=== PATIENT | male | born 1965 | race Caucasian/White ===

== ENCOUNTER 2018-01-07 18:59 | Inpatient (IN) | payer SELFPAY ==
[2018-01-07] MEDS: MULTIVIT INFUSN,ADULT 4,VIT K 10 ML, THIAMINE 100 MG, FOLIC ACID 1 MG in IV DEXTROSE 5%... IV (19:35)
[2018-01-07 19:47] LABS: ADD MAN DIFF? YES; BASO % 0 % (0-3); EOS % 0 % (0-3); HEMATOCRIT 47.6 % (39.0-53.0); HEMOGLOBIN 16.5 g/dL (13.0-17.5); LYMPH # 0.6 x10^3/uL (1.0-4.8); LYMPH % 3 % (24-48); MEAN CORPUSCULAR HEMOGLOBIN 32 pg (25-35); MEAN CORPUSCULAR HGB CONC 35 g/dL (31-37); MEAN CORPUSCULAR VOLUME 93 fL (79-100); MONO # 1.2 x10^3/uL (0.0-1.1); MONO % 6 % (0-9); NEUT # 17.8 x10^3uL (1.8-7.7); NEUT % 91 % (31-73); PLATELET COUNT 152 x10^3/uL (140-400); RED BLOOD COUNT 5.11 x10^6/uL (4.30-5.70); RED CELL DISTRIBUTION WIDTH 13.5 % (11.5-14.5); WHITE BLOOD COUNT 19.7 x10^3/uL (4.0-11.0)
[2018-01-07 19:49] LABS: ANION GAP 17 (6-14); BLOOD UREA NITROGEN 14 mg/dL (8-26); BUN/CREATININE RATIO 12 (6-20); CARBON DIOXIDE 23 mmol/L (21-32); CHLORIDE 92 mmol/L (98-107); CREATININE 1.2 mg/dL (0.7-1.3); GFR 64.1; GLUCOSE 198 mg/dL (70-99); POTASSIUM 4.3 mmol/L (3.5-5.1); SODIUM 132 mmol/L (136-145)
[2018-01-07 19:57] LABS: ALBUMIN 4.3 g/dL (3.4-5.0); ALK PHOS 103 U/L (46-116); ALT (SGPT) 28 U/L (16-63); AST (SGOT) 31 U/L (15-37); TOTAL PROTEIN 8.7 g/dL (6.4-8.2)
[2018-01-07 20:00] LABS: TROPONINI 0.104 ng/mL (0.000-0.055)
[2018-01-07 20:04] LABS: CKMB MASS 3.8 ng/mL (0.0-3.6); CREATINE KINASE 126 U/L (39-308)
[2018-01-07] MEDS: hydrALAZINE 20 MG/ML VIAL. IVP (20:12)
[2018-01-07 20:21] LABS: % ATYL 5 % (0-0); % BANDS 5 % (0-9); % LYMPHS 3 % (24-48); % METAS 1 % (0-0); % MONOS 7 % (0-10); % SEGS 79 % (35-66)
[2018-01-07 20:22] LABS: PLT ESTIMATE ADEQUATE (ADEQUATE)
[2018-01-07 20:24] LABS: LIPASE 2549 U/L (73-393)
[2018-01-07] MEDS: IV NORMAL SALINE 1000ML BAG 1,000 ML IV (21:11)
[2018-01-07] MEDS ORDERED: ONDANSETRON PF 4 MG/2 ML VIAL. IV (21:15)
[2018-01-07] MEDS ORDERED: IV NORMAL SALINE 1000ML BAG 1,000 ML IV (22:00)
[2018-01-08] MEDS: IV NORMAL SALINE 1000ML BAG 1,000 ML IV ×3 (01:38→22:17)
[2018-01-08 09:40] LABS: ANION GAP 12 (6-14); BLOOD UREA NITROGEN 12 mg/dL (8-26); CALCIUM 8.9 mg/dL (8.5-10.1); CARBON DIOXIDE 23 mmol/L (21-32); CHLORIDE 98 mmol/L (98-107); CHOLESTEROL 168 mg/dL (0-200); CREATININE 0.8 mg/dL (0.7-1.3); GFR 102.3; GLUCOSE 149 mg/dL (70-99); HDLC 47 mg/dL (40-60); LDLC 91 mg/dL (0-100); MAGNESIUM 2.5 mg/dL (1.8-2.4); NON-HDL CHOLESTEROL 121 mg/dL (0-129); POTASSIUM 3.3 mmol/L (3.5-5.1); SODIUM 133 mmol/L (136-145); TRIGLYCERIDES 150 mg/dL (0-150); VLDLC 30 mg/dL (0-40)
[2018-01-08 09:46] LABS: CHOLESTEROL/HDL RATIO 3.6
[2018-01-08 09:47] LABS: NT-PRO BNP 4760 pg/mL (0-124)
[2018-01-08 10:19] LABS: LIPASE 1408 U/L (73-393)
[2018-01-08 10:19] LABS: AMYLASE 105 U/L (25-115)
[2018-01-08] MEDS ORDERED: ASPIRIN 300 MG SUPP.RECT PR (10:30)
[2018-01-08] MEDS ORDERED: POTASSIUM CHLORIDE 20MEQ 50 ML IV (11:30)
[2018-01-08] MEDS: POTASSIUM CHLORIDE 20 MEQ in IV DEXTROSE 5 %-0.2 % NACL 250 ML IV (12:02)
[2018-01-08 12:28] LABS: BILIRUBIN,URINE NEGATIVE (NEG); CLARITY,URINE CLEAR; COLOR,URINE AMBER; GLUCOSE,URINE 100 mg/dL (NEG); NITRITE,URINE NEGATIVE (NEG); PH,URINE 5.5; PROTEIN,URINE 100 mg/dL (NEG-TRACE); UROBILINOGEN,URINE 0.2 mg/dL (0.2 mg/dL)
[2018-01-08 12:35] LABS: BARBITURATES NEG (NEG); BENZODIAZEPINES NEG (NEG); CANNABINOIDS NEG (NEG); COCAINE NEG (NEG); METHADONE NEG (NEG); OPIATES NEG (NEG); PHENCYCLIDINE NEG (NEG)
[2018-01-08 12:36] LABS: AMPHETAMINE/METHAMPHETAMINE NEG (NEG); BACTERIA,URINE 0 /HPF (0-FEW); ETHANOL, URINE NEG (NEG); WBC,URINE OCC /HPF (0-4)
[2018-01-08] MEDS: LORazepam 1 MG TABLET PO ×4 (12:49→23:00)
[2018-01-08] MEDS: PANTOPRAZOLE IV PUSH 40 MG VIAL. IVP ×2 (12:52→17:30)
[2018-01-08] MEDS: cefTRIAXone IV Push 1 GM VIAL. IVP (12:52)
[2018-01-08] MEDS: NICOTINE 21MG PATCH. TD (12:52)
[2018-01-08] MEDS ORDERED: ASPIRIN 325 MG TABLET PO (13:00)
[2018-01-08] MEDS: amLODIPine BESYLATE 10 MG TABLET PO (13:01)
[2018-01-08] MEDS: HEPARIN 25,000UTS/500ML PREMIX 500 ML IV (13:10)
[2018-01-08] MEDS: ASPIRIN ENTERIC COATED 325 MG TABLET.DR. PO (13:30)
[2018-01-08] MEDS: ANTI-COAG MONITOR BY PHARMACY. MC (13:48)
[2018-01-08 14:21] LABS: MRSA BY PCR Negative (Negative)
[2018-01-08] MEDS: hydrALAZINE 20 MG/ML VIAL. IVP ×2 (15:05→20:20)
[2018-01-08] MEDS: CARVEDILOL 6.25 MG TABLET. PO (17:31)
[2018-01-08 19:41] LABS: UNFRACTIONATED HEPARIN TESTING < 0.10 IU/mL (0.30-0.70)
[2018-01-08] MEDS: HEPARIN for IV BOLUS 10,000 UNIT/10 ML VIAL. IV (19:54)
[2018-01-08] MEDS: LACTOBACILLUS RHAMNOSUS GG 1 CAPSULE. PO (21:00)
[2018-01-09 02:05] LABS: UNFRACTIONATED HEPARIN TESTING 0.19 IU/mL (0.30-0.70)
[2018-01-09] MEDS: HEPARIN for IV BOLUS 10,000 UNIT/10 ML VIAL. IV (02:17)
[2018-01-09] MEDS: LORazepam 1 MG TABLET PO ×4 (05:00→16:43)
[2018-01-09] MEDS: IV NORMAL SALINE 1000ML BAG 1,000 ML IV ×2 (06:08→17:00)
[2018-01-09] MEDS: ANTI-COAG MONITOR BY PHARMACY. MC (08:04)
[2018-01-09 09:03] LABS: UNFRACTIONATED HEPARIN TESTING 0.26 IU/mL (0.30-0.70)
[2018-01-09 09:41] LABS: ADD MAN DIFF? NO
[2018-01-09 09:51] LABS: BASO # 0.1 x10^3/uL (0.0-0.2); BASO % 0 % (0-3); EOS % 0 % (0-3); HEMATOCRIT 42.3 % (39.0-53.0); HEMOGLOBIN 14.3 g/dL (13.0-17.5); LYMPH # 1.1 x10^3/uL (1.0-4.8); LYMPH % 6 % (24-48); MEAN CORPUSCULAR HEMOGLOBIN 32 pg (25-35); MEAN CORPUSCULAR HGB CONC 34 g/dL (31-37); MEAN CORPUSCULAR VOLUME 95 fL (79-100); MONO # 1.4 x10^3/uL (0.0-1.1); MONO % 8 % (0-9); NEUT # 14.4 x10^3uL (1.8-7.7); NEUT % 85 % (31-73); PLATELET COUNT 112 x10^3/uL (140-400); RED BLOOD COUNT 4.45 x10^6/uL (4.30-5.70); RED CELL DISTRIBUTION WIDTH 14.3 % (11.5-14.5); WHITE BLOOD COUNT 16.9 x10^3/uL (4.0-11.0)
[2018-01-09] MEDS: LACTOBACILLUS RHAMNOSUS GG 1 CAPSULE. PO ×2 (09:56→22:16)
[2018-01-09] MEDS: CARVEDILOL 6.25 MG TABLET. PO (09:56)
[2018-01-09] MEDS: amLODIPine BESYLATE 10 MG TABLET PO (09:57)
[2018-01-09] MEDS: ASPIRIN ENTERIC COATED 81 MG TABLET.DR. PO (09:58)
[2018-01-09] MEDS: MULTIVIT INFUSN,ADULT 4,VIT K 10 ML, THIAMINE 100 MG, FOLIC ACID 1 MG in IV NORMAL SALI... IV (09:59)
[2018-01-09] MEDS: NICOTINE 21MG PATCH. TD (10:02)
[2018-01-09 10:04] LABS: ALBUMIN 3.2 g/dL (3.4-5.0); ALK PHOS 78 U/L (46-116); ALT (SGPT) 22 U/L (16-63); ANION GAP 14 (6-14); AST (SGOT) 41 U/L (15-37); BLOOD UREA NITROGEN 9 mg/dL (8-26); BUN/CREATININE RATIO 13 (6-20); CALCIUM 7.9 mg/dL (8.5-10.1); CARBON DIOXIDE 23 mmol/L (21-32); CHLORIDE 99 mmol/L (98-107); CREATININE 0.7 mg/dL (0.7-1.3); GFR 119.4; GLUCOSE 96 mg/dL (70-99); LIPASE 461 U/L (73-393); POTASSIUM 3.4 mmol/L (3.5-5.1); SODIUM 136 mmol/L (136-145); TOTAL BILIRUBIN 0.7 mg/dL (0.2-1.0); TOTAL PROTEIN 6.4 g/dL (6.4-8.2)
[2018-01-09] MEDS: PANTOPRAZOLE 40 MG TABLET.DR. PO (10:08)
[2018-01-09 12:21] LABS: TROPONINI 2.352 ng/mL (0.000-0.055)
[2018-01-09] MEDS: cefTRIAXone IV Push 1 GM VIAL. IVP (13:13)
[2018-01-09] MEDS: POTASSIUM CHLORIDE 20 MEQ TABLET.ER. PO (16:39)
[2018-01-09] MEDS: CARVEDILOL 12.5 MG TABLET. PO (16:39)
[2018-01-09] MEDS: ATORVASTATIN CALCIUM 10 MG TABLET. PO (22:16)
[2018-01-10] MEDS: IV NORMAL SALINE 1000ML BAG 1,000 ML IV ×3 (01:00→09:00)
[2018-01-10 04:07] LABS: ADD MAN DIFF? NO
[2018-01-10 04:12] LABS: BASO % 0 % (0-3); EOS % 0 % (0-3); HEMATOCRIT 37.9 % (39.0-53.0); HEMOGLOBIN 13.4 g/dL (13.0-17.5); LYMPH % 14 % (24-48); MEAN CORPUSCULAR HEMOGLOBIN 33 pg (25-35); MEAN CORPUSCULAR HGB CONC 35 g/dL (31-37); MEAN CORPUSCULAR VOLUME 93 fL (79-100); MONO # 1.5 x10^3/uL (0.0-1.1); MONO % 10 % (0-9); NEUT # 10.7 x10^3uL (1.8-7.7); NEUT % 75 % (31-73); PLATELET COUNT 111 x10^3/uL (140-400); RED BLOOD COUNT 4.09 x10^6/uL (4.30-5.70); RED CELL DISTRIBUTION WIDTH 13.9 % (11.5-14.5); WHITE BLOOD COUNT 14.2 x10^3/uL (4.0-11.0)
[2018-01-10 04:48] LABS: ALBUMIN 2.7 g/dL (3.4-5.0); ALBUMIN/GLOBULIN RATIO 0.7 (1.0-1.7); ALK PHOS 69 U/L (46-116); ALT (SGPT) 20 U/L (16-63); ANION GAP 11 (6-14); AST (SGOT) 57 U/L (15-37); BLOOD UREA NITROGEN 6 mg/dL (8-26); BUN/CREATININE RATIO 10 (6-20); CALCIUM 8.1 mg/dL (8.5-10.1); CARBON DIOXIDE 23 mmol/L (21-32); CHLORIDE 97 mmol/L (98-107); CREATININE 0.6 mg/dL (0.7-1.3); GFR 142.6; GLUCOSE 118 mg/dL (70-99); POTASSIUM 3.5 mmol/L (3.5-5.1); SODIUM 131 mmol/L (136-145); TOTAL BILIRUBIN 0.9 mg/dL (0.2-1.0); TOTAL PROTEIN 6.6 g/dL (6.4-8.2)
[2018-01-10] MEDS: REGADENOSON 0.4 MG/5 ML DISP.SYRIN. IV (09:20)
[2018-01-10] MEDS: LACTOBACILLUS RHAMNOSUS GG 1 CAPSULE. PO ×2 (11:08→21:48)
[2018-01-10] MEDS: PANTOPRAZOLE 40 MG TABLET.DR. PO (11:08)
[2018-01-10] MEDS: MULTIVIT INFUSN,ADULT 4,VIT K 10 ML, THIAMINE 100 MG, FOLIC ACID 1 MG in IV NORMAL SALI... IV (11:08)
[2018-01-10] MEDS: ASPIRIN ENTERIC COATED 81 MG TABLET.DR. PO (11:09)
[2018-01-10] MEDS: amLODIPine BESYLATE 10 MG TABLET PO (11:09)
[2018-01-10] MEDS: CARVEDILOL 12.5 MG TABLET. PO ×2 (11:10→17:55)
[2018-01-10] MEDS: NICOTINE 21MG PATCH. TD (12:03)
[2018-01-10] MEDS: cefTRIAXone IV Push 1 GM VIAL. IVP (13:18)
[2018-01-10] MEDS: ATORVASTATIN CALCIUM 10 MG TABLET. PO (21:48)
[2018-01-11] MEDS: IV NORMAL SALINE 1000ML BAG 1,000 ML IV ×2 (01:43→03:55)
[2018-01-11 03:25] LABS: ADD MAN DIFF? NO
[2018-01-11 03:28] LABS: BASO % 0 % (0-3); EOS # 0.1 x10^3/uL (0.0-0.7); EOS % 1 % (0-3); HEMATOCRIT 33.4 % (39.0-53.0); HEMOGLOBIN 11.8 g/dL (13.0-17.5); LYMPH # 1.9 x10^3/uL (1.0-4.8); LYMPH % 18 % (24-48); MEAN CORPUSCULAR HEMOGLOBIN 33 pg (25-35); MEAN CORPUSCULAR HGB CONC 36 g/dL (31-37); MEAN CORPUSCULAR VOLUME 93 fL (79-100); MONO # 1.6 x10^3/uL (0.0-1.1); MONO % 15 % (0-9); NEUT % 66 % (31-73); PLATELET COUNT 122 x10^3/uL (140-400); RED CELL DISTRIBUTION WIDTH 13.3 % (11.5-14.5); WHITE BLOOD COUNT 10.6 x10^3/uL (4.0-11.0)
[2018-01-11 04:17] LABS: ALBUMIN 2.4 g/dL (3.4-5.0); ALBUMIN/GLOBULIN RATIO 0.6 (1.0-1.7); ALK PHOS 64 U/L (46-116); ALT (SGPT) 29 U/L (16-63); ANION GAP 11 (6-14); AST (SGOT) 82 U/L (15-37); BLOOD UREA NITROGEN 10 mg/dL (8-26); BUN/CREATININE RATIO 14 (6-20); CALCIUM 7.9 mg/dL (8.5-10.1); CARBON DIOXIDE 24 mmol/L (21-32); CHLORIDE 100 mmol/L (98-107); CREATININE 0.7 mg/dL (0.7-1.3); GFR 119.4; GLUCOSE 131 mg/dL (70-99); POTASSIUM 3.3 mmol/L (3.5-5.1); SODIUM 135 mmol/L (136-145); TOTAL BILIRUBIN 0.8 mg/dL (0.2-1.0); TOTAL PROTEIN 6.3 g/dL (6.4-8.2)
[2018-01-11] MEDS: CARVEDILOL 12.5 MG TABLET. PO (08:00)
[2018-01-11] MEDS: FOLIC ACID 1 MG TABLET. PO (08:29)
[2018-01-11] MEDS: THIAMINE 100 MG TABLET. PO (08:29)
[2018-01-11] MEDS: LACTOBACILLUS RHAMNOSUS GG 1 CAPSULE. PO (08:29)
[2018-01-11] MEDS: MULTIVITAMIN with MINERAL TABLET. PO (08:30)
[2018-01-11] MEDS: PANTOPRAZOLE 40 MG TABLET.DR. PO (08:30)
[2018-01-11] MEDS: ASPIRIN ENTERIC COATED 81 MG TABLET.DR. PO (08:30)
[2018-01-11] MEDS: amLODIPine BESYLATE 10 MG TABLET PO (08:30)
[2018-01-11] MEDS: NICOTINE 21MG PATCH. TD (08:32)
[2018-01-11] MEDS ORDERED: cefTRIAXone IV Push 1 GM VIAL. IVP (13:00)
== END 2018-01-11 12:50 | disposition home or self-care (01) | DRG 280 ==
LOC: 6 SOUTH 01-11 01:14 → 2 SOUTH 01-09 18:07 → ER 18:59 → 1 WEST ICU 21:00
DX: I21.A1 Myocardial infarction type 2 (principal); K85.20 Alcohol induced acute pancreatitis without necrosis or infection; F10.239 Alcohol dependence with withdrawal, unspecified; W06.XXXA Fall from bed, initial encounter; F17.210 Nicotine dependence, cigarettes, uncomplicated; I10 Essential (primary) hypertension; R73.9 Hyperglycemia, unspecified; I16.0 Hypertensive urgency; Y90.9 Presence of alcohol in blood, level not specified; Z82.49 Family history of ischemic heart disease and other diseases of the circulatory system; Z71.41 Alcohol abuse counseling and surveillance of alcoholic; Z71.6 Tobacco abuse counseling; Y93.89 Activity, other specified; Y92.092 Bedroom in other non-institutional residence as the place of occurrence of the external cause; Y99.8 Other external cause status
CPT/HCPCS: 36415; 71045; 71250; 74150; 78452; 80048; 80053; 80061; 80307; 81001; 82150; 82553; 83690; 83735; 83880; 84484; 85007; 85025; 85520; 87641; 93005; 93017; 93306; 96365; 96374; 96375; 96376; 99285; 99285-25; 99406; A9500; C9113; J0360; J0696; J1644; J1956; J2785; J7030; J7050

== ENCOUNTER 2019-11-13 19:07 | Observation (INO) | payer SELFPAY ==
[~2019-11-13] VITALS: Ht 177.8 cm; Wt 60.1 kg
[~2019-11-13 19:07] MED LIST: AMLO10TA8 PO; ASPI-612 PO; ATOR10TA60 PO; CARV12.511 PO; HYDR-2761 PO; LEVO500T59 PO
--- NOTE | 2019-11-13 19:28 | PHYS DOC ---
Past Medical History Past Medical History: Pancreatitis Past Surgical History: No Surgical History Smoking Status: Current Every Day Smoker Alcohol Use: Heavy Drug Use: None Adult General Chief Complaint Chief Complaint: ALTERED MENTAL STATUS HPI HPI Patient is a 53 year old male with past medical history significant for alcohol abuse for multiple years. Patient presents secondary to concern for possible "stroke like symptoms" that started last night and this morning. Patient states that he has had increasing issues with coordination they got worse overnight but have been present for a couple of weeks now. The patient admits to drinking 3, 32 ounce beers nightly and sometimes more and he has been doing this for an extended period of time. He has history of alcoholic pancreatitis and hypertension but does not take blood pressure medication for this. He denies headache, chest pain, shortness of breath, weakness, slurred speech, blurry vision. Patient states that he is having increased altered with walking and with fine motor movements of the hands. Review of Systems Review of Systems All other ROS is negative unless otherwise stated in HPI Current Medications Current Medications Current Medications Medications (Trade) Dose Ordered Sig/Amara Start Time Stop Time Status Last Admin Dose Admin Acetaminophen (Tylenol) 650 mg PRN Q4HRS PRN 11/13/19 20:45 11/14/19 20:44 Hydralazine HCl (Apresoline Inj) 10 mg 1X ONCE 11/13/19 20:00 11/13/19 20:01 DC 11/13/19 20:04 10 MG Ondansetron HCl (Zofran) 4 mg PRN Q8HRS PRN 11/13/19 20:45 11/14/19 20:44 Sodium Chloride 1,000 ml @ 1,000 mls/hr 1X ONCE 11/13/19 19:30 11/13/19 20:29 DC 11/13/19 19:36 1,000 MLS/HR Thiamine HCl 100 mg/Dextrose 51 ml @ 102 mls/hr 1X ONCE 11/13/19 19:45 11/13/19 20:14 DC 11/13/19 19:37 102 MLS/HR Allergies Allergies Allergies Coded Allergies Type Severity Reaction Last Updated Verified No Known Allergies Allergy Unknown 04/25/15 No Physical Exam Physical Exam See above Constitutional: Well developed, well nourished, no acute distress, non-toxic appearance. [] HENT: Normocephalic, atraumatic, bilateral external ears normal, oropharynx moist, no oral exudates, nose normal. [] Eyes: PERRLA, EOMI, conjunctiva normal, no discharge. [] Neck: Normal range of motion, no tenderness, supple, no stridor. [] Cardiovascular:Heart rate regular rhythm, no murmur [] Lungs & Thorax: Bilateral breath sounds clear to auscultation [] Abdomen: Bowel sounds normal, soft, no tenderness, no masses, no pulsatile masses. [] Skin: Warm, dry, no erythema, no rash. [] Back: No tenderness, no CVA tenderness. [] Extremities: No tenderness, no cyanosis, no clubbing, ROM intact, no edema. [] Neurologic: Alert and oriented X 3, normal motor function, normal sensory function, patient does had some difficulty with finger to nose bilaterally Psychologic: Affect normal, judgement normal, mood normal. [] Current Patient Data Vital Signs Vital Signs Date Time Temp Pulse Resp B/P (MAP) Pulse Ox O2 Delivery O2 Flow Rate FiO2 11/13/19 20:04 84 208/95 11/13/19 19:14 98.0 12 99 Room Air 98.0 Lab Values Laboratory Tests Test 11/13/19 19:27 11/13/19 19:43 11/13/19 20:10 White Blood Count 10.4 x10^3/uL (4.0-11.0) Red Blood Count 4.88 x10^6/uL (4.30-5.70) Hemoglobin 16.1 g/dL (13.0-17.5) Hematocrit 45.5 % (39.0-53.0) Mean Corpuscular Volume 93 fL (79-100) Mean Corpuscular Hemoglobin 33 pg (25-35) Mean Corpuscular Hemoglobin Concent 35 g/dL (31-37) Red Cell Distribution Width 14.3 % (11.5-14.5) Platelet Count 191 x10^3/uL (140-400) Neutrophils (%) (Auto) 58 % (31-73) Lymphocytes (%) (Auto) 31 % (24-48) Monocytes (%) (Auto) 9 % (0-9) Eosinophils (%) (Auto) 2 % (0-3) Basophils (%) (Auto) 1 % (0-3) Neutrophils # (Auto) 6.0 x10^3/uL (1.8-7.7) Lymphocytes # (Auto) 3.2 x10^3/uL (1.0-4.8) Monocytes # (Auto) 0.9 x10^3/uL (0.0-1.1) Eosinophils # (Auto) 0.2 x10^3/uL (0.0-0.7) Basophils # (Auto) 0.1 x10^3/uL (0.0-0.2) Sodium Level 133 mmol/L (136-145) L Potassium Level 4.1 mmol/L (3.5-5.1) Chloride Level 95 mmol/L (98-107) L Carbon Dioxide Level 28 mmol/L (21-32) Anion Gap 10 (6-14) Blood Urea Nitrogen 15 mg/dL (8-26) Creatinine 1.1 mg/dL (0.7-1.3) Estimated GFR (Cockcroft-Gault) 70.6 BUN/Creatinine Ratio 14 (6-20) Glucose Level 126 mg/dL (70-99) H Calcium Level 8.9 mg/dL (8.5-10.1) Total Bilirubin 0.6 mg/dL (0.2-1.0) Aspartate Amino Transferase (AST) 25 U/L (15-37) Alanine Aminotransferase (ALT) 25 U/L (16-63) Alkaline Phosphatase 88 U/L (46-116) Ammonia < 10 mcmol/L (11-34) L Troponin I Quantitative < 0.017 ng/mL (0.000-0.055) Total Protein 7.5 g/dL (6.4-8.2) Albumin 4.1 g/dL (3.4-5.0) Albumin/Globulin Ratio 1.2 (1.0-1.7) Thyroid Stimulating Hormone (TSH) 2.454 uIU/mL (0.358-3.74) Free Thyroxine 1.06 ng/dL (0.76-1.46) Ethyl Alcohol Level < 10 mg/dL (0-10) Glucose (Fingerstick) 114 mg/dL (70-99) H Urine Collection Type Unknown Urine Color Yellow Urine Clarity Clear Urine pH 7.0 Urine Specific [place] <=1.005 Urine Protein Negative mg/dL (NEG-TRACE) Urine Glucose (UA) Negative mg/dL (NEG) Urine Ketones (Stick) Negative mg/dL (NEG) Urine Blood Negative (NEG) Urine Nitrite Negative (NEG) Urine Bilirubin Negative (NEG) Urine Urobilinogen Dipstick 0.2 mg/dL (0.2 mg/dL) Urine Leukocyte Esterase Negative (NEG) Urine RBC Occ /HPF (0-2) Urine WBC 0 /HPF (0-4) Urine Squamous Epithelial Cells Occ /LPF Urine Bacteria 0 /HPF (0-FEW) Urine Opiates Screen Neg (NEG) Urine Methadone Screen Neg (NEG) Urine Barbiturates Neg (NEG) Urine Phencyclidine Screen Neg (NEG) Urine Amphetamine/Methamphetamine Neg (NEG) Urine Benzodiazepines Screen Neg (NEG) Urine Cocaine Screen Neg (NEG) Urine Cannabinoids Screen Neg (NEG) Urine Ethyl Alcohol Neg (NEG) Laboratory Tests 11/13/19 19:27 Laboratory Tests 11/13/19 19:27 EKG EKG []EKG shows a normal sinus rhythm with no ST changes and a heart rate of 80. Radiology/Procedures Radiology/Procedures Exam: CT head INDICATION: Coordination issues TECHNIQUE: Sequential axial images through the head were obtained without the administration of IV contrast. Comparisons: None FINDINGS: No focal parenchymal lesion or hemorrhage is identified. There is no midline shift or sulcal effacement. Extensive confluent hypodensity are noted throughout the white matter. Bilateral lacunar infarcts at the basal ganglia. Chronic appearing infarct at the right cerebellum. No acute vascular territory infarction is identified. Hu-white distinction is preserved. The ventricular system is within normal limits without compression hydrocephalus. The basal cisterns are well maintained. The visualized portions of the paranasal sinuses and mastoid air cells are well-pneumatized. No acute fractures. IMPRESSION: Extensive small vessel ischemic change and areas of chronic infarcts. No acute abnormality is identified. If there are concerns for acute ischemia MRI would better evaluate.[] Course & Med Decision Making Course & Med Decision Making Pertinent Labs and Imaging studies reviewed. (See chart for details) 192: Patient is seen for "altered mental status" and also coordination issues. He has a history of alcohol abuse and admits to drinking up until last night. I suspect his symptoms are likely from chronic alcohol abuse but I will go ahead and get a CT scan of his head. We'll also give him 100 mg of IV thiamine and normal saline. We'll check labs. Physical exam is remarkable only for coordination of bilateral upper extremities. I was unable to visualize him wa lking but nursing staff did report the patient was unsteady on his feet. 2038: This patient's workup is complete at this time and is rather unremarkable. I went in and reevaluated him and had him walk and he is slightly unstable on his feet. His reiterates that the symptoms seemed to worsen last night and throughout the day today. Given the unknown etiology the patient's symptoms we will admit him for observation and consult neurology. Dragon Disclaimer Dragon Disclaimer This electronic medical record was generated, in whole or in part, using a voice recognition dictation system. Departure Departure Impression: Primary Impression: Unsteady gait Additional Impressions: Dysmetria Elevated blood pressure reading History of alcohol abuse Disposition: ADMITTED INPATIENT Admitting Physician: SARAH Condition: STABLE Referrals: NO PCP (PCP) NIHSS Stroke Scale NIH Stroke Scale: NIH Stroke Scale Response (Comments) Value Level of Consciousness: 0 Alert/Responsive 0 LOC Questions: 0 Answers both correctly 0 LOC Commands: 0 Performs both tasks 0 Visual: 0 No visual loss 0 Facial Palsy: 0 Normal, symmetrical 0 Motor - Left Arm 0 No drift 0 Motor - Right Arm 0 No drift 0 Motor - Left Leg 0 No drift 0 Motor: Right Leg 0 No drift 0 Limb Ataxia: 2 Two limbs 2 Sensory: 0 No loss 0 Best Language: 0 Normal 0 Dysathria: 0 Normal 0 Extinction and Inattention: 0 Normal 0 Total 2 Problem Qualifiers NURIA GATES DO Nov 13, 2019 19:28
[2019-11-13] MEDS ORDERED: IV NORMAL SALINE 1000ML BAG 1,000 ML IV ONE (19:30)
[2019-11-13 19:40] LABS: BASO # 0.1 x10^3/uL (0.0-0.2); BASO % 1 % (0-3); EOS # 0.2 x10^3/uL (0.0-0.7); EOS % 2 % (0-3); HEMATOCRIT 45.5 % (39.0-53.0); HEMOGLOBIN 16.1 g/dL (13.0-17.5); LYMPH # 3.2 x10^3/uL (1.0-4.8); LYMPH % 31 % (24-48); MEAN CORPUSCULAR HEMOGLOBIN 33 pg (25-35); MEAN CORPUSCULAR HGB CONC 35 g/dL (31-37); MEAN CORPUSCULAR VOLUME 93 fL (79-100); MONO # 0.9 x10^3/uL (0.0-1.1); MONO % 9 % (0-9); NEUT % 58 % (31-73); PLATELET COUNT 191 x10^3/uL (140-400); RED BLOOD COUNT 4.88 x10^6/uL (4.30-5.70); RED CELL DISTRIBUTION WIDTH 14.3 % (11.5-14.5); WHITE BLOOD COUNT 10.4 x10^3/uL (4.0-11.0)
[2019-11-13] MEDS ORDERED: THIAMINE INJ 100 MG in IV DEXTROSE 5% 50 ML IV ONE (19:45)
[2019-11-13 19:58] LABS: CALCIUM 8.9 mg/dL (8.5-10.1); CREATININE 1.1 mg/dL (0.7-1.3); GFR 70.6; POTASSIUM 4.1 mmol/L (3.5-5.1)
[2019-11-13] MEDS ORDERED: hydrALAZINE 20 MG/ML VIAL. IVP ONE ×2 (20:00→21:15)
[2019-11-13 20:05] LABS: ALBUMIN 4.1 g/dL (3.4-5.0); ALBUMIN/GLOBULIN RATIO 1.2 (1.0-1.7); TOTAL BILIRUBIN 0.6 mg/dL (0.2-1.0); TOTAL PROTEIN 7.5 g/dL (6.4-8.2)
[2019-11-13 20:12] LABS: FREE T4 1.06 ng/dL (0.76-1.46); THYROID STIM HORMONE (TSH) 2.454 uIU/mL (0.358-3.74)
--- NOTE | 2019-11-13 20:14 | RAD ---
Exam: CT head INDICATION: Coordination issues TECHNIQUE: Sequential axial images through the head were obtained without the administration of IV contrast. Comparisons: None FINDINGS: No focal parenchymal lesion or hemorrhage is identified. There is no midline shift or sulcal effacement. Extensive confluent hypodensity are noted throughout the white matter. Bilateral lacunar infarcts at the basal ganglia. Chronic appearing infarct at the right cerebellum. No acute vascular territory infarction is identified. Hu-white distinction is preserved. The ventricular system is within normal limits without compression hydrocephalus. The basal cisterns are well maintained. The visualized portions of the paranasal sinuses and mastoid air cells are well-pneumatized. No acute fractures. IMPRESSION: Extensive small vessel ischemic change and areas of chronic infarcts. No acute abnormality is identified. If there are concerns for acute ischemia MRI would better evaluate. Exposure: One or more of the following in the visualized dose reduction techniques were utilized for this examination: 1. Automated exposure control 2. Adjustment of the MA and/or KV according to patient size Use of iterative of reconstructive technique Electronically signed by: Adeola Rodriguez MD (11/13/2019 8:11 PM) [id number]
[2019-11-13 20:18] LABS: BILIRUBIN,URINE NEGATIVE (NEG); CLARITY,URINE CLEAR; COLOR,URINE YELLOW; NITRITE,URINE NEGATIVE (NEG); PROTEIN,URINE NEGATIVE (NEG-TRACE); UROBILINOGEN,URINE 0.2 mg/dL (0.2 mg/dL)
[2019-11-13 20:23] LABS: BACTERIA,URINE 0 /HPF (0-FEW); RBC,URINE OCC /HPF (0-2); SQUAMOUS EPITHELIAL CELL,UR OCC /LPF; WBC,URINE 0 /HPF (0-4)
[2019-11-13 20:25] LABS: AMPHETAMINE/METHAMPHETAMINE NEG (NEG); BARBITURATES NEG (NEG); BENZODIAZEPINES NEG (NEG); CANNABINOIDS NEG (NEG); COCAINE NEG (NEG); METHADONE NEG (NEG); OPIATES NEG (NEG); PHENCYCLIDINE NEG (NEG)
[2019-11-13] MEDS ORDERED: ACETAMINOPHEN 325 MG TABLET. PO PRN (20:45)
[2019-11-13] MEDS ORDERED: ONDANSETRON PF 4 MG/2 ML VIAL. IV PRN (20:45)
[2019-11-13] MEDS ORDERED: hydrALAZINE 20 MG/ML VIAL. IVP PRN (21:15)
[2019-11-13] MEDS ORDERED: cloNIDine HCL 0.1 MG TABLET PO ONE (21:15)
[2019-11-13] MEDS ORDERED: amLODIPine BESYLATE 5 MG TABLET PO ONE (21:15)
--- NOTE | 2019-11-13 21:53 | HP ---
ADMIT DATE: 11/13/2019 CHIEF COMPLAINT: Mental status change and ataxia and poor coordination. HISTORY OF PRESENT ILLNESS: The patient is a pleasant 53-year-old male who drinks too many beers. He states he drinks three 32-ounce beers each night and many times more than that. He has been doing that for many years. He states he has quit drinking a couple times, but he just simply suffers from chronic alcoholism. He also states he has not been working for the past couple of years so that has increased his alcohol consumption. Now, he has got neurologic symptoms. He has got some ataxia, some dysmetria, he has had some mental status changes. I discussed the case with ER physician. We are going to admit the patient and consult Neurology and do alcohol withdrawal protocol. PAST MEDICAL HISTORY: Pancreatitis, alcoholism, tobacco abuse. ALLERGIES: None. FAMILY HISTORY: Alcoholism. SOCIAL HISTORY: He drinks and smokes. No drugs. He is . States his does not drink. MEDICATIONS: Reviewed, please refer to the MRAD. REVIEW OF SYSTEMS: GENERAL: No history of weight change, weakness or fevers. SKIN: No bruising, hair changes or rashes. EYES: No blurred, double or loss of vision. NOSE AND THROAT: No history of nosebleeds, hoarseness or sore throat. HEART: No history of palpitations, chest pain or shortness of breath on exertion. LUNGS: Denies cough, hemoptysis, wheezing or shortness of breath. GASTROINTESTINAL: Denies changes in appetite, nausea, vomiting, diarrhea or constipation. GENITOURINARY: No history of frequency, urgency, hesitancy or nocturia. NEUROLOGIC: He complains of ataxia, poor coordination, and confusion. PSYCHIATRIC: No history of panic, anxiety or depression. ENDOCRINE: No history of heat or cold intolerance, polyuria or polydipsia. EXTREMITIES: Denies muscle weakness, joint pain, pain on walking or stiffness. PHYSICAL EXAMINATION: VITALS: Within normal limits and are stable. GENERAL: No apparent distress. Alert and oriented. HEENT: Normal cephalic atraumatic, external auditory canals are patent EYES: Extraocular muscles are intact, pupils are equally round and reactive to light and accommodation MUSCULOSKELETAL: Well developed, well nourished, good range of motion ENDOCRINE: No thyromegaly was palpated LYMPHATICS: No cervical chain or axillary nodes were noted HEMATOPOIETIC: No bruising NECK: Supple, no JVD, no thyromegaly was noted. LUNGS: Clear to auscultation in all lung [place] without rhonchi or wheezing. HEART: RRR, S1, S2 present. Peripheral pulses intact, no obvious murmurs were noted. ABDOMEN: Soft, nontender. Positive bowel sounds no organomegaly, normal bowel sounds. EXTREMITIES: Without any cyanosis, clubbing, or edema. Pedal pulses intact, Homans sign is negative. NEUROLOGIC: He has poor coordination with finger to nose touching. He could not stand on his heels or the balls of his feet for than a second or so without nearly falling. All of his neurologic symptoms are symmetrical. There are no asymmetrical stroke signs or any other issues other than some mild confusion. PSYCHIATRIC: Normal affect, normal mood. Stable. SKIN: No ulcerations or rashes, good skin turgor, no jaundice. VASCULAR: Good capillary refill, neurovascular bundle appears to be intact. LABORATORY DATA: White count is 10, hemoglobin 16, platelets are 191. Anion gap is 10. AST 25, ALT 25, alkaline phosphatase 88. Ammonia less than 10, albumin 4.1. Electrolytes: Sodium 132, potassium 4.1, chloride 95, bicarbonate 28, BUN 15, creatinine 1.1, glucose 126. CT of the head shows extensive small vessel disease and areas of chronic infarcts. ASSESSMENT AND PLAN: Dysmetria, mental status change, ataxia; suspect this is all alcohol related. The patient is being admitted. We will consult Neurology, alcohol withdrawal protocol, home meds, deep venous thrombosis prophylaxis and full code. CATHY GARCIA DO DR: DA/amanda JOB#: [id number] / [id number]
[2019-11-13 22:00] VITALS: BP 175/92
[2019-11-14] MEDS ORDERED: LORazepam 1 MG TABLET PO PRN ×2
[2019-11-14] MEDS ORDERED: MULTIVIT INFUSN,ADULT 4,VIT K 10 ML, THIAMINE INJ 100 MG, FOLIC ACID INJ 1 MG in IV NOR... IV SCH (00:15)
--- NOTE | 2019-11-14 03:00 | EKG ---
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
[2019-11-14 03:40] VITALS: BP 152/89
[2019-11-14 07:00] VITALS: BP 144/86
[2019-11-14] MEDS ORDERED: THIAMINE INJ 100 MG in IV DEXTROSE 5% 50 ML IV SCH (09:00)
[2019-11-14 11:00] VITALS: BP 167/85
--- NOTE | 2019-11-14 11:03 | PDOC ---
[facility] PROGRESS NOTE Chief Complaint Chief Complaint Altered Mental Status Ataxic gait Alcohol Use disorder History of Present Illness History of Present Illness 11/14/2019 Pt seen and examined. He is in a better condition today, is able to stand without support and has mobility. Seen with in the room, who notes that alcoholism has been a problem for a number of years. Pt was educated about the effects that alcohol can have on the body and was provided information to help quit, when ready. Pt was advised to lay off the drinking and start a multivita min. PT is stable and will be discharged today with a prescription for Norvasc secondary to blood pressure in the 140s/xs. Will also provide a referral to a pediatrist secondary to b/l corns on feet observed Vitals/I&O Vitals/I&O: Vital Signs Date Time Temp Pulse Resp B/P (MAP) Pulse Ox O2 Delivery O2 Flow Rate FiO2 11/14/19 07:00 98.1 66 18 144/86 (105) 98 Room Air 98.1 I & O 11/13/19 11/13/19 11/14/19 14:59 22:59 06:59 Intake Total 1051 ml 300 ml Balance 1051 ml 300 ml Physical Exam General: Alert, Oriented X3, Cooperative Heart: Regular rate Lungs: Clear Abdomen: Normal bowel sounds Extremities: No clubbing, No cyanosis, Other (b/l corns noted on lateral feet) Skin: No rashes Labs Labs: Laboratory Tests Test 11/13/19 19:27 11/13/19 19:43 11/13/19 20:10 11/14/19 08:40 White Blood Count 10.4 x10^3/uL (4.0-11.0) Red Blood Count 4.88 x10^6/uL (4.30-5.70) Hemoglobin 16.1 g/dL (13.0-17.5) Hematocrit 45.5 % (39.0-53.0) Mean Corpuscular Volume 93 fL (79-100) Mean Corpuscular Hemoglobin 33 pg (25-35) Mean Corpuscular Hemoglobin Concent 35 g/dL (31-37) Red Cell Distribution Width 14.3 % (11.5-14.5) Platelet Count 191 x10^3/uL (140-400) Neutrophils (%) (Auto) 58 % (31-73) Lymphocytes (%) (Auto) 31 % (24-48) Monocytes (%) (Auto) 9 % (0-9) Eosinophils (%) (Auto) 2 % (0-3) Basophils (%) (Auto) 1 % (0-3) Neutrophils # (Auto) 6.0 x10^3/uL (1.8-7.7) Lymphocytes # (Auto) 3.2 x10^3/uL (1.0-4.8) Monocytes # (Auto) 0.9 x10^3/uL (0.0-1.1) Eosinophils # (Auto) 0.2 x10^3/uL (0.0-0.7) Basophils # (Auto) 0.1 x10^3/uL (0.0-0.2) Sodium Level 133 mmol/L (136-145) Potassium Level 4.1 mmol/L (3.5-5.1) Chloride Level 95 mmol/L (98-107) Carbon Dioxide Level 28 mmol/L (21-32) Anion Gap 10 (6-14) Blood Urea Nitrogen 15 mg/dL (8-26) Creatinine 1.1 mg/dL (0.7-1.3) Estimated GFR (Cockcroft-Gault) 70.6 BUN/Creatinine Ratio 14 (6-20) Glucose Level 126 mg/dL (70-99) Calcium Level 8.9 mg/dL (8.5-10.1) Total Bilirubin 0.6 mg/dL (0.2-1.0) Aspartate Amino Transf (AST/SGOT) 25 U/L (15-37) Alanine Aminotransferase (ALT/SGPT) 25 U/L (16-63) Alkaline Phosphatase 88 U/L (46-116) Ammonia < 10 mcmol/L (11-34) Troponin I Quantitative < 0.017 ng/mL (0.000-0.055) Total Protein 7.5 g/dL (6.4-8.2) Albumin 4.1 g/dL (3.4-5.0) Albumin/Globulin Ratio 1.2 (1.0-1.7) Thyroid Stimulating Hormone (TSH) 2.454 uIU/mL (0.358-3.74) Free Thyroxine 1.06 ng/dL (0.76-1.46) Ethyl Alcohol Level < 10 mg/dL (0-10) Glucose (Fingerstick) 114 mg/dL (70-99) Urine Collection Type Unknown Urine Color Yellow Urine Clarity Clear Urine pH 7.0 Urine Specific [place] <=1.005 Urine Protein Negative mg/dL (NEG-TRACE) Urine Glucose (UA) Negative mg/dL (NEG) Urine Ketones (Stick) Negative mg/dL (NEG) Urine Blood Negative (NEG) Urine Nitrite Negative (NEG) Urine Bilirubin Negative (NEG) Urine Urobilinogen Dipstick 0.2 mg/dL (0.2 mg/dL) Urine Leukocyte Esterase Negative (NEG) Urine RBC Occ /HPF (0-2) Urine WBC 0 /HPF (0-4) Urine Squamous Epithelial Cells Occ /LPF Urine Bacteria 0 /HPF (0-FEW) Urine Opiates Screen Neg (NEG) Urine Methadone Screen Neg (NEG) Urine Barbiturates Neg (NEG) Urine Phencyclidine Screen Neg (NEG) Urine Amphetamine/Methamphetamine Neg (NEG) Urine Benzodiazepines Screen Neg (NEG) Urine Cocaine Screen Neg (NEG) Urine Cannabinoids Screen Neg (NEG) Urine Ethyl Alcohol Neg (NEG) Erythrocyte Sedimentation Rate 2 (0-15) Vitamin B12 Level 332 pg/mL (247-911) Assessment and Plan Assessmemt and Plan Problems Medical Problems: (1) Dysmetria Status: Acute (2) Elevated blood pressure reading Status: Acute (3) History of alcohol abuse Status: Acute (4) Unsteady gait Status: Acute Plan: 1. Provided counseling on alcohol cessation, will provide further information for out patient cessation programs 2. Provide referral to pediatrist re: b/l corns on lateral feet 3. Provided Rx for Norvasc secondary to high blood pressure noted 4. Discharge today. Comment Review of Relevant I have reviewed the following items ifrah (where applicable) has been applied. Medications: Current Medications Medications (Trade) Dose Ordered Sig/Amara Route PRN Reason Start Time Stop Time Status Last Admin Dose Admin Sodium Chloride 1,000 ml @ 1,000 mls/hr 1X ONCE IV 11/13/19 19:30 11/13/19 20:29 DC 11/13/19 19:36 Thiamine HCl 100 mg/Dextrose 51 ml @ 102 mls/hr 1X ONCE IV 11/13/19 19:45 11/13/19 20:14 DC 11/13/19 19:37 Hydralazine HCl (Apresoline Inj) 10 mg 1X ONCE IVP 11/13/19 20:00 11/13/19 20:01 DC 11/13/19 20:04 Hydralazine HCl (Apresoline Inj) 10 mg 1X ONCE IVP 11/13/19 21:15 11/13/19 21:16 DC 11/13/19 21:23 Amlodipine Besylate (Norvasc) 10 mg 1X ONCE PO 11/13/19 21:15 11/13/19 21:16 DC 11/13/19 21:22 Clonidine HCl (Catapres) 0.1 mg 1X ONCE PO 11/13/19 21:15 11/13/19 21:16 DC 11/13/19 21:22 Multivitamins 10 ml/Thiamine HCl 100 mg/Folic Acid 1 mg/Sodium Chloride 1,011.2 ml @ 100 mls/ hr DAILY IV 11/14/19 00:15 11/17/19 19:07 11/14/19 00:57 CATHY GARCIA III DO Nov 14, 2019 11:03
--- NOTE | 2019-11-14 11:44 | DS ---
DATE OF DISCHARGE: 11/14/2019 DATE OF DISCHARGE: 11/14/2019 ADMISSION DIAGNOSES: Unsteady gait, dysmetria, and alcoholism. DISCHARGE DIAGNOSIS: Resolving dysmetria. HOSPITAL COURSE: The patient is a pleasant 53-year-old male who drinks too much. He states he drinks three 32-ounce cans of beer nightly. His states he drinks a little more. Basically, he presented with dysmetria. He was unsteady with his gait. He had a poor [id number] touching. This morning, I saw him and examined him. He looks great. He is more stable and he wants to go home. We plan to discharge him to home to quit drinking. DISPOSITION: Home. ACTIVITY: As tolerated. DIET: Low sodium. MEDICATIONS: Please see MRAD. TOTAL TIME: 34 minutes. NIAL Alma Rosa GARCIA DO DR: DA/amanda JOB#: [id number] / [id number]
--- NOTE | 2019-11-14 12:36 | PDOC2 ---
NEUROLOGY CONSULT Date of Admission Date of Admission DATE: 11/14/19 TIME: 12:32 Reason for Consult Reason for Consult: neuro symptoms Referring Physician Referring Physician: Dr. Montano Source Source: Chart review, Patient History of Present Illness History of Present Illness The patient is a 53-year-old right-handed male who has 3 32-ounce beers nightly and came to the emergency department last night because his body has been doing strange things, he says. He has been off balance, he has had some jerking, tremors, and feels like his mental status has changed. He feels better this m orning. There is no history of stroke, seizure, head injury, or delirium tremens. Past Medical History Cardiovascular: HTN Pulmonary: Other (sleep apnea) GI: Constipation, Other (pancreatitis) Psych: Addictions Renal/: Other (urinary retention) Past Surgical History Past Surgical History: Other (metal brooke for right tibia fibula fractures) Family History Family History: Cancer Social History Social History Single, unemployed, alcohol as above, one pack of tobacco a day Current Medications Current Medications Current Medications Sodium Chloride 1,000 ml @ 1,000 mls/hr 1X ONCE IV Last administered on 11/13/19at 19:36; Start 11/13/19 at 19:30; Stop 11/13/19 at 20:29; Status DC Thiamine HCl 100 mg/Dextrose 51 ml @ 102 mls/hr DAILY IV ; Start 11/14/19 at 09:00; Stop 11/13/19 at 19:30; Status DC Thiamine HCl 100 mg/Dextrose 51 ml @ 102 mls/hr 1X ONCE IV Last administered on 11/13/19at 19:37; Start 11/13/19 at 19:45; Stop 11/13/19 at 20:14; Status DC Hydralazine HCl (Apresoline Inj) 10 mg 1X ONCE IVP Last administered on 11/13/19at 20:04; Start 11/13/19 at 20:00; Stop 11/13/19 at 20:01; Status DC Ondansetron HCl (Zofran) 4 mg PRN Q8HRS PRN IV NAUSEA/VOMITING; Start 11/13/19 at 20:45; Stop 11/14/19 at 20:44 Acetaminophen (Tylenol) 650 mg PRN Q4HRS PRN PO FEVER; Start 11/13/19 at 20:45; Stop 11/14/19 at 20:44 Hydralazine HCl (Apresoline Inj) 10 mg 1X ONCE IVP Last administered on 11/13/19at 21:23; Start 11/13/19 at 21:15; Stop 11/13/19 at 21:16; Status DC Amlodipine Besylate (Norvasc) 10 mg 1X ONCE PO Last administered on 11/13/19at 21:22; Start 11/13/19 at 21:15; Stop 11/13/19 at 21:16; Status DC Clonidine HCl (Catapres) 0.1 mg 1X ONCE PO Last administered on 11/13/19at 21:22; Start 11/13/19 at 21:15; Stop 11/13/19 at 21:16; Status DC Hydralazine HCl (Apresoline Inj) 10 mg PRN Q3HRS PRN IVP HYPERTENSION; Start 11/13/19 at 21:15 Multivitamins 10 ml/Thiamine HCl 100 mg/Folic Acid 1 mg/Sodium Chloride 1,011.2 ml @ 100 mls/ hr DAILY IV Last administered on 11/14/19at 00:57; Start 11/14/19 at 00:15; Stop 11/17/19 at 19:07 Lorazepam (Ativan) 4 mg PRN Q1HR PRN PO For CIWA 8-14; Start 11/14/19 at 00:00 Lorazepam (Ativan) 8 mg PRN Q1HR PRN PO For CIWA 15 or greater; Start 11/14/19 at 00:00 Lorazepam (Ativan Inj) 2 mg PRN Q1HR PRN IV For CIWA 8-14; Start 11/14/19 at 00:00 Lorazepam (Ativan Inj) 4 mg PRN Q1HR PRN IV For CIWA 15 or greater; Start 11/14/19 at 00:00 Active Scripts Active Levaquin (Levofloxacin) 500 Mg Tablet 1 Tab PO DAILY Aspirin Ec (Aspirin) 81 Mg Tablet. 81 Mg PO DAILYWBKFT 90 Days Amlodipine Besylate 10 Mg Tablet 10 Mg PO DAILY 90 Days Carvedilol (Carvedilol) 12.5 Mg Tablet 12.5 Mg PO BIDWMEALS 60 Days Atorvastatin Calcium 10 Mg Tablet 10 Mg PO QHS 90 Days Hydrocodone-Apap 5-325 (Hydrocodone Bit/Acetaminophen) 1 Each Tablet 1 Tab PO PRN Q6HRS PRN Allergies Allergies: Coded Allergies: No Known Allergies (Unverified Allergy, Unknown, 04/25/15) ROS Review of System Negative for fever, chills, weight loss, shortness of breath, chest pain, indigestion, hematochezia, melena, and dysuria. Full 14-point review of systems is negative. Physical Exam Physical Examination General: Well-developed, well-nourished white male in no acute distress HEENT: Normocephalic andatraumatic. Tympanic membranes clear.Temporal arteriespulsatile and nontender.Fundoscopic exam unremarkable Neck: Supple without bruit, no meningismus Musculoskeletal: Stability:see neurologic. Gait exam:see neurologic. Tone:see neurologic.Strength:see neurologic. Neurological: Mental Status:intact, orientation, memory, attention span/concentration, language, fund of knowledge normal. Cranial Nerves:Pupils equal and reactive to light, extraocular movements areintact, visual hardwick are full to confrontation. Facial sensation is normal. There is no facial asymmetry. Ve stibulo-ocular reflex is intact. Palate elevates and tongue protrudes in midline. All other cranial related problems are negative except as mentioned before.Reflexes:2+ and symmetric with flexor plantar responses. Motor:5/5 strength with normal tone and bulk. Coordination:Finger-nose finger and teqn-oz-bpul testing are normal. Rapid alternating movements and fine finger movements are intact. Gait: ataxic. Sensory:stocking loss Vitals VITALS Vital Signs Date Time Temp Pulse Resp B/P (MAP) Pulse Ox O2 Delivery O2 Flow Rate FiO2 11/14/19 11:00 98.3 58 18 167/85 (112) 98 Room Air 98.3 Labs Labs Laboratory Tests Test 11/13/19 19:27 11/13/19 19:43 11/13/19 20:10 11/14/19 08:40 White Blood Count 10.4 x10^3/uL (4.0-11.0) Red Blood Count 4.88 x10^6/uL (4.30-5.70) Hemoglobin 16.1 g/dL (13.0-17.5) Hematocrit 45.5 % (39.0-53.0) Mean Corpuscular Volume 93 fL (79-100) Mean Corpuscular Hemoglobin 33 pg (25-35) Mean Corpuscular Hemoglobin Concent 35 g/dL (31-37) Red Cell Distribution Width 14.3 % (11.5-14.5) Platelet Count 191 x10^3/uL (140-400) Neutrophils (%) (Auto) 58 % (31-73) Lymphocytes (%) (Auto) 31 % (24-48) Monocytes (%) (Auto) 9 % (0-9) Eosinophils (%) (Auto) 2 % (0-3) Basophils (%) (Auto) 1 % (0-3) Neutrophils # (Auto) 6.0 x10^3/uL (1.8-7.7) Lymphocytes # (Auto) 3.2 x10^3/uL (1.0-4.8) Monocytes # (Auto) 0.9 x10^3/uL (0.0-1.1) Eosinophils # (Auto) 0.2 x10^3/uL (0.0-0.7) Basophils # (Auto) 0.1 x10^3/uL (0.0-0.2) Sodium Level 133 mmol/L (136-145) Potassium Level 4.1 mmol/L (3.5-5.1) Chloride Level 95 mmol/L (98-107) Carbon Dioxide Level 28 mmol/L (21-32) Anion Gap 10 (6-14) Blood Urea Nitrogen 15 mg/dL (8-26) Creatinine 1.1 mg/dL (0.7-1.3) Estimated GFR (Cockcroft-Gault) 70.6 BUN/Creatinine Ratio 14 (6-20) Glucose Level 126 mg/dL (70-99) Calcium Level 8.9 mg/dL (8.5-10.1) Total Bilirubin 0.6 mg/dL (0.2-1.0) Aspartate Amino Transf (AST/SGOT) 25 U/L (15-37) Alanine Aminotransferase (ALT/SGPT) 25 U/L (16-63) Alkaline Phosphatase 88 U/L (46-116) Ammonia < 10 mcmol/L (11-34) Troponin I Quantitative < 0.017 ng/mL (0.000-0.055) Total Protein 7.5 g/dL (6.4-8.2) Albumin 4.1 g/dL (3.4-5.0) Albumin/Globulin Ratio 1.2 (1.0-1.7) Thyroid Stimulating Hormone (TSH) 2.454 uIU/mL (0.358-3.74) Free Thyroxine 1.06 ng/dL (0.76-1.46) Ethyl Alcohol Level < 10 mg/dL (0-10) Glucose (Fingerstick) 114 mg/dL (70-99) Urine Collection Type Unknown Urine Color Yellow Urine Clarity Clear Urine pH 7.0 Urine Specific Sontag <=1.005 Urine Protein Negative mg/dL (NEG-TRACE) Urine Glucose (UA) Negative mg/dL (NEG) Urine Ketones (Stick) Negative mg/dL (NEG) Urine Blood Negative (NEG) Urine Nitrite Negative (NEG) Urine Bilirubin Negative (NEG) Urine Urobilinogen Dipstick 0.2 mg/dL (0.2 mg/dL) Urine Leukocyte Esterase Negative (NEG) Urine RBC Occ /HPF (0-2) Urine WBC 0 /HPF (0-4) Urine Squamous Epithelial Cells Occ /LPF Urine Bacteria 0 /HPF (0-FEW) Urine Opiates Screen Neg (NEG) Urine Methadone Screen Neg (NEG) Urine Barbiturates Neg (NEG) Urine Phencyclidine Screen Neg (NEG) Urine Amphetamine/Methamphetamine Neg (NEG) Urine Benzodiazepines Screen Neg (NEG) Urine Cocaine Screen Neg (NEG) Urine Cannabinoids Screen Neg (NEG) Urine Ethyl Alcohol Neg (NEG) Erythrocyte Sedimentation Rate 2 (0-15) Vitamin B12 Level 332 pg/mL (247-911) Laboratory Tests Test 11/13/19 19:27 11/13/19 19:43 11/13/19 20:10 11/14/19 08:40 White Blood Count 10.4 x10^3/uL (4.0-11.0) Red Blood Count 4.88 x10^6/uL (4.30-5.70) Hemoglobin 16.1 g/dL (13.0-17.5) Hematocrit 45.5 % (39.0-53.0) Mean Corpuscular Volume 93 fL (79-100) Mean Corpuscular Hemoglobin 33 pg (25-35) Mean Corpuscular Hemoglobin Concent 35 g/dL (31-37) Red Cell Distribution Width 14.3 % (11.5-14.5) Platelet Count 191 x10^3/uL (140-400) Neutrophils (%) (Auto) 58 % (31-73) Lymphocytes (%) (Auto) 31 % (24-48) Monocytes (%) (Auto) 9 % (0-9) Eosinophils (%) (Auto) 2 % (0-3) Basophils (%) (Auto) 1 % (0-3) Neutrophils # (Auto) 6.0 x10^3/uL (1.8-7.7) Lymphocytes # (Auto) 3.2 x10^3/uL (1.0-4.8) Monocytes # (Auto) 0.9 x10^3/uL (0.0-1.1) Eosinophils # (Auto) 0.2 x10^3/uL (0.0-0.7) Basophils # (Auto) 0.1 x10^3/uL (0.0-0.2) Sodium Level 133 mmol/L (136-145) Potassium Level 4.1 mmol/L (3.5-5.1) Chloride Level 95 mmol/L (98-107) Carbon Dioxide Level 28 mmol/L (21-32) Anion Gap 10 (6-14) Blood Urea Nitrogen 15 mg/dL (8-26) Creatinine 1.1 mg/dL (0.7-1.3) Estimated GFR (Cockcroft-Gault) 70.6 BUN/Creatinine Ratio 14 (6-20) Glucose Level 126 mg/dL (70-99) Calcium Level 8.9 mg/dL (8.5-10.1) Total Bilirubin 0.6 mg/dL (0.2-1.0) Aspartate Amino Transf (AST/SGOT) 25 U/L (15-37) Alanine Aminotransferase (ALT/SGPT) 25 U/L (16-63) Alkaline Phosphatase 88 U/L (46-116) Ammonia < 10 mcmol/L (11-34) Troponin I Quantitative < 0.017 ng/mL (0.000-0.055) Total Protein 7.5 g/dL (6.4-8.2) Albumin 4.1 g/dL (3.4-5.0) Albumin/Globulin Ratio 1.2 (1.0-1.7) Thyroid Stimulating Hormone (TSH) 2.454 uIU/mL (0.358-3.74) Free Thyroxine 1.06 ng/dL (0.76-1.46) Ethyl Alcohol Level < 10 mg/dL (0-10) Glucose (Fingerstick) 114 mg/dL (70-99) Urine Collection Type Unknown Urine Color Yellow Urine Clarity Clear Urine pH 7.0 Urine Specific Sontag <=1.005 Urine Protein Negative mg/dL (NEG-TRACE) Urine Glucose (UA) Negative mg/dL (NEG) Urine Ketones (Stick) Negative mg/dL (NEG) Urine Blood Negative (NEG) Urine Nitrite Negative (NEG) Urine Bilirubin Negative (NEG) Urine Urobilinogen Dipstick 0.2 mg/dL (0.2 mg/dL) Urine Leukocyte Esterase Negative (NEG) Urine RBC Occ /HPF (0-2) Urine WBC 0 /HPF (0-4) Urine Squamous Epithelial Cells Occ /LPF Urine Bacteria 0 /HPF (0-FEW) Urine Opiates Screen Neg (NEG) Urine Methadone Screen Neg (NEG) Urine Barbiturates Neg (NEG) Urine Phencyclidine Screen Neg (NEG) Urine Amphetamine/Methamphetamine Neg (NEG) Urine Benzodiazepines Screen Neg (NEG) Urine Cocaine Screen Neg (NEG) Urine Cannabinoids Screen Neg (NEG) Urine Ethyl Alcohol Neg (NEG) Erythrocyte Sedimentation Rate 2 (0-15) Vitamin B12 Level 332 pg/mL (247-911) Images Images CT head INDICATION: Coordination issues TECHNIQUE: Sequential axial images through the head were obtained without the administration of IV contrast. Comparisons: None FINDINGS: No focal parenchymal lesion or hemorrhage is identified. There is no midline shift or sulcal effacement. Extensive confluent hypodensity are noted throughout the white matter. Bilateral lacunar infarcts at the basal ganglia. Chronic appearing infarct at the right cerebellum. No acute vascular territory infarction is identified. Hu-white distinction is preserved. The ventricular system is within normal limits without compression hydrocephalus. The basal cisterns are well maintained. The visualized portions of the paranasal sinuses and mastoid air cells are well-pneumatized. No acute fractures. IMPRESSION: Extensive small vessel ischemic change and areas of chronic infarcts. No acute abnormality is identified. If there are concerns for acute ischemia MRI would better evaluate. Assessment/Plan Assessment/Plan Impression: Alcoholic gait disorder, encephalopathy, neuropathy. Recommendations: Advised patient to stop using alcohol He was started on alcohol withdrawal protocol, now is being discharged Follow-up with neurology as needed. Thank for letting me help with the patient's care. BIRD SANCHEZ MD Nov 14, 2019 12:36
--- NOTE | 2019-11-14 13:50 | NUR ---
Discharge Note: [facility] Discharge instructions and discharge home medications reviewed with Patient and a copy given. All questions have been answered and understanding verbalized. The following instructions and handouts were given: Finding alcohol treatment Discontinued lines and drains: IV catheter removed intact. Tele monitor removed Patient discharged to Home with self care via wheelchair
[2019-11-18 15:13] LABS: ALBUM 3.6 g/dL (2.9-4.4); ALPHA 1 0.2 g/dL (0.0-0.4); ALPHA 2 0.8 g/dL (0.4-1.0); BETA 0.8 g/dL (0.7-1.3); GAMMA 0.8 g/dL (0.4-1.8); PROTEIN TOTAL 6.3 g/dL (6.0-8.5); SPEP AG RATIO 1.3 (0.7-1.7)
[2019-11-18 19:09] LABS: ANA INTERP Negative (.)
== END 2019-11-14 13:55 | disposition home or self-care (01) ==
LOC: ER 19:07 → 6 SOUTH 21:25
PROVIDERS: ADMIT Internal Medicine; ATTEND Internal Medicine
DX: R41.82 Altered mental status, unspecified (principal); R27.8 Other lack of coordination; R27.0 Ataxia, unspecified; F17.200 Nicotine dependence, unspecified, uncomplicated
CPT/HCPCS: 36415; 70450; 80053; 80307; 81001; 82140; 82607; 82962; 84165; 84439; 84443; 84484; 85025; 85651; 86038; 93005; 96365; 96366; 96367; 96375; 96376; 99285; G0378; G0480; J0360; J3411; J3490; J7030; J7060; G0379

== ENCOUNTER 2021-10-29 09:04 | Inpatient (IN) | payer OTHER ==
[~2021-10-29] VITALS: Ht 162.6 cm; Wt 61.2 kg
[2021-10-29] VITALS (16 sets, daily range): BP systolic 116–176; BP diastolic 69–93
[~2021-10-29 09:04] MED LIST changes: +AMLO-187 PO; -AMLO10TA8 PO; -ASPI-612 PO; +ASPI-886 PO; +IODIXANOL 320 200 ML in NS 200 ML IART ONE
[2021-10-29 09:44] LABS: HEMATOCRIT 34.3 % (39.0-53.0); HEMOGLOBIN 11.3 g/dL (13.0-17.5); RED BLOOD COUNT 3.69 x10^6/uL (4.30-5.70); RED CELL DISTRIBUTION WIDTH 13.7 % (11.5-14.5); WHITE BLOOD COUNT 15.2 x10^3/uL (4.0-11.0)
[2021-10-29 09:54] LABS: PROTHROMBIN TIME PATIENT 12.2 SEC (11.7-14.0)
[2021-10-29 10:01] LABS: CALCIUM 9.1 mg/dL (8.5-10.1); CREATININE 0.7 mg/dL (0.7-1.3); POTASSIUM 4.2 mmol/L (3.5-5.1)
[2021-10-29] MEDS ORDERED: PREG50CA91 PO (10:27)
[2021-10-29] MEDS ORDERED: HYDR-2145 PO (10:27)
[2021-10-29] MEDS ORDERED: TRAM50TA PO (10:27)
[2021-10-29] MEDS ORDERED: CLOP75TA PO (10:27)
[2021-10-29] MEDS ORDERED: METF10007 PO (10:27)
[2021-10-29] MEDS ORDERED: FERR-36 PO (10:27)
[2021-10-29] MEDS ORDERED: CYAN100016 SL (10:27)
[2021-10-29] MEDS ORDERED: DIPH25CA58 PO (10:27)
[2021-10-29] MEDS ORDERED: ASCO500C PO (10:27)
[2021-10-29] MEDS ORDERED: OMEP40CA7 PO (10:27)
[2021-10-29] MEDS ORDERED: LIDOCAINE 1% PF 2 ML VIAL. ONE (10:55)
[2021-10-29] MEDS ORDERED: NITROGLYCERIN 200 MCG/2 ML SYRINGE FOR CATH/VASC LAB. ONE (10:58)
[2021-10-29] MEDS ORDERED: VERAPAMIL 5 MG/2 ML VIAL. ONE (10:59)
[2021-10-29] MEDS ORDERED: HEPARIN for IV BOLUS 10,000 UNIT/10 ML VIAL. ONE (10:59)
[2021-10-29] MEDS ORDERED: MIDAZOLAM HCL/PF 5 MG/5 ML VIAL. ONE (10:59)
[2021-10-29] MEDS ORDERED: fentaNYL PF VIAL 100 MCG/2 ML VIAL ONE (10:59)
[2021-10-29] MEDS ORDERED: diphenhydrAMINE 50 MG/ML VIAL ONE (11:35)
[2021-10-29] MEDS ORDERED: VERAPAMIL 5 MG/2 ML VIAL. IART ONE (12:00)
[2021-10-29] MEDS ORDERED: MIDAZOLAM HCL/PF 5 MG/5 ML VIAL. IV ONE (12:00)
[2021-10-29] MEDS ORDERED: IODIXANOL 320 MG/ML 100 ML VIAL. IART ONE (12:00)
[2021-10-29] MEDS ORDERED: HEPARIN for IV BOLUS 10,000 UNIT/10 ML VIAL. IART ONE (12:00)
[2021-10-29] MEDS ORDERED: NITROGLYCERIN 200 MCG/2 ML SYRINGE FOR CATH/VASC LAB. IART ONE (12:00)
[2021-10-29] MEDS ORDERED: LIDOCAINE 1% PF 2 ML VIAL. INJ ONE (12:00)
[2021-10-29] MEDS ORDERED: diphenhydrAMINE 50 MG/ML VIAL IVP ONE (12:00)
[2021-10-29] MEDS ORDERED: fentaNYL PF VIAL 100 MCG/2 ML VIAL IV ONE (12:00)
--- NOTE | 2021-10-29 12:05 | PDOC ---
MODERATE SEDATION ASSESSMENT RISKS/ALTERNATIVES Risks/Alternatives Risks and alternatives of this type of sedation and procedure discussed with: RISK/ALTERNATIVES: Patient H & P ON CHART H & P H & P on chart and reviewed for co-morbid conditions and appropriate labs. H&P ON CHART: Yes STATUS PREG STATUS ASSESSED: N/A MEDS/ALLERGIES REVIEWED Meds/Allergies Reviewed Medications and Allergies including time and route of recently administered narcotics and sedatives. MEDS/ALLERGIES REVIEWED: Yes ASA RATING ASA RATING: III AIRWAY ASSESSMENT Airway Assessment Airway patency, oral function limitations, presence of caps, crowns, dentures, partials, and ability to extend neck assessed. AIRWAY ASSESSMENT: Yes MALLAMPATI SCORE MALLAMPATI SCORE: II PRE-SEDATION ASSESSMENT PRE-SEDATION ASSESSMENT: Yes MOLLY VARGAS MD Oct 29, 2021 12:05
[2021-10-29] MEDS: IV 1/2 NORMAL SALINE 1,000 ML IV SCH ×2 (12:15→22:15)
[2021-10-29] MEDS ORDERED: IOHEXOL 350 MG/ML 100 ML VIAL. IV ONE (13:30)
--- NOTE | 2021-10-29 13:47 | CARD ---
MR#: [id number] Date of Study: 10/29/2021 Ordering Physician: MOLLY BLAS, Referring Physician: MOLLY BLAS, Tech: Shona Keyla APPROVED REPORT Patient StatusOUT-PATIENT Acid Polymerization Operator: Shona Ramires Procedure(s) performed: Aortogram with bilateral lower extremity runoff fl time: 3.7 min dose: 20 gycm2 contrast: 78 ml moderate sedation: 38 MINS INDICATION FOR PROCEDURE The indication(s) include : Peripheral artery disease, critical limb ischemia. CASE TECHNIQUE After explaining the risks, benefits, and alternative options, informed consent was obtained from the patient. IV conscious sedation was used throughout procedure with appropriate monitoring and was per formed in the presence of a registered nurse who was an independent trained observer other than the dora carver performing the procedure. During this case, Fluoroscopy and low osmolar contrast were used f or imaging. Specimen(s) Removed: No Estimated Blood loss: 10 cc's. PROCEDURE NARRATIVE After explaining the risk, benefits and alternative options, informed consent was obtained from colten nt. Patient was brought to the cardiac Implementation Specialist and his right wrist was prepped and draped in the us ual fashion. Arterial access was obtained in the right radial artery and a 6 Cymraes sheath was inser kushal. 6 Cymraes R2P PV Multicurve was then advanced under fluoroscopy guidance and with the tip positi oned in the distal descending aorta, aortogram with bilateral lower extremity runoff was performed. Patient tolerated the procedure well. Hemostasis was achieved in TR band. There were no immediate c omplications. FINDINGS 1. No significant stenosis involving the distal descending aorta 2. The right common iliac artery showed 100% chronic total occlusion proximally. The rest of the ar teries in the right lower extremity were not visualized. This could be either due to chronic occlusi ons of all the major vessels versus collaterals arising higher up in the descending aorta and reconst ituting distally. Recommend CT angiogram for better visualization. 3. The left common iliac artery showed 80% stenosis. The left external iliac artery showed heavily calcified 80% stenosis. The left common femoral artery showed 95% heavily calcified stenosis. The l eft superficial femoral artery showed chronic total occlusion. The popliteal artery reconstitutes vi a collaterals. Below the knee vessels could not be visualized due to poor filling with contrast and also presence of metal brooke in the left tibia. Conclusion Severe bilateral lower extremity peripheral artery disease as described above. Recommendations CT angiogram for better visualization and consult vascular surgery for possible surgical revasculariz ation Signed by : Molly Blas, Electronically Approved : 10/29/2021 13:47:03
--- NOTE | 2021-10-29 14:08 | RAD ---
EXAM: CT angiography of the abdomen and pelvis and lower extremities with intravenous contrast. HISTORY: Peripheral vascular disease. Critical limb ischemia. TECHNIQUE: Computed tomographic images of the abdomen and pelvis and lower extremities were obtained following the administration of intravenous contrast according to angiography protocol. Multiplanar r eformatting was performed and three dimensional maximum intensity projection images were obtained. *One or more of the following individualized dose reduction techniques were utilized for this examina tion: 1. Automated exposure control. 2. Adjustment of the mA and/or kV according to patient size. 3. Use of iterative reconstruction technique. COMPARISON: Chest and abdomen CT 01/10/2018. FINDINGS: Evaluation of the lower thorax demonstrates bilateral posterior dependent atelectasis. Ther e is no infiltrate, pleural effusion or suspicious pulmonary nodule. The heart is normal in size. There are several small ill-defined enhancing lesions within the liver measuring up to 1.5 cm, the ap pearance of which favors changes due to shunt phenomenon. The gallbladder, pancreas, spleen, stomach, adrenal glands and kidneys are unremarkable. The presence of contrast limits evaluation for renal st ones. There is no evidence of bowel obstruction. There is no abnormal bowel wall thickening. The bladder is distended. The prostate is unremarkable. There are nonspecific retroperitoneal lymph nodes. These ar e likely physiologic or reactive. There is no acute or suspicious osseous finding. There is an enlarg ed left inguinal lymph node measuring 2.3 cm. There is internal fixation of a healed left tibial diap hyseal fracture. There is partially calcified atherosclerotic plaque throughout the visualized aorta and main aortic b ranch vessels. This results in less than 50 percent stenosis within the proximal celiac axis and orig in and proximal, mid and distal aspects of the superior mesenteric artery. There is greater than 70 p ercent stenosis involving the origins and proximal aspects of the renal arteries. The inferior mesent deondre artery is patent. There is asymmetric mural thrombus within the abdominal aorta. There is no ane urysm or dissection. There is severe partially calcified atherosclerotic plaque throughout the iliac bifurcation. This is associated with segmental occlusion of the right common, internal and external iliac arteries. There is slight reconstitution of flow within the right common femoral artery, with greater than 70 percent stenosis. There is severe atherosclerotic plaque throughout the right superficial femoral artery, re sulting in occlusion throughout the majority of its extent. There is reconstitution of flow within th e distal right superficial femoral artery and popliteal artery, with approximately 50 percent stenosi s. The right anterior tibial artery and dorsalis pedis arteries are patent. There is moderate atheros clerotic plaque involving the proximal posterior tibial and peroneal arteries with approximately 50-6 9 percent stenosis. The peroneal artery is seen to the level of the ankle and the dorsalis pedis niki ry is seen to the level of the forefoot. There is similar severe partially calcified atherosclerotic plaque involving the left common iliac an d internal and external iliac arteries, with associated low flow and segmental due to complete occlus ion. There is severe partially calcified atherosclerotic plaque involving the left common femoral art carlitos, with significant severe complete occlusion. The left superficial femoral artery is occluded. The re is reconstitution of flow within the left popliteal artery, with approximately 50 percent stenosis . There is calcified atherosclerotic plaque at the origin of the left posterior tibial and peroneal a rteries, resulting in approximately 50 percent stenosis. The left anterior tibial artery and dorsalis pedis arteries are patent. The left peroneal artery is seen to the level of the ankle in the left po sterior tibial artery is seen to the forefoot. There is an enlarged left inguinal lymph node measuring 2.3 cm. There is internal fixation of a heale d left tibial diaphyseal fracture. IMPRESSION: 1. Severe partially calcified atherosclerotic plaque and mural thrombus resulting in segmental and ne ar complete occlusion of the right common, internal and external iliac arteries and majority of the r ight superficial femoral artery. There is reconstitution of flow within the distal superficial femora l artery and popliteal artery, with approximately 50 percent stenosis. The right calf arteries remain patent to the ankle and foot, described above. 2. Severe partially calcified atherosclerotic plaque and mural thrombus resulting in low flow and francis r complete occlusion of the left common, internal and external iliac arteries and majority of the lef t superficial femoral artery. There is reconstitution of flow within the left popliteal artery, with approximately 50 percent stenosis. The left calf arteries remain patent ankle and foot, described abo ve. 3. Moderate atherosclerotic plaque involving the abdominal aorta and aortic branch vessels. This resu lts in greater than 70 percent stenosis involving the renal arteries and less than 50 percent stenosi s involving the celiac axis and superior mesenteric artery branches. 4. Multiple small enhancing lesions within the liver, the appearance of which favors changes due to s muhammad phenomenon. Liver MRI can be performed to confirm benignity if there is clinical concern. 5. Enlarged left middle lymph node. This is likely reactive. Sonographic follow-up can be performed t o confirm resolution if clinically indicated. Electronically signed by: Janice Madison MD (10/29/2021 2:06 PM) [id number]
--- NOTE | 2021-10-29 14:46 | NUR ---
CTA complete. Upon reviewing, order received from Dr. Blas to admit patient and consult vascular surgery. RN spoke with Dr. Barnes. Orders being placed. Spoke w/ -- notified of room number 668. Air removed from TR band, no bleeding at this time. Instructions provided on site care, risk of bleeding. Patient verbalized understanding.
--- NOTE | 2021-10-29 15:14 | NUR ---
Dressing applied to R wrist. TR band removed. No bleeding noted at this time. Armboard re-applied. Report given to Devi TAYLOR on 6S. RN stressed importance of not using wrist, risk of bleeding. Patient verbalized understanding. VS stable at this time. All belongings taken to 668 w/ patient.
--- NOTE | 2021-10-29 15:31 | PDOC1 ---
History and Physical Date of Service: DOS: DATE: 10/29/21 TIME: 15:23 Chief Complaint: Chief Complain: Severe peripheral vascular disease History of Present Illness: HPI: 55-year-old male with significant past medical history of for pancreatitis, hypertension, CABG, peripheral vascular disease with critical limb ischemia who underwent an angio of his lower extremities showing severe peripheral vascular disease and lower extremity wounds. Patient is admitted to the hospitalist service for further management and consult to the vascular surgery service. Past Medical/Surgical History: PMH/PSH: PMHx: CAD, PVD, pancreatitis, hypertension PSURGHx: CABG in 2020x4, right ORIF of the tib-fib due to fracture Allergies: Allergies: Coded Allergies: No Known Allergies (Unverified Allergy, Unknown, 04/25/15) Family History: Family History: Heart disease in the family Social History: Social History: Smoke: 1 pack per day ALCOHOL: heavy (6-8 beers daily) Drugs: None Current Medications: Current Medications Current Medications Iodixanol 200 ml/ Sodium Chloride 400 ml @ 400 mls/hr 1X ONCE IART Last administered on 10/29/21at 09:00; Start 10/29/21 at 09:00; Stop 10/29/21 at 09:59; Status DC Lidocaine HCl (Xylocaine-Mpf 1% 2ml Vial) 2 ml STK-MED ONCE .ROUTE ; Start 10/29/21 at 10:55; Stop 10/29/21 at 10:55; Status DC Heparin Sodium/ Sodium Chloride 1,000 ml @ As Directed STK-MED ONCE .ROUTE ; Start 10/29/21 at 10:56; Stop 10/29/21 at 10:56; Status DC Nitroglycerin (Nitroglycerin) 200 mcg STK-MED ONCE .ROUTE ; Start 10/29/21 at 10:58; Stop 10/29/21 at 10:58; Status DC Midazolam HCl (Versed) 5 mg STK-MED ONCE .ROUTE ; Start 10/29/21 at 10:59; Stop 10/29/21 at 10:59; Status DC Fentanyl Citrate (Fentanyl 2ml Vial) 100 mcg STK-MED ONCE .ROUTE ; Start 10/29/21 at 10:59; Stop 10/29/21 at 10:59; Status DC Verapamil HCl (Verapamil) 5 mg STK-MED ONCE .ROUTE ; Start 10/29/21 at 10:59; Stop 10/29/21 at 10:59; Status DC Heparin Sodium (Porcine) (Heparin Sodium) 10,000 unit STK-MED ONCE .ROUTE ; Start 10/29/21 at 10:59; Stop 10/29/21 at 11:00; Status DC Diphenhydramine HCl (Benadryl) 50 mg STK-MED ONCE .ROUTE ; Start 10/29/21 at 11:35; Stop 10/29/21 at 11:36; Status DC Nitroglycerin (Nitroglycerin) 200 mcg 1X ONCE IART Last administered on 10/29/21at 12:11; Start 10/29/21 at 12:00; Stop 10/29/21 at 12:05; Status DC Verapamil HCl (Verapamil) 2.5 mg 1X ONCE IART Last administered on 10/29/21at 12:11; Start 10/29/21 at 12:00; Stop 10/29/21 at 12:05; Status DC Heparin Sodium (Porcine) (Heparin Sodium) 2,500 unit 1X ONCE IART Last administered on 10/29/21at 12:13; Start 10/29/21 at 12:00; Stop 10/29/21 at 12:05; Status DC Heparin Sodium/ Sodium Chloride (HEPARIN for ARTERIAL LINE FLUSH) 1,000 unit 1X ONCE IART Last administered on 10/29/21at 12:10; Start 10/29/21 at 12:00; Stop 10/29/21 at 12:05; Status DC Heparin Sodium/ Sodium Chloride (HEPARIN for ARTERIAL LINE FLUSH) 1,000 unit 1X ONCE IART Last administered on 10/29/21at 12:10; Start 10/29/21 at 12:00; Stop 10/29/21 at 12:05; Status DC Midazolam HCl (Versed) 5 mg 1X ONCE IV Last administered on 10/29/21at 12:12; Start 10/29/21 at 12:00; Stop 10/29/21 at 12:05; Status DC Fentanyl Citrate (Fentanyl 2ml Vial) 100 mcg 1X ONCE IV Last administered on 10/29/21at 12:12; Start 10/29/21 at 12:00; Stop 10/29/21 at 12:05; Status DC Iodixanol (Visipaque 320) 100 ml 1X ONCE IART ; Start 10/29/21 at 12:00; Stop 10/29/21 at 12:05; Status DC Lidocaine HCl (Xylocaine-Mpf 1% 2ml Vial) 2 ml 1X ONCE INJ Last administered on 10/29/21at 12:11; Start 10/29/21 at 12:00; Stop 10/29/21 at 12:05; Status DC Diphenhydramine HCl (Benadryl) 50 mg 1X ONCE IVP Last administered on 10/29/21at 12:00; Start 10/29/21 at 12:00; Stop 10/29/21 at 12:05; Status DC Sodium Chloride 1,000 ml @ 100 mls/hr Q10H IV ; Start 10/29/21 at 12:15; Stop 10/30/21 at 12:14 Iohexol (Omnipaque 350 Mg/ml) 95 ml 1X ONCE IV Last administered on 10/29/21at 13:25; Start 10/29/21 at 13:30; Stop 10/29/21 at 13:34; Status DC Active Scripts Active Aspirin Ec (Aspirin) 81 Mg Tablet.dr 81 Mg PO DAILYWBKFT 90 Days Amlodipine Besylate 10 Mg Tablet 10 Mg PO DAILY 90 Days Atorvastatin Calcium 10 Mg Tablet 10 Mg PO QHS 90 Days Reported Hydrochlorothiazide Tablet (Hydrochlorothiazide) 25 Mg Tablet 25 Mg PO DAILY Metformin Hcl 1,000 Mg Tablet 1,000 Mg PO BIDWMEALS Clopidogrel (Clopidogrel Bisulfate) 75 Mg Tablet 1 Tab PO DAILY Vitamin B-12 (Cyanocobalamin (Vitamin B-12)) 1,000 Mcg Tab.subl 1 Tab SL DAILY 30 Days Vitamin C (Ascorbic Acid) 500 Mg Capsule.er 1 Cap PO DAILY 30 Days Omeprazole 40 Mg Capsule.dr 1 Cap PO DAILY Lyrica (Pregabalin) 50 Mg Capsule 50 Mg PO TID Benadryl (Diphenhydramine Hcl) 25 Mg Capsule 25 Mg PO DAILY Tramadol Hcl 50 Mg Tablet 50 Mg PO Q6HRS PRN Iron (Ferrous Sulfate) 325 Mg Tablet 325 Mg PO DAILY ROS: Review of Systems Review of System REVIEW OF SYSTEMS: GENERAL: Denies weakness SKIN: No bruising, hair changes or rashes. EYES: No blurred, double or loss of vision. NOSE AND THROAT: No history of nosebleeds, hoarseness or sore throat. HEART: No history of palpitations, chest pain or shortness of breath on exertion. LUNGS: Denies cough, hemoptysis, wheezing or shortness of breath. GASTROINTESTINAL: Denies changes in appetite, nausea, vomiting, diarrhea or constipation. GENITOURINARY: No history of frequency, urgency, hesitancy or nocturia. NEUROLOGIC: Denies history of numbness, tingling, or tremor. PSYCHIATRIC: No history of panic, anxiety or depression. ENDOCRINE: No history of heat or cold intolerance, polyuria or polydipsia. EXTREMITIES: Denies joint pain, pain on walking or stiffness. Physical Exam: Vital Signs: Vital Signs Date Time Temp Pulse Resp B/P (MAP) Pulse Ox O2 Delivery O2 Flow Rate FiO2 10/29/21 15:00 75 17 95 Room Air 10/29/21 12:12 2.0 10/29/21 12:11 171/74 10/29/21 09:55 98.7 98.7 Physcial Exam: General: Well developed, well nourished, no acute distress, well appearing HEENT: Pupils equally round and reactive to light, EOMI, no discharge, normal conjunctiva Neck: Supple, no nuchal rigidity, no JVD, trachea midline, no tenderness Cardiac: RRR, no murmurs, no gallops, no rubs Chest/Lungs: CTAB, no wheeze, no rhonchi, no crackles Abdomen: soft, non-distended, no guarding, no peritoneal signs, non-tender Back: No tenderness Extremities: Left dry gangrene of his first 3 digits and a franklin wound covered with dressings. Surrounding erythema no active purulent drainage or bleeding Neuro: Alert and oriented x 4, no focal deficits, normal speech Labs: Labs: Laboratory Tests Test 10/29/21 09:25 10/29/21 10:44 White Blood Count 15.2 x10^3/uL (4.0-11.0) Red Blood Count 3.69 x10^6/uL (4.30-5.70) Hemoglobin 11.3 g/dL (13.0-17.5) Hematocrit 34.3 % (39.0-53.0) Mean Corpuscular Volume 93 fL (79-100) Mean Corpuscular Hemoglobin 31 pg (25-35) Mean Corpuscular Hemoglobin Concent 33 g/dL (31-37) Red Cell Distribution Width 13.7 % (11.5-14.5) Platelet Count 419 x10^3/uL (140-400) Prothrombin Time 12.2 SEC (11.7-14.0) Prothromb Time International Ratio 0.9 (0.8-1.1) Sodium Level 140 mmol/L (136-145) Potassium Level 4.2 mmol/L (3.5-5.1) Chloride Level 99 mmol/L (98-107) Carbon Dioxide Level 29 mmol/L (21-32) Anion Gap 12 (6-14) Blood Urea Nitrogen 18 mg/dL (8-26) Creatinine 0.7 mg/dL (0.7-1.3) Estimated GFR (Cockcroft-Gault) 118.0 Glucose Level 137 mg/dL (70-99) Calcium Level 9.1 mg/dL (8.5-10.1) POC SARS CoV-2 Antigen Negative (NEGATIVE) Laboratory Tests Test 10/29/21 09:25 10/29/21 10:44 White Blood Count 15.2 x10^3/uL (4.0-11.0) Red Blood Count 3.69 x10^6/uL (4.30-5.70) Hemoglobin 11.3 g/dL (13.0-17.5) Hematocrit 34.3 % (39.0-53.0) Mean Corpuscular Volume 93 fL (79-100) Mean Corpuscular Hemoglobin 31 pg (25-35) Mean Corpuscular Hemoglobin Concent 33 g/dL (31-37) Red Cell Distribution Width 13.7 % (11.5-14.5) Platelet Count 419 x10^3/uL (140-400) Prothrombin Time 12.2 SEC (11.7-14.0) Prothromb Time International Ratio 0.9 (0.8-1.1) Sodium Level 140 mmol/L (136-145) Potassium Level 4.2 mmol/L (3.5-5.1) Chloride Level 99 mmol/L (98-107) Carbon Dioxide Level 29 mmol/L (21-32) Anion Gap 12 (6-14) Blood Urea Nitrogen 18 mg/dL (8-26) Creatinine 0.7 mg/dL (0.7-1.3) Estimated GFR (Cockcroft-Gault) 118.0 Glucose Level 137 mg/dL (70-99) Calcium Level 9.1 mg/dL (8.5-10.1) POC SARS CoV-2 Antigen Negative (NEGATIVE) Images: Images PROCEDURE: Abdominal Aortogram MR#: [id number] Date of Study: 10/29/2021 Ordering Physician: MOLLY VARGAS, Referring Physician: MOLLY VARGAS, Tech: Shona Ramires APPROVED REPORT Patient StatusOUT-PATIENT Ruby On Rails Developer: Shona Ramires Procedure(s) performed: Aortogram with bilateral lower extremity runoff fl time: 3.7 min dose: 20 gycm2 contrast: 78 ml moderate sedation: 38 MINS INDICATION FOR PROCEDURE The indication(s) include : Peripheral artery disease, critical limb ischemia. CASE TECHNIQUE After explaining the risks, benefits, and alternative options, informed consent was obtained from the patient. IV conscious sedation was used throughout procedure with appropriate monitoring and was performed in the presence of a registered nurse who was an independent trained observer other than the physician performing the procedure. During this case, Fluoroscopy and low osmolar contrast were used for imaging. Specimen(s) Removed: No Estimated Blood loss: 10 cc's. PROCEDURE NARRATIVE After explaining the risk, benefits and alternative options, informed consent was obtained from patient. Patient was brought to the cardiac Spinner Continuous and his right wrist was prepped and draped in the usual fashion. Arterial access was obtained in the right radial artery and a 6 Ugandan sheath was inserted. 6 [place] R2P PV Multicurve was then advanced under fluoroscopy guidance and with the tip positioned in the distal descending aorta, aortogram with bilateral lower extremity runoff was performed. Patient tolerated the procedure well. Hemostasis was achieved in TR band. There were no immediate complications. FINDINGS 1. No significant stenosis involving the distal descending aorta 2. The right common iliac artery showed 100% chronic total occlusion p roximally. The rest of the arteries in the right lower extremity were not visualized. This could be either due to chronic occlusions of all the major vessels versus collaterals arising higher up in the descending aorta and reconstituting distally. Recommend CT angiogram for better visualization. 3. The left common iliac artery showed 80% stenosis. The left external iliac artery showed heavily calcified 80% stenosis. The left common femoral artery showed 95% heavily calcified stenosis. The left superficial femoral artery showed chronic total occlusion. The popliteal artery reconstitutes via collaterals. Below the knee vessels could not be visualized due to poor filling with contrast and also presence of metal brooke in the left tibia. PROCEDURE: CT ANGIO ABD ILEO/FEMOR RUNOFF EXAM: CT angiography of the abdomen and pelvis and lower extremities with intrav enous contrast. HISTORY: Peripheral vascular disease. Critical limb ischemia. TECHNIQUE: Computed tomographic images of the abdomen and pelvis and lower extremities were obtained following the administration of intravenous contrast according to angiography protocol. Multiplanar reformatting was performed and three dimensional maximum intensity projection images were obtained. *One or more of the following individualized dose reduction techniques were utilized for this examination: 1. Automated exposure control. 2. Adjustment of the mA and/or kV according to patient size. 3. Use of iterative reconstruction technique. COMPARISON: Chest and abdomen CT 01/10/2018. FINDINGS: Evaluation of the lower thorax demonstrates bilateral posterior dependent atelectasis. There is no infiltrate, pleural effusion or suspicious pulmonary nodule. The heart is normal in size. There are several small ill-defined enhancing lesions within the liver measuring up to 1.5 cm, the appearance of which favors changes due to shunt phenomenon. The gallbladder, pancreas, spleen, stomach, adrenal glands and kidneys are unremarkable. The presence of contrast limits evaluation for renal stones. There is no evidence of bowel obstruction. There is no abnormal bowel wall thickening. The bladder is distended. The prostate is unremarkable. There are nonspecific retroperitoneal lymph nodes. These are likely physiologic or reactive. There is no acute or suspicious osseous finding. There is an enlarged left inguinal lymph node measuring 2.3 cm. There is internal fixation of a healed left tibial diaphyseal fracture. There is partially calcified atherosclerotic plaque throughout the visualized aorta and main aortic branch vessels. This results in less than 50 percent stenosis within the proximal celiac axis and origin and proximal, mid and distal aspects of the superior mesenteric artery. There is greater than 70 percent stenosis involving the origins and proximal aspects of the renal arteries. The inferior mesenteric artery is patent. There is asymmetric mural thrombus within the abdominal aorta. There is no aneurysm or dissection. There is severe partially calcified atherosclerotic plaque throughout the iliac bifurcation. This is associated with segmental occlusion of the right common, internal and external iliac arteries. There is slight reconstitution of flow within the right common femoral artery, with greater than 70 percent stenosis. There is severe atherosclerotic plaque throughout the right superficial femoral artery, resulting in occlusion throughout the majority of its extent. There is reconstitution of flow within the distal right superficial femoral artery and popliteal artery, with approximately 50 percent stenosis. The right anterior tibial artery and dorsalis pedis arteries are patent. There is moderate atherosclerotic plaque involving the proximal posterior tibial and peroneal arteries with approximately 50-69 percent stenosis. The peroneal artery is seen to the level of the ankle and the dorsalis pedis artery is seen to the level of the forefoot. There is similar severe partially calcified atherosclerotic plaque involving the left common iliac and internal and external iliac arteries, with associated low flow and segmental due to complete occlusion. There is severe partially calcifi ed atherosclerotic plaque involving the left common femoral artery, with significant severe complete occlusion. The left superficial femoral artery is occluded. There is reconstitution of flow within the left popliteal artery, with approximately 50 percent stenosis. There is calcified atherosclerotic plaque at the origin of the left posterior tibial and peroneal arteries, resulting in approximately 50 percent stenosis. The left anterior tibial artery and dorsalis pedis arteries are patent. The left peroneal artery is seen to the level of the ankle in the left posterior tibial artery is seen to the forefoot. There is an enlarged left inguinal lymph node measuring 2.3 cm. There is internal fixation of a healed left tibial diaphyseal fracture. IMPRESSION: 1. Severe partially calcified atherosclerotic plaque and mural thrombus resulting in segmental and near complete occlusion of the right common, internal and external iliac arteries and majority of the right superficial femoral artery. There is reconstitution of flow within the distal superficial femoral artery and popliteal artery, with approximately 50 percent stenosis. The right calf arteries remain patent to the ankle and foot, described above. 2. Severe partially calcified atherosclerotic plaque and mural thrombus resulting in low flow and near complete occlusion of the left common, internal and external iliac arteries and majority of the left superficial femoral artery. There is reconstitution of flow within the left popliteal artery, with approximately 50 percent stenosis. The left calf arteries remain patent ankle and foot, described above. 3. Moderate atherosclerotic plaque involving the abdominal aorta and aortic branch vessels. This results in greater than 70 percent stenosis involving the renal arteries and less than 50 percent stenosis involving the celiac axis and superior mesenteric artery branches. 4. Multiple small enhancing lesions within the liver, the appearance of which favors changes due to shunt phenomenon. Liver MRI can be performed to confirm benignity if there is clinical concern. 5. Enlarged left middle lymph node. This is likely reactive. Sonographic follow- up can be performed to confirm resolution if clinically indicated. 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
[2021-10-29] MEDS ORDERED: ACETAMINOPHEN 325 MG TABLET. PO PRN (15:45)
[2021-10-29] MEDS: IV NORMAL SALINE 1000ML BAG 1,000 ML IV SCH (15:45)
[2021-10-29] MEDS ORDERED: diphenhydrAMINE HCL 25 MG CAPSULE PO PRN ×2 (15:45)
[2021-10-29] MEDS ORDERED: DOCUSATE SODIUM 100 MG CAPSULE. PO PRN (15:45)
[2021-10-29] MEDS ORDERED: diphenhydrAMINE 50 MG/ML VIAL IVP PRN (15:45)
[2021-10-29] MEDS ORDERED: DEXTROSE 50% 25 GM / 50ML DISP.SYRIN. IV PRN (15:45)
[2021-10-29] MEDS ORDERED: SENNOSIDES 8.6 MG TABLET PO PRN (15:45)
[2021-10-29] MEDS ORDERED: PROCHLORPERAZINE 10 MG/2 ML VIAL. IV PRN (15:45)
[2021-10-29] MEDS ORDERED: MORPHINE SULFATE 2 MG/ML INJ. IVP PRN (15:45)
[2021-10-29] MEDS ORDERED: MORPHINE SULFATE 2 MG/ML INJ. IV PRN (15:45)
[2021-10-29] MEDS ORDERED: ZOLPIDEM 5 MG TABLET. PO PRN (15:45)
[2021-10-29] MEDS ORDERED: LORazepam 0.5 MG TABLET PO PRN (15:45)
[2021-10-29] MEDS ORDERED: ONDANSETRON PF 4 MG/2 ML VIAL. IVP PRN (15:45)
[2021-10-29] MEDS: INSULIN LISPRO 300 UNITS/3 ML VIAL. SQ SCH (16:48)
[2021-10-29] MEDS: HYDROcodone/APAP 5/325MG 1 TAB TABLET PO PRN (19:17)
[2021-10-29] MEDS: ENOXAPARIN 40 MG/0.4 ML SYRINGE. SQ SCH (19:18)
[2021-10-30] MEDS: HYDROcodone/APAP 5/325MG 1 TAB TABLET PO PRN ×3 (00:18→20:34)
[2021-10-30] MEDS: PREGABALIN 50 MG CAPSULE PO SCH ×4 (00:18→20:36)
[2021-10-30] MEDS: ATORVASTATIN CALCIUM 10 MG TABLET. PO SCH ×2 (00:19→20:33)
[2021-10-30 02:53] VITALS: BP 141/66
[2021-10-30 05:13] LABS: BASO # 0.1 x10^3/uL (0.0-0.2); BASO % 0 % (0-3); EOS # 0.4 x10^3/uL (0.0-0.7); EOS % 3 % (0-3); HEMATOCRIT 34.2 % (39.0-53.0); HEMOGLOBIN 11.1 g/dL (13.0-17.5); LYMPH # 2.9 x10^3/uL (1.0-4.8); LYMPH % 21 % (24-48); MEAN CORPUSCULAR HEMOGLOBIN 30 pg (25-35); MEAN CORPUSCULAR HGB CONC 33 g/dL (31-37); MEAN CORPUSCULAR VOLUME 94 fL (79-100); MONO % 8 % (0-9); NEUT # 9.4 x10^3/uL (1.8-7.7); NEUT % 68 % (31-73); PLATELET COUNT 427 x10^3/uL (140-400); RED BLOOD COUNT 3.65 x10^6/uL (4.30-5.70); RED CELL DISTRIBUTION WIDTH 13.9 % (11.5-14.5); WHITE BLOOD COUNT 13.7 x10^3/uL (4.0-11.0)
[2021-10-30 05:31] LABS: CALCIUM 8.8 mg/dL (8.5-10.1); CREATININE 0.7 mg/dL (0.7-1.3); PHOSPHORUS 3.1 mg/dL (2.6-4.7); POTASSIUM 4.2 mmol/L (3.5-5.1)
[2021-10-30] MEDS: IV NORMAL SALINE 1000ML BAG 1,000 ML IV SCH ×3 (06:00→20:33)
[2021-10-30 07:00] VITALS: BP 165/67
[2021-10-30] MEDS: INSULIN LISPRO 300 UNITS/3 ML VIAL. SQ SCH ×3 (08:00→16:40)
[2021-10-30] MEDS: IV 1/2 NORMAL SALINE 1,000 ML IV SCH (08:15)
[2021-10-30] MEDS: PANTOPRAZOLE 40 MG TABLET.DR. PO SCH (09:01)
[2021-10-30] MEDS: CLOPIDOGREL BISULFATE 75 MG TABLET PO SCH (09:01)
[2021-10-30] MEDS: ASPIRIN ENTERIC COATED 81 MG TABLET.DR. PO SCH (09:01)
[2021-10-30] MEDS: CYANOCOBALAMIN (VITAMIN B-12) 1,000 MCG TABLET. PO SCH (09:02)
[2021-10-30] MEDS: diphenhydrAMINE HCL 25 MG CAPSULE PO SCH (09:02)
[2021-10-30] MEDS: ASCORBIC ACID 500 MG TABLET PO SCH (09:05)
[2021-10-30 10:45] VITALS: BP 155/90
--- NOTE | 2021-10-30 13:38 | PDOC ---
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 80% occlusion of the left common iliac artery Renal artery stenosis atherosclerotic disease in the abdominal aorta, celiac axis and SMA History of diabetes mellitus type 2 History of hypertension History of CAD Admit to hospitalist service for further management Vascular surgery consult Wound care consult Continue IV fluids R-ISS and Accu-Cheks Lovenox for DVT prophylaxis ADA diet CODE STATUS full Discussed with RN and SW Disposition inpatient management as above DPOA: Valerie Sánchez History of Present Illness History of Present Illness 55-year-old male with significant past medical history of for pancreatitis, hypertension, CABG, peripheral vascular disease with critical limb ischemia who underwent an angio of his lower extremities showing severe peripheral vascular disease and lower extremity wounds. Patient is admitted to the hospitalist service for further management and consult to the vascular surgery service. 10/30/2021 No acute events overnight. Patient seen examined bedside. AF and VSS. No pain at this time. Pending vascular surgery evaluation. Pending wound care evaluation. Bedside wound care for right heel addressed. Patient's chart, labs, images were reviewed and discussed with RN Vitals/I&O Vitals/I&O: Vital Signs Date Time Temp Pulse Resp B/P (MAP) Pulse Ox O2 Delivery O2 Flow Rate FiO2 10/30/21 10:45 97.7 78 18 155/90 (111) 98 Room Air 97.7 10/29/21 19:17 2.0 I & O 10/29/21 10/29/21 10/30/21 15:00 23:00 07:00 Intake Total 250 ml 550 ml 50 ml Balance 250 ml 550 ml 50 ml Physical Exam General: Alert, Oriented X3, Cooperative Heart: Regular rate Lungs: Clear Abdomen: Normal bowel sounds Extremities: No clubbing, Other (Left 3 digit toe gangrene with surrounding erythema. Left franklin open wound. ) Skin: Other Labs Labs: Laboratory Tests Test 10/29/21 16:16 10/29/21 19:35 10/30/21 04:20 10/30/21 07:13 Glucose (Fingerstick) 157 mg/dL (70-99) 146 mg/dL (70-99) 109 mg/dL (70-99) White Blood Count 13.7 x10^3/uL (4.0-11.0) Red Blood Count 3.65 x10^6/uL (4.30-5.70) Hemoglobin 11.1 g/dL (13.0-17.5) Hematocrit 34.2 % (39.0-53.0) Mean Corpuscular Volume 94 fL (79-100) Mean Corpuscular Hemoglobin 30 pg (25-35) Mean Corpuscular Hemoglobin Concent 33 g/dL (31-37) Red Cell Distribution Width 13.9 % (11.5-14.5) Platelet Count 427 x10^3/uL (140-400) Neutrophils (%) (Auto) 68 % (31-73) Lymphocytes (%) (Auto) 21 % (24-48) Monocytes (%) (Auto) 8 % (0-9) Eosinophils (%) (Auto) 3 % (0-3) Basophils (%) (Auto) 0 % (0-3) Neutrophils # (Auto) 9.4 x10^3/uL (1.8-7.7) Lymphocytes # (Auto) 2.9 x10^3/uL (1.0-4.8) Monocytes # (Auto) 1.0 x10^3/uL (0.0-1.1) Eosinophils # (Auto) 0.4 x10^3/uL (0.0-0.7) Basophils # (Auto) 0.1 x10^3/uL (0.0-0.2) Sodium Level 142 mmol/L (136-145) Potassium Level 4.2 mmol/L (3.5-5.1) Chloride Level 101 mmol/L (98-107) Carbon Dioxide Level 29 mmol/L (21-32) Anion Gap 12 (6-14) Blood Urea Nitrogen 14 mg/dL (8-26) Creatinine 0.7 mg/dL (0.7-1.3) Estimated GFR (Cockcroft-Gault) 118.0 Glucose Level 107 mg/dL (70-99) Calcium Level 8.8 mg/dL (8.5-10.1) Phosphorus Level 3.1 mg/dL (2.6-4.7) Magnesium Level 2.0 mg/dL (1.8-2.4) Test 10/30/21 10:37 Glucose (Fingerstick) 140 mg/dL (70-99) Comment Review of Relevant I have reviewed the following items ifrah (where applicable) has been applied. Medications: Current Medications Medications (Trade) Dose Ordered Sig/Amara Route PRN Reason Start Time Stop Time Status Last Admin Dose Admin Sodium Chloride 1,000 ml @ 100 mls/hr Q10H IV 10/29/21 15:45 10/30/21 06:00 Enoxaparin Sodium (Lovenox 40mg Syringe) 40 mg Q24H SQ 10/29/21 16:00 10/29/21 19:18 Acetaminophen/ Hydrocodone Bitart (Lortab 5/325) 2 tab PRN Q4HRS PRN PO MODERATE PAIN, SEVERE PAIN 10/29/21 15:45 10/30/21 00:18 Diphenhydramine HCl (Benadryl) 25 mg PRN QHS PRN PO INSOMNIA, 1st CHOICE 10/29/21 15:45 10/30/21 00:19 Amlodipine Besylate (Norvasc) 10 mg DAILY PO 10/30/21 09:00 10/30/21 09:03 Aspirin (Ecotrin) 81 mg DAILYWBKFT PO 10/30/21 08:00 10/30/21 09:01 Atorvastatin Calcium (Lipitor) 10 mg QHS PO 10/29/21 21:00 10/30/21 00:19 Clopidogrel Bisulfate (Plavix) 75 mg DAILY PO 10/30/21 09:00 10/30/21 09:01 Diphenhydramine HCl (Benadryl) 25 mg DAILY PO 10/30/21 09:00 10/30/21 09:02 Pregabalin (Lyrica) 50 mg TID PO 10/29/21 21:00 10/30/21 09:04 Ascorbic Acid (Vitamin C) 500 mg DAILY PO 10/30/21 09:00 10/30/21 09:05 Cyanocobalamin (Vitamin B-12) 1,000 mcg DAILY PO 10/30/21 09:00 10/30/21 09:02 Pantoprazole Sodium (Protonix) 40 mg DAILYAC PO 10/30/21 07:30 10/30/21 09:01 Justifications for Admission Other Justification Severe peripheral vascular disease with gangrenous wounds in the lower extremities VINCENZO MADRIGAL MD Oct 30, 2021 13:38
[2021-10-30 14:17] VITALS: BP 131/79
--- NOTE | 2021-10-30 14:36 | PDOC ---
Provider Note Date of Service: DATE: 10/30/21 TIME: 14:34 Provider Note Vascular surgery consult dictated Impression: #1 severe multilevel arteriosclerotic occlusive disease with gangrene of the digits on the left foot. The CT angiogram reveals occlusion of the right common external and internal iliac arteries with severe disease on the left as well. He has distal disease as well. 2. Tobaccoism. 3. History of atherosclerotic heart disease, status post coronary bypass. 4. Possible stroke history Recommendation: #1 cardiology evaluation. 2. He requires aorto to bilateral profunda femoris artery bypass following cardiac clearance. He may need revascularization of the lower extremities as well for limb salvage particularly on the left. 3. Carotid arterial duplex scan. 4. Tobacco cessation Justifications for Admission Other Justification Severe peripheral vascular disease with gangrenous wounds in the lower extre BILL Varner II, MD Oct 30, 2021 14:36
--- NOTE | 2021-10-30 14:52 | PDOC ---
PROGRESS NOTES Date of Service: DATE: 10/30/21 TIME: 14:47 Subjective Subjective c/o resting pain bilateral lower extremities Objective Objective Vital Signs Date Time Temp Pulse Resp B/P (MAP) Pulse Ox O2 Delivery O2 Flow Rate FiO2 10/30/21 14:17 96.0 72 18 131/79 (96) 99 Room Air 96.0 10/29/21 19:17 2.0 Intake and Output 10/30/21 07:00 Intake Total 850 ml Balance 850 ml Intake Oral 850 ml # Voids 2 Physical Exam Abdomen: Normal bowel sounds Heart: Regular rate Extremities: No clubbing, Other (Left 3 digits toe gangrene with surrounding erythema. Left franklin open wound. ) General: Alert, Oriented X3, Cooperative Neck: Supple Neuro: Normal speech Skin: Other Assessment Assessment 1. Severe peripheral vascular disease, critical limb ischemia and left foot toes gangrene. Aortogram with runoff and CT angiogram showed severe bilateral lower extremity peripheral artery disease. Appreciate vascular surgery consultation. Plan for surgical revascularization 2. Coronary artery disease s/p coronary artery bypass surgery in February 2021, presently stable and chest pain-free. He is cleared for vascular surgery from cardiac standpoint. We will obtain records of recent 2D echo from [facility]. Continue current secondary prevention measures. 3. Carotid artery stenosis: Patient was apparently told that he had bilateral carotid artery stenosis and needed endarterectomy in the past, records of which are not available at this time. Agree with repeating carotid arterial duplex scan. 4. Hypertension: Controlled 5. Hyperlipidemia: Statin therapy 6. DM2: Treat per IM 7. Tobacco abuse: Advised on smoking cessation Comment Review of Relevant I have reviewed the following items ifrah (where applicable) has been applied. Labs Laboratory Tests Test 10/29/21 16:16 10/29/21 19:35 10/30/21 04:20 10/30/21 07:13 Glucose (Fingerstick) 157 mg/dL (70-99) 146 mg/dL (70-99) 109 mg/dL (70-99) White Blood Count 13.7 x10^3/uL (4.0-11.0) Red Blood Count 3.65 x10^6/uL (4.30-5.70) Hemoglobin 11.1 g/dL (13.0-17.5) Hematocrit 34.2 % (39.0-53.0) Mean Corpuscular Volume 94 fL (79-100) Mean Corpuscular Hemoglobin 30 pg (25-35) Mean Corpuscular Hemoglobin Concent 33 g/dL (31-37) Red Cell Distribution Width 13.9 % (11.5-14.5) Platelet Count 427 x10^3/uL (140-400) Neutrophils (%) (Auto) 68 % (31-73) Lymphocytes (%) (Auto) 21 % (24-48) Monocytes (%) (Auto) 8 % (0-9) Eosinophils (%) (Auto) 3 % (0-3) Basophils (%) (Auto) 0 % (0-3) Neutrophils # (Auto) 9.4 x10^3/uL (1.8-7.7) Lymphocytes # (Auto) 2.9 x10^3/uL (1.0-4.8) Monocytes # (Auto) 1.0 x10^3/uL (0.0-1.1) Eosinophils # (Auto) 0.4 x10^3/uL (0.0-0.7) Basophils # (Auto) 0.1 x10^3/uL (0.0-0.2) Sodium Level 142 mmol/L (136-145) Potassium Level 4.2 mmol/L (3.5-5.1) Chloride Level 101 mmol/L (98-107) Carbon Dioxide Level 29 mmol/L (21-32) Anion Gap 12 (6-14) Blood Urea Nitrogen 14 mg/dL (8-26) Creatinine 0.7 mg/dL (0.7-1.3) Estimated GFR (Cockcroft-Gault) 118.0 Glucose Level 107 mg/dL (70-99) Calcium Level 8.8 mg/dL (8.5-10.1) Phosphorus Level 3.1 mg/dL (2.6-4.7) Magnesium Level 2.0 mg/dL (1.8-2.4) Test 10/30/21 10:37 Glucose (Fingerstick) 140 mg/dL (70-99) Medications Current Medications Acetaminophen (Tylenol) 650 mg PRN Q4HRS PRN PO TEMP OVER 100.4F OR MILD PAIN; Start 10/29/21 at 15:45 Acetaminophen/ Hydrocodone Bitart (Lortab 5/325) 1 tab PRN Q4HRS PRN PO MILD PAIN 1-3; Start 10/29/21 at 15:45 Acetaminophen/ Hydrocodone Bitart (Lortab 5/325) 2 tab PRN Q4HRS PRN PO MODERATE PAIN, SEVERE PAIN Last administered on 10/30/21at 00:18; Start 10/29/21 at 15:45 Amlodipine Besylate (Norvasc) 10 mg DAILY PO Last administered on 10/30/21at 09:03; Start 10/30/21 at 09:00 Ascorbic Acid (Vitamin C) 500 mg DAILY PO Last administered on 10/30/21at 09:05; Start 10/30/21 at 09:00 Aspirin (Ecotrin) 81 mg DAILYWBKFT PO Last administered on 10/30/21at 09:01; Start 10/30/21 at 08:00 Atorvastatin Calcium (Lipitor) 10 mg QHS PO Last administered on 10/30/21at 00:19; Start 10/29/21 at 21:00 Clopidogrel Bisulfate (Plavix) 75 mg DAILY PO Last administered on 10/30/21at 09:01; Start 10/30/21 at 09:00 Cyanocobalamin (Vitamin B-12) 1,000 mcg DAILY PO Last administered on 10/30/21at 09:02; Start 10/30/21 at 09:00 Dextrose (Dextrose 50%-Water Syringe) 12.5 gm PRN Q15MIN PRN IV SEE COMMENTS; Start 10/29/21 at 15:45 Diphenhydramine HCl (Benadryl) 25 mg DAILY PO Last administered on 10/30/21at 09:02; Start 10/30/21 at 09:00 Diphenhydramine HCl (Benadryl) 25 mg PRN Q6HRS PRN IVP ITCHING; Start 10/29/21 at 15:45 Diphenhydramine HCl (Benadryl) 25 mg PRN Q6HRS PRN PO ITCHING; Start 10/29/21 at 15:45 Diphenhydramine HCl (Benadryl) 25 mg PRN QHS PRN PO INSOMNIA, 1st CHOICE Last administered on 10/30/21at 00:19; Start 10/29/21 at 15:45 Docusate Sodium (Colace) 100 mg PRN DAILY PRN PO HARD STOOLS; Start 10/29/21 at 15:45 Enoxaparin Sodium (Lovenox 40mg Syringe) 40 mg Q24H SQ Last administered on 10/29/21at 19:18; Start 10/29/21 at 16:00 Insulin Human Lispro (HumaLOG) 0-5 UNITS TIDWMEALS SQ ; Start 10/29/21 at 17:00 Lorazepam (Ativan Inj) 0.25 mg PRN Q4HRS PRN IV ANXIETY / AGITATION; Start 10/29/21 at 15:45 Lorazepam (Ativan) 0.5 mg PRN Q6HRS PRN PO ANXIETY / AGITATION; Start 10/29/21 at 15:45 Morphine Sulfate (Morphine Sulfate) 1 mg PRN Q1HR PRN IV PAIN-SEE COMMENTS; Start 10/29/21 at 15:45 Morphine Sulfate (Morphine Sulfate) 2 mg PRN Q2HR PRN IVP SEVERE PAIN 7-10; Start 10/29/21 at 15:45; Stop 10/30/21 at 15:44 Ondansetron HCl (Zofran) 4 mg PRN Q6HRS PRN IVP NAUSEA/VOMITING, 1st CHOICE; Start 10/29/21 at 15:45 Pantoprazole Sodium (Protonix) 40 mg DAILYAC PO Last administered on 10/30/21at 09:01; Start 10/30/21 at 07:30 Pregabalin (Lyrica) 50 mg TID PO Last administered on 10/30/21at 09:04; Start 10/29/21 at 21:00 Prochlorperazine Edisylate (Compazine) 10 mg PRN Q6HRS PRN IV NAUSEA/VOMITING, 2nd CHOICE; Start 10/29/21 at 15:45 Sennosides (Senna) 17.2 mg PRN BID PRN PO CONSTIPATION; Start 10/29/21 at 15:45 Sodium Chloride 1,000 ml @ 100 mls/hr Q10H IV Last administered on 10/30/21at 06:00; Start 10/29/21 at 15:45 Tramadol HCl (Ultram) 50 mg Q6HRS PRN PO PAIN; Start 10/29/21 at 17:00 Zolpidem Tartrate (Ambien) 2.5 mg PRN QHS PRN PO INSOMNIA, 2nd CHOICE; Start 10/29/21 at 15:45 Vitals/I & O Vital Sign - Last 24 Hours 10/29/21 10/29/21 10/29/21 10/29/21 15:00 15:30 16:26 19:00 Temp 98.1 97.9 98.1 97.9 Pulse 75 79 72 Resp 17 20 18 B/P (MAP) 138/69 (92) 159/74 (102) Pulse Ox 95 100 98 O2 Delivery Room Air Room Air Room Air Room Air 10/29/21 10/29/21 10/29/21 10/29/21 19:17 19:55 20:00 22:54 Temp 97.2 97.2 Pulse 71 Resp 20 18 B/P (MAP) 159/93 (115) Pulse Ox 100 99 98 O2 Delivery Room Air Room Air Room Air Room Air O2 Flow Rate 2.0 10/30/21 10/30/21 10/30/21 10/30/21 00:18 00:48 02:53 07:00 Temp 97.6 97.6 97.6 97.6 Pulse 80 76 Resp 20 18 18 18 B/P (MAP) 141/66 (91) 165/67 (99) Pulse Ox 98 99 99 100 O2 Delivery Room Air Room Air Room Air Room Air 10/30/21 10/30/21 10/30/21 10/30/21 08:20 09:03 10:45 14:17 Temp 97.7 96.0 97.7 96.0 Pulse 80 78 72 Resp 18 18 B/P (MAP) 165/67 155/90 (111) 131/79 (96) Pulse Ox 98 99 O2 Delivery Room Air Room Air Room Air Intake and Output 10/29/21 10/29/21 10/30/21 15:00 23:00 07:00 Intake Total 250 ml 550 ml 50 ml Balance 250 ml 550 ml 50 ml MOLLY VARGAS MD Oct 30, 2021 14:52
[2021-10-30] MEDS: ENOXAPARIN 40 MG/0.4 ML SYRINGE. SQ SCH (15:08)
[2021-10-30 19:11] VITALS: BP 148/69
--- NOTE | 2021-10-30 20:37 | CONS ---
DATE OF CONSULTATION: 10/30/2021 VASCULAR SURGERY CONSULTATION HISTORY OF PRESENT ILLNESS: This is a 55-year-old smoker who presents with a history of severe arterial insufficiency with gangrene of the left foot, digits. He has a history of coronary artery bypass, hypertension. His symptoms have been ongoing for the past couple of months. He is a long-term smoker and continues to smoke. He complains of rest pain in both feet, worse on the left than the right. It is severely disabled by his rest pain. PAST MEDICAL HISTORY: Significant for coronary artery disease, peripheral vascular disease, pancreatitis, and hypertension. PAST SURGICAL HISTORY: Includes coronary artery bypass in 2020 x 4, right open reduction internal fixation of a tib-fib fracture. ALLERGIES: No known allergies. FAMILY HISTORY: Significant for heart disease. SOCIAL HISTORY: Pack a day smoker for quite a long time. He drinks 6-8 beers daily. He does no illicit drugs. MEDICATIONS: Reviewed. REVIEW OF SYSTEMS: Twelve-point review of systems is negative other than what is mentioned in the history. He denies abdominal pain. He denies any recent history of stroke, amaurosis or TIA. PHYSICAL EXAMINATION: GENERAL: The patient is alert and awake, answers questions appropriately and is oriented. NECK: Supple, no jugular venous distention. CHEST: Without crackles or wheezes. ABDOMEN: No palpable mass. Absent femoral, popliteal and pedal pulses. There is dry gangrene of all of the digits on the left foot. Both feet are ruborous. NEUROLOGIC: Without deficits. DIAGNOSTIC DATA: CT angiogram was reviewed and this reveals multilevel arterial occlusive disease, not a candidate for peripheral intervention. Creatinine is 0.7, hemoglobin 11.3. ASSESSMENT AND PLAN: Severe arterial insufficiency of both lower extremities due to multilevel occlusive disease. He has severe aortoiliac occlusive disease, which will require an inflow procedure, the best would be aorto-bilateral deep femoral artery bypass. He will need cardiac clearance prior to proceeding with this. We will also obtain carotid duplex imaging as he has a high risk for significant carotid arterial occlusive disease. He may require lower extremity revascularization as well for limb salvage. All the above was discussed in detail with the patient. He understands and wishes to proceed. RCA/AVR DR: RCA/nts TID: [id number]
[2021-10-30 22:27] VITALS: BP 128/69
[2021-10-31 02:21] VITALS: BP 149/68
[2021-10-31] MEDS: HYDROcodone/APAP 5/325MG 1 TAB TABLET PO PRN ×4 (02:32→20:19)
[2021-10-31 03:09] LABS: HEMOGLOBIN A1C 6.3 % (4.8-5.6)
[2021-10-31 04:40] LABS: BASO % 0 % (0-3); EOS # 0.3 x10^3/uL (0.0-0.7); EOS % 2 % (0-3); HEMATOCRIT 32.2 % (39.0-53.0); HEMOGLOBIN 10.3 g/dL (13.0-17.5); LYMPH # 2.2 x10^3/uL (1.0-4.8); LYMPH % 17 % (24-48); MEAN CORPUSCULAR HEMOGLOBIN 30 pg (25-35); MEAN CORPUSCULAR HGB CONC 32 g/dL (31-37); MEAN CORPUSCULAR VOLUME 94 fL (79-100); MONO # 1.1 x10^3/uL (0.0-1.1); MONO % 8 % (0-9); NEUT # 9.8 x10^3/uL (1.8-7.7); NEUT % 73 % (31-73); PLATELET COUNT 369 x10^3/uL (140-400); RED BLOOD COUNT 3.43 x10^6/uL (4.30-5.70); WHITE BLOOD COUNT 13.4 x10^3/uL (4.0-11.0)
[2021-10-31 04:58] LABS: CALCIUM 8.6 mg/dL (8.5-10.1); CREATININE 0.6 mg/dL (0.7-1.3); GFR 140.9; POTASSIUM 3.6 mmol/L (3.5-5.1)
[2021-10-31] MEDS: PANTOPRAZOLE 40 MG TABLET.DR. PO SCH (05:46)
[2021-10-31] MEDS: IV NORMAL SALINE 1000ML BAG 1,000 ML IV SCH (06:45)
[2021-10-31 07:00] VITALS: BP 144/68
[2021-10-31] MEDS: INSULIN LISPRO 300 UNITS/3 ML VIAL. SQ SCH ×3 (07:45→16:59)
[2021-10-31] MEDS: ASPIRIN ENTERIC COATED 81 MG TABLET.DR. PO SCH (09:48)
[2021-10-31] MEDS: diphenhydrAMINE HCL 25 MG CAPSULE PO SCH (09:48)
[2021-10-31] MEDS: PREGABALIN 50 MG CAPSULE PO SCH ×3 (09:48→20:20)
[2021-10-31] MEDS: ASCORBIC ACID 500 MG TABLET PO SCH (09:48)
[2021-10-31] MEDS: CYANOCOBALAMIN (VITAMIN B-12) 1,000 MCG TABLET. PO SCH (09:49)
[2021-10-31] MEDS: CLOPIDOGREL BISULFATE 75 MG TABLET PO SCH (09:49)
[2021-10-31 10:50] VITALS: BP 152/76
--- NOTE | 2021-10-31 12:01 | RAD ---
EXAM: Carotid Doppler sonogram. HISTORY: Carotid stenosis. Atherosclerosis. TECHNIQUE: Hu scale and color Doppler sonographic evaluation of the neck with spectral waveform skinny lysis was performed and static images are submitted for review. FINDINGS: There is moderate calcified atherosclerotic plaque involving the common carotid arteries, c arotid bulbs and internal and external carotid arteries. The peak systolic velocity within the right common carotid artery is 99 cm/sec. The peak systolic ray ocity within the right internal carotid artery is 146 cm/sec and the end diastolic velocity within th e right internal carotid artery is 36 cm/sec. The right ICA/CCA ratio is 1.48. The peak systolic velocity within the left common carotid artery is 326 cm/sec. The peak systolic ray ocity within the left internal carotid artery is 103 cm/sec and the end diastolic velocity within the left internal carotid artery is 40 cm/sec. The left ICA/CCA ratio is 0.32. There is normal antegrade flow within both vertebral arteries. There are elevated peak systolic veloc ities within the left greater than right external carotid arteries, measuring 225 cm/s on the left an d 157 cm/s on the right. IMPRESSION: 1. Doppler findings consistent with 50-69 percent stenosis involving the right ICA and less than 50 p ercent stenosis involving the left ICA. 2. Doppler findings consistent with stenosis involving the left common carotid artery and left greate r than right external carotid arteries. 3. Moderate atherosclerotic plaque involving the carotid bifurcations. PQRS Compliance Statement - Stenosis calculations for CT, MR and conventional angiography are based u perez measurement of the distal ICA diameter in accordance with the NASCET methodology. Stenosis calcu lations for carotid ultrasound studies are derived from validated velocity criteria which are known t o correlate with the NASCET methodology. Electronically signed by: Janice Madison MD (10/31/2021 11:59 AM) [facility]
--- NOTE | 2021-10-31 12:54 | PDOC ---
PROGRESS NOTES Date of Service: DATE: 10/31/21 TIME: 12:53 Subjective Subjective c/o bilateral leg pain, denied any chest pain Objective Objective Vital Signs Date Time Temp Pulse Resp B/P (MAP) Pulse Ox O2 Delivery O2 Flow Rate FiO2 10/31/21 12:17 98 Room Air 10/31/21 11:47 2.0 10/31/21 10:50 98.6 69 20 152/76 (101) 98.6 Intake and Output 10/31/21 07:00 Intake Total 1370 ml Output Total 900 ml Balance 470 ml Intake Oral 1370 ml Output Urine Total 900 ml # Voids 1 # Bowel Movements 1 Physical Exam Abdomen: Normal bowel sounds Heart: Regular rate Extremities: No clubbing, Other (Left 3 digits toe gangrene with surrounding erythema. Left franklin open wound. ) General: Alert, Oriented X3, Cooperative Neck: Supple Neuro: Normal speech Skin: Other Assessment Assessment 1. Severe peripheral vascular disease, critical limb ischemia and left foot toes gangrene. Aortogram with runoff and CT angiogram showed severe bilateral lower extremity peripheral artery disease. Appreciate vascular surgery consultation. Plan for surgical revascularization 2. Coronary artery disease s/p coronary artery bypass surgery in February 2021, presently stable and chest pain-free. He is cleared for vascular surgery from cardiac standpoint. Check 2D echo to assess LV systolic function. Continue current secondary prevention measures. 3. Carotid artery stenosis: Patient was apparently told that he had bilateral carotid artery stenosis and needed endarterectomy in the past, records of which are not available at this time. Agree with repeating carotid arterial duplex scan. 4. Hypertension: Controlled 5. Hyperlipidemia: Statin therapy 6. DM2: Treat per IM 7. Tobacco abuse: Advised on smoking cessation Comment Review of Relevant I have reviewed the following items ifrah (where applicable) has been applied. Labs Laboratory Tests Test 10/30/21 16:33 10/30/21 20:49 10/31/21 04:00 10/31/21 08:43 Glucose (Fingerstick) 142 mg/dL (70-99) 114 mg/dL (70-99) 116 mg/dL (70-99) White Blood Count 13.4 x10^3/uL (4.0-11.0) Red Blood Count 3.43 x10^6/uL (4.30-5.70) Hemoglobin 10.3 g/dL (13.0-17.5) Hematocrit 32.2 % (39.0-53.0) Mean Corpuscular Volume 94 fL (79-100) Mean Corpuscular Hemoglobin 30 pg (25-35) Mean Corpuscular Hemoglobin Concent 32 g/dL (31-37) Red Cell Distribution Width 14.0 % (11.5-14.5) Platelet Count 369 x10^3/uL (140-400) Neutrophils (%) (Auto) 73 % (31-73) Lymphocytes (%) (Auto) 17 % (24-48) Monocytes (%) (Auto) 8 % (0-9) Eosinophils (%) (Auto) 2 % (0-3) Basophils (%) (Auto) 0 % (0-3) Neutrophils # (Auto) 9.8 x10^3/uL (1.8-7.7) Lymphocytes # (Auto) 2.2 x10^3/uL (1.0-4.8) Monocytes # (Auto) 1.1 x10^3/uL (0.0-1.1) Eosinophils # (Auto) 0.3 x10^3/uL (0.0-0.7) Basophils # (Auto) 0.0 x10^3/uL (0.0-0.2) Sodium Level 136 mmol/L (136-145) Potassium Level 3.6 mmol/L (3.5-5.1) Chloride Level 100 mmol/L (98-107) Carbon Dioxide Level 26 mmol/L (21-32) Anion Gap 10 (6-14) Blood Urea Nitrogen 10 mg/dL (8-26) Creatinine 0.6 mg/dL (0.7-1.3) Estimated GFR (Cockcroft-Gault) 140.9 Glucose Level 131 mg/dL (70-99) Calcium Level 8.6 mg/dL (8.5-10.1) Magnesium Level 2.0 mg/dL (1.8-2.4) Test 10/31/21 11:20 Glucose (Fingerstick) 89 mg/dL (70-99) Vitals/I & O Vital Sign - Last 24 Hours 10/30/21 10/30/21 10/30/21 10/30/21 14:17 15:02 15:32 19:11 Temp 96.0 97.0 96.0 97.0 Pulse 72 77 Resp 18 20 18 B/P (MAP) 131/79 (96) 148/69 (95) Pulse Ox 99 100 O2 Delivery Room Air Room Air Room Air Room Air 10/30/21 10/30/21 10/30/21 10/30/21 20:00 20:34 21:04 22:27 Temp 98.2 98.2 Pulse 74 Resp 20 20 18 B/P (MAP) 128/69 (88) Pulse Ox 96 O2 Delivery Room Air Room Air Room Air Room Air 10/31/21 10/31/21 10/31/21 10/31/21 02:21 02:32 03:02 07:00 Temp 98.0 97.9 98.0 97.9 Pulse 77 74 Resp 18 20 20 20 B/P (MAP) 149/68 (95) 144/68 (93) Pulse Ox 97 97 O2 Delivery Room Air Room Air Room Air Room Air 10/31/21 10/31/21 10/31/21 10/31/21 08:00 09:55 10:50 11:47 Temp 98.6 98.6 Pulse 74 69 Resp 20 B/P (MAP) 144/68 152/76 (101) Pulse Ox 98 98 O2 Delivery Room Air Room Air Room Air O2 Flow Rate 2.0 10/31/21 12:17 Pulse Ox 98 O2 Delivery Room Air Intake and Output 10/30/21 10/30/21 10/31/21 15:00 23:00 07:00 Intake Total 550 ml 820 ml 0 ml Output Total 450 ml 450 ml Balance 550 ml 370 ml -450 ml MOLLY VARGAS MD Oct 31, 2021 12:54
--- NOTE | 2021-10-31 12:54 | PDOC ---
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% occlusion of the left common iliac artery Renal artery stenosis atherosclerotic disease in the abdominal aorta, celiac axis and SMA History of diabetes mellitus type 2 History of hypertension History of CAD Admit to hospitalist service for further management Vascular surgery consult Wound care consult Continue IV fluids R-ISS and Accu-Cheks Lovenox for DVT prophylaxis ADA diet CODE STATUS full Discussed with RN and SW Disposition inpatient management as above DPOA: Valerie Sánchez History of Present Illness History of Present Illness 55-year-old male with significant past medical history of for pancreatitis, hypertension, CABG, peripheral vascular disease with critical limb ischemia who underwent an angio of his lower extremities showing severe peripheral vascular disease and lower extremity wounds. Patient is admitted to the hospitalist service for further management and consult to the vascular surgery service. 10/30/2021 No acute events overnight. Patient seen examined bedside. AF and VSS. No pain at this time. Pending vascular surgery evaluation. Pending wound care evaluation. Bedside wound care for right heel addressed. Patient's chart, labs, images were reviewed and discussed with RN 10/31/2021 No acute events overnight. Patient seen examined bedside. Patient worried about gangrene on his foot and infection. There is some erythema at the border of the dry gangrene. We will shoot an x-ray of the left foot to rule out osteomyelitis. Will obtain ESR. Pending prealbumin for possible aortofemoral bypass per vascular surgery. Ending duplex ultrasound. Pending records from [facility] for recent echo that was done. Patient's chart, labs, images were reviewed and discussed with RN Vitals/I&O Vitals/I&O: Vital Signs Date Time Temp Pulse Resp B/P (MAP) Pulse Ox O2 Delivery O2 Flow Rate FiO2 10/31/21 12:17 98 Room Air 10/31/21 11:47 2.0 10/31/21 10:50 98.6 69 20 152/76 (101) 98.6 I & O 10/30/21 10/30/21 10/31/21 15:00 23:00 07:00 Intake Total 550 ml 820 ml 0 ml Output Total 450 ml 450 ml Balance 550 ml 370 ml -450 ml Physical Exam General: Alert, Oriented X3, Cooperative Heart: Regular rate Lungs: Clear Abdomen: Normal bowel sounds Extremities: No clubbing, Other (Left 3 digits toe gangrene with surrounding erythema. Left franklin open wound. ) Skin: Other Labs Labs: Laboratory Tests Test 10/30/21 16:33 10/30/21 20:49 10/31/21 04:00 10/31/21 08:43 Glucose (Fingerstick) 142 mg/dL (70-99) 114 mg/dL (70-99) 116 mg/dL (70-99) White Blood Count 13.4 x10^3/uL (4.0-11.0) Red Blood Count 3.43 x10^6/uL (4.30-5.70) Hemoglobin 10.3 g/dL (13.0-17.5) Hematocrit 32.2 % (39.0-53.0) Mean Corpuscular Volume 94 fL (79-100) Mean Corpuscular Hemoglobin 30 pg (25-35) Mean Corpuscular Hemoglobin Concent 32 g/dL (31-37) Red Cell Distribution Width 14.0 % (11.5-14.5) Platelet Count 369 x10^3/uL (140-400) Neutrophils (%) (Auto) 73 % (31-73) Lymphocytes (%) (Auto) 17 % (24-48) Monocytes (%) (Auto) 8 % (0-9) Eosinophils (%) (Auto) 2 % (0-3) Basophils (%) (Auto) 0 % (0-3) Neutrophils # (Auto) 9.8 x10^3/uL (1.8-7.7) Lymphocytes # (Auto) 2.2 x10^3/uL (1.0-4.8) Monocytes # (Auto) 1.1 x10^3/uL (0.0-1.1) Eosinophils # (Auto) 0.3 x10^3/uL (0.0-0.7) Basophils # (Auto) 0.0 x10^3/uL (0.0-0.2) Sodium Level 136 mmol/L (136-145) Potassium Level 3.6 mmol/L (3.5-5.1) Chloride Level 100 mmol/L (98-107) Carbon Dioxide Level 26 mmol/L (21-32) Anion Gap 10 (6-14) Blood Urea Nitrogen 10 mg/dL (8-26) Creatinine 0.6 mg/dL (0.7-1.3) Estimated GFR (Cockcroft-Gault) 140.9 Glucose Level 131 mg/dL (70-99) Calcium Level 8.6 mg/dL (8.5-10.1) Magnesium Level 2.0 mg/dL (1.8-2.4) Test 10/31/21 11:20 Glucose (Fingerstick) 89 mg/dL (70-99) Comment Review of Relevant I have reviewed the following items ifrah (where applicable) has been applied. Justifications for Admission Other Justification Severe peripheral vascular disease with gangrenous wounds in the lower extremities VINCENZO MADRIGAL MD Oct 31, 2021 12:54
[2021-10-31] MEDS: ENOXAPARIN 40 MG/0.4 ML SYRINGE. SQ SCH (14:45)
[2021-10-31 15:00] VITALS: BP 125/69
[2021-10-31 18:49] VITALS: BP 127/63
[2021-10-31] MEDS: ATORVASTATIN CALCIUM 10 MG TABLET. PO SCH (20:20)
[2021-10-31 22:08] VITALS: BP 129/60
[2021-11-01 02:18] VITALS: BP 141/67
[2021-11-01 04:18] LABS: BASO % 0 % (0-3); EOS # 0.3 x10^3/uL (0.0-0.7); EOS % 3 % (0-3); HEMATOCRIT 31.7 % (39.0-53.0); HEMOGLOBIN 10.4 g/dL (13.0-17.5); LYMPH # 2.5 x10^3/uL (1.0-4.8); LYMPH % 22 % (24-48); MEAN CORPUSCULAR HEMOGLOBIN 30 pg (25-35); MEAN CORPUSCULAR HGB CONC 33 g/dL (31-37); MEAN CORPUSCULAR VOLUME 92 fL (79-100); MONO % 9 % (0-9); NEUT # 7.3 x10^3/uL (1.8-7.7); NEUT % 66 % (31-73); PLATELET COUNT 367 x10^3/uL (140-400); RED BLOOD COUNT 3.45 x10^6/uL (4.30-5.70); RED CELL DISTRIBUTION WIDTH 13.8 % (11.5-14.5); WHITE BLOOD COUNT 11.1 x10^3/uL (4.0-11.0)
[2021-11-01 04:34] LABS: ALBUMIN/GLOBULIN RATIO 0.7 (1.0-1.7); CALCIUM 8.7 mg/dL (8.5-10.1); CREATININE 0.6 mg/dL (0.7-1.3); GFR 140.9; MAGNESIUM 2.1 mg/dL (1.8-2.4); PHOSPHORUS 3.5 mg/dL (2.6-4.7); POTASSIUM 3.2 mmol/L (3.5-5.1); TOTAL BILIRUBIN 0.2 mg/dL (0.2-1.0); TOTAL PROTEIN 7.4 g/dL (6.4-8.2)
[2021-11-01] MEDS: PANTOPRAZOLE 40 MG TABLET.DR. PO SCH (06:07)
[2021-11-01] MEDS: HYDROcodone/APAP 5/325MG 1 TAB TABLET PO PRN ×3 (06:07→20:40)
[2021-11-01 07:00] VITALS: BP 155/77
[2021-11-01] MEDS: INSULIN LISPRO 300 UNITS/3 ML VIAL. SQ SCH ×3 (08:00→17:00)
[2021-11-01] MEDS: ASPIRIN ENTERIC COATED 81 MG TABLET.DR. PO SCH (08:50)
[2021-11-01] MEDS: ASCORBIC ACID 500 MG TABLET PO SCH (08:50)
[2021-11-01] MEDS: diphenhydrAMINE HCL 25 MG CAPSULE PO SCH (08:50)
[2021-11-01] MEDS: traMADol 50 MG TABLET PO PRN (08:50)
[2021-11-01] MEDS: CYANOCOBALAMIN (VITAMIN B-12) 1,000 MCG TABLET. PO SCH (08:51)
[2021-11-01] MEDS: PREGABALIN 50 MG CAPSULE PO SCH ×3 (08:51→20:39)
[2021-11-01] MEDS: CLOPIDOGREL BISULFATE 75 MG TABLET PO SCH (08:51)
[2021-11-01 10:48] VITALS: BP 119/67
--- NOTE | 2021-11-01 11:19 | PDOC ---
CHI GOODE JOINT MACHINE OPERATOR 11/01/21 1119: CARDIO Progress Notes Date and Time Date of Service 11/01/21 Time of Evaluation 1110 Subjective Subjective: No Chest Pain, No shortness of breath, No Palpitations Vitals Vitals Vital Signs Date Time Temp Pulse Resp B/P (MAP) Pulse Ox O2 Delivery O2 Flow Rate FiO2 11/01/21 10:48 98.3 61 16 119/67 (84) 98 Room Air 98.3 11/01/21 09:48 2.0 Weight Weight [ ] Input and Output Intake and Output Intake and Output 11/01/21 07:00 Intake Total 440 ml Output Total 1025 ml Balance -585 ml Intake Oral 440 ml Output Urine Total 1025 ml # Voids 2 Laboratory Labs Laboratory Tests Test 10/31/21 11:20 10/31/21 16:37 10/31/21 20:30 11/01/21 03:20 Glucose (Fingerstick) 89 mg/dL (70-99) 110 mg/dL (70-99) 95 mg/dL (70-99) White Blood Count 11.1 x10^3/uL (4.0-11.0) Red Blood Count 3.45 x10^6/uL (4.30-5.70) Hemoglobin 10.4 g/dL (13.0-17.5) Hematocrit 31.7 % (39.0-53.0) Mean Corpuscular Volume 92 fL (79-100) Mean Corpuscular Hemoglobin 30 pg (25-35) Mean Corpuscular Hemoglobin Concent 33 g/dL (31-37) Red Cell Distribution Width 13.8 % (11.5-14.5) Platelet Count 367 x10^3/uL (140-400) Neutrophils (%) (Auto) 66 % (31-73) Lymphocytes (%) (Auto) 22 % (24-48) Monocytes (%) (Auto) 9 % (0-9) Eosinophils (%) (Auto) 3 % (0-3) Basophils (%) (Auto) 0 % (0-3) Neutrophils # (Auto) 7.3 x10^3/uL (1.8-7.7) Lymphocytes # (Auto) 2.5 x10^3/uL (1.0-4.8) Monocytes # (Auto) 1.0 x10^3/uL (0.0-1.1) Eosinophils # (Auto) 0.3 x10^3/uL (0.0-0.7) Basophils # (Auto) 0.0 x10^3/uL (0.0-0.2) Erythrocyte Sedimentation Rate 100 (0-15) Sodium Level 136 mmol/L (136-145) Potassium Level 3.2 mmol/L (3.5-5.1) Chloride Level 98 mmol/L (98-107) Carbon Dioxide Level 27 mmol/L (21-32) Anion Gap 11 (6-14) Blood Urea Nitrogen 9 mg/dL (8-26) Creatinine 0.6 mg/dL (0.7-1.3) Estimated GFR (Cockcroft-Gault) 140.9 BUN/Creatinine Ratio 15 (6-20) Glucose Level 95 mg/dL (70-99) Calcium Level 8.7 mg/dL (8.5-10.1) Phosphorus Level 3.5 mg/dL (2.6-4.7) Magnesium Level 2.1 mg/dL (1.8-2.4) Total Bilirubin 0.2 mg/dL (0.2-1.0) Aspartate Amino Transf (AST/SGOT) 14 U/L (15-37) Alanine Aminotransferase (ALT/SGPT) 19 U/L (16-63) Alkaline Phosphatase 69 U/L (46-116) Total Protein 7.4 g/dL (6.4-8.2) Albumin 3.0 g/dL (3.4-5.0) Albumin/Globulin Ratio 0.7 (1.0-1.7) Prealbumin 14.9 mg/dL (16.0-42.0) Test 11/01/21 07:42 Glucose (Fingerstick) 121 mg/dL (70-99) Physical Exam HEENT: Neck Supple W Full Motion Chest: Symmetric LUNGS: Clear to Auscultation Heart: RRR Abdomen: Soft N/T Extremities: Other (left franklin wound, left 3 digits toe gangrene with surrounding erythema. ) Neurology: alert, follow commands Assessment Assessment 1. Severe peripheral vascular disease, critical limb ischemia and left foot toes gangrene. Aortogram with runoff and CT angiogram showed severe bilateral lower extremity peripheral artery disease. Appreciate vascular surgery consultation. Plan for surgical revascularization 2. Coronary artery disease s/p coronary artery bypass surgery in February 2021, presently stable and chest pain-free. He is cleared for vascular surgery from cardiac standpoint. Continue current secondary prevention measures. Echo pending 3. Bilateral carotid stenosis; Carotid US with moderate bilateral ICA disease and 4. Hypertension: Controlled 5. Hyperlipidemia: Statin therapy 6. DM2: Treat per IM 7. Tobacco abuse: Advised on smoking cessation 8. Hypokalemia; replaced Justicifation of Admission Dx: Justifications for Admission: Justification of Admission Dx: Yes Comments: severe PAD with limb ischemia MOLLY VARGAS MD 11/02/21 0645: CARDIO Progress Notes Assessment Assessment Patient seen and examined 11/01/2021. Agree with SURGICAL NURSE PRACTITIONER's assessment and plan. 2D echo showed LVEF 65% with diastolic dysfunction CAD status clinically stable Continue management of severe bilateral lower extremity PAD and carotid artery stenosis per vascular surgery team CHI GOODE APRN Nov 01, 2021 11:19 MOLLY VARGAS MD Nov 02, 2021 06:45
--- NOTE | 2021-11-01 13:37 | PDOC ---
Provider Note Date of Service: DATE: 11/01/21 TIME: 13:35 Provider Note Provider Note Cleared by cardiology for proceeding with aortobifemoral bypass. Discussed this with the patient and his family today. He will require bilateral femoral endarterectomy with this procedure. He would benefit greatly from an inflow procedure prior to any attempts at amputation or debridement of his left toes and left calf wound. He does have occlusion of his bilateral superficial femoral artery which may result in additional bypass down the line. All of this was discussed with the patient and his family today and they are agreeable with proceeding with surgery on . Recommend wound care consult in the interim to care for the left medial calf wound. Brooklyn Rodriguez DO Justicifation of Admission Dx: Justifications for Admission: Justification of Admission Dx: Yes (Ischemic rest pain and left forefoot gangr vinicius) BROOKLYN RODRIGUEZ DO Nov 01, 2021 13:37
--- NOTE | 2021-11-01 13:47 | NUR ---
SS following for discharge planning. SS reviewed pt chart and discussed with pt RN. Pt is from home and is currently on room air. COVID19 negative. Vascular and Cardiology following. Pt scheduled for surgery with vascular on , 11/04/2021. Wound care consulted. SS will continue to follow for discharge planning.
--- NOTE | 2021-11-01 13:50 | PDOC ---
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% occlusion of the left common iliac artery Renal artery stenosis atherosclerotic disease in the abdominal aorta, celiac axis and SMA Bilateral carotid stenosis approximately 50% History of diabetes mellitus type 2 History of hypertension History of CAD Admit to hospitalist service for further management Vascular surgery consult Wound care consult Continue IV fluids R-ISS and Accu-Cheks Lovenox for DVT prophylaxis ADA diet CODE STATUS full Discussed with RN and SW Disposition inpatient management as above DPOA: Valerie Sánchez History of Present Illness History of Present Illness 55-year-old male with significant past medical history of for pancreatitis, hypertension, CABG, peripheral vascular disease with critical limb ischemia who underwent an angio of his lower extremities showing severe peripheral vascular disease and lower extremity wounds. Patient is admitted to the hospitalist service for further management and consult to the vascular surgery service. 10/30/2021 No acute events overnight. Patient seen examined bedside. AF and VSS. No pain at this time. Pending vascular surgery evaluation. Pending wound care evaluation. Bedside wound care for right heel addressed. Patient's chart, labs, images were reviewed and discussed with RN 10/31/2021 No acute events overnight. Patient seen examined bedside. Patient worried about gangrene on his foot and infection. There is some erythema at the border of the dry gangrene. We will shoot an x-ray of the left foot to rule out osteomyelitis. Will obtain ESR. Pending prealbumin for possible aortofemoral bypass per vascular surgery. Ending duplex ultrasound. Pending records from [facility] for recent echo that was done. Patient's chart, labs, images were reviewed and discussed with RN 11/01/2021 No acute events overnight. Patient seen examined bedside. No complaints at this time. Plan for surgery this . Wound care to see today. Patient's chart, labs, images were reviewed and discussed with RN Vitals/I&O Vitals/I&O: Vital Signs Date Time Temp Pulse Resp B/P (MAP) Pulse Ox O2 Delivery O2 Flow Rate FiO2 11/01/21 10:48 98.3 61 16 119/67 (84) 98 Room Air 98.3 11/01/21 09:48 2.0 I & O 10/31/21 10/31/21 11/01/21 15:00 23:00 07:00 Intake Total 100 ml 100 ml 240 ml Output Total 700 ml 325 ml Balance -600 ml -225 ml 240 ml Physical Exam General: Alert, Oriented X3, Cooperative Heart: Regular rate Lungs: Clear Abdomen: Normal bowel sounds Extremities: No clubbing, Other (Left 3 digits toe gangrene with surrounding erythema. Left franklin open wound. ) Skin: Other Labs Labs: Laboratory Tests Test 10/31/21 16:37 10/31/21 20:30 11/01/21 03:20 11/01/21 07:42 Glucose (Fingerstick) 110 mg/dL (70-99) 95 mg/dL (70-99) 121 mg/dL (70-99) White Blood Count 11.1 x10^3/uL (4.0-11.0) Red Blood Count 3.45 x10^6/uL (4.30-5.70) Hemoglobin 10.4 g/dL (13.0-17.5) Hematocrit 31.7 % (39.0-53.0) Mean Corpuscular Volume 92 fL (79-100) Mean Corpuscular Hemoglobin 30 pg (25-35) Mean Corpuscular Hemoglobin Concent 33 g/dL (31-37) Red Cell Distribution Width 13.8 % (11.5-14.5) Platelet Count 367 x10^3/uL (140-400) Neutrophils (%) (Auto) 66 % (31-73) Lymphocytes (%) (Auto) 22 % (24-48) Monocytes (%) (Auto) 9 % (0-9) Eosinophils (%) (Auto) 3 % (0-3) Basophils (%) (Auto) 0 % (0-3) Neutrophils # (Auto) 7.3 x10^3/uL (1.8-7.7) Lymphocytes # (Auto) 2.5 x10^3/uL (1.0-4.8) Monocytes # (Auto) 1.0 x10^3/uL (0.0-1.1) Eosinophils # (Auto) 0.3 x10^3/uL (0.0-0.7) Basophils # (Auto) 0.0 x10^3/uL (0.0-0.2) Erythrocyte Sedimentation Rate 100 (0-15) Sodium Level 136 mmol/L (136-145) Potassium Level 3.2 mmol/L (3.5-5.1) Chloride Level 98 mmol/L (98-107) Carbon Dioxide Level 27 mmol/L (21-32) Anion Gap 11 (6-14) Blood Urea Nitrogen 9 mg/dL (8-26) Creatinine 0.6 mg/dL (0.7-1.3) Estimated GFR (Cockcroft-Gault) 140.9 BUN/Creatinine Ratio 15 (6-20) Glucose Level 95 mg/dL (70-99) Calcium Level 8.7 mg/dL (8.5-10.1) Phosphorus Level 3.5 mg/dL (2.6-4.7) Magnesium Level 2.1 mg/dL (1.8-2.4) Total Bilirubin 0.2 mg/dL (0.2-1.0) Aspartate Amino Transf (AST/SGOT) 14 U/L (15-37) Alanine Aminotransferase (ALT/SGPT) 19 U/L (16-63) Alkaline Phosphatase 69 U/L (46-116) Total Protein 7.4 g/dL (6.4-8.2) Albumin 3.0 g/dL (3.4-5.0) Albumin/Globulin Ratio 0.7 (1.0-1.7) Prealbumin 14.9 mg/dL (16.0-42.0) Test 11/01/21 11:35 Glucose (Fingerstick) 110 mg/dL (70-99) Comment Review of Relevant I have reviewed the following items ifrah (where applicable) has been applied. Justifications for Admission Other Justification Severe peripheral vascular disease with gangrenous wounds in the lower extremities VINCENZO MADRIGAL MD Nov 01, 2021 13:49
[2021-11-01] MEDS: POTASSIUM CHLORIDE 20 MEQ TABLET.ER. PO SCH ×2 (14:36→20:39)
[2021-11-01] MEDS: ENOXAPARIN 40 MG/0.4 ML SYRINGE. SQ SCH (14:37)
[2021-11-01 15:00] VITALS: BP 136/69
--- NOTE | 2021-11-01 18:21 | NUR ---
Wound Care Wound Type/Assessment: Pt is known to the wound clinic, having initiated treatment 10/25/21. At that time he had already scheduled an aortogram with cardiology for Monday of that week. Pt was admitted to hospital following the procedure with multi-level arterial occlusions of the lower extremities. Wound pictures present on admission, cleansed and measured. L dorsal toes, L lateral foot, and bilateral heels are eschar covered, dry and stable. L anterior lower leg is slough covered. Wound margins are pink. Pt's feet are bright red with purple mottling and cool to the touch. No palpable/dopplerable pedal pulses. Skin to plantar feet is dry, thickened and cracked. No other wounds noted on head to toe assessment Treatment Recommendations/Plan: L toes, lateral foot, bilat heels: Cleanse and dry. Toccopola eschar with betadine every shift. Pt may wear dry dressings (ABDs and kerlix) for extra padding to heels per his request L lower leg: Cleanse and pat dry. Apply medihoney gel, xeroform, ABD, and kerlix. Change every 2-3 days. Advised pt to limit walking as much as possible Vascular intervention anticipated for 11/04/21 Due to pt's vascular status, main goal of wound care is palliative/preventative to keep wounds from worsening or becoming infected. Education provided: Pt on video call during assessment. Education regarding upcoming procedure and expected outcomes; wound care expectations while waiting for revascularization; limiting walking as much as possible to avoid pressure to heels. Offloading surface/device: Pt is independent with mobility Recommended Referrals/Tests: Pending vascular intervention Discharge Recommendations for dressings: As above. Await further treatment orders from vascular
[2021-11-01 19:00] VITALS: BP 110/65
[2021-11-01] MEDS: ATORVASTATIN CALCIUM 10 MG TABLET. PO SCH (20:39)
[2021-11-01 23:00] VITALS: BP 134/67
[2021-11-02 03:00] VITALS: BP 151/74
[2021-11-02] MEDS: HYDROcodone/APAP 5/325MG 1 TAB TABLET PO PRN ×4 (04:51→21:00)
--- NOTE | 2021-11-02 06:45 | CARD ---
MR#: [id number] Date of Study: 11/01/2021 Ordering Physician: MOLLY VARGAS, Referring Physician: MOLLY VARGAS Tech: Lolly Acosta [facility] APPROVED REPORT EXAM: Two-dimensional and M-mode echocardiogram with Doppler and color Doppler. Other Information Quality : GoodHR: 75bpm Rhythm : NSR INDICATION Abnormal ECG 2D DIMENSIONS RVDd2.6 (2.9-3.5cm)Left Atrium(2D)4.2 (1.6-4.0cm) IVSd1.5 (0.7-1.1cm)Aortic Root(2D)3.5 (2.0-3.7cm) LVDd4.2 (3.9-5.9cm)LVOT Diameter2.3 (1.8-2.4cm) PWd1.4 (0.7-1.1cm)LVDs2.0 (2.5-4.0cm) FS (%) 53.0 %SV65.5 ml LVEF(%)84.3 (>50%) Aortic Valve AoV Peak Jared.160.6cm/sAoV VTI30.9cm AO Peak GR.10.3mmHgLVOT Peak Jared.169.2cm/s AO Mean GR.4mmHgAVA (VMAX)4.48cm2 Mitral Valve MV E Jngweovx80.3cm/sMV DECEL DEVS396lt MV A Hqlocgim38.7cm/sE/A Ratio0.8 Pulmonary Valve PV Peak Yiqnyfez638.8cm/s Tricuspid Valve TR P. Wcfvnhir544rl/sTR Peak Gr.32mmHg LEFT VENTRICLE The left ventricle is normal size. There is mild to moderate concentric left ventricular hypertrophy. The left ventricular systolic function is normal. Estimated ejection fraction 65%. There is normal L V segmental wall motion. Transmitral Doppler flow pattern is Grade I-abnormal relaxation pattern. RIGHT VENTRICLE The right ventricle is normal size. There is normal right ventricular wall thickness. Systolic functi on is mildly reduced. ATRIA The left atrium size is normal. The right atrium size is normal. The interatrial septum is intact wit h no evidence for an atrial septal defect or patent foramen ovale as noted on 2-D or Doppler imaging. AORTIC VALVE The aortic valve is normal in structure and function. Doppler and Color Flow revealed no significant aortic regurgitation. There is no significant aortic valvular stenosis. MITRAL VALVE The mitral valve is normal in structure and function. There is no evidence of mitral valve prolapse. There is no mitral valve stenosis. Doppler and Color-flow revealed trace mitral regurgitation. TRICUSPID VALVE The tricuspid valve is normal in structure and function. Doppler and Color Flow revealed trace tricus pid regurgitation. Estimated PAP 30 mmHg. There is no tricuspid valve stenosis. PULMONIC VALVE The pulmonary valve is normal in structure and function. Doppler and Color Flow revealed no pulmonic valvular regurgitation. GREAT VESSELS The aortic root is normal in size. The ascending aorta is normal in size. The IVC is normal in size a nd collapses >50% with inspiration. PERICARDIAL EFFUSION There is no evidence of significant pericardial effusion. Critical Notification Critical Value: No <Conclusion> The left ventricular systolic function is normal. Estimated ejection fraction 65%. There is normal LV segmental wall motion. Transmitral Doppler flow pattern is Grade I-abnormal relaxation pattern. Trace mitral regurgitation. Trace tricuspid regurgitation. Estimated PAP 30 mmHg. There is no evidence of significant pericardial effusion. Signed by : Molly Vargas, Electronically Approved : 11/02/2021 06:44:53
[2021-11-02 07:00] VITALS: BP 131/62
[2021-11-02] MEDS: INSULIN LISPRO 300 UNITS/3 ML VIAL. SQ SCH ×3 (08:00→16:35)
[2021-11-02] MEDS: ASPIRIN ENTERIC COATED 81 MG TABLET.DR. PO SCH (08:42)
[2021-11-02] MEDS: POTASSIUM CHLORIDE 20 MEQ TABLET.ER. PO SCH (08:43)
[2021-11-02] MEDS: PANTOPRAZOLE 40 MG TABLET.DR. PO SCH (08:44)
[2021-11-02] MEDS: diphenhydrAMINE HCL 25 MG CAPSULE PO SCH (08:44)
[2021-11-02] MEDS: CYANOCOBALAMIN (VITAMIN B-12) 1,000 MCG TABLET. PO SCH (08:44)
[2021-11-02] MEDS: ASCORBIC ACID 500 MG TABLET PO SCH (08:44)
[2021-11-02] MEDS: PREGABALIN 50 MG CAPSULE PO SCH ×3 (08:45→20:59)
[2021-11-02] MEDS: CLOPIDOGREL BISULFATE 75 MG TABLET PO SCH (08:45)
[2021-11-02 11:00] VITALS: BP 109/60
--- NOTE | 2021-11-02 12:23 | NUR ---
SS following up with discharge planning. SS reviewed pt chart and discussed with pt RN. Pt is currently on room air. COVID19 negative. Wound care, Cardiology, and Vascular following. Pt scheduled for surgery with Vascular on , 11/04/2021. Probable need for longterm unit when medically ready to participate with PT/OT. Not ready. SS will continue to follow for discharge planning.
--- NOTE | 2021-11-02 14:04 | PDOC ---
CHI GOODE RADIO ELECTRONICS TECHNICIAN 11/02/21 1404: CARDIO Progress Notes Date and Time Date of Service 11/02/21 Time of Evaluation 1030 Subjective Subjective: No Chest Pain, No shortness of breath, No Palpitations Vitals Vitals Vital Signs Date Time Temp Pulse Resp B/P (MAP) Pulse Ox O2 Delivery O2 Flow Rate FiO2 11/02/21 13:34 97 Room Air 2.0 11/02/21 11:00 98.2 66 18 109/60 (76) 98.2 Weight Weight [ ] Input and Output Intake and Output Intake and Output 11/02/21 07:00 Intake Total 1448 ml Output Total 600 ml Balance 848 ml Intake Oral 1448 ml Output Urine Total 600 ml # Voids 5 Laboratory Labs Laboratory Tests Test 11/01/21 16:38 11/01/21 20:30 11/02/21 07:39 11/02/21 11:53 Glucose (Fingerstick) 113 mg/dL (70-99) 141 mg/dL (70-99) 128 mg/dL (70-99) 104 mg/dL (70-99) Physical Exam HEENT: Neck Supple W Full Motion Chest: Symmetric LUNGS: Clear to Auscultation Heart: RRR Abdomen: Soft N/T Extremities: Other (left franklin wound, left 3 digits toe gangrene with surrounding erythema. ) Neurology: alert, oriented, follow commands, other (flat affect ) Assessment Assessment 1. Severe peripheral vascular disease, critical limb ischemia and left foot toes gangrene. Aortogram with runoff and CT angiogram showed severe bilateral lower extremity peripheral artery disease. Vascular surgery following, plans for surgical revascularization later this week. 2. Coronary artery disease s/p coronary artery bypass surgery in February 2021, presently stable and chest pain-free. Echo with preserved LV systolic function. Continue current secondary prevention measures 3. Bilateral carotid stenosis; Carotid US with moderate bilateral ICA disease 4. Hypertension: Controlled 5. Hyperlipidemia: Statin therapy 6. DM2: Treat per IM 7. Tobacco abuse: Advised on smoking cessation Justicifation of Admission Dx: Justifications for Admission: Justification of Admission Dx: Yes MOLLY VARGAS MD 11/02/21 1538: CARDIO Progress Notes Assessment Assessment Patient seen and examined. Agree with PAINT SUPERVISOR's assessment and plan. 2D echo showed LVEF 65% with diastolic dysfunction CAD status clinically stable Vascular surgery planning surgical revascularization for severe PAD with CLI later this week CHI GOODE APRN Nov 02, 2021 14:04 MOLLY VARGAS MD Nov 02, 2021 15:38
--- NOTE | 2021-11-02 14:34 | PDOC ---
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 of the left common iliac artery Renal artery stenosis atherosclerotic disease in the abdominal aorta, celiac axis and SMA Bilateral carotid stenosis approximately 50% History of diabetes mellitus type 2 History of hypertension History of CAD Admit to hospitalist service for further management Vascular surgery consult Wound care consult Continue IV fluids R-ISS and Accu-Cheks Lovenox for DVT prophylaxis ADA diet CODE STATUS full Discussed with RN and SW Disposition inpatient management as above DPOA: Valerie Sánchez History of Present Illness History of Present Illness 55-year-old male with significant past medical history of for pancreatitis, hypertension, CABG, peripheral vascular disease with critical limb ischemia who underwent an angio of his lower extremities showing severe peripheral vascular disease and lower extremity wounds. Patient is admitted to the hospitalist service for further management and consult to the vascular surgery service. 10/30/2021 No acute events overnight. Patient seen examined bedside. AF and VSS. No pain at this time. Pending vascular surgery evaluation. Pending wound care evaluation. Bedside wound care for right heel addressed. Patient's chart, labs, images were reviewed and discussed with RN 10/31/2021 No acute events overnight. Patient seen examined bedside. Patient worried about gangrene on his foot and infection. There is some erythema at the border of the dry gangrene. We will shoot an x-ray of the left foot to rule out osteomyelitis. Will obtain ESR. Pending prealbumin for possible aortofemoral bypass per vascular surgery. Ending duplex ultrasound. Pending records from [facility] for recent echo that was done. Patient's chart, labs, images were reviewed and discussed with RN 11/01/2021 No acute events overnight. Patient seen examined bedside. No complaints at this time. Plan for surgery this . Wound care to see today. Patient's chart, labs, images were reviewed and discussed with RN 11/02/2021 No acute Recs or night. Patient seen examined bedside. No complaints at this time. Smoking cessation: Total time spent was 12 minutes in face to face counseling. Patient has agreed to consider nicotine patches/gum or to start on Varnicline when discharged. Patient is cleared for his vascular surgery from cardiac standpoint. Vitals/I&O Vitals/I&O: Vital Signs Date Time Temp Pulse Resp B/P (MAP) Pulse Ox O2 Delivery O2 Flow Rate FiO2 11/02/21 13:34 97 Room Air 2.0 11/02/21 11:00 98.2 66 18 109/60 (76) 98.2 I & O 11/01/21 11/01/21 11/02/21 15:00 23:00 07:00 Intake Total 298 ml 550 ml 600 ml Output Total 600 ml Balance 298 ml 550 ml 0 ml Physical Exam General: Alert, Oriented X3, Cooperative Heart: Regular rate Lungs: Clear Abdomen: Normal bowel sounds Extremities: No clubbing, Other (Left 3 digits toe gangrene with surrounding erythema. Left franklin open wound. ) Skin: Other Labs Labs: Laboratory Tests Test 11/01/21 16:38 11/01/21 20:30 11/02/21 07:39 11/02/21 11:53 Glucose (Fingerstick) 113 mg/dL (70-99) 141 mg/dL (70-99) 128 mg/dL (70-99) 104 mg/dL (70-99) Comment Review of Relevant I have reviewed the following items ifrah (where applicable) has been applied. Justifications for Admission Other Justification Severe peripheral vascular disease with gangrenous wounds in the lower extremities VINCENZO MADRIGAL MD Nov 02, 2021 14:34
[2021-11-02 15:17] VITALS: BP 128/62
[2021-11-02] MEDS: ENOXAPARIN 40 MG/0.4 ML SYRINGE. SQ SCH (17:32)
[2021-11-02 19:09] VITALS: BP 134/61
--- NOTE | 2021-11-02 19:30 | NUR ---
Pt sitting in bed assessment completed vss poc explained pt c/o foot pain will medicate pt and continue to monitor pt.
[2021-11-02] MEDS: ATORVASTATIN CALCIUM 10 MG TABLET. PO SCH (21:00)
[2021-11-02 22:16] VITALS: BP 146/63
[2021-11-03] MEDS: traMADol 50 MG TABLET PO PRN ×2 (00:10→23:32)
[2021-11-03 03:04] VITALS: BP 140/66
[2021-11-03] MEDS: HYDROcodone/APAP 5/325MG 1 TAB TABLET PO PRN ×4 (03:13→20:50)
[2021-11-03] MEDS: PANTOPRAZOLE 40 MG TABLET.DR. PO SCH (05:46)
[2021-11-03 07:22] VITALS: BP 162/77
[2021-11-03] MEDS: INSULIN LISPRO 300 UNITS/3 ML VIAL. SQ SCH ×3 (08:00→17:00)
[2021-11-03] MEDS ORDERED: POLYETHYLENE GLYCOL 3350 17 GM PACKET. PO ONE (08:15)
[2021-11-03] MEDS: ASCORBIC ACID 500 MG TABLET PO SCH (09:05)
[2021-11-03] MEDS: ASPIRIN ENTERIC COATED 81 MG TABLET.DR. PO SCH (09:05)
[2021-11-03] MEDS: CYANOCOBALAMIN (VITAMIN B-12) 1,000 MCG TABLET. PO SCH (09:05)
[2021-11-03] MEDS: diphenhydrAMINE HCL 25 MG CAPSULE PO SCH (09:05)
[2021-11-03] MEDS: CLOPIDOGREL BISULFATE 75 MG TABLET PO SCH (09:05)
[2021-11-03] MEDS: PREGABALIN 50 MG CAPSULE PO SCH ×3 (09:05→20:50)
--- NOTE | 2021-11-03 09:40 | PDOC ---
PROGRESS NOTES Date of Service DATE: 11/03/21 TIME: 09:30 Subjective Subjective Patient resting in bed, complains of pain left foot. Objective Objective Vital Signs Date Time Temp Pulse Resp B/P (MAP) Pulse Ox O2 Delivery O2 Flow Rate FiO2 11/03/21 09:06 92 Room Air 2.0 11/03/21 09:05 79 162/77 11/03/21 07:22 97.9 18 97.9 Intake and Output 11/03/21 07:00 Intake Total 880 ml Output Total 600 ml Balance 280 ml Intake Oral 880 ml Output Urine Total 600 ml # Bowel Movements 4 Physical Exam Physical Exam Awake and alert HRR Non-labored respirations Abdomen soft NTND Bilateral feet ruborous, dry gangrene toes of left foot Plan Plan of Care 55 year old male with aortoiliac occlusive disease. Recommend Aorto bifemoral bypass with femoral endarterectomies. This is scheduled for tomorrow am. Discussed the plan procedure, risks and complications with the patient. The patient is agreeable to proceed. Carotid US reviewed, Doppler findings consistent with 50-69 percent stenosis involving the right ICA and less than 50 percent stenosis involving the left ICA, no plans for surgical intervention, repeat US in 6 months. Comment Review of Relevant I have reviewed the following items ifrah (where applicable) has been applied. Labs Laboratory Tests Test 11/01/21 11:35 11/01/21 16:38 11/01/21 20:30 11/02/21 07:39 Glucose (Fingerstick) 110 mg/dL (70-99) 113 mg/dL (70-99) 141 mg/dL (70-99) 128 mg/dL (70-99) Test 11/02/21 11:53 11/02/21 17:26 11/02/21 20:58 11/03/21 07:25 Glucose (Fingerstick) 104 mg/dL (70-99) 88 mg/dL (70-99) 147 mg/dL (70-99) 102 mg/dL (70-99) Laboratory Tests Test 11/02/21 11:53 11/02/21 17:26 11/02/21 20:58 11/03/21 07:25 Glucose (Fingerstick) 104 mg/dL (70-99) 88 mg/dL (70-99) 147 mg/dL (70-99) 102 mg/dL (70-99) Medications Current Medications Iodixanol 200 ml/ Sodium Chloride 400 ml @ 400 mls/hr 1X ONCE IART Last administered on 10/29/21at 09:00; Start 10/29/21 at 09:00; Stop 10/29/21 at 09:59; Status DC Lidocaine HCl (Xylocaine-Mpf 1% 2ml Vial) 2 ml STK-MED ONCE .ROUTE ; Start 10/29/21 at 10:55; Stop 10/29/21 at 10:55; Status DC Heparin Sodium/ Sodium Chloride 1,000 ml @ As Directed STK-MED ONCE .ROUTE ; Start 10/29/21 at 10:56; Stop 10/29/21 at 10:56; Status DC Nitroglycerin (Nitroglycerin) 200 mcg STK-MED ONCE .ROUTE ; Start 10/29/21 at 10:58; Stop 10/29/21 at 10:58; Status DC Midazolam HCl (Versed) 5 mg STK-MED ONCE .ROUTE ; Start 10/29/21 at 10:59; Stop 10/29/21 at 10:59; Status DC Fentanyl Citrate (Fentanyl 2ml Vial) 100 mcg STK-MED ONCE .ROUTE ; Start 10/29/21 at 10:59; Stop 10/29/21 at 10:59; Status DC Verapamil HCl (Verapamil) 5 mg STK-MED ONCE .ROUTE ; Start 10/29/21 at 10:59; Stop 10/29/21 at 10:59; Status DC Heparin Sodium (Porcine) (Heparin Sodium) 10,000 unit STK-MED ONCE .ROUTE ; Start 10/29/21 at 10:59; Stop 10/29/21 at 11:00; Status DC Diphenhydramine HCl (Benadryl) 50 mg STK-MED ONCE .ROUTE ; Start 10/29/21 at 11:35; Stop 10/29/21 at 11:36; Status DC Nitroglycerin (Nitroglycerin) 200 mcg 1X ONCE IART Last administered on 10/29/21at 12:11; Start 10/29/21 at 12:00; Stop 10/29/21 at 12:05; Status DC Verapamil HCl (Verapamil) 2.5 mg 1X ONCE IART Last administered on 10/29/21at 12:11; Start 10/29/21 at 12:00; Stop 10/29/21 at 12:05; Status DC Heparin Sodium (Porcine) (Heparin Sodium) 2,500 unit 1X ONCE IART Last administered on 10/29/21at 12:13; Start 10/29/21 at 12:00; Stop 10/29/21 at 12:05; Status DC Heparin Sodium/ Sodium Chloride (HEPARIN for ARTERIAL LINE FLUSH) 1,000 unit 1X ONCE IART Last administered on 10/29/21at 12:10; Start 10/29/21 at 12:00; Stop 10/29/21 at 12:05; Status DC Heparin Sodium/ Sodium Chloride (HEPARIN for ARTERIAL LINE FLUSH) 1,000 unit 1X ONCE IART Last administered on 10/29/21at 12:10; Start 10/29/21 at 12:00; Stop 10/29/21 at 12:05; Status DC Midazolam HCl (Versed) 5 mg 1X ONCE IV Last administered on 10/29/21at 12:12; Start 10/29/21 at 12:00; Stop 10/29/21 at 12:05; Status DC Fentanyl Citrate (Fentanyl 2ml Vial) 100 mcg 1X ONCE IV Last administered on 10/29/21at 12:12; Start 10/29/21 at 12:00; Stop 10/29/21 at 12:05; Status DC Iodixanol (Visipaque 320) 100 ml 1X ONCE IART ; Start 10/29/21 at 12:00; Stop 10/29/21 at 12:05; Status DC Lidocaine HCl (Xylocaine-Mpf 1% 2ml Vial) 2 ml 1X ONCE INJ Last administered on 10/29/21at 12:11; Start 10/29/21 at 12:00; Stop 10/29/21 at 12:05; Status DC Diphenhydramine HCl (Benadryl) 50 mg 1X ONCE IVP Last administered on 10/29/21at 12:00; Start 10/29/21 at 12:00; Stop 10/29/21 at 12:05; Status DC Sodium Chloride 1,000 ml @ 100 mls/hr Q10H IV ; Start 10/29/21 at 12:15; Stop 10/30/21 at 12:14; Status DC Iohexol (Omnipaque 350 Mg/ml) 95 ml 1X ONCE IV Last administered on 10/29/21at 13:25; Start 10/29/21 at 13:30; Stop 10/29/21 at 13:34; Status DC Sennosides (Senna) 17.2 mg PRN BID PRN PO CONSTIPATION; Start 10/29/21 at 15:45 Docusate Sodium (Colace) 100 mg PRN DAILY PRN PO HARD STOOLS; Start 10/29/21 at 15:45 Ondansetron HCl (Zofran) 4 mg PRN Q6HRS PRN IVP NAUSEA/VOMITING, 1st CHOICE; Start 10/29/21 at 15:45 Insulin Human Lispro (HumaLOG) 0-5 UNITS TIDWMEALS SQ ; Start 10/29/21 at 17:00 Dextrose (Dextrose 50%-Water Syringe) 12.5 gm PRN Q15MIN PRN IV SEE COMMENTS; Start 10/29/21 at 15:45 Sodium Chloride 1,000 ml @ 100 mls/hr Q10H IV Last administered on 10/31/21at 06:45; Start 10/29/21 at 15:45; Stop 10/31/21 at 13:06; Status DC Acetaminophen (Tylenol) 650 mg PRN Q4HRS PRN PO TEMP OVER 100.4F OR MILD PAIN; Start 10/29/21 at 15:45 Lorazepam (Ativan) 0.5 mg PRN Q6HRS PRN PO ANXIETY / AGITATION; Start 10/29/21 at 15:45 Lorazepam (Ativan Inj) 0.25 mg PRN Q4HRS PRN IV ANXIETY / AGITATION; Start 10/29/21 at 15:45 Enoxaparin Sodium (Lovenox 40mg Syringe) 40 mg Q24H SQ Last administered on 11/02/21at 17:32; Start 10/29/21 at 16:00; Stop 11/03/21 at 08:18; Status DC Acetaminophen/ Hydrocodone Bitart (Lortab 5/325) 1 tab PRN Q4HRS PRN PO SEVERE PAIN, 1ST CHOICE Last administered on 10/30/21at 20:34; Start 10/29/21 at 15:45 Acetaminophen/ Hydrocodone Bitart (Lortab 5/325) 2 tab PRN Q4HRS PRN PO SEVERE PAIN, 2ND CHOICE Last administered on 11/03/21at 09:06; Start 10/29/21 at 15:45 Morphine Sulfate (Morphine Sulfate) 1 mg PRN Q1HR PRN IV PAIN-SEE COMMENTS Last administered on 11/01/21at 08:52; Start 10/29/21 at 15:45 Morphine Sulfate (Morphine Sulfate) 2 mg PRN Q2HR PRN IVP SEVERE PAIN 7-10; Start 10/29/21 at 15:45; Stop 10/30/21 at 15:44; Status DC Prochlorperazine Edisylate (Compazine) 10 mg PRN Q6HRS PRN IV NAUSEA/VOMITING, 2nd CHOICE; Start 10/29/21 at 15:45 Diphenhydramine HCl (Benadryl) 25 mg PRN Q6HRS PRN IVP ITCHING; Start 10/29/21 at 15:45 Diphenhydramine HCl (Benadryl) 25 mg PRN Q6HRS PRN PO ITCHING; Start 10/29/21 at 15:45 Diphenhydramine HCl (Benadryl) 25 mg PRN QHS PRN PO INSOMNIA, 1st CHOICE Last administered on 10/30/21at 00:19; Start 10/29/21 at 15:45 Zolpidem Tartrate (Ambien) 2.5 mg PRN QHS PRN PO INSOMNIA, 2nd CHOICE; Start 10/29/21 at 15:45 Amlodipine Besylate (Norvasc) 10 mg DAILY PO Last administered on 11/03/21at 09:05; Start 10/30/21 at 09:00 Aspirin (Ecotrin) 81 mg DAILYWBKFT PO Last administered on 11/03/21at 09:05; Start 10/30/21 at 08:00 Atorvastatin Calcium (Lipitor) 10 mg QHS PO Last administered on 11/02/21at 21:00; Start 10/29/21 at 21:00 Clopidogrel Bisulfate (Plavix) 75 mg DAILY PO Last administered on 11/03/21at 09 :05; Start 10/30/21 at 09:00 Diphenhydramine HCl (Benadryl) 25 mg DAILY PO Last administered on 11/03/21at 09:05; Start 10/30/21 at 09:00 Pregabalin (Lyrica) 50 mg TID PO Last administered on 11/03/21at 09:05; Start 10/29/21 at 21:00 Tramadol HCl (Ultram) 50 mg Q6HRS PRN PO MODERATE PAIN Last administered on 11/03/21at 00:10; Start 10/29/21 at 17:00 Ascorbic Acid (Vitamin C) 500 mg DAILY PO Last administered on 11/03/21at 09:05; Start 10/30/21 at 09:00 Cyanocobalamin (Vitamin B-12) 1,000 mcg DAILY PO Last administered on 11/03/21at 09:05; Start 10/30/21 at 09:00 Pantoprazole Sodium (Protonix) 40 mg DAILYAC PO Last administered on 11/03/21at 05:46; Start 10/30/21 at 07:30 Potassium Chloride (Klor-Con) 40 meq BID PO Last administered on 11/02/21at 08:43; Start 11/01/21 at 14:00; Stop 11/02/21 at 13:59; Status DC Polyethylene Glycol (miraLAX PACKET) 17 gm 1X ONCE PO ; Start 11/03/21 at 08:15; Stop 11/03/21 at 08:16; Status DC Active Scripts Active Aspirin Ec (Aspirin) 81 Mg Tablet.dr 81 Mg PO DAILYWBKFT 90 Days Amlodipine Besylate 10 Mg Tablet 10 Mg PO DAILY 90 Days Atorvastatin Calcium 10 Mg Tablet 10 Mg PO QHS 90 Days Reported Hydrochlorothiazide Tablet (Hydrochlorothiazide) 25 Mg Tablet 25 Mg PO DAILY Metformin Hcl 1,000 Mg Tablet 1,000 Mg PO BIDWMEALS Clopidogrel (Clopidogrel Bisulfate) 75 Mg Tablet 1 Tab PO DAILY Vitamin B-12 (Cyanocobalamin (Vitamin B-12)) 1,000 Mcg Tab.subl 1 Tab SL DAILY 30 Days Vitamin C (Ascorbic Acid) 500 Mg Capsule.er 1 Cap PO DAILY 30 Days Omeprazole 40 Mg Capsule.dr 1 Cap PO DAILY Lyrica (Pregabalin) 50 Mg Capsule 50 Mg PO TID Benadryl (Diphenhydramine Hcl) 25 Mg Capsule 25 Mg PO DAILY Tramadol Hcl 50 Mg Tablet 50 Mg PO Q6HRS PRN Iron (Ferrous Sulfate) 325 Mg Tablet 325 Mg PO DAILY Vitals/I & O Vital Sign - Last 24 Hours 11/02/21 11/02/21 11/02/21 11/02/21 09:39 11:00 13:34 14:57 Temp 98.2 98.2 Pulse 66 Resp 18 B/P (MAP) 109/60 (76) Pulse Ox 97 97 97 97 O2 Delivery Room Air Room Air Room Air Room Air O2 Flow Rate 2.0 2.0 2.0 11/02/21 11/02/21 11/02/21 11/02/21 15:17 19:09 20:00 21:00 Temp 98.4 98.1 98.4 98.1 Pulse 67 69 Resp 18 16 18 B/P (MAP) 128/62 (84) 134/61 (85) Pulse Ox 99 99 99 O2 Delivery Room Air Room Air Room Air Room Air O2 Flow Rate 2.0 11/02/21 11/02/21 11/03/21 11/03/21 21:30 22:16 00:10 00:40 Temp 97.7 97.7 Pulse 72 Resp 18 16 16 18 B/P (MAP) 146/63 (90) Pulse Ox 99 99 96 96 O2 Delivery Room Air Room Air Room Air Room Air O2 Flow Rate 2.0 11/03/21 11/03/21 11/03/21 11/03/21 03:04 03:13 03:43 07:22 Temp 98.4 97.9 98.4 97.9 Pulse 63 79 Resp 18 18 16 18 B/P (MAP) 140/66 (90) 162/77 (105) Pulse Ox 92 92 92 O2 Delivery Room Air Room Air Room Air Room Air O2 Flow Rate 2.0 11/03/21 11/03/21 09:05 09:06 Pulse 79 B/P (MAP) 162/77 Pulse Ox 92 O2 Delivery Room Air O2 Flow Rate 2.0 Intake and Output 11/02/21 11/02/21 11/03/21 15:00 23:00 07:00 Intake Total 180 ml 400 ml 300 ml Output Total 600 ml Balance 180 ml 400 ml -300 ml Justifications for Admission Other Justification Severe peripheral vascular disease with gangrenous wounds in the lower extremities PAM KAHN APRN Nov 03, 2021 09:40
--- NOTE | 2021-11-03 10:43 | PDOC ---
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 11/03/21 1043: CARDIO Progress Notes Date and Time Date of Service 11/03/21 Time of Evaluation 1045 Subjective Subjective: No Chest Pain, No shortness of breath, No Palpitations, Other (c/o left foot pain) Vitals Vitals Vital Signs Date Time Temp Pulse Resp B/P (MAP) Pulse Ox O2 Delivery O2 Flow Rate FiO2 11/03/21 10:23 92 Room Air 2.0 11/03/21 09:05 79 162/77 11/03/21 07:22 97.9 18 97.9 Weight Weight [ ] Input and Output Intake and Output Intake and Output 11/03/21 07:00 Intake Total 880 ml Output Total 600 ml Balance 280 ml Intake Oral 880 ml Output Urine Total 600 ml # Bowel Movements 4 Laboratory Labs Laboratory Tests Test 11/02/21 11:53 11/02/21 17:26 11/02/21 20:58 11/03/21 07:25 Glucose (Fingerstick) 104 mg/dL (70-99) 88 mg/dL (70-99) 147 mg/dL (70-99) 102 mg/dL (70-99) Physical Exam HEENT: Neck Supple W Full Motion Chest: Symmetric LUNGS: Clear to Auscultation Heart: RRR Abdomen: Soft N/T Extremities: Other (left franklin wound, left 3 digits toe gangrene with surrounding erythema. ) Neurology: alert, oriented, follow commands, other (flat affect ) Assessment Assessment 1. Severe peripheral vascular disease, critical limb ischemia and left foot toes gangrene. Aortogram with runoff and CT angiogram showed severe bilateral lower extremity peripheral artery disease. Vascular surgery following, plans for surgical revascularization tomorrow 2. Coronary artery disease s/p coronary artery bypass surgery in February 2021, presently stable and chest pain-free. Echo with LVEF 65% with diastolic dysfunction. Continue current secondary prevention measures 3. Bilateral carotid stenosis; Carotid US with moderate bilateral ICA disease 4. Hypertension: Controlled 5. Hyperlipidemia: Statin therapy 6. DM2: Treat per IM 7. Tobacco abuse: Advised on smoking cessation Justicifation of Admission Dx: Justifications for Admission: Justification of Admission Dx: Yes MOLLY VARGAS MD 11/03/212128: CARDIO Progress Notes Assessment Assessment Patient seen and examined. Agree with FACILITIES PROJECT MANAGER's assessment and plan. 2D echo showed LVEF 65% with diastolic dysfunction CAD status clinically stable Vascular surgery planning surgical revascularization for severe PAD with CLI later this week CHI GOODE APRN Nov 03, 2021 10:43 MOLLY VARGAS MD Nov 03, 2021 21:29
[2021-11-03 10:48] VITALS: BP 135/62
--- NOTE | 2021-11-03 14:11 | NUR ---
SS following up with discharge planning. SS reviewed pt chart and discussed with pt RN. Pt is currently on room air. COVID19 negative. Wound care, Cardiology, and Vascular following. Pt scheduled for surgery with Vascular tomorrow, 11/04/2021. Probable need for senior living unit when medically ready to participate with PT/OT. Not ready. SS will continue to follow for discharge planning.
--- NOTE | 2021-11-03 14:44 | PDOC ---
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 80% occlusion of the left common iliac artery Renal artery stenosis atherosclerotic disease in the abdominal aorta, celiac axis and SMA Bilateral carotid stenosis approximately 50% History of diabetes mellitus type 2 History of hypertension History of CAD Admit to hospitalist service for further management Vascular surgery consult Wound care consult Continue IV fluids R-ISS and Accu-Cheks Lovenox for DVT prophylaxis ADA diet CODE STATUS full Discussed with RN and SW Disposition inpatient management as above DPOA: Valerie Sánchez History of Present Illness History of Present Illness 55-year-old male with significant past medical history of for pancreatitis, hypertension, CABG, peripheral vascular disease with critical limb ischemia who underwent an angio of his lower extremities showing severe peripheral vascular disease and lower extremity wounds. Patient is admitted to the hospitalist service for further management and consult to the vascular surgery service. 10/30/2021 No acute events overnight. Patient seen examined bedside. AF and VSS. No pain at this time. Pending vascular surgery evaluation. Pending wound care evaluation. Bedside wound care for right heel addressed. Patient's chart, labs, images were reviewed and discussed with RN 10/31/2021 No acute events overnight. Patient seen examined bedside. Patient worried about gangrene on his foot and infection. There is some erythema at the border of the dry gangrene. We will shoot an x-ray of the left foot to rule out osteomyelitis. Will obtain ESR. Pending prealbumin for possible aortofemoral bypass per vascular surgery. Ending duplex ultrasound. Pending records from [facility] for recent echo that was done. Patient's chart, labs, images were reviewed and discussed with RN 11/01/2021 No acute events overnight. Patient seen examined bedside. No complaints at this time. Plan for surgery this . Wound care to see today. Patient's chart, labs, images were reviewed and discussed with RN 11/02/2021 No acute Recs or night. Patient seen examined bedside. No complaints at this time. Smoking cessation: Total time spent was 12 minutes in face to face counseling. Patient has agreed to consider nicotine patches/gum or to start on Varnicline when discharged. Patient is cleared for his vascular surgery from cardiac standpoint. 11/03, vasc surg to do fempop bypass in AM, ischemic toes, may need ampuation, blood flow improvement should help that too Vitals/I&O Vitals/I&O: Vital Signs Date Time Temp Pulse Resp B/P (MAP) Pulse Ox O2 Delivery O2 Flow Rate FiO2 11/03/21 10:48 97.7 66 16 135/62 (86) 99 Room Air 97.7 11/03/21 10:23 2.0 I & O 11/02/21 11/02/21 11/03/21 15:00 23:00 07:00 Intake Total 180 ml 400 ml 300 ml Output Total 600 ml Balance 180 ml 400 ml -300 ml Physical Exam General: Alert, Oriented X3, Cooperative Heart: Regular rate Lungs: Clear Abdomen: Normal bowel sounds Extremities: No clubbing, Other (Left 3 digits toe gangrene with surrounding erythema. Left franklin open wound. ) Skin: Other Labs Labs: Laboratory Tests Test 11/02/21 17:26 11/02/21 20:58 11/03/21 07:25 11/03/21 11:52 Glucose (Fingerstick) 88 mg/dL (70-99) 147 mg/dL (70-99) 102 mg/dL (70-99) 108 mg/dL (70-99) Comment Review of Relevant I have reviewed the following items ifrah (where applicable) has been applied. Justifications for Admission Other Justification Severe peripheral vascular disease with gangrenous wounds in the lower extremities BRETT YAP MD Nov 03, 2021 14:44
[2021-11-03 15:00] VITALS: BP 135/60
[2021-11-03 19:00] VITALS: BP 132/64
[2021-11-03] MEDS: ATORVASTATIN CALCIUM 10 MG TABLET. PO SCH (20:50)
[2021-11-03 23:00] VITALS: BP 150/70
[2021-11-04] VITALS (9 sets, daily range): BP systolic 114–164; BP diastolic 44–92
[2021-11-04] MEDS: HYDROcodone/APAP 5/325MG 1 TAB TABLET PO PRN (02:25)
[2021-11-04] MEDS ORDERED: IV RINGERS,LACTATED 1000ML 1,000 ML IV SCH (06:00)
[2021-11-04] MEDS ORDERED: PROCHLORPERAZINE 10 MG/2 ML VIAL. IVP PRN (06:00)
[2021-11-04] MEDS ORDERED: HYDROmorphone 2 MG/ML INJ. IVP PRN (06:00)
[2021-11-04] MEDS ORDERED: fentaNYL PF VIAL 100 MCG/2 ML VIAL IVP PRN (06:00)
[2021-11-04] MEDS ORDERED: HEPARIN SODIUM 5,000 UNIT in IV NORMAL SALINE 500ML BAG 500 ML IRR ONE (06:00)
[2021-11-04 06:43] LABS: HEMATOCRIT 29.6 % (39.0-53.0); HEMOGLOBIN 9.8 g/dL (13.0-17.5); RED BLOOD COUNT 3.22 x10^6/uL (4.30-5.70); WHITE BLOOD COUNT 11.9 x10^3/uL (4.0-11.0)
[2021-11-04] MEDS ORDERED: PROPOFOL 10 MG/ML (20ML) VIAL. IV ONE (06:54)
[2021-11-04] MEDS ORDERED: LIDOCAINE 2% PF 5 ML VIAL. ONE (06:54)
[2021-11-04] MEDS ORDERED: ROCURONIUM 50 MG/5 ML VIAL. ONE ×2 (06:54→11:06)
[2021-11-04] MEDS ORDERED: MIDAZOLAM HCL/PF 2 MG/2 ML VIAL. ONE (06:54)
[2021-11-04] MEDS ORDERED: ONDANSETRON PF 4 MG/2 ML VIAL. ONE (06:54)
[2021-11-04] MEDS ORDERED: fentaNYL PF VIAL 100 MCG/2 ML VIAL ONE ×3 (06:54→13:33)
[2021-11-04] MEDS ORDERED: DEXAMETHASONE SOD PHOS 4 MG/ML VIAL ONE (06:54)
[2021-11-04] MEDS ORDERED: HEPARIN for IV BOLUS 10,000 UNIT/10 ML VIAL. ONE ×3 (07:03→11:06)
[2021-11-04] MEDS ORDERED: SURGICEL FIBRILLAR 1X2 EACH. ONE (07:03)
[2021-11-04] MEDS ORDERED: PHENYLEPHRINE 10 MG/ML VIAL. ONE (07:09)
[2021-11-04 07:12] LABS: CALCIUM 8.6 mg/dL (8.5-10.1); CREATININE 0.7 mg/dL (0.7-1.3); POTASSIUM 3.8 mmol/L (3.5-5.1)
[2021-11-04] MEDS: PANTOPRAZOLE 40 MG TABLET.DR. PO SCH (07:30)
[2021-11-04] MEDS: PREGABALIN 50 MG CAPSULE PO SCH ×3 (07:59→20:57)
[2021-11-04] MEDS: diphenhydrAMINE HCL 25 MG CAPSULE PO SCH (07:59)
[2021-11-04] MEDS: ASPIRIN ENTERIC COATED 81 MG TABLET.DR. PO SCH (07:59)
[2021-11-04] MEDS: INSULIN LISPRO 300 UNITS/3 ML VIAL. SQ SCH ×3 (07:59→16:49)
[2021-11-04] MEDS: CLOPIDOGREL BISULFATE 75 MG TABLET PO SCH (08:00)
[2021-11-04] MEDS: CYANOCOBALAMIN (VITAMIN B-12) 1,000 MCG TABLET. PO SCH (08:00)
[2021-11-04] MEDS: ASCORBIC ACID 500 MG TABLET PO SCH (08:00)
[2021-11-04] MEDS ORDERED: ALBUMIN HUMAN 5% 500 ML IV ONE (10:16)
[2021-11-04 10:40] LABS: ART BE ISTAT -2 mmol/L (0-3); ART GLUC ISTAT 178 mg/dL (70-99); ART HCO3 ISTAT 23 mmol/L (21-28); ART HCT ISTAT 23 % (37-52); ART HGB ISTAT 7.8 g/dL (14-18); ART ION CA ISTAT 1.16 mmol/L (1.13-1.32); ART K ISTAT 3.5 mmol/L (3.5-5.0); ART NA ISTAT 134 mmol/L (135-145); ART PCO2 ISTAT 38 mmHg (35-45); ART PH ISTAT 7.39 (7.35-7.45); ART PO2 ISTAT 242 mmHg (75-100); ART SAT O2 ISTAT 100 % (95-99); ART TCO2 ISTAT 24 mmol/L (21-32); CORRECTED PCO2 35 mmHg; CORRECTED PH 7.42; CORRECTED PO2 233 mmHg
[2021-11-04] MEDS ORDERED: VASOPRESSIN 20 UNIT/ML VIAL. ONE (10:42)
[2021-11-04] MEDS ORDERED: HYDROmorphone 2 MG/ML INJ. ONE (11:09)
[2021-11-04] MEDS ORDERED: SUGAMMADEX SODIUM 200 MG/2 ML VIAL. IVP ONE (11:15)
[2021-11-04] MEDS ORDERED: PROTAMINE 50 MG/5 ML VIAL. IV ONE (11:48)
--- NOTE | 2021-11-04 11:55 | PDOC ---
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 80% occlusion of the left common iliac artery Renal artery stenosis atherosclerotic disease in the abdominal aorta, celiac axis and SMA Bilateral carotid stenosis approximately 50% History of diabetes mellitus type 2 History of hypertension History of CAD Admit to hospitalist service for further management Vascular surgery consult Wound care consult Continue IV fluids R-ISS and Accu-Cheks Lovenox for DVT prophylaxis ADA diet CODE STATUS full Discussed with RN and SW Disposition inpatient management as above DPOA: Valerie Sánchez History of Present Illness History of Present Illness 11/04, Surgery today, fem pop 55-year-old male with significant past medical history of for pancreatitis, hypertension, CABG, peripheral vascular disease with critical limb ischemia who underwent an angio of his lower extremities showing severe peripheral vascular disease and lower extremity wounds. Patient is admitted to the hospitalist service for further management and consult to the vascular surgery service. 2 Vitals/I&O Vitals/I&O: Vital Signs Date Time Temp Pulse Resp B/P (MAP) Pulse Ox O2 Delivery O2 Flow Rate FiO2 11/04/21 07:04 99.1 68 15 157/84 99 Room Air 99.1 11/03/21 21:20 2.0 I & O 11/03/21 11/03/21 11/04/21 15:00 23:00 07:00 Intake Total 560 ml 430 ml Output Total 850 ml Balance 560 ml 430 ml -850 ml Physical Exam General: Alert, Oriented X3, Cooperative Heart: Regular rate Lungs: Clear Abdomen: Normal bowel sounds Extremities: No clubbing, Other (Left 3 digits toe gangrene with surrounding erythema. Left franklin open wound. ) Skin: Other Labs Labs: Laboratory Tests Test 11/03/21 17:09 11/03/21 20:25 11/04/21 05:15 11/04/21 06:52 Glucose (Fingerstick) 206 mg/dL (70-99) 128 mg/dL (70-99) 114 mg/dL (70-99) White Blood Count 11.9 x10^3/uL (4.0-11.0) Red Blood Count 3.22 x10^6/uL (4.30-5.70) Hemoglobin 9.8 g/dL (13.0-17.5) Hematocrit 29.6 % (39.0-53.0) Mean Corpuscular Volume 92 fL (79-100) Mean Corpuscular Hemoglobin 30 pg (25-35) Mean Corpuscular Hemoglobin Concent 33 g/dL (31-37) Red Cell Distribution Width 14.0 % (11.5-14.5) Platelet Count 340 x10^3/uL (140-400) Sodium Level 136 mmol/L (136-145) Potassium Level 3.8 mmol/L (3.5-5.1) Chloride Level 98 mmol/L (98-107) Carbon Dioxide Level 26 mmol/L (21-32) Anion Gap 12 (6-14) Blood Urea Nitrogen 11 mg/dL (8-26) Creatinine 0.7 mg/dL (0.7-1.3) Estimated GFR (Cockcroft-Gault) 118.0 Glucose Level 111 mg/dL (70-99) Calcium Level 8.6 mg/dL (8.5-10.1) Test 11/04/21 09:59 11/04/21 10:35 Activated Clotting Time 263 sec (92-181) Bedside Hemoglobin (Calculated) 7.8 g/dL (14-18) Bedside Hematocrit 23 % (37-52) Bedside Arterial pH 7.39 (7.35-7.45) Arterial Blood pH (Temp corrected) 7.42 Bedside Arterial pCO2 38 mmHg (35-45) Arterial Blood pCO2 (Temp correct) 35 mmHg Bedside Arterial pO2 242 mmHg (75-100) Arterial Blood pO2 (Temp corrected) 233 mmHg Bedside Arterial HCO3 23 mmol/L (21-28) Bedside Arterial Total CO2 24 mmol/L (21-32) Arterial Bld O2 Saturation (Measur) 100 % (95-99) Bedside Arterial Blood Base Excess -2 mmol/L (0-3) Bedside FiO2 50.0 Bedside Sodium 134 mmol/L (135-145) Bedside Potassium 3.5 mmol/L (3.5-5.0) Glucose Level 178 mg/dL (70-99) Bedside Ionized Calcium (Dianne) 1.16 mmol/L (1.13-1.32) Comment Review of Relevant I have reviewed the following items ifrah (where applicable) has been applied. Medications: Current Medications Medications (Trade) Dose Ordered Sig/Amara Route PRN Reason Start Time Stop Time Status Last Admin Dose Admin Cefazolin Sodium/ Dextrose 50 ml @ 100 mls/hr 1X PREOP PRN IV PRIOR TO PROCEDURE 11/04/21 08:00 11/04/21 18:00 11/04/21 08:06 Heparin Sodium (Porcine) 5000 unit/Sodium Chloride 505 ml @ 505 mls/hr 1X ONCE IRR 11/04/21 06:00 11/04/21 06:59 DC 11/04/21 09:05 Cefazolin Sodium 1 gm/Sodium Chloride 500 ml @ 500 mls/hr 1X ONCE IRR 11/04/21 06:00 11/04/21 06:59 DC 11/04/21 09:05 Ringer's Solution 1,000 ml @ 30 mls/hr Q24H IV 11/04/21 06:00 11/04/21 17:59 11/04/21 06:00 Cellulose (Surgicel Fibrillar 1x2) 1 each STK-MED ONCE .ROUTE 11/04/21 07:03 11/04/21 07:03 DC 11/04/21 09:05 Justifications for Admission Other Justification Severe peripheral vascular disease with gangrenous wounds in the lower extremities BRETT YAP MD Nov 04, 2021 11:55
[2021-11-04] MEDS ORDERED: GELATIN SPONGE SIZE 12-7MM SPONGE. ONE ×7 (12:08→12:17)
[2021-11-04] MEDS ORDERED: THROMBIN TOPICAL 20,000 UNIT SPRAY.SYRN KIT TP ONE (12:08)
[2021-11-04] MEDS ORDERED: SEVOFLURANE > 120 MINUTES. IH ONE (12:18)
--- NOTE | 2021-11-04 12:31 | NUR ---
SS following up with discharge planning. SS reviewed pt chart and discussed with pt RN. Pt is currently on room air. COVID19 negative. Wound care, Cardiology, and Vascular following. Blood received this morning. Surgery with Vascular today. Pt transferring to ICU. Probable need for intermediate unit when medically ready to participate with PT/OT. Not ready. SS will continue to follow for discharge planning.
[2021-11-04] MEDS ORDERED: 0.9 % SODIUM CHLORIDE 10 ML DISP.SYRIN. IV PRN (13:30)
[2021-11-04] MEDS ORDERED: NALOXONE 0.4 MG/ML VIAL. IV PRN ×2 (13:30)
[2021-11-04] MEDS ORDERED: LABETALOL 20 MG/4 ML DISP.SYRIN. IVP PRN (13:30)
[2021-11-04] MEDS ORDERED: ONDANSETRON PF 4 MG/2 ML VIAL. IVP PRN (13:30)
[2021-11-04] MEDS ORDERED: hydrALAZINE 20 MG/ML VIAL. IVP PRN (13:30)
[2021-11-04] MEDS ORDERED: PROCHLORPERAZINE 10 MG/2 ML VIAL. IV PRN (13:30)
[2021-11-04] MEDS: IV NORMAL SALINE 1000ML BAG 1,000 ML IV SCH ×3 (13:30→20:54)
[2021-11-04] MEDS: INSULIN LISPRO 100 UNIT/ML 3ML VIAL for OP,RR ONLY. SQ PRN ×2 (13:40→15:08)
[2021-11-04] MEDS: fentaNYL PF VIAL 100 MCG/2 ML VIAL IVP PRN ×2 (13:41→14:02)
--- NOTE | 2021-11-04 13:49 | PDOC4 ---
BRIEF OPERATIVE NOTE Date: Nov 04, 2021 Pre-Op Diagnosis Aorto-iliac occlusive disease with digit gangrene Post-Op Diagnosis same Procedure Performed Aorto bifemoral bypass with 16x8mm gortext graft placement, aortic and bilateral femoral endarterectomies Surgeon Dr. Can Dual Rate Dealer Pam Kahn NP Anesthesia Type: General Blood Loss 1145cc 700cc cell saver return Specimens Obtained discarded Findings severe aortic and iliac stenosis, femoral stenosis Complications none Operative Note see dictated op note for additional information PAM KAHN LAW WRITER Nov 04, 2021 13:49
[2021-11-04] MEDS ORDERED: PROCHLORPERAZINE 10 MG/2 ML VIAL. ONE (14:04)
[2021-11-04] MEDS ORDERED: hydrALAZINE 20 MG/ML VIAL. ONE (14:04)
[2021-11-04] MEDS ORDERED: MORPHINE SULFATE 2 MG/ML INJ. ONE (14:04)
[2021-11-04] MEDS: MORPHINE SULFATE 2 MG/ML INJ. IVP PRN ×2 (14:10→14:28)
[2021-11-04 14:45] LABS: BASO # 0.1 x10^3/uL (0.0-0.2); BASO % 1 % (0-3); EOS % 0 % (0-3); HEMATOCRIT 33.2 % (39.0-53.0); HEMOGLOBIN 10.8 g/dL (13.0-17.5); LYMPH # 1.5 x10^3/uL (1.0-4.8); LYMPH % 7 % (24-48); MEAN CORPUSCULAR HEMOGLOBIN 30 pg (25-35); MEAN CORPUSCULAR HGB CONC 33 g/dL (31-37); MEAN CORPUSCULAR VOLUME 93 fL (79-100); MONO # 0.9 x10^3/uL (0.0-1.1); MONO % 4 % (0-9); NEUT # 20.2 x10^3/uL (1.8-7.7); NEUT % 89 % (31-73); PLATELET COUNT 263 x10^3/uL (140-400); RED BLOOD COUNT 3.56 x10^6/uL (4.30-5.70); RED CELL DISTRIBUTION WIDTH 13.7 % (11.5-14.5); WHITE BLOOD COUNT 22.8 x10^3/uL (4.0-11.0)
[2021-11-04 14:58] LABS: CALCIUM 7.2 mg/dL (8.5-10.1); CREATININE 0.9 mg/dL (0.7-1.3); GFR 88.3; POTASSIUM 4.2 mmol/L (3.5-5.1)
--- NOTE | 2021-11-04 15:16 | OP ---
DATE OF SURGERY: 11/04/2021 PREOPERATIVE DIAGNOSES: 1. Limb-threatening ischemia of both lower extremities due to multilevel occlusive disease. 2. History of tobaccoism. 3. Severe iliac arterial occlusive disease. 4. History of atherosclerotic heart disease, status post coronary artery bypass. POSTOPERATIVE DIAGNOSES: 1. Limb limb-threatening ischemia of both lower extremities due to multilevel occlusive disease. 2. History of tobaccoism. 3. Severe iliac arterial occlusive disease. 4. History of atherosclerotic heart disease, status post coronary artery bypass. OPERATIONS PERFORMED: 1. Aortobilateral profunda femoris bypass with 16 x 8 bifurcated Hunt-Riley graft. 2. Extended right superficial femoral artery endarterectomy with patch angioplasty. SURGEON: Jose Luis Can MD WEB MASTER: Felecia Kerr NP. ANESTHESIA: General. INDICATIONS FOR SURGERY: This is a 55-year-old gentleman who has developed gangrene of the digits of both feet. He underwent a CT angiography, which revealed severe occlusive disease with occlusion of the iliac arteries bilaterally. The patient has occlusive disease at multiple levels including the superficial femoral artery. He is a long-term smoker and has a history of heart disease with coronary artery bypass approximately one year ago. He has been cleared from a cardiac standpoint for the aortofemoral bypass. The operation, risks and benefits were explained to the patient. He understood and wished to proceed. OPERATIVE FINDINGS: The patient has severe atherosclerotic plaquing of the aorta, but infrarenal clamping was able to be accomplished. There was no backbleeding from the inferior mesenteric artery, which was chronically occluded. The left common femoral artery was occluded. We were able to do endarterectomies of the 2 large profunda femoris branches with good backbleeding and therefore, the graft is sutured to the profunda femoris arteries on the left. On the right, the superficial femoral artery was patent at least for a distance. There were two smaller profunda femoris arteries, which were endarterectomized and flow restored into them as well. Following the procedure, the patient had excellent Doppler flow in all of those mentioned vessels. He also had good Doppler flow in both renal arteries. As mentioned infrarenal cross clamping was required. He will require staged revascularization of the lower extremities, starting with the left leg. We will undergo angiographic evaluation via an arm approach and then schedule his left bypass for limb salvage sometime early next week. DESCRIPTION OF PROCEDURE: The patient was placed in the supine position. Monitoring lines were placed by Anesthesia. General anesthetic was placed by anesthesia. A timeout was called and the correct patient, correct operation and correct operative sites were all verified. The patient received 2 grams of IV Ancef. The abdomen and both groins were prepped and draped in the usual manner and a simultaneous incisions were made by my nursing surgical services director, Felecia Kerr and myself in the groins. The common femoral, profunda and superficial femoral branches were all dissected and encircled with vessel loops. There were 2 profunda branches on both right and left. Following this, a blunt tract was made by digital manipulation along the anterior aspect of both common femoral and distal external iliac arteries inferior to the inguinal ligament. Moistened gauze were placed in both the groin incisions. A midline incision was then made and the abdominal cavity was entered. There were no gross pathologic findings. The aorta was exposed with retractors. The inferior mesenteric artery was exposed first and encircled with a vessel loop. The aorta just distal to this was exposed for crossclamping. This vessel was extremely hard due to calcification. Proximally, the dissection was carried out through to the level of the crossing left renal vein. Both renal arteries were identified. There was some eccentric plaque present at this level; however, it was felt to be clampable at this level. The patient received 7000 units of heparin, and after 3 minutes circulation, a clamp was placed on the infrarenal aorta. A second DeBakey clamp was placed distal to the takeoff of the inferior mesenteric artery. The aorta was then entered and with a curved Low scissors the extreme heavy calcification was divided. Endarterectomy was performed of the entire abdominal aorta. Lumbar back bleeders were oversewn with 2-0 silk suture ligatures. The proximal aorta was then endarterectomized up to the level of including DeBakey clamp. A 16 x 8 bifurcated graft was then sutured into the endarterectomized abdominal aorta using an HS-5 Prolene suture. After completing the anastomosis, there was some needle hole bleeding. Pressure was held at this level. The patient, of note, had been on Plavix due to his heart condition. The distal aorta was endarterectomized and oversewn as well. The inferior mesenteric artery was then assessed and was felt to be occluded on a chronic basis. Therefore, it was ligated just beyond the origin from the aorta. Both graft limbs were then placed in these respective tunnels behind both ureters to the respective groins. Starting with the left, the common femoral, superficial femoral, and profunda femoris branches were occluded. An arteriotomy was made longitudinally in the common femoral artery and endarterectomy was performed of the common femoral artery. Both profunda femoris arteries did not contain extensive plaque and therefore following endarterectomy of the common femoral artery there was excellent patency of these vessels. The left superficial femoral artery was noted to be chronically occluded. The graft was then sutured end-to-side using HS 7 Prolene suture. Prior to completing the anastomosis, the vessel was flushed appropriately by flushing the graft in an antegrade manner and then backbleeding the flow in the profunda branches. Anastomosis was then completed and flow was restored. Flow was checked with the continuous wave handheld Doppler and was brisk and nonobstructive in both branches. A similar procedure was carried out on the right; however, the right superficial femoral artery was patent proximally. Therefore, the toe of the anastomosis was placed onto the superficial femoral artery. This required further dissection of approximately 5 cm and a very long patch using the right limb of the graft. Prior to completing that anastomosis, again, the graft was flushed antegrade and then the superficial femoral artery was backbled as were the profunda femoris branches. Meticulous endarterectomy had been performed of the common femoral and profunda femoris branches and superficial femoral artery again approximately 5 cm distal to the origin. The patient was given 50 mg of protamine. All wounds were irrigated with antibiotic irrigation. The groins were closed in layers with 2-0 and 3-0 Vicryl, the skin with dana. The abdominal cavity required some hemostatic agents due to suture line bleeding from the patient being on Plavix. Hemostasis was, however, able to be obtained. The retroperitoneum was approximated over the aorta with 2-0 Vicryl. The NG tube was then checked for correct position and the fascia was then approximated with #1 PDS. Dana were applied. Prior to closing any of the wounds they were copiously irrigated with Ancef-containing irrigation. The patient tolerated the procedure well and was taken to the recovery room in satisfactory condition. Again, he will require staged revascularization of the lower extremities due to the presence of gangrene in the digits on both feet. ESTIMATED BLOOD LOSS: 1100 mL. Please refer to Anesthesia chart for fluids given including Cell Saver. DRAINS: None. SPECIMEN: Extensive aortic plaque. RCA/MEKHI DR: ADINA/amanda TID: [id number]
--- NOTE | 2021-11-04 15:44 | RAD ---
EXAM: XR CHEST 1V 11/04/2021 2:37 PM CLINICAL INDICATION: Post chest tube an NG tube, immediate postop from bypass. COMPARISON: Chest radiograph 11/05/2021 TECHNIQUE: AP upright view of the chest FINDINGS: A nasogastric tube terminates in the gastric fundus. There is a left-sided central venous c atheter with tip overlying the mid superior vena cava. There is no chest tube visualized. There are s urgical changes of median sternotomy. New midline upper abdominal skin gay. The heart is normal i n size. Lungs are well-expanded and clear. Pneumoperitoneum is noted under the diaphragm. There is an old right posterior rib fracture. IMPRESSION: 1. Nasogastric tube and left central venous catheter and appropriate positions. 2. New surgical changes of the upper abdomen with pneumoperitoneum, presumably postoperative. Results were discussed by Dr. Benedict with the nurses station at 3:40 PM on 11/05/2021. She confirmed that the patient does not have a chest tube. Electronically signed by: Lizbet Benedict MD (11/04/2021 3:42 PM) [id number]
--- NOTE | 2021-11-04 16:06 | PDOC ---
PULMONARY PROGRESS NOTES DATE: 11/04/21 TIME: 16:06 Vitals Vital Signs Date Time Temp Pulse Resp B/P (MAP) Pulse Ox O2 Delivery O2 Flow Rate FiO2 11/04/21 15:01 84 16 118/54 99 Room Air 11/04/21 14:46 97.1 97.1 11/04/21 14:31 8.0 Lungs: Clear Labs Laboratory Tests Test 11/02/21 17:26 11/02/21 20:58 11/03/21 07:25 11/03/21 11:52 Glucose (Fingerstick) 88 mg/dL (70-99) 147 mg/dL (70-99) 102 mg/dL (70-99) 108 mg/dL (70-99) Test 11/03/21 17:09 11/03/21 20:25 11/04/21 05:15 11/04/21 06:52 Glucose (Fingerstick) 206 mg/dL (70-99) 128 mg/dL (70-99) 114 mg/dL (70-99) White Blood Count 11.9 x10^3/uL (4.0-11.0) Red Blood Count 3.22 x10^6/uL (4.30-5.70) Hemoglobin 9.8 g/dL (13.0-17.5) Hematocrit 29.6 % (39.0-53.0) Mean Corpuscular Volume 92 fL (79-100) Mean Corpuscular Hemoglobin 30 pg (25-35) Mean Corpuscular Hemoglobin Concent 33 g/dL (31-37) Red Cell Distribution Width 14.0 % (11.5-14.5) Platelet Count 340 x10^3/uL (140-400) Sodium Level 136 mmol/L (136-145) Potassium Level 3.8 mmol/L (3.5-5.1) Chloride Level 98 mmol/L (98-107) Carbon Dioxide Level 26 mmol/L (21-32) Anion Gap 12 (6-14) Blood Urea Nitrogen 11 mg/dL (8-26) Creatinine 0.7 mg/dL (0.7-1.3) Estimated GFR (Cockcroft-Gault) 118.0 Glucose Level 111 mg/dL (70-99) Calcium Level 8.6 mg/dL (8.5-10.1) Test 11/04/21 09:59 11/04/21 10:35 11/04/21 11:00 11/04/21 13:28 Activated Clotting Time 263 sec (92-181) 182 sec (92-181) Bedside Hemoglobin (Calculated) 7.8 g/dL (14-18) Bedside Hematocrit 23 % (37-52) Bedside Arterial pH 7.39 (7.35-7.45) Arterial Blood pH (Temp corrected) 7.42 Bedside Arterial pCO2 38 mmHg (35-45) Arterial Blood pCO2 (Temp correct) 35 mmHg Bedside Arterial pO2 242 mmHg (75-100) Arterial Blood pO2 (Temp corrected) 233 mmHg Bedside Arterial HCO3 23 mmol/L (21-28) Bedside Arterial Total CO2 24 mmol/L (21-32) Arterial Bld O2 Saturation (Measur) 100 % (95-99) Bedside Arterial Blood Base Excess -2 mmol/L (0-3) Bedside FiO2 50.0 Bedside Sodium 134 mmol/L (135-145) Bedside Potassium 3.5 mmol/L (3.5-5.0) Glucose Level 178 mg/dL (70-99) Bedside Ionized Calcium (Dianne) 1.16 mmol/L (1.13-1.32) Glucose (Fingerstick) 244 mg/dL (70-99) Test 11/04/21 14:40 11/04/21 14:57 White Blood Count 22.8 x10^3/uL (4.0-11.0) Red Blood Count 3.56 x10^6/uL (4.30-5.70) Hemoglobin 10.8 g/dL (13.0-17.5) Hematocrit 33.2 % (39.0-53.0) Mean Corpuscular Volume 93 fL (79-100) Mean Corpuscular Hemoglobin 30 pg (25-35) Mean Corpuscular Hemoglobin Concent 33 g/dL (31-37) Red Cell Distribution Width 13.7 % (11.5-14.5) Platelet Count 263 x10^3/uL (140-400) Neutrophils (%) (Auto) 89 % (31-73) Lymphocytes (%) (Auto) 7 % (24-48) Monocytes (%) (Auto) 4 % (0-9) Eosinophils (%) (Auto) 0 % (0-3) Basophils (%) (Auto) 1 % (0-3) Neutrophils # (Auto) 20.2 x10^3/uL (1.8-7.7) Lymphocytes # (Auto) 1.5 x10^3/uL (1.0-4.8) Monocytes # (Auto) 0.9 x10^3/uL (0.0-1.1) Eosinophils # (Auto) 0.0 x10^3/uL (0.0-0.7) Basophils # (Auto) 0.1 x10^3/uL (0.0-0.2) Sodium Level 138 mmol/L (136-145) Potassium Level 4.2 mmol/L (3.5-5.1) Chloride Level 105 mmol/L (98-107) Carbon Dioxide Level 20 mmol/L (21-32) Anion Gap 13 (6-14) Blood Urea Nitrogen 14 mg/dL (8-26) Creatinine 0.9 mg/dL (0.7-1.3) Estimated GFR (Cockcroft-Gault) 88.3 Glucose Level 262 mg/dL (70-99) Calcium Level 7.2 mg/dL (8.5-10.1) Glucose (Fingerstick) 252 mg/dL (70-99) Laboratory Tests Test 11/03/21 17:09 11/03/21 20:25 11/04/21 05:15 11/04/21 06:52 Glucose (Fingerstick) 206 mg/dL (70-99) 128 mg/dL (70-99) 114 mg/dL (70-99) White Blood Count 11.9 x10^3/uL (4.0-11.0) Red Blood Count 3.22 x10^6/uL (4.30-5.70) Hemoglobin 9.8 g/dL (13.0-17.5) Hematocrit 29.6 % (39.0-53.0) Mean Corpuscular Volume 92 fL (79-100) Mean Corpuscular Hemoglobin 30 pg (25-35) Mean Corpuscular Hemoglobin Concent 33 g/dL (31-37) Red Cell Distribution Width 14.0 % (11.5-14.5) Platelet Count 340 x10^3/uL (140-400) Sodium Level 136 mmol/L (136-145) Potassium Level 3.8 mmol/L (3.5-5.1) Chloride Level 98 mmol/L (98-107) Carbon Dioxide Level 26 mmol/L (21-32) Anion Gap 12 (6-14) Blood Urea Nitrogen 11 mg/dL (8-26) Creatinine 0.7 mg/dL (0.7-1.3) Estimated GFR (Cockcroft-Gault) 118.0 Glucose Level 111 mg/dL (70-99) Calcium Level 8.6 mg/dL (8.5-10.1) Test 11/04/21 09:59 11/04/21 10:35 11/04/21 11:00 11/04/21 13:28 Activated Clotting Time 263 sec (92-181) 182 sec (92-181) Bedside Hemoglobin (Calculated) 7.8 g/dL (14-18) Bedside Hematocrit 23 % (37-52) Bedside Arterial pH 7.39 (7.35-7.45) Arterial Blood pH (Temp corrected) 7.42 Bedside Arterial pCO2 38 mmHg (35-45) Arterial Blood pCO2 (Temp correct) 35 mmHg Bedside Arterial pO2 242 mmHg (75-100) Arterial Blood pO2 (Temp corrected) 233 mmHg Bedside Arterial HCO3 23 mmol/L (21-28) Bedside Arterial Total CO2 24 mmol/L (21-32) Arterial Bld O2 Saturation (Measur) 100 % (95-99) Bedside Arterial Blood Base Excess -2 mmol/L (0-3) Bedside FiO2 50.0 Bedside Sodium 134 mmol/L (135-145) Bedside Potassium 3.5 mmol/L (3.5-5.0) Glucose Level 178 mg/dL (70-99) Bedside Ionized Calcium (Dianne) 1.16 mmol/L (1.13-1.32) Glucose (Fingerstick) 244 mg/dL (70-99) Test 11/04/21 14:40 11/04/21 14:57 White Blood Count 22.8 x10^3/uL (4.0-11.0) Red Blood Count 3.56 x10^6/uL (4.30-5.70) Hemoglobin 10.8 g/dL (13.0-17.5) Hematocrit 33.2 % (39.0-53.0) Mean Corpuscular Volume 93 fL (79-100) Mean Corpuscular Hemoglobin 30 pg (25-35) Mean Corpuscular Hemoglobin Concent 33 g/dL (31-37) Red Cell Distribution Width 13.7 % (11.5-14.5) Platelet Count 263 x10^3/uL (140-400) Neutrophils (%) (Auto) 89 % (31-73) Lymphocytes (%) (Auto) 7 % (24-48) Monocytes (%) (Auto) 4 % (0-9) Eosinophils (%) (Auto) 0 % (0-3) Basophils (%) (Auto) 1 % (0-3) Neutrophils # (Auto) 20.2 x10^3/uL (1.8-7.7) Lymphocytes # (Auto) 1.5 x10^3/uL (1.0-4.8) Monocytes # (Auto) 0.9 x10^3/uL (0.0-1.1) Eosinophils # (Auto) 0.0 x10^3/uL (0.0-0.7) Basophils # (Auto) 0.1 x10^3/uL (0.0-0.2) Sodium Level 138 mmol/L (136-145) Potassium Level 4.2 mmol/L (3.5-5.1) Chloride Level 105 mmol/L (98-107) Carbon Dioxide Level 20 mmol/L (21-32) Anion Gap 13 (6-14) Blood Urea Nitrogen 14 mg/dL (8-26) Creatinine 0.9 mg/dL (0.7-1.3) Estimated GFR (Cockcroft-Gault) 88.3 Glucose Level 262 mg/dL (70-99) Calcium Level 7.2 mg/dL (8.5-10.1) Glucose (Fingerstick) 252 mg/dL (70-99) Medications Active Scripts Medications Dose Route/Sig Max Daily Dose Days Date Category Hydrochlorothiazide Tablet (Hydrochlorothiazide) 25 Mg Tablet 25 Mg PO DAILY 10/29/21 Reported Metformin Hcl 1,000 Mg Tablet 1,000 Mg PO BIDWMEALS 10/29/21 Reported Clopidogrel (Clopidogrel Bisulfate) 75 Mg Tablet 1 Tab PO DAILY 10/29/21 Reported Vitamin B-12 (Cyanocobalamin (Vitamin B-12)) 1,000 Mcg Tab.subl 1 Tab SL DAILY 30 10/29/21 Reported Vitamin C (Ascorbic Acid) 500 Mg Capsule.er 1 Cap PO DAILY 30 10/29/21 Reported Omeprazole 40 Mg Capsule.dr 1 Cap PO DAILY 10/29/21 Reported Lyrica (Pregabalin) 50 Mg Capsule 50 Mg PO TID 10/29/21 Reported Benadryl (Diphenhydramine Hcl) 25 Mg Capsule 25 Mg PO DAILY 10/29/21 Reported Tramadol Hcl 50 Mg Tablet 50 Mg PO Q6HRS PRN 10/29/21 Reported Iron (Ferrous Sulfate) 325 Mg Tablet 325 Mg PO DAILY 10/29/21 Reported Aspirin Ec (Aspirin) 81 Mg Tablet.dr 81 Mg PO DAILYWBKFT 01/11/18 Rx Amlodipine Besylate 10 Mg Tablet 10 Mg PO DAILY 90 01/11/18 Rx Atorvastatin Calcium 10 Mg Tablet 10 Mg PO QHS 01/11/18 Rx Impression . Consult dictated Continue current's postop support STEVIE NIXON MD Nov 04, 2021 16:06
[2021-11-04 16:36] LABS: % BANDS 18 % (0-9); % LYMPHS 6 % (24-48); % MONOS 3 % (0-10); % SEGS 73 % (35-66); PLT ESTIMATE ADEQUATE (ADEQUATE)
[2021-11-04 16:39] LABS: BURR CELLS PRESENT
[2021-11-04] MEDS: traMADol 50 MG TABLET PO PRN (17:14)
[2021-11-04] MEDS: ceFAZolin SODIUM IV Push 1 GM VIAL. IVP SCH (20:00)
[2021-11-04] MEDS: ATORVASTATIN CALCIUM 10 MG TABLET. PO SCH (20:57)
[2021-11-04] MEDS ORDERED: FAMOTIDINE 20 MG/2 ML VIAL IVP SCH (21:00)
[2021-11-04] MEDS: MORPHINE SULFATE 2 MG/ML INJ. IV PRN (21:04)
--- NOTE | 2021-11-04 21:43 | CONS ---
DATE OF CONSULTATION: 11/04/2021 ATTENDING PHYSICIAN: Dr. Jayme Barnes. REASON FOR CONSULTATION: The patient is seen in pulmonary consultation at the request of Dr. Can for postop hypoxemia. HISTORY OF PRESENT ILLNESS: The patient is a 55-year-old with a significant history of peripheral arterial disease, coronary artery disease with previous coronary artery bypass grafting. He has had a previous right ORIF of the tib-fib due to fracture, hypertension and pancreatitis. The patient presented and underwent aorto-bilateral profunda femoris bypass, he also had extended right superficial femoral artery endarterectomy with patch angioplasty. He was hypoxic postop. I was asked to see him in consultation. The patient is seen in the recovery room at the time of my evaluation, had been taken off of oxygen, was on room air, saturations greater than 92%. His blood pressure is 173/62. He was sleepy, but arousable. Continued to smoke up until the day of admission. He does not utilize any metered-dose inhalers. No oxygen supplementation. He had a cough, mostly nonproductive. Denied any frequent acute exacerbations of COPD. PAST MEDICAL HISTORY: Remarkable as indicated above, previous coronary artery bypass grafting, coronary artery disease, peripheral vascular disease, pancreatitis, hypertension, COPD, unknown FEV1, tobacco dependent. ALLERGIES: No known drug allergies. FAMILY HISTORY: Noncontributory. SOCIAL HISTORY: He smokes 1 pack per day, drinks 6-8 beers per day. REVIEW OF SYSTEMS: As indicated above, otherwise other systems were reviewed and negative. CURRENT MEDICATIONS: List was reviewed. PHYSICAL EXAMINATION: VITAL SIGNS: Stable. O2 saturation initially on 8 liters down to room air, doing well with saturations above 92%. GENERAL: The patient is sleepy from recent surgery and anesthesia. HEENT: Eyes: The sclerae were nonicteric. NECK: Jugular venous distention was not elevated. No lymphadenopathy. CHEST: Full expansion. LUNGS: Scattered rhonchi. CARDIOVASCULAR: Regular rate and rhythm with S1, S2, no S3. ABDOMEN: Soft. EXTREMITIES: No clubbing, cyanosis or edema. Evidence of surgery. NEUROLOGIC: The patient was awake, alert, following commands. A detailed neuro exam was not performed. LABORATORY DATA: SARS-CoV-2 testing was negative. Electrolytes were noted. BUN and creatinine were normal. White count was elevated. Hemoglobin and hematocrit chronically low. Arterial blood gas reviewed. Chest x-ray revealed some abdominal pneumoperitoneum, no infiltrates. IMPRESSION: 1. Expected postoperative respiratory failure, multifactorial. 2. Chronic obstructive pulmonary disease, tobacco dependent. 3. Coronary artery disease, status post coronary artery bypass grafting. 4. Peripheral arterial disease, status post aorto-bilateral profunda femoris bypass and extensive right superficial femoral artery endarterectomy. 5. Echocardiogram revealing ejection fraction 65% with diastolic dysfunction. 6. Type 2 diabetes. PLAN: 1. Continue current support with oxygen supplementation to maintain sats above 92%. 2. Postoperative pain management. 3. Follow Cardiology input. 4. Anticoagulation. 5. DVT prophylaxis. I do appreciate the privilege in sharing the patient's care. QUINN DR: Ilia TID: [id number]
[2021-11-05] VITALS (24 sets, daily range): BP systolic 118–164; BP diastolic 62–104
[2021-11-05] MEDS: ceFAZolin SODIUM IV Push 1 GM VIAL. IVP SCH (02:26)
[2021-11-05] MEDS: IV NORMAL SALINE 1000ML BAG 1,000 ML IV SCH ×4 (02:27→22:42)
[2021-11-05] MEDS: MORPHINE SULFATE 2 MG/ML INJ. IV PRN ×4 (05:39→20:01)
[2021-11-05 06:12] LABS: BASO % 0 % (0-3); EOS % 0 % (0-3); HEMATOCRIT 28.7 % (39.0-53.0); HEMOGLOBIN 9.5 g/dL (13.0-17.5); LYMPH # 1.5 x10^3/uL (1.0-4.8); LYMPH % 9 % (24-48); MEAN CORPUSCULAR HEMOGLOBIN 30 pg (25-35); MEAN CORPUSCULAR HGB CONC 33 g/dL (31-37); MEAN CORPUSCULAR VOLUME 92 fL (79-100); MONO # 1.9 x10^3/uL (0.0-1.1); MONO % 11 % (0-9); NEUT # 13.7 x10^3/uL (1.8-7.7); NEUT % 80 % (31-73); PLATELET COUNT 249 x10^3/uL (140-400); RED BLOOD COUNT 3.14 x10^6/uL (4.30-5.70); RED CELL DISTRIBUTION WIDTH 14.2 % (11.5-14.5); WHITE BLOOD COUNT 17.1 x10^3/uL (4.0-11.0)
[2021-11-05 06:17] LABS: CALCIUM 7.5 mg/dL (8.5-10.1); CREATININE 0.8 mg/dL (0.7-1.3); GFR 101.1; MAGNESIUM 1.7 mg/dL (1.8-2.4); POTASSIUM 4.6 mmol/L (3.5-5.1)
[2021-11-05] MEDS: ASPIRIN ENTERIC COATED 81 MG TABLET.DR. PO SCH (08:00)
[2021-11-05] MEDS: INSULIN LISPRO 300 UNITS/3 ML VIAL. SQ SCH ×3 (08:00→17:00)
[2021-11-05] MEDS ORDERED: MAGNESIUM SULFATE 2GM 50 ML IV ONE (09:00)
[2021-11-05] MEDS: ELECTROLYTE (ICU) PROTOCOL. MC SCH (09:00)
--- NOTE | 2021-11-05 09:13 | PDOC ---
PULMONARY PROGRESS NOTES DATE: 11/05/21 TIME: 09:13 Subjective Patient not more short of air, smoked up until he was admitted No frequent acute exacerbation of COPD Cough mostly nonproductive Vitals Vital Signs Date Time Temp Pulse Resp B/P (MAP) Pulse Ox O2 Delivery O2 Flow Rate FiO2 11/05/21 07:00 87 18 132/83 (99) 98 Room Air 11/05/21 06:09 8.0 11/05/21 04:00 98.7 98.7 ROS: No Nausea, No Chest Pain, No Increase Cough Lungs: Crackles Cardiovascular: S1, S2 Abdomen: Soft Neuro Exam: Alert Extremities: Other (Evidence of previous surgery) Skin: Warm Labs Laboratory Tests Test 11/03/21 11:52 11/03/21 17:09 11/03/21 20:25 11/04/21 05:15 Glucose (Fingerstick) 108 mg/dL (70-99) 206 mg/dL (70-99) 128 mg/dL (70-99) White Blood Count 11.9 x10^3/uL (4.0-11.0) Red Blood Count 3.22 x10^6/uL (4.30-5.70) Hemoglobin 9.8 g/dL (13.0-17.5) Hematocrit 29.6 % (39.0-53.0) Mean Corpuscular Volume 92 fL (79-100) Mean Corpuscular Hemoglobin 30 pg (25-35) Mean Corpuscular Hemoglobin Concent 33 g/dL (31-37) Red Cell Distribution Width 14.0 % (11.5-14.5) Platelet Count 340 x10^3/uL (140-400) Sodium Level 136 mmol/L (136-145) Potassium Level 3.8 mmol/L (3.5-5.1) Chloride Level 98 mmol/L (98-107) Carbon Dioxide Level 26 mmol/L (21-32) Anion Gap 12 (6-14) Blood Urea Nitrogen 11 mg/dL (8-26) Creatinine 0.7 mg/dL (0.7-1.3) Estimated GFR (Cockcroft-Gault) 118.0 Glucose Level 111 mg/dL (70-99) Calcium Level 8.6 mg/dL (8.5-10.1) Test 11/04/21 06:52 11/04/21 09:59 2/24/22 10:35 11/04/21 11:00 Glucose (Fingerstick) 114 mg/dL (70-99) Activated Clotting Time 263 sec (92-181) 182 sec (92-181) Bedside Hemoglobin (Calculated) 7.8 g/dL (14-18) Bedside Hematocrit 23 % (37-52) Bedside Arterial pH 7.39 (7.35-7.45) Arterial Blood pH (Temp corrected) 7.42 Bedside Arterial pCO2 38 mmHg (35-45) Arterial Blood pCO2 (Temp correct) 35 mmHg Bedside Arterial pO2 242 mmHg (75-100) Arterial Blood pO2 (Temp corrected) 233 mmHg Bedside Arterial HCO3 23 mmol/L (21-28) Bedside Arterial Total CO2 24 mmol/L (21-32) Arterial Bld O2 Saturation (Measur) 100 % (95-99) Bedside Arterial Blood Base Excess -2 mmol/L (0-3) Bedside FiO2 50.0 Bedside Sodium 134 mmol/L (135-145) Bedside Potassium 3.5 mmol/L (3.5-5.0) Glucose Level 178 mg/dL (70-99) Bedside Ionized Calcium (Dianne) 1.16 mmol/L (1.13-1.32) Test 11/04/21 13:28 11/04/21 14:40 11/04/21 14:57 11/05/21 05:50 Glucose (Fingerstick) 244 mg/dL (70-99) 252 mg/dL (70-99) White Blood Count 22.8 x10^3/uL (4.0-11.0) 17.1 x10^3/uL (4.0-11.0) Red Blood Count 3.56 x10^6/uL (4.30-5.70) 3.14 x10^6/uL (4.30-5.70) Hemoglobin 10.8 g/dL (13.0-17.5) 9.5 g/dL (13.0-17.5) Hematocrit 33.2 % (39.0-53.0) 28.7 % (39.0-53.0) Mean Corpuscular Volume 93 fL (79-100) 92 fL (79-100) Mean Corpuscular Hemoglobin 30 pg (25-35) 30 pg (25-35) Mean Corpuscular Hemoglobin Concent 33 g/dL (31-37) 33 g/dL (31-37) Red Cell Distribution Width 13.7 % (11.5-14.5) 14.2 % (11.5-14.5) Platelet Count 263 x10^3/uL (140-400) 249 x10^3/uL (140-400) Neutrophils (%) (Auto) 89 % (31-73) 80 % (31-73) Lymphocytes (%) (Auto) 7 % (24-48) 9 % (24-48) Monocytes (%) (Auto) 4 % (0-9) 11 % (0-9) Eosinophils (%) (Auto) 0 % (0-3) 0 % (0-3) Basophils (%) (Auto) 1 % (0-3) 0 % (0-3) Neutrophils # (Auto) 20.2 x10^3/uL (1.8-7.7) 13.7 x10^3/uL (1.8-7.7) Lymphocytes # (Auto) 1.5 x10^3/uL (1.0-4.8) 1.5 x10^3/uL (1.0-4.8) Monocytes # (Auto) 0.9 x10^3/uL (0.0-1.1) 1.9 x10^3/uL (0.0-1.1) Eosinophils # (Auto) 0.0 x10^3/uL (0.0-0.7) 0.0 x10^3/uL (0.0-0.7) Basophils # (Auto) 0.1 x10^3/uL (0.0-0.2) 0.0 x10^3/uL (0.0-0.2) Segmented Neutrophils % 73 % (35-66) Band Neutrophils % 18 % (0-9) Lymphocytes % 6 % (24-48) Monocytes % 3 % (0-10) Platelet Estimate Adequate (ADEQUATE) [place] Cells Present Sodium Level 138 mmol/L (136-145) 139 mmol/L (136-145) Potassium Level 4.2 mmol/L (3.5-5.1) 4.6 mmol/L (3.5-5.1) Chloride Level 105 mmol/L (98-107) 105 mmol/L (98-107) Carbon Dioxide Level 20 mmol/L (21-32) 23 mmol/L (21-32) Anion Gap 13 (6-14) 11 (6-14) Blood Urea Nitrogen 14 mg/dL (8-26) 15 mg/dL (8-26) Creatinine 0.9 mg/dL (0.7-1.3) 0.8 mg/dL (0.7-1.3) Estimated GFR (Cockcroft-Gault) 88.3 101.1 Glucose Level 262 mg/dL (70-99) 154 mg/dL (70-99) Calcium Level 7.2 mg/dL (8.5-10.1) 7.5 mg/dL (8.5-10.1) Magnesium Level 1.7 mg/dL (1.8-2.4) Laboratory Tests Test 11/04/21 09:59 11/04/21 10:35 11/04/21 11:00 11/04/21 13:28 Activated Clotting Time 263 sec (92-181) 182 sec (92-181) Bedside Hemoglobin (Calculated) 7.8 g/dL (14-18) Bedside Hematocrit 23 % (37-52) Bedside Arterial pH 7.39 (7.35-7.45) Arterial Blood pH (Temp corrected) 7.42 Bedside Arterial pCO2 38 mmHg (35-45) Arterial Blood pCO2 (Temp correct) 35 mmHg Bedside Arterial pO2 242 mmHg (75-100) Arterial Blood pO2 (Temp corrected) 233 mmHg Bedside Arterial HCO3 23 mmol/L (21-28) Bedside Arterial Total CO2 24 mmol/L (21-32) Arterial Bld O2 Saturation (Measur) 100 % (95-99) Bedside Arterial Blood Base Excess -2 mmol/L (0-3) Bedside FiO2 50.0 Bedside Sodium 134 mmol/L (135-145) Bedside Potassium 3.5 mmol/L (3.5-5.0) Glucose Level 178 mg/dL (70-99) Bedside Ionized Calcium (Dianne) 1.16 mmol/L (1.13-1.32) Glucose (Fingerstick) 244 mg/dL (70-99) Test 11/04/21 14:40 11/04/21 14:57 11/05/21 05:50 White Blood Count 22.8 x10^3/uL (4.0-11.0) 17.1 x10^3/uL (4.0-11.0) Red Blood Count 3.56 x10^6/uL (4.30-5.70) 3.14 x10^6/uL (4.30-5.70) Hemoglobin 10.8 g/dL (13.0-17.5) 9.5 g/dL (13.0-17.5) Hematocrit 33.2 % (39.0-53.0) 28.7 % (39.0-53.0) Mean Corpuscular Volume 93 fL (79-100) 92 fL (79-100) Mean Corpuscular Hemoglobin 30 pg (25-35) 30 pg (25-35) Mean Corpuscular Hemoglobin Concent 33 g/dL (31-37) 33 g/dL (31-37) Red Cell Distribution Width 13.7 % (11.5-14.5) 14.2 % (11.5-14.5) Platelet Count 263 x10^3/uL (140-400) 249 x10^3/uL (140-400) Neutrophils (%) (Auto) 89 % (31-73) 80 % (31-73) Lymphocytes (%) (Auto) 7 % (24-48) 9 % (24-48) Monocytes (%) (Auto) 4 % (0-9) 11 % (0-9) Eosinophils (%) (Auto) 0 % (0-3) 0 % (0-3) Basophils (%) (Auto) 1 % (0-3) 0 % (0-3) Neutrophils # (Auto) 20.2 x10^3/uL (1.8-7.7) 13.7 x10^3/uL (1.8-7.7) Lymphocytes # (Auto) 1.5 x10^3/uL (1.0-4.8) 1.5 x10^3/uL (1.0-4.8) Monocytes # (Auto) 0.9 x10^3/uL (0.0-1.1) 1.9 x10^3/uL (0.0-1.1) Eosinophils # (Auto) 0.0 x10^3/uL (0.0-0.7) 0.0 x10^3/uL (0.0-0.7) Basophils # (Auto) 0.1 x10^3/uL (0.0-0.2) 0.0 x10^3/uL (0.0-0.2) Segmented Neutrophils % 73 % (35-66) Band Neutrophils % 18 % (0-9) Lymphocytes % 6 % (24-48) Monocytes % 3 % (0-10) Platelet Estimate Adequate (ADEQUATE) [place] Cells Present Sodium Level 138 mmol/L (136-145) 139 mmol/L (136-145) Potassium Level 4.2 mmol/L (3.5-5.1) 4.6 mmol/L (3.5-5.1) Chloride Level 105 mmol/L (98-107) 105 mmol/L (98-107) Carbon Dioxide Level 20 mmol/L (21-32) 23 mmol/L (21-32) Anion Gap 13 (6-14) 11 (6-14) Blood Urea Nitrogen 14 mg/dL (8-26) 15 mg/dL (8-26) Creatinine 0.9 mg/dL (0.7-1.3) 0.8 mg/dL (0.7-1.3) Estimated GFR (Cockcroft-Gault) 88.3 101.1 Glucose Level 262 mg/dL (70-99) 154 mg/dL (70-99) Calcium Level 7.2 mg/dL (8.5-10.1) 7.5 mg/dL (8.5-10.1) Glucose (Fingerstick) 252 mg/dL (70-99) Magnesium Level 1.7 mg/dL (1.8-2.4) Medications Active Scripts Medications Dose Route/Sig Max Daily Dose Days Date Category Hydrochlorothiazide Tablet (Hydrochlorothiazide) 25 Mg Tablet 25 Mg PO DAILY 10/29/21 Reported Metformin Hcl 1,000 Mg Tablet 1,000 Mg PO BIDWMEALS 10/29/21 Reported Clopidogrel (Clopidogrel Bisulfate) 75 Mg Tablet 1 Tab PO DAILY 10/29/21 Reported Vitamin B-12 (Cyanocobalamin (Vitamin B-12)) 1,000 Mcg Tab.subl 1 Tab SL DAILY 30 10/29/21 Reported Vitamin C (Ascorbic Acid) 500 Mg Capsule.er 1 Cap PO DAILY 30 10/29/21 Reported Omeprazole 40 Mg Capsule.dr 1 Cap PO DAILY 10/29/21 Reported Lyrica (Pregabalin) 50 Mg Capsule 50 Mg PO TID 10/29/21 Reported Benadryl (Diphenhydramine Hcl) 25 Mg Capsule 25 Mg PO DAILY 10/29/21 Reported Tramadol Hcl 50 Mg Tablet 50 Mg PO Q6HRS PRN 10/29/21 Reported Iron (Ferrous Sulfate) 325 Mg Tablet 325 Mg PO DAILY 10/29/21 Reported Aspirin Ec (Aspirin) 81 Mg Tablet.dr 81 Mg PO DAILYWBKFT 90 01/11/18 Rx Amlodipine Besylate 10 Mg Tablet 10 Mg PO DAILY 90 01/11/18 Rx Atorvastatin Calcium 10 Mg Tablet 10 Mg PO QHS 90 01/11/18 Rx Impression . IMPRESSION: 1. Expected postoperative respiratory failure, multifactorial. 2. Chronic obstructive pulmonary disease, tobacco dependent. 3. Coronary artery disease, status post coronary artery bypass grafting. 4. Peripheral arterial disease, status post aorto-bilateral profunda femoris bypass and extensive right superficial femoral artery endarterectomy. 5. Echocardiogram revealing ejection fraction 65% with diastolic dysfunction. 6. Type 2 diabetes. Plan . Updated 11/05 Continue oxygen for sats above 92% Postop pain management Aggressive pulmonary hygiene Anticoagulation per surgeon Nebulized treatments Incentive spirometry PLAN: 1. Continue current support with oxygen supplementation to maintain sats above 92%. 2. Postoperative pain management. 3. Follow Cardiology input. 4. Anticoagulation. 5. DVT prophylaxis. I do appreciate the privilege in sharing the patient's care. STEVIE NIXON MD Nov 05, 2021 09:13
[2021-11-05] MEDS ORDERED: ASPIRIN CHEWABLE 81 MG TABLET. PO ONE (09:30)
--- NOTE | 2021-11-05 10:10 | PDOC ---
[facility] PROGRESS NOTE Date of Service DOS: DATE: 11/05/21 TIME: 10:08 Chief Complaint Chief Complaint Postop day 1 OPERATIONS PERFORMED: 1. Aortobilateral profunda femoris bypass with 16 x 8 bifurcated [place] graft. 2. 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% occlusion of the left common iliac artery Renal artery stenosis atherosclerotic disease in the abdominal aorta, celiac axis and SMA Bilateral carotid stenosis approximately 50% History of diabetes mellitus type 2 History of hypertension History of CAD History of Present Illness History of Present Illness 11/05/2021 Patient seen and examined in the ICU He has an NG clamped He has [place] boots on both lower extremities Appears depressed He had lower extremity bypass yesterday Discussed with RN Chart reviewed 11/04, Surgery today, fem pop 55-year-old male with significant past medical history of for pancreatitis, hypertension, CABG, peripheral vascular disease with critical limb ischemia who underwent an angio of his lower extremities showing severe peripheral vascular disease and lower extremity wounds. Patient is admitted to the hospitalist service for further management and consult to the vascular surgery service. 2 Vitals/I&O Vitals/I&O: Vital Signs Date Time Temp Pulse Resp B/P (MAP) Pulse Ox O2 Delivery O2 Flow Rate FiO2 11/05/21 08:00 Room Air 11/05/21 08:00 98.5 68 17 138/96 (110) 97 98.5 11/05/21 06:09 8.0 I & O 11/04/21 11/04/21 11/05/21 15:00 23:00 07:00 Intake Total 4400 ml Output Total 1445 ml 235 ml 250 ml Balance 2955 ml -235 ml -250 ml Physical Exam General: Alert, Oriented X3, Cooperative Heart: Regular rate Lungs: Clear Abdomen: Normal bowel sounds Extremities: No clubbing, Other (Left 3 digits toe gangrene with surrounding erythema. Left [place] open wound. ) Skin: Other Labs Labs: Laboratory Tests Test 11/04/21 10:35 11/04/21 11:00 11/04/21 13:28 11/04/21 14:40 Bedside Hemoglobin (Calculated) 7.8 g/dL (14-18) Bedside Hematocrit 23 % (37-52) Bedside Arterial pH 7.39 (7.35-7.45) Arterial Blood pH (Temp corrected) 7.42 Bedside Arterial pCO2 38 mmHg (35-45) Arterial Blood pCO2 (Temp correct) 35 mmHg Bedside Arterial pO2 242 mmHg (75-100) Arterial Blood pO2 (Temp corrected) 233 mmHg Bedside Arterial HCO3 23 mmol/L (21-28) Bedside Arterial Total CO2 24 mmol/L (21-32) Arterial Bld O2 Saturation (Measur) 100 % (95-99) Bedside Arterial Blood Base Excess -2 mmol/L (0-3) Bedside FiO2 50.0 Bedside Sodium 134 mmol/L (135-145) Bedside Potassium 3.5 mmol/L (3.5-5.0) Glucose Level 178 mg/dL (70-99) 262 mg/dL (70-99) Bedside Ionized Calcium (Dianne) 1.16 mmol/L (1.13-1.32) Activated Clotting Time 182 sec (92-181) Glucose (Fingerstick) 244 mg/dL (70-99) White Blood Count 22.8 x10^3/uL (4.0-11.0) Red Blood Count 3.56 x10^6/uL (4.30-5.70) Hemoglobin 10.8 g/dL (13.0-17.5) Hematocrit 33.2 % (39.0-53.0) Mean Corpuscular Volume 93 fL (79-100) Mean Corpuscular Hemoglobin 30 pg (25-35) Mean Corpuscular Hemoglobin Concent 33 g/dL (31-37) Red Cell Distribution Width 13.7 % (11.5-14.5) Platelet Count 263 x10^3/uL (140-400) Neutrophils (%) (Auto) 89 % (31-73) Lymphocytes (%) (Auto) 7 % (24-48) Monocytes (%) (Auto) 4 % (0-9) Eosinophils (%) (Auto) 0 % (0-3) Basophils (%) (Auto) 1 % (0-3) Neutrophils # (Auto) 20.2 x10^3/uL (1.8-7.7) Lymphocytes # (Auto) 1.5 x10^3/uL (1.0-4.8) Monocytes # (Auto) 0.9 x10^3/uL (0.0-1.1) Eosinophils # (Auto) 0.0 x10^3/uL (0.0-0.7) Basophils # (Auto) 0.1 x10^3/uL (0.0-0.2) Segmented Neutrophils % 73 % (35-66) Band Neutrophils % 18 % (0-9) Lymphocytes % 6 % (24-48) Monocytes % 3 % (0-10) Platelet Estimate Adequate (ADEQUATE) [place] Cells Present Sodium Level 138 mmol/L (136-145) Potassium Level 4.2 mmol/L (3.5-5.1) Chloride Level 105 mmol/L (98-107) Carbon Dioxide Level 20 mmol/L (21-32) Anion Gap 13 (6-14) Blood Urea Nitrogen 14 mg/dL (8-26) Creatinine 0.9 mg/dL (0.7-1.3) Estimated GFR (Cockcroft-Gault) 88.3 Calcium Level 7.2 mg/dL (8.5-10.1) Test 11/04/21 14:57 11/05/21 05:50 Glucose (Fingerstick) 252 mg/dL (70-99) White Blood Count 17.1 x10^3/uL (4.0-11.0) Red Blood Count 3.14 x10^6/uL (4.30-5.70) Hemoglobin 9.5 g/dL (13.0-17.5) Hematocrit 28.7 % (39.0-53.0) Mean Corpuscular Volume 92 fL (79-100) Mean Corpuscular Hemoglobin 30 pg (25-35) Mean Corpuscular Hemoglobin Concent 33 g/dL (31-37) Red Cell Distribution Width 14.2 % (11.5-14.5) Platelet Count 249 x10^3/uL (140-400) Neutrophils (%) (Auto) 80 % (31-73) Lymphocytes (%) (Auto) 9 % (24-48) Monocytes (%) (Auto) 11 % (0-9) Eosinophils (%) (Auto) 0 % (0-3) Basophils (%) (Auto) 0 % (0-3) Neutrophils # (Auto) 13.7 x10^3/uL (1.8-7.7) Lymphocytes # (Auto) 1.5 x10^3/uL (1.0-4.8) Monocytes # (Auto) 1.9 x10^3/uL (0.0-1.1) Eosinophils # (Auto) 0.0 x10^3/uL (0.0-0.7) Basophils # (Auto) 0.0 x10^3/uL (0.0-0.2) Sodium Level 139 mmol/L (136-145) Potassium Level 4.6 mmol/L (3.5-5.1) Chloride Level 105 mmol/L (98-107) Carbon Dioxide Level 23 mmol/L (21-32) Anion Gap 11 (6-14) Blood Urea Nitrogen 15 mg/dL (8-26) Creatinine 0.8 mg/dL (0.7-1.3) Estimated GFR (Cockcroft-Gault) 101.1 Glucose Level 154 mg/dL (70-99) Calcium Level 7.5 mg/dL (8.5-10.1) Magnesium Level 1.7 mg/dL (1.8-2.4) Assessment and Plan Assessmemt and Plan Postop day 1 OPERATIONS PERFORMED: 1. Aortobilateral profunda femoris bypass with 16 x 8 bifurcated [place] graft. 2. 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 Medications: Current Medications Medications (Trade) Dose Ordered Sig/Amara Route PRN Reason Start Time Stop Time Status Last Admin Dose Admin Gelatin (Gelfoam Size 12-7mm) 1 each STK-MED ONCE .ROUTE 11/04/21 12:08 11/04/21 12:08 DC 11/04/21 09:05 Thrombin 20,000 unit STK-MED ONCE TP 11/04/21 12:08 11/04/21 12:08 DC 11/04/21 09:05 Gelatin (Gelf[place]am Size 12-7mm) 1 each STK-MED ONCE .ROUTE 11/04/21 12:16 11/04/21 12:17 DC 11/04/21 09:05 Gelatin (Gelf[place]am Size 12-7mm) 1 each STK-MED ONCE .ROUTE 11/04/21 12:17 11/04/21 12:17 DC 11/04/21 09:05 Gelatin (Gelf[place]am Size 12-7mm) 1 each STK-MED ONCE .ROUTE 11/04/21 12:17 11/04/21 12:17 DC 11/04/21 09:05 Insulin Human Lispro (HumaLOG VIAL for OP,RR ONLY) 0-10 units PRN Q1HR PRN SQ PER PROTOCOL 11/04/21 13:30 11/05/21 08:02 DC 11/04/21 15:08 Cefazolin Sodium (Ancef) 1 gm Q6H IVP 11/04/21 14:00 11/05/21 02:01 DC 11/05/21 02:26 Sodium Chloride 1,000 ml @ 150 mls/hr Q6H40M IV 11/04/21 13:30 11/05/21 02:27 Morphine Sulfate (Morphine Sulfate) 2 mg PRN Q1HR PRN IV PAIN 11/04/21 13:30 11/05/21 05:39 Hydralazine HCl (Apresoline Inj) 5 mg PRN Q4HRS PRN IVP ELEVATED BP, SEE COMMENTS 11/04/21 13:30 11/04/21 14:28 Labetalol HCl (Normodyne Iv Push) 10 mg PRN Q2HR PRN IVP HYPERTENSION (2ND CHOICE) 11/04/21 13:30 11/04/21 17:50 Justifications for Admission Other Justification Severe peripheral vascular disease with gangrenous wounds in the lower extremities CATHY GARCIA III DO Nov 05, 2021 10:10
[2021-11-05] MEDS: ASCORBIC ACID 500 MG TABLET PO SCH (10:16)
[2021-11-05] MEDS: PREGABALIN 50 MG CAPSULE PO SCH ×3 (10:17→21:00)
[2021-11-05] MEDS: CYANOCOBALAMIN (VITAMIN B-12) 1,000 MCG TABLET. PO SCH (10:22)
[2021-11-05] MEDS: diphenhydrAMINE HCL 25 MG CAPSULE PO SCH (10:22)
[2021-11-05] MEDS: PANTOPRAZOLE IV PUSH 40 MG VIAL. IVP SCH (10:23)
--- NOTE | 2021-11-05 12:05 | PDOC ---
PROGRESS NOTES Date of Service: DATE: 11/05/21 TIME: 12:05 Subjective Subjective c/o abdominal pain Objective Objective Vital Signs Date Time Temp Pulse Resp B/P (MAP) Pulse Ox O2 Delivery O2 Flow Rate FiO2 11/05/21 10:22 95 134/94 11/05/21 10:00 21 97 Room Air 11/05/21 08:00 98.5 98.5 11/05/21 06:09 8.0 Intake and Output 11/05/21 07:00 Intake Total 4400 ml Output Total 1930 ml Balance 2470 ml IV Total 4400 ml Output Urine Total 785 ml Estimated Blood Loss 1145 ml # Bowel Movements 1 Physical Exam Abdomen: Normal bowel sounds Heart: Regular rate Extremities: No clubbing General: Alert HEENT: Atraumatic Lungs: Clear to auscultation Neck: Supple Neuro: Normal speech Skin: Other Assessment Assessment 1. Severe peripheral vascular disease, critical limb ischemia and left foot toes gangrene. s/p aortobifemoral bypass surgery POD#1. Vascular surgery planning angiogram on Monday for further surgical planning. 2. Coronary artery disease s/p coronary artery bypass surgery in February 2021, presently stable and chest pain-free. Echo with LVEF 65% with diastolic dy sfunction. Continue current secondary prevention measures 3. Bilateral carotid stenosis; Carotid US with moderate bilateral ICA disease 4. Hypertension: Controlled 5. Hyperlipidemia: Statin therapy 6. DM2: Treat per IM 7. Tobacco abuse: Advised on smoking cessation Comment Review of Relevant I have reviewed the following items ifrah (where applicable) has been applied. Labs Laboratory Tests Test 11/04/21 13:28 11/04/21 14:40 11/04/21 14:57 11/05/21 05:50 Glucose (Fingerstick) 244 mg/dL (70-99) 252 mg/dL (70-99) White Blood Count 22.8 x10^3/uL (4.0-11.0) 17.1 x10^3/uL (4.0-11.0) Red Blood Count 3.56 x10^6/uL (4.30-5.70) 3.14 x10^6/uL (4.30-5.70) Hemoglobin 10.8 g/dL (13.0-17.5) 9.5 g/dL (13.0-17.5) Hematocrit 33.2 % (39.0-53.0) 28.7 % (39.0-53.0) Mean Corpuscular Volume 93 fL (79-100) 92 fL (79-100) Mean Corpuscular Hemoglobin 30 pg (25-35) 30 pg (25-35) Mean Corpuscular Hemoglobin Concent 33 g/dL (31-37) 33 g/dL (31-37) Red Cell Distribution Width 13.7 % (11.5-14.5) 14.2 % (11.5-14.5) Platelet Count 263 x10^3/uL (140-400) 249 x10^3/uL (140-400) Neutrophils (%) (Auto) 89 % (31-73) 80 % (31-73) Lymphocytes (%) (Auto) 7 % (24-48) 9 % (24-48) Monocytes (%) (Auto) 4 % (0-9) 11 % (0-9) Eosinophils (%) (Auto) 0 % (0-3) 0 % (0-3) Basophils (%) (Auto) 1 % (0-3) 0 % (0-3) Neutrophils # (Auto) 20.2 x10^3/uL (1.8-7.7) 13.7 x10^3/uL (1.8-7.7) Lymphocytes # (Auto) 1.5 x10^3/uL (1.0-4.8) 1.5 x10^3/uL (1.0-4.8) Monocytes # (Auto) 0.9 x10^3/uL (0.0-1.1) 1.9 x10^3/uL (0.0-1.1) Eosinophils # (Auto) 0.0 x10^3/uL (0.0-0.7) 0.0 x10^3/uL (0.0-0.7) Basophils # (Auto) 0.1 x10^3/uL (0.0-0.2) 0.0 x10^3/uL (0.0-0.2) Segmented Neutrophils % 73 % (35-66) Band Neutrophils % 18 % (0-9) Lymphocytes % 6 % (24-48) Monocytes % 3 % (0-10) Platelet Estimate Adequate (ADEQUATE) [place] Cells Present Sodium Level 138 mmol/L (136-145) 139 mmol/L (136-145) Potassium Level 4.2 mmol/L (3.5-5.1) 4.6 mmol/L (3.5-5.1) Chloride Level 105 mmol/L (98-107) 105 mmol/L (98-107) Carbon Dioxide Level 20 mmol/L (21-32) 23 mmol/L (21-32) Anion Gap 13 (6-14) 11 (6-14) Blood Urea Nitrogen 14 mg/dL (8-26) 15 mg/dL (8-26) Creatinine 0.9 mg/dL (0.7-1.3) 0.8 mg/dL (0.7-1.3) Estimated GFR (Cockcroft-Gault) 88.3 101.1 Glucose Level 262 mg/dL (70-99) 154 mg/dL (70-99) Calcium Level 7.2 mg/dL (8.5-10.1) 7.5 mg/dL (8.5-10.1) Magnesium Level 1.7 mg/dL (1.8-2.4) Test 11/05/21 10:07 Glucose (Fingerstick) 144 mg/dL (70-99) Medications Current Medications Aspirin (Aspirin Chewable) 81 mg 1X ONCE PO Last administered on 11/05/21at 10:16; Start 11/05/21 at 09:30; Stop 11/05/21 at 09:31; Status DC Cefazolin Sodium (Ancef) 1 gm Q6H IVP Last administered on 11/05/21at 02:26; Start 11/04/21 at 14:00; Stop 11/05/21 at 02:01; Status DC Famotidine (Pepcid Vial) 20 mg BID IVP ; Start 11/04/21 at 21:00; Status Cancel Fentanyl Citrate (Fentanyl 2ml Vial) 100 mcg STK-MED ONCE .ROUTE ; Start 11/04/21 at 13:33; Stop 11/04/21 at 13:33; Status DC Gelatin (Gelfoam Size 12-7mm) 1 each STK-MED ONCE .ROUTE Last administered on 11/04/21at 09:05; Start 11/04/21 at 12:08; Stop 11/04/21 at 12:08; Status DC Gelatin (Gelfoam Size 12-7mm) 1 each STK-MED ONCE .ROUTE ; Start 11/04/21 at 12:10; Stop 11/04/21 at 12:11; Status Cancel Gelatin (Gelfoam Size 12-7mm) 1 each STK-MED ONCE .ROUTE ; Start 11/04/21 at 12:10; Stop 11/04/21 at 12:11; Status Cancel Gelatin (Gelfoam Size 12-7mm) 1 each STK-MED ONCE .ROUTE Last administered on 11/04/21at 09:05; Start 11/04/21 at 12:16; Stop 11/04/21 at 12:17; Status DC Gelatin (Gelfoam Size 12-7mm) 1 each STK-MED ONCE .ROUTE ; Start 11/04/21 at 12:16; Stop 11/04/21 at 12:17; Status DC Gelatin (Gelfoam Size 12-7mm) 1 each STK-MED ONCE .ROUTE Last administered on 11/04/21at 09:05; Start 11/04/21 at 12:17; Stop 11/04/21 at 12:17; Status DC Gelatin (Gelfoam Size 12-7mm) 1 each STK-MED ONCE .ROUTE Last administered on 11/04/21at 09:05; Start 11/04/21 at 12:17; Stop 11/04/21 at 12:17; Status DC Hydralazine HCl (Apresoline Inj) 5 mg PRN Q4HRS PRN IVP ELEVATED BP, SEE COMMENTS Last administered on 11/04/21at 14:28; Start 11/04/21 at 13:30 Hydralazine HCl (Apresoline Inj) 20 mg STK-MED ONCE .ROUTE ; Start 11/04/21 at 14:04; Stop 11/04/21 at 14:05; Status DC Info (Icu Electrolyte Protocol) 1 ea DAILY MC Last administered on 11/05/21at 09:00; Start 11/05/21 at 09:00 Insulin Human Lispro (HumaLOG VIAL for OP,RR ONLY) 0-10 units PRN Q1HR PRN SQ PER PROTOCOL Last administered on 11/04/21at 15:08; Start 11/04/21 at 13:30; Stop 11/05/21 at 08:02; Status DC Labetalol HCl (Normodyne Iv Push) 10 mg PRN Q2HR PRN IVP HYPERTENSION (2ND CHOICE) Last administered on 11/04/21at 17:50; Start 11/04/21 at 13:30 Magnesium Sulfate 50 ml @ 25 mls/hr 1X ONCE IV Last administered on 11/05/21at 10:16; Start 11/05/21 at 09:00; Stop 11/05/21 at 10:59; Status DC Morphine Sulfate (Morphine Sulfate) 2 mg PRN Q1HR PRN IV PAIN Last administered on 11/05/21at 05:39; Start 11/04/21 at 13:30 Morphine Sulfate (Morphine Sulfate) 2 mg STK-MED ONCE .ROUTE ; Start 11/04/21 at 14:04; Stop 11/04/21 at 14:05; Status DC Naloxone HCl (Narcan) 0.1 mg PRN Q2MIN PRN IV SEE ADMIN INSTRUCTIONS; Start 11/04/21 at 13:30 Naloxone HCl (Narcan) 0.4 mg PRN Q2MIN PRN IV SEE INSTRUCTIONS; Start 11/04/21 at 13:30 Ondansetron HCl (Zofran) 4 mg PRN Q6HRS PRN IVP NAUESA, 1ST CHOICE; Start 11/04/21 at 13:30 Oxycodone/ Acetaminophen (Percocet 5/325) 1 tab PRN Q4HRS PRN PO MODERATE PAIN; Start 11/04/21 at 13:30 Oxycodone/ Acetaminophen (Percocet 5/325) 2 tab PRN Q4HRS PRN PO SEVERE PAIN; Start 11/04/21 at 13:30 Pantoprazole Sodium (PROTONIX VIAL for IV PUSH) 40 mg DAILYAC IVP Last administered on 11/05/21at 10:23; Start 11/05/21 at 09:30 Prochlorperazine Edisylate (Compazine) 5 mg PRN Q6HRS PRN IV N/V, 2nd Choice, MR X1; Start 11/04/21 at 13:30 Prochlorperazine Edisylate (Compazine) 10 mg STK-MED ONCE .ROUTE ; Start 11/04/21 at 14:04; Stop 11/04/21 at 14:05; Status DC Sevoflurane (Ultane) 90 ml STK-MED ONCE IH ; Start 11/04/21 at 12:18; Stop 11/04/21 at 12:18; Status DC Sodium Chloride 1,000 ml @ 25 mls/hr Q24H IV ; Start 11/04/21 at 13:30 Sodium Chloride 1,000 ml @ 150 mls/hr Q6H40M IV Last administered on 11/05/21at 02:27; Start 11/04/21 at 13:30 Sodium Chloride (Normal Saline Flush) 3 ml QSHIFT PRN IV AFTER MEDS AND BLOOD DRAWS; Start 11/04/21 at 13:30 Thrombin 20,000 unit STK-MED ONCE TP Last administered on 11/04/21at 09:05; Start 11/04/21 at 12:08; Stop 11/04/21 at 12:08; Status DC Vitals/I & O Vital Sign - Last 24 Hours 11/04/21 11/04/21 11/04/21 11/04/21 13:16 13:16 13:31 13:46 Temp 96.7 96.7 Pulse 64 72 76 Resp 19 20 11 B/P (MAP) 133/73 140/76 150/85 148/56 162/64 Pulse Ox 100 100 100 O2 Delivery Simple Mask Mask Simple Mask Simple Mask O2 Flow Rate 8 8.0 8.0 8.0 11/04/21 11/04/21 11/04/21 11/04/21 14:01 14:16 14:28 14:31 Pulse 82 86 80 84 Resp 16 13 23 B/P (MAP) 133/102 147/61 172/58 131/57 184/64 156/54 Pulse Ox 98 97 99 O2 Delivery Room Air Room Air Room Air O2 Flow Rate 8.0 11/04/21 11/04/21 11/04/21 11/04/21 14:46 15:01 15:30 15:30 Temp 97.1 97.1 Pulse 84 84 Resp 15 16 24 24 B/P (MAP) 118/63 118/54 Pulse Ox 100 99 99 O2 Delivery Room Air Room Air Room Air Room Air 11/04/21 11/04/21 11/04/21 11/04/21 16:00 17:00 17:14 17:44 Temp 97.5 97.5 Pulse 90 98 Resp 21 21 20 20 B/P (MAP) 164/50 (88) 152/52 (85) Pulse Ox 99 99 99 99 O2 Delivery Room Air Room Air Room Air Room Air 11/04/21 11/04/21 11/04/21 11/04/21 17:50 18:00 19:00 20:00 Temp 98.7 98.7 Pulse 93 72 72 84 Resp 16 18 20 B/P (MAP) 163/55 118/44 (68) 134/48 (76) 140/56 (84) Pulse Ox 98 97 98 O2 Delivery Room Air Room Air Room Air 11/04/21 11/04/21 11/04/21 11/04/21 20:00 21:00 21:04 21:34 Pulse 90 Resp 18 B/P (MAP) 120/80 (93) Pulse Ox 98 98 97 O2 Delivery Room Air Room Air Room Air Room Air O2 Flow Rate 8.0 8.0 11/04/21 11/04/21 11/05/21 11/05/21 22:00 23:00 00:00 01:00 Temp 98.5 98.5 Pulse 92 88 90 90 Resp 18 18 18 18 B/P (MAP) 114/90 (98) 118/92 (101) 126/100 (109) 132/100 (111) Pulse Ox 97 97 97 97 O2 Delivery Room Air Room Air Room Air Room Air 11/05/21 11/05/21 11/05/21 11/05/21 02:00 03:00 04:00 05:00 Temp 98.7 98.7 Pulse 86 84 90 90 Resp 18 18 18 18 B/P (MAP) 126/88 (101) 136/86 (103) 132/102 (112) 118/82 (94) Pulse Ox 98 97 97 98 O2 Delivery Room Air Room Air Room Air Room Air 11/05/21 11/05/21 11/05/21 11/05/21 05:39 06:00 06:09 07:00 Pulse 96 87 Resp 18 18 B/P (MAP) 144/76 (98) 132/83 (99) Pulse Ox 97 97 97 98 O2 Delivery Room Air Room Air Room Air Room Air O2 Flow Rate 8.0 8.0 11/05/21 11/05/21 11/05/21 11/05/21 08:00 08:00 09:00 10:00 Temp 98.5 98.5 Pulse 68 92 98 Resp 17 21 21 B/P (MAP) 138/96 (110) 134/104 (114) 154/73 (100) Pulse Ox 97 97 97 O2 Delivery Room Air Room Air Room Air Room Air 11/05/21 10:22 Pulse 95 B/P (MAP) 134/94 Intake and Output 11/04/21 11/04/21 11/05/21 15:00 23:00 07:00 Intake Total 4400 ml Output Total 1445 ml 235 ml 250 ml Balance 2955 ml -235 ml -250 ml MOLLY VARGAS MD Nov 05, 2021 12:05
--- NOTE | 2021-11-05 12:56 | PDOC ---
PROGRESS NOTES Date of Service DATE: 11/05/21 TIME: 12:46 Subjective Subjective Patient seen in ICU room this afternoon. He has no significant complaints at rest. He has significant abdominal pain with movement. He has just been turning [id number] since surgery. He does not have an epidural in place, he is only using tramadol for pain control at this point although movement has been very limited. He reports he is comfortable at rest. He denies any significant nausea or vomiting. His NG tube has been clamped per report overnight and this morning until my visit around noon. He had a bowel movement last night. Urine output has been pretty good, Cr 0.8. Hgb 9.5, WBC 17.1 Objective Objective Vital Signs Date Time Temp Pulse Resp B/P (MAP) Pulse Ox O2 Delivery O2 Flow Rate FiO2 11/05/21 12:00 98.8 92 18 158/76 (103) 97 Room Air 98.8 11/05/21 06:09 8.0 Intake and Output 11/05/21 07:00 Intake Total 4400 ml Output Total 1930 ml Balance 2470 ml IV Total 4400 ml Output Urine Total 785 ml Estimated Blood Loss 1145 ml # Bowel Movements 1 Physical Exam Physical Exam Awake, alert, no apparent distress Respirations nonlabored, room air NG tube in place, clamped on my arrival, hooked up to suction while I was in the room with minimal yellow clear bilous output He has an easily palpable and strong brachial pulse on the right arm, strong brachial and radial pulse on the left arm. Art line is in place on the right wrist Abdominal dressing and groin dressings are clean, dry, intact. His abdomen is soft and not significantly tender. He has left franklin wound, bilateral heel ulcers, left toe dry gangrene He has adequate PT signals via Doppler bilaterally. 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 He has good UE pulses. Comment Review of Relevant I have reviewed the following items ifrah (where applicable) has been applied. Labs Laboratory Tests Test 11/03/21 17:09 11/03/21 20:25 11/04/21 05:15 11/04/21 06:52 Glucose (Fingerstick) 206 mg/dL (70-99) 128 mg/dL (70-99) 114 mg/dL (70-99) White Blood Count 11.9 x10^3/uL (4.0-11.0) Red Blood Count 3.22 x10^6/uL (4.30-5.70) Hemoglobin 9.8 g/dL (13.0-17.5) Hematocrit 29.6 % (39.0-53.0) Mean Corpuscular Volume 92 fL (79-100) Mean Corpuscular Hemoglobin 30 pg (25-35) Mean Corpuscular Hemoglobin Concent 33 g/dL (31-37) Red Cell Distribution Width 14.0 % (11.5-14.5) Platelet Count 340 x10^3/uL (140-400) Sodium Level 136 mmol/L (136-145) Potassium Level 3.8 mmol/L (3.5-5.1) Chloride Level 98 mmol/L (98-107) Carbon Dioxide Level 26 mmol/L (21-32) Anion Gap 12 (6-14) Blood Urea Nitrogen 11 mg/dL (8-26) Creatinine 0.7 mg/dL (0.7-1.3) Estimated GFR (Cockcroft-Gault) 118.0 Glucose Level 111 mg/dL (70-99) Calcium Level 8.6 mg/dL (8.5-10.1) Test 11/04/21 09:59 11/04/21 10:35 11/04/21 11:00 11/04/21 13:28 Activated Clotting Time 263 sec (92-181) 182 sec (92-181) Bedside Hemoglobin (Calculated) 7.8 g/dL (14-18) Bedside Hematocrit 23 % (37-52) Bedside Arterial pH 7.39 (7.35-7.45) Arterial Blood pH (Temp corrected) 7.42 Bedside Arterial pCO2 38 mmHg (35-45) Arterial Blood pCO2 (Temp correct) 35 mmHg Bedside Arterial pO2 242 mmHg (75-100) Arterial Blood pO2 (Temp corrected) 233 mmHg Bedside Arterial HCO3 23 mmol/L (21-28) Bedside Arterial Total CO2 24 mmol/L (21-32) Arterial Bld O2 Saturation (Measur) 100 % (95-99) Bedside Arterial Blood Base Excess -2 mmol/L (0-3) Bedside FiO2 50.0 Bedside Sodium 134 mmol/L (135-145) Bedside Potassium 3.5 mmol/L (3.5-5.0) Glucose Level 178 mg/dL (70-99) Bedside Ionized Calcium (Dianne) 1.16 mmol/L (1.13-1.32) Glucose (Fingerstick) 244 mg/dL (70-99) Test 11/04/21 14:40 11/04/21 14:57 11/05/21 05:50 11/05/21 10:07 White Blood Count 22.8 x10^3/uL (4.0-11.0) 17.1 x10^3/uL (4.0-11.0) Red Blood Count 3.56 x10^6/uL (4.30-5.70) 3.14 x10^6/uL (4.30-5.70) Hemoglobin 10.8 g/dL (13.0-17.5) 9.5 g/dL (13.0-17.5) Hematocrit 33.2 % (39.0-53.0) 28.7 % (39.0-53.0) Mean Corpuscular Volume 93 fL (79-100) 92 fL (79-100) Mean Corpuscular Hemoglobin 30 pg (25-35) 30 pg (25-35) Mean Corpuscular Hemoglobin Concent 33 g/dL (31-37) 33 g/dL (31-37) Red Cell Distribution Width 13.7 % (11.5-14.5) 14.2 % (11.5-14.5) Platelet Count 263 x10^3/uL (140-400) 249 x10^3/uL (140-400) Neutrophils (%) (Auto) 89 % (31-73) 80 % (31-73) Lymphocytes (%) (Auto) 7 % (24-48) 9 % (24-48) Monocytes (%) (Auto) 4 % (0-9) 11 % (0-9) Eosinophils (%) (Auto) 0 % (0-3) 0 % (0-3) Basophils (%) (Auto) 1 % (0-3) 0 % (0-3) Neutrophils # (Auto) 20.2 x10^3/uL (1.8-7.7) 13.7 x10^3/uL (1.8-7.7) Lymphocytes # (Auto) 1.5 x10^3/uL (1.0-4.8) 1.5 x10^3/uL (1.0-4.8) Monocytes # (Auto) 0.9 x10^3/uL (0.0-1.1) 1.9 x10^3/uL (0.0-1.1) Eosinophils # (Auto) 0.0 x10^3/uL (0.0-0.7) 0.0 x10^3/uL (0.0-0.7) Basophils # (Auto) 0.1 x10^3/uL (0.0-0.2) 0.0 x10^3/uL (0.0-0.2) Segmented Neutrophils % 73 % (35-66) Band Neutrophils % 18 % (0-9) Lymphocytes % 6 % (24-48) Monocytes % 3 % (0-10) Platelet Estimate Adequate (ADEQUATE) Flint Cells Present Sodium Level 138 mmol/L (136-145) 139 mmol/L (136-145) Potassium Level 4.2 mmol/L (3.5-5.1) 4.6 mmol/L (3.5-5.1) Chloride Level 105 mmol/L (98-107) 105 mmol/L (98-107) Carbon Dioxide Level 20 mmol/L (21-32) 23 mmol/L (21-32) Anion Gap 13 (6-14) 11 (6-14) Blood Urea Nitrogen 14 mg/dL (8-26) 15 mg/dL (8-26) Creatinine 0.9 mg/dL (0.7-1.3) 0.8 mg/dL (0.7-1.3) Estimated GFR (Cockcroft-Gault) 88.3 101.1 Glucose Level 262 mg/dL (70-99) 154 mg/dL (70-99) Calcium Level 7.2 mg/dL (8.5-10.1) 7.5 mg/dL (8.5-10.1) Glucose (Fingerstick) 252 mg/dL (70-99) 144 mg/dL (70-99) Magnesium Level 1.7 mg/dL (1.8-2.4) Laboratory Tests Test 11/04/21 13:28 11/04/21 14:40 11/04/21 14:57 11/05/21 05:50 Glucose (Fingerstick) 244 mg/dL (70-99) 252 mg/dL (70-99) White Blood Count 22.8 x10^3/uL (4.0-11.0) 17.1 x10^3/uL (4.0-11.0) Red Blood Count 3.56 x10^6/uL (4.30-5.70) 3.14 x10^6/uL (4.30-5.70) Hemoglobin 10.8 g/dL (13.0-17.5) 9.5 g/dL (13.0-17.5) Hematocrit 33.2 % (39.0-53.0) 28.7 % (39.0-53.0) Mean Corpuscular Volume 93 fL (79-100) 92 fL (79-100) Mean Corpuscular Hemoglobin 30 pg (25-35) 30 pg (25-35) Mean Corpuscular Hemoglobin Concent 33 g/dL (31-37) 33 g/dL (31-37) Red Cell Distribution Width 13.7 % (11.5-14.5) 14.2 % (11.5-14.5) Platelet Count 263 x10^3/uL (140-400) 249 x10^3/uL (140-400) Neutrophils (%) (Auto) 89 % (31-73) 80 % (31-73) Lymphocytes (%) (Auto) 7 % (24-48) 9 % (24-48) Monocytes (%) (Auto) 4 % (0-9) 11 % (0-9) Eosinophils (%) (Auto) 0 % (0-3) 0 % (0-3) Basophils (%) (Auto) 1 % (0-3) 0 % (0-3) Neutrophils # (Auto) 20.2 x10^3/uL (1.8-7.7) 13.7 x10^3/uL (1.8-7.7) Lymphocytes # (Auto) 1.5 x10^3/uL (1.0-4.8) 1.5 x10^3/uL (1.0-4.8) Monocytes # (Auto) 0.9 x10^3/uL (0.0-1.1) 1.9 x10^3/uL (0.0-1.1) Eosinophils # (Auto) 0.0 x10^3/uL (0.0-0.7) 0.0 x10^3/uL (0.0-0.7) Basophils # (Auto) 0.1 x10^3/uL (0.0-0.2) 0.0 x10^3/uL (0.0-0.2) Segmented Neutrophils % 73 % (35-66) Band Neutrophils % 18 % (0-9) Lymphocytes % 6 % (24-48) Monocytes % 3 % (0-10) Platelet Estimate Adequate (ADEQUATE) Benigno Cells Present Sodium Level 138 mmol/L (136-145) 139 mmol/L (136-145) Potassium Level 4.2 mmol/L (3.5-5.1) 4.6 mmol/L (3.5-5.1) Chloride Level 105 mmol/L (98-107) 105 mmol/L (98-107) Carbon Dioxide Level 20 mmol/L (21-32) 23 mmol/L (21-32) Anion Gap 13 (6-14) 11 (6-14) Blood Urea Nitrogen 14 mg/dL (8-26) 15 mg/dL (8-26) Creatinine 0.9 mg/dL (0.7-1.3) 0.8 mg/dL (0.7-1.3) Estimated GFR (Cockcroft-Gault) 88.3 101.1 Glucose Level 262 mg/dL (70-99) 154 mg/dL (70-99) Calcium Level 7.2 mg/dL (8.5-10.1) 7.5 mg/dL (8.5-10.1) Magnesium Level 1.7 mg/dL (1.8-2.4) Test 11/05/21 10:07 Glucose (Fingerstick) 144 mg/dL (70-99) Medications Current Medications Iodixanol 200 ml/ Sodium Chloride 400 ml @ 400 mls/hr 1X ONCE IART Last administered on 10/29/21at 09:00; Start 10/29/21 at 09:00; Stop 10/29/21 at 09:59; Status DC Lidocaine HCl (Xylocaine-Mpf 1% 2ml Vial) 2 ml STK-MED ONCE .ROUTE ; Start 10/29/21 at 10:55; Stop 10/29/21 at 10:55; Status DC Heparin Sodium/ Sodium Chloride 1,000 ml @ As Directed STK-MED ONCE .ROUTE ; Start 10/29/21 at 10:56; Stop 10/29/21 at 10:56; Status DC Nitroglycerin (Nitroglycerin) 200 mcg STK-MED ONCE .ROUTE ; Start 10/29/21 at 10:58; Stop 10/29/21 at 10:58; Status DC Midazolam HCl (Versed) 5 mg STK-MED ONCE .ROUTE ; Start 10/29/21 at 10:59; Stop 10/29/21 at 10:59; Status DC Fentanyl Citrate (Fentanyl 2ml Vial) 100 mcg STK-MED ONCE .ROUTE ; Start 10/29/21 at 10:59; Stop 10/29/21 at 10:59; Status DC Verapamil HCl (Verapamil) 5 mg STK-MED ONCE .ROUTE ; Start 10/29/21 at 10:59; Stop 10/29/21 at 10:59; Status DC Heparin Sodium (Porcine) (Heparin Sodium) 10,000 unit STK-MED ONCE .ROUTE ; Start 10/29/21 at 10:59; Stop 10/29/21 at 11:00; Status DC Diphenhydramine HCl (Benadryl) 50 mg STK-MED ONCE .ROUTE ; Start 10/29/21 at 11:35; Stop 10/29/21 at 11:36; Status DC Nitroglycerin (Nitroglycerin) 200 mcg 1X ONCE IART Last administered on 10/29/21at 12:11; Start 10/29/21 at 12:00; Stop 10/29/21 at 12:05; Status DC Verapamil HCl (Verapamil) 2.5 mg 1X ONCE IART Last administered on 10/29/21at 12:11; Start 10/29/21 at 12:00; Stop 10/29/21 at 12:05; Status DC Heparin Sodium (Porcine) (Heparin Sodium) 2,500 unit 1X ONCE IART Last administered on 10/29/21at 12:13; Start 10/29/21 at 12:00; Stop 10/29/21 at 12:05; Status DC Heparin Sodium/ Sodium Chloride (HEPARIN for ARTERIAL LINE FLUSH) 1,000 unit 1X ONCE IART Last administered on 10/29/21at 12:10; Start 10/29/21 at 12:00; Stop 10/29/21 at 12:05; Status DC Heparin Sodium/ Sodium Chloride (HEPARIN for ARTERIAL LINE FLUSH) 1,000 unit 1X ONCE IART Last administered on 10/29/21at 12:10; Start 10/29/21 at 12:00; Stop 10/29/21 at 12:05; Status DC Midazolam HCl (Versed) 5 mg 1X ONCE IV Last administered on 10/29/21at 12:12; Start 10/29/21 at 12:00; Stop 10/29/21 at 12:05; Status DC Fentanyl Citrate (Fentanyl 2ml Vial) 100 mcg 1X ONCE IV Last administered on 10/29/21at 12:12; Start 10/29/21 at 12:00; Stop 10/29/21 at 12:05; Status DC Iodixanol (Visipaque 320) 100 ml 1X ONCE IART ; Start 10/29/21 at 12:00; Stop 10/29/21 at 12:05; Status DC Lidocaine HCl (Xylocaine-Mpf 1% 2ml Vial) 2 ml 1X ONCE INJ Last administered on 10/29/21at 12:11; Start 10/29/21 at 12:00; Stop 10/29/21 at 12:05; Status DC Diphenhydramine HCl (Benadryl) 50 mg 1X ONCE IVP Last administered on 10/29/21at 12:00; Start 10/29/21 at 12:00; Stop 10/29/21 at 12:05; Status DC Sodium Chloride 1,000 ml @ 100 mls/hr Q10H IV ; Start 10/29/21 at 12:15; Stop 10/30/21 at 12:14; Status DC Iohexol (Omnipaque 350 Mg/ml) 95 ml 1X ONCE IV Last administered on 10/29/21at 13:25; Start 10/29/21 at 13:30; Stop 10/29/21 at 13:34; Status DC Sennosides (Senna) 17.2 mg PRN BID PRN PO CONSTIPATION; Start 10/29/21 at 15:45 Docusate Sodium (Colace) 100 mg PRN DAILY PRN PO HARD STOOLS; Start 10/29/21 at 15:45 Ondansetron HCl (Zofran) 4 mg PRN Q6HRS PRN IVP NAUSEA/VOMITING, 1st CHOICE; Start 10/29/21 at 15:45; Status Cancel Insulin Human Lispro (HumaLOG) 0-5 UNITS TIDWMEALS SQ ; Start 10/29/21 at 17:00 Dextrose (Dextrose 50%-Water Syringe) 12.5 gm PRN Q15MIN PRN IV SEE COMMENTS; Start 10/29/21 at 15:45 Sodium Chloride 1,000 ml @ 100 mls/hr Q10H IV Last administered on 10/31/21at 06:45; Start 10/29/21 at 15:45; Stop 10/31/21 at 13:06; Status DC Acetaminophen (Tylenol) 650 mg PRN Q4HRS PRN PO TEMP OVER 100.4F OR MILD PAIN; Start 10/29/21 at 15:45 Lorazepam (Ativan) 0.5 mg PRN Q6HRS PRN PO ANXIETY / AGITATION; Start 10/29/21 at 15:45 Lorazepam (Ativan Inj) 0.25 mg PRN Q4HRS PRN IV ANXIETY / AGITATION; Start 10/29/21 at 15:45 Enoxaparin Sodium (Lovenox 40mg Syringe) 40 mg Q24H SQ Last administered on 11/02/21at 17:32; Start 10/29/21 at 16:00; Stop 11/03/21 at 08:18; Status DC Acetaminophen/ Hydrocodone Bitart (Lortab 5/325) 1 tab PRN Q4HRS PRN PO SEVERE PAIN, 1ST CHOICE Last administered on 10/30/21at 20:34; Start 10/29/21 at 15:45; Stop 11/05/21 at 08:00; Status DC Acetaminophen/ Hydrocodone Bitart (Lortab 5/325) 2 tab PRN Q4HRS PRN PO SEVERE PAIN, 2ND CHOICE Last administered on 11/04/21at 02:25; Start 10/29/21 at 15:45; Stop 11/05/21 at 08:00; Status DC Morphine Sulfate (Morphine Sulfate) 1 mg PRN Q1HR PRN IV PAIN-SEE COMMENTS Last administered on 11/01/21at 08:52; Start 10/29/21 at 15:45; Stop 11/04/21 at 13:39; Status DC Morphine Sulfate (Morphine Sulfate) 2 mg PRN Q2HR PRN IVP SEVERE PAIN 7-10; Start 10/29/21 at 15:45; Stop 10/30/21 at 15:44; Status DC Prochlorperazine Edisylate (Compazine) 10 mg PRN Q6HRS PRN IV NAUSEA/VOMITING, 2nd CHOICE; Start 10/29/21 at 15:45; Status Cancel Diphenhydramine HCl (Benadryl) 25 mg PRN Q6HRS PRN IVP ITCHING; Start 10/29/21 at 15:45 Diphenhydramine HCl (Benadryl) 25 mg PRN Q6HRS PRN PO ITCHING; Start 10/29/21 at 15:45 Diphenhydramine HCl (Benadryl) 25 mg PRN QHS PRN PO INSOMNIA, 1st CHOICE Last administered on 10/30/21at 00:19; Start 10/29/21 at 15:45 Zolpidem Tartrate (Ambien) 2.5 mg PRN QHS PRN PO INSOMNIA, 2nd CHOICE; Start 10/29/21 at 15:45 Amlodipine Besylate (Norvasc) 10 mg DAILY PO Last administered on 11/05/21at 10:22; Start 10/30/21 at 09:00 Aspirin (Ecotrin) 81 mg DAILYWBKFT PO Last administered on 11/03/21at 09:05; Start 10/30/21 at 08:00 Atorvastatin Calcium (Lipitor) 10 mg QHS PO Last administered on 11/04/21at 20:57; Start 10/29/21 at 21:00 Clopidogrel Bisulfate (Plavix) 75 mg DAILY PO Last administered on 11/03/21at 09:05; Start 10/30/21 at 09:00; Stop 11/04/21 at 13:34; Status DC Diphenhydramine HCl (Benadryl) 25 mg DAILY PO Last administered on 11/05/21at 10:22; Start 10/30/21 at 09:00 Pregabalin (Lyrica) 50 mg TID PO Last administered on 11/05/21at 10:17; Start 10/29/21 at 21:00 Tramadol HCl (Ultram) 50 mg Q6HRS PRN PO MILD PAIN (2ND CHOICE) Last administered on 11/04/21at 17:14; Start 10/29/21 at 17:00 Ascorbic Acid (Vitamin C) 500 mg DAILY PO Last administered on 11/05/21at 10:16; Start 10/30/21 at 09:00 Cyanocobalamin (Vitamin B-12) 1,000 mcg DAILY PO Last administered on 11/05/21at 10:22; Start 10/30/21 at 09:00 Pantoprazole Sodium (Protonix) 40 mg DAILYAC PO Last administered on 11/03/21at 05:46; Start 10/30/21 at 07:30; Stop 11/05/21 at 09:27; Status DC Potassium Chloride (Klor-Con) 40 meq BID PO Last administered on 11/02/21at 08:43; Start 11/01/21 at 14:00; Stop 11/02/21 at 13:59; Status DC Polyethylene Glycol (miraLAX PACKET) 17 gm 1X ONCE PO ; Start 11/03/21 at 08:15; Stop 11/03/21 at 08:16; Status DC Cefazolin Sodium/ Dextrose 50 ml @ 100 mls/hr 1X PREOP PRN IV PRIOR TO PROCEDURE Last administered on 11/04/21at 08:06; Start 11/04/21 at 08:00; Stop 11/04/21 at 18:00; Status DC Heparin Sodium (Porcine) 5000 unit/Sodium Chloride 505 ml @ 505 mls/hr 1X ONCE IRR Last administered on 11/04/21at 09:05; Start 11/04/21 at 06:00; Stop 11/04/21 at 06:59; Status DC Cefazolin Sodium 1 gm/Sodium Chloride 500 ml @ 500 mls/hr 1X ONCE IRR Last administered on 11/04/21at 09:05; Start 11/04/21 at 06:00; Stop 11/04/21 at 06: 59; Status DC Fentanyl Citrate (Fentanyl 2ml Vial) 25 mcg PRN Q5MIN PRN IVP MILD PAIN 1-3; Start 11/04/21 at 06:00; Stop 11/04/21 at 16:54; Status DC Fentanyl Citrate (Fentanyl 2ml Vial) 50 mcg PRN Q5MIN PRN IVP MODERATE PAIN 4-6 Last administered on 11/04/21at 14:02; Start 11/04/21 at 06:00; Stop 11/04/21 at 16:54; Status DC Morphine Sulfate (Morphine Sulfate) 1 mg PRN Q10MIN PRN IVP SEVERE PAIN 7-10 Last administered on 11/04/21at 14:28; Start 11/04/21 at 06:00; Stop 11/04/21 at 16:47; Status DC Ringer's Solution 1,000 ml @ 30 mls/hr Q24H IV Last administered on 11/04/21at 06:00; Start 11/04/21 at 06:00; Stop 11/04/21 at 17:59; Status DC Hydromorphone HCl (Dilaudid) 0.5 mg PRN Q10MIN PRN IVP SEVERE PAIN 7-10, 2nd CHOICE; Start 11/04/21 at 06:00; Stop 11/04/21 at 16:47; Status DC Prochlorperazine Edisylate (Compazine) 5 mg PACU PRN PRN IVP NAUSEA, MRX1 Last administered on 11/04/21at 14:09; Start 11/04/21 at 06:00; Stop 11/04/21 at 16:54; Status DC Cefazolin Sodium/ Dextrose 50 ml @ As Directed STK-MED ONCE IV ; Start 11/04/21 at 06:32; Stop 11/04/21 at 06:32; Status DC Rocuronium [place] (Zemuron) 50 mg STK-MED ONCE .ROUTE ; Start 11/04/21 at 06:54; Stop 11/04/21 at 06:54; Status DC Fentanyl Citrate (Fentanyl 2ml Vial) 100 mcg STK-MED ONCE .ROUTE ; Start 11/04/21 at 06:54; Stop 11/04/21 at 06:54; Status DC Midazolam HCl (Versed) 2 mg STK-MED ONCE .ROUTE ; Start 11/04/21 at 06:54; Stop 11/04/21 at 06:54; Status DC Propofol (Diprivan) 200 mg STK-MED ONCE IV ; Start 11/04/21 at 06:54; Stop 11/04/21 at 06:55; Status DC Lidocaine HCl (Lidocaine Pf 2% Vial) 5 ml STK-MED ONCE .ROUTE ; Start 11/04/21 at 06:54; Stop 11/04/21 at 06:55; Status DC Ondansetron HCl (Zofran) 4 mg STK-MED ONCE .ROUTE ; Start 11/04/21 at 06:54; Stop 11/04/21 at 06:55; Status DC Dexamethasone Sodium Phosphate (Decadron) 4 mg STK-MED ONCE .ROUTE ; Start 11/04/21 at 06:54; Stop 11/04/21 at 06:55; Status DC Cellulose (Surgicel Fibrillar 1x2) 1 each STK-MED ONCE .ROUTE Last administered on 11/04/21at 09:05; Start 11/04/21 at 07:03; Stop 11/04/21 at 07:03; Status DC Heparin Sodium (Porcine) (Heparin Sodium) 10,000 unit STK-MED ONCE .ROUTE ; Start 11/04/21 at 07:03; Stop 11/04/21 at 07:04; Status DC Phenylephrine HCl (Jayce-Synephrine Inj) 10 mg STK-MED ONCE .ROUTE ; Start 11/04/21 at 07:09; Stop 11/04/21 at 07:09; Status DC Heparin Sodium (Porcine) (Heparin Sodium) 10,000 unit STK-MED ONCE .ROUTE ; Start 11/04/21 at 07:34; Stop 11/04/21 at 07:35; Status DC Fentanyl Citrate (Fentanyl 2ml Vial) 100 mcg STK-MED ONCE .ROUTE ; Start 10/13 12/31 at 09:39; Stop 11/04/21 at 09:39; Status DC Albumin Human 500 ml @ As Directed STK-MED ONCE IV ; Start 11/04/21 at 10:16; Stop 11/04/21 at 10:16; Status DC Vasopressin (Vasostrict) 20 unit STK-MED ONCE .ROUTE ; Start 11/04/21 at 10:42; Stop 11/04/21 at 10:43; Status DC Rocuronium [place] (Zemuron) 50 mg STK-MED ONCE .ROUTE ; Start 11/04/21 at 11:06; Stop 11/04/21 at 11:06; Status DC Heparin Sodium (Porcine) (Heparin Sodium) 10,000 unit STK-MED ONCE .ROUTE ; Start 11/04/21 at 11:06; Stop 11/04/21 at 11:06; Status DC Hydromorphone HCl (Dilaudid) 2 mg STK-MED ONCE .ROUTE ; Start 11/04/21 at 11:09; Stop 11/04/21 at 11:09; Status DC Sugammadex Sodium (Bridion) 400 mg 1X ONCE IVP ; Start 11/04/21 at 11:15; Stop 11/04/21 at 11:16; Status DC Cefazolin Sodium/ Dextrose 50 ml @ As Directed STK-MED ONCE IV ; Start 11/04/21 at 11:41; Stop 11/04/21 at 11:42; Status DC Protamine Sulfate (Protamine) 50 mg STK-MED ONCE IV ; Start 11/04/21 at 11:48; Stop 11/04/21 at 11:48; Status DC Gelatin (Gelfoam Size 12-7mm) 1 each STK-MED ONCE .ROUTE Last administered on 11/04/21at 09:05; Start 11/04/21 at 12:08; Stop 11/04/21 at 12:08; Status DC Thrombin 20,000 unit STK-MED ONCE TP Last administered on 11/04/21at 09:05; Start 11/04/21 at 12:08; Stop 11/04/21 at 12:08; Status DC Gelatin (Gelfoam Size 12-7mm) 1 each STK-MED ONCE .ROUTE ; Start 11/04/21 at 12:10; Stop 11/04/21 at 12:11; Status Cancel Gelatin (Gelfoam Size 12-7mm) 1 each STK-MED ONCE .ROUTE ; Start 11/04/21 at 12:10; Stop 11/04/21 at 12:11; Status Cancel Gelatin (Gelfoam Size 12-7mm) 1 each STK-MED ONCE .ROUTE Last administered on 11/04/21at 09:05; Start 11/04/21 at 12:16; Stop 11/04/21 at 12:17; Status DC Gelatin (Gelfoam Size 12-7mm) 1 each STK-MED ONCE .ROUTE ; Start 11/04/21 at 12:16; Stop 11/04/21 at 12:17; Status DC Gelatin (Gelfoam Size 12-7mm) 1 each STK-MED ONCE .ROUTE Last administered on 11/04/21at 09:05; Start 11/04/21 at 12:17; Stop 11/04/21 at 12:17; Status DC Gelatin (Gelfoam Size 12-7mm) 1 each STK-MED ONCE .ROUTE Last administered on 11/04/21at 09:05; Start 11/04/21 at 12:17; Stop 11/04/21 at 12:17; Status DC Sevoflurane (Ultane) 90 ml STK-MED ONCE IH ; Start 11/04/21 at 12:18; Stop 11/04/21 at 12:18; Status DC Insulin Human Lispro (HumaLOG VIAL for OP,RR ONLY) 0-10 units PRN Q1HR PRN SQ PER PROTOCOL Last administered on 11/04/21at 15:08; Start 11/04/21 at 13:30; Stop 11/05/21 at 08:02; Status DC Fentanyl Citrate (Fentanyl 2ml Vial) 100 mcg STK-MED ONCE .ROUTE ; Start 11/04/21 at 13:33; Stop 11/04/21 at 13:33; Status DC Cefazolin Sodium (Ancef) 1 gm Q6H IVP Last administered on 11/05/21at 02:26; Start 11/04/21 at 14:00; Stop 11/05/21 at 02:01; Status DC Famotidine (Pepcid Vial) 20 mg BID IVP ; Start 11/04/21 at 21:00; Status Cancel Info (Icu Electrolyte Protocol) 1 ea DAILY MC Last administered on 11/05/21at 09:00; Start 11/05/21 at 09:00 Naloxone HCl (Narcan) 0.1 mg PRN Q2MIN PRN IV SEE ADMIN INSTRUCTIONS; Start 11/04/21 at 13:30 Sodium Chloride (Normal Saline Flush) 3 ml QSHIFT PRN IV AFTER MEDS AND BLOOD DRAWS; Start 11/04/21 at 13:30 Sodium Chloride 1,000 ml @ 150 mls/hr Q6H40M IV Last administered on 11/05/21at 02:27; Start 11/04/21 at 13:30 Naloxone HCl (Narcan) 0.4 mg PRN Q2MIN PRN IV SEE INSTRUCTIONS; Start 11/04/21 at 13:30 Sodium Chloride 1,000 ml @ 25 mls/hr Q24H IV ; Start 11/04/21 at 13:30 Morphine Sulfate (Morphine Sulfate) 2 mg PRN Q1HR PRN IV PAIN Last administered on 11/05/21at 05:39; Start 11/04/21 at 13:30 Oxycodone/ Acetaminophen (Percocet 5/325) 1 tab PRN Q4HRS PRN PO MODERATE PAIN; Start 11/04/21 at 13:30 Oxycodone/ Acetaminophen (Percocet 5/325) 2 tab PRN Q4HRS PRN PO SEVERE PAIN; Start 11/04/21 at 13:30 Ondansetron HCl (Zofran) 4 mg PRN Q6HRS PRN IVP NAUESA, 1ST CHOICE; Start 11/04/21 at 13:30 Prochlorperazine Edisylate (Compazine) 5 mg PRN Q6HRS PRN IV N/V, 2nd Choice, MR X1; Start 11/04/21 at 13:30 Hydralazine HCl (Apresoline Inj) 5 mg PRN Q4HRS PRN IVP ELEVATED BP, SEE CO MMENTS Last administered on 11/04/21at 14:28; Start 11/04/21 at 13:30 Labetalol HCl (Normodyne Iv Push) 10 mg PRN Q2HR PRN IVP HYPERTENSION (2ND CHOICE) Last administered on 11/04/21at 17:50; Start 11/04/21 at 13:30 Morphine Sulfate (Morphine Sulfate) 2 mg STK-MED ONCE .ROUTE ; Start 11/04/21 at 14:04; Stop 11/04/21 at 14:05; Status DC Hydralazine HCl (Apresoline Inj) 20 mg STK-MED ONCE .ROUTE ; Start 11/04/21 at 14:04; Stop 11/04/21 at 14:05; Status DC Prochlorperazine Edisylate (Compazine) 10 mg STK-MED ONCE .ROUTE ; Start 11/04/21 at 14:04; Stop 11/04/21 at 14:05; Status DC Magnesium Sulfate 50 ml @ 25 mls/hr 1X ONCE IV Last administered on 11/05/21at 10:16; Start 11/05/21 at 09:00; Stop 11/05/21 at 10:59; Status DC Aspirin (Aspirin Chewable) 81 mg 1X ONCE PO Last administered on 11/05/21at 10:16; Start 11/05/21 at 09:30; Stop 11/05/21 at 09:31; Status DC Pantoprazole Sodium (PROTONIX VIAL for IV PUSH) 40 mg DAILYAC IVP Last administered on 11/05/21at 10:23; Start 11/05/21 at 09:30 Active Scripts Active Aspirin Ec (Aspirin) 81 Mg Tablet.dr 81 Mg PO [id number] 90 Days Amlodipine Besylate 10 Mg Tablet 10 Mg PO DAILY 90 Days Atorvastatin Calcium 10 Mg Tablet 10 Mg PO QHS 90 Days Reported Hydrochlorothiazide Tablet (Hydrochlorothiazide) 25 Mg Tablet 25 Mg PO DAILY Metformin Hcl 1,000 Mg Tablet 1,000 Mg PO BIDWMEALS Clopidogrel (Clopidogrel Bisulfate) 75 Mg Tablet 1 Tab PO DAILY Vitamin B-12 (Cyanocobalamin (Vitamin B-12)) 1,000 Mcg Tab.subl 1 Tab SL DAILY 30 Days Vitamin C (Ascorbic Acid) 500 Mg Capsule.er 1 Cap PO DAILY 30 Days Omeprazole 40 Mg Capsule.dr 1 Cap PO DAILY Lyrica (Pregabalin) 50 Mg Capsule 50 Mg PO TID Benadryl (Diphenhydramine Hcl) 25 Mg Capsule 25 Mg PO DAILY Tramadol Hcl 50 Mg Tablet 50 Mg PO Q6HRS PRN Iron (Ferrous Sulfate) 325 Mg Tablet 325 Mg PO DAILY Vitals/I & O Vital Sign - Last 24 Hours 11/04/21 11/04/21 11/04/21 11/04/21 13:16 13:16 13:31 13:46 Temp 96.7 96.7 Pulse 64 72 76 Resp 19 20 11 B/P (MAP) 133/73 140/76 150/85 148/56 162/64 Pulse Ox 100 100 100 O2 Delivery Simple Mask Mask Simple Mask Simple Mask O2 Flow Rate 8 8.0 8.0 8.0 11/04/21 11/04/21 11/04/21 11/04/21 14:01 14:16 14:28 14:31 Pulse 82 86 80 84 Resp 16 13 23 B/P (MAP) 133/102 147/61 172/58 131/57 184/64 156/54 Pulse Ox 98 97 99 O2 Delivery Room Air Room Air Room Air O2 Flow Rate 8.0 11/04/21 11/04/21 11/04/21 11/04/21 14:46 15:01 15:30 15:30 Temp 97.1 97.1 Pulse 84 84 Resp B/P (MAP) 118/63 118/54 Pulse Ox 100 99 99 O2 Delivery Room Air Room Air Room Air Room Air 11/04/21 11/04/21 11/04/21 11/04/21 16:00 17:00 17:14 17:44 Temp 97.5 97.5 Pulse 90 98 Resp 21 20 B/P (MAP) 164/50 (88) 152/52 (85) Pulse Ox 99 99 99 99 O2 Delivery Room Air Room Air Room Air Room Air 11/04/21 11/04/21 11/04/21 11/04/21 17:50 18:00 19:00 20:00 Temp 98.7 98.7 Pulse 93 72 72 84 Resp 16 18 20 B/P (MAP) 163/55 118/44 (68) 134/48 (76) 140/56 (84) Pulse Ox 98 97 98 O2 Delivery Room Air Room Air Room Air 11/04/21 11/04/21 11/04/21 11/04/21 20:00 21:00 21:04 21:34 Pulse 90 Resp 18 B/P (MAP) 120/80 (93) Pulse Ox 98 98 97 O2 Delivery Room Air Room Air Room Air Room Air O2 Flow Rate 8.0 8.0 11/04/21 11/04/21 11/05/21 11/05/21 22:00 23:00 00:00 01:00 Temp 98.5 98.5 Pulse 92 88 90 90 Resp 18 18 18 18 B/P (MAP) 114/90 (98) 118/92 (101) 126/100 (109) 132/100 (111) Pulse Ox 97 97 97 97 O2 Delivery Room Air Room Air Room Air Room Air 11/05/21 11/05/21 11/05/21 11/05/21 02:00 03:00 04:00 05:00 Temp 98.7 98.7 Pulse 86 84 90 90 Resp 18 18 18 18 B/P (MAP) 126/88 (101) 136/86 (103) 132/102 (112) 118/82 (94) Pulse Ox 98 97 97 98 O2 Delivery Room Air Room Air Room Air Room Air 11/05/21 11/05/21 11/05/21 11/05/21 05:39 06:00 06:09 07:00 Pulse 96 87 Resp 18 18 B/P (MAP) 144/76 (98) 132/83 (99) Pulse Ox 97 97 97 98 O2 Delivery Room Air Room Air Room Air Room Air O2 Flow Rate 8.0 8.0 11/05/21 11/05/21 11/05/21 11/05/21 08:00 08:00 09:00 10:00 Temp 98.5 98.5 Pulse 68 92 98 Resp 17 21 B/P (MAP) 138/96 (110) 134/104 (114) 154/73 (100) Pulse Ox 97 97 97 O2 Delivery Room Air Room Air Room Air Room Air 11/05/21 11/05/21 11/05/21 10:22 11:00 12:00 Temp 98.8 98.8 Pulse 95 88 92 Resp 22 18 B/P (MAP) 134/94 140/90 (107) 158/76 (103) Pulse Ox 97 97 O2 Delivery Room Air Room Air Intake and Output 11/04/21 11/04/21 11/05/21 15:00 23:00 07:00 Intake Total 4400 ml Output Total 1445 ml 235 ml 250 ml Balance 2955 ml -235 ml -250 ml Justifications for Admission Other Justification Severe peripheral vascular disease with gangrenous wounds in the lower extremities DUNCAN MORRISON Nov 05, 2021 12:56
[2021-11-05] MEDS ORDERED: ALBUTEROL SULFATE 2.5 MG/3 ML NEBU. NEB PRN (14:45)
--- NOTE | 2021-11-05 15:44 | NUR ---
SS following up with discharge planning. SS reviewed pt chart and discussed with pt RN. Pt is currently on room air. Pt had surgery with Vascular on 11/04/2021. Pt scheduled for vascular procedure on Monday11/08/2021. Not ready. SS will continue to follow for discharge planning.
--- NOTE | 2021-11-05 16:21 | RAD ---
US VENOUS MAPPING BILAT History: Reason: PRE-OP BYPASS / Spl. Instructions: / History: Comparison: None. Discussion: Multiple longitudinal and transverse high resolution real-time images of the superficial venous syste m of bilateral lower extremity were obtained. Right greater saphenous vein: Measures 2.9 mm to 2.8 mm distal. No occlusion. Right small saphenous vein: Measures 1.5 mm to 1.2 mm distal. No occlusion. Left greater saphenous vein: Measures 2.8 mm to 1.7 mm distal. No occlusion. Left small saphenous vein: Measures 2.5 mm to 2.6 cm distal. No occlusion. Impression: 1. Preoperative evaluation with measurements as described above. Electronically signed by: Orlando Mosley DO (11/05/2021 4:18 PM) LORE
[2021-11-05] MEDS: ATORVASTATIN CALCIUM 10 MG TABLET. PO SCH (21:00)
[2021-11-06] VITALS (13 sets, daily range): BP systolic 98–171; BP diastolic 62–80
[2021-11-06] MEDS: MORPHINE SULFATE 2 MG/ML INJ. IV PRN ×2 (02:03→22:54)
--- NOTE | 2021-11-06 05:59 | PDOC ---
PULMONARY PROGRESS NOTES DATE: 11/06/21 TIME: 05:59 Subjective on Ra denies sob has occ cough has ng smoked up until he was admitted No frequent acute exacerbation of COPD Vitals Vital Signs Date Time Temp Pulse Resp B/P (MAP) Pulse Ox O2 Delivery O2 Flow Rate FiO2 11/06/21 05:00 94 19 154/73 (100) 94 Room Air 11/06/21 04:00 99.2 99.2 ROS: No Nausea, No Chest Pain, No Increase Cough Lungs: Crackles Cardiovascular: S1, S2 Abdomen: Soft Neuro Exam: Alert Extremities: Other (Evidence of previous surgery) Skin: Warm Labs Laboratory Tests Test 11/04/21 06:52 11/04/21 09:59 11/04/21 10:35 11/04/21 11:00 Glucose (Fingerstick) 114 mg/dL (70-99) Activated Clotting Time 263 sec (92-181) 182 sec (92-181) Bedside Hemoglobin (Calculated) 7.8 g/dL (14-18) Bedside Hematocrit 23 % (37-52) Bedside Arterial pH 7.39 (7.35-7.45) Arterial Blood pH (Temp corrected) 7.42 Bedside Arterial pCO2 38 mmHg (35-45) Arterial Blood pCO2 (Temp correct) 35 mmHg Bedside Arterial pO2 242 mmHg (75-100) Arterial Blood pO2 (Temp corrected) 233 mmHg Bedside Arterial HCO3 23 mmol/L (21-28) Bedside Arterial Total CO2 24 mmol/L (21-32) Arterial Bld O2 Saturation (Measur) 100 % (95-99) Bedside Arterial Blood Base Excess -2 mmol/L (0-3) Bedside FiO2 50.0 Bedside Sodium 134 mmol/L (135-145) Bedside Potassium 3.5 mmol/L (3.5-5.0) Glucose Level 178 mg/dL (70-99) Bedside Ionized Calcium (Dianne) 1.16 mmol/L (1.13-1.32) Test 11/04/21 13:28 11/04/21 14:40 11/04/21 14:57 11/05/21 05:50 Glucose (Fingerstick) 244 mg/dL (70-99) 252 mg/dL (70-99) White Blood Count 22.8 x10^3/uL (4.0-11.0) 17.1 x10^3/uL (4.0-11.0) Red Blood Count 3.56 x10^6/uL (4.30-5.70) 3.14 x10^6/uL (4.30-5.70) Hemoglobin 10.8 g/dL (13.0-17.5) 9.5 g/dL (13.0-17.5) Hematocrit 33.2 % (39.0-53.0) 28.7 % (39.0-53.0) Mean Corpuscular Volume 93 fL (79-100) 92 fL (79-100) Mean Corpuscular Hemoglobin 30 pg (25-35) 30 pg (25-35) Mean Corpuscular Hemoglobin Concent 33 g/dL (31-37) 33 g/dL (31-37) Red Cell Distribution Width 13.7 % (11.5-14.5) 14.2 % (11.5-14.5) Platelet Count 263 x10^3/uL (140-400) 249 x10^3/uL (140-400) Neutrophils (%) (Auto) 89 % (31-73) 80 % (31-73) Lymphocytes (%) (Auto) 7 % (24-48) 9 % (24-48) Monocytes (%) (Auto) 4 % (0-9) 11 % (0-9) Eosinophils (%) (Auto) 0 % (0-3) 0 % (0-3) Basophils (%) (Auto) 1 % (0-3) 0 % (0-3) Neutrophils # (Auto) 20.2 x10^3/uL (1.8-7.7) 13.7 x10^3/uL (1.8-7.7) Lymphocytes # (Auto) 1.5 x10^3/uL (1.0-4.8) 1.5 x10^3/uL (1.0-4.8) Monocytes # (Auto) 0.9 x10^3/uL (0.0-1.1) 1.9 x10^3/uL (0.0-1.1) Eosinophils # (Auto) 0.0 x10^3/uL (0.0-0.7) 0.0 x10^3/uL (0.0-0.7) Basophils # (Auto) 0.1 x10^3/uL (0.0-0.2) 0.0 x10^3/uL (0.0-0.2) Segmented Neutrophils % 73 % (35-66) Band Neutrophils % 18 % (0-9) Lymphocytes % 6 % (24-48) Monocytes % 3 % (0-10) Platelet Estimate Adequate (ADEQUATE) Benigno Cells Present Sodium Level 138 mmol/L (136-145) 139 mmol/L (136-145) Potassium Level 4.2 mmol/L (3.5-5.1) 4.6 mmol/L (3.5-5.1) Chloride Level 105 mmol/L (98-107) 105 mmol/L (98-107) Carbon Dioxide Level 20 mmol/L (21-32) 23 mmol/L (21-32) Anion Gap 13 (6-14) 11 (6-14) Blood Urea Nitrogen 14 mg/dL (8-26) 15 mg/dL (8-26) Creatinine 0.9 mg/dL (0.7-1.3) 0.8 mg/dL (0.7-1.3) Estimated GFR (Cockcroft-Gault) 88.3 101.1 Glucose Level 262 mg/dL (70-99) 154 mg/dL (70-99) Calcium Level 7.2 mg/dL (8.5-10.1) 7.5 mg/dL (8.5-10.1) Magnesium Level 1.7 mg/dL (1.8-2.4) Test 11/05/21 10:07 11/05/21 12:59 11/05/21 13:18 11/05/21 17:16 Glucose (Fingerstick) 144 mg/dL (70-99) 146 mg/dL (70-99) 149 mg/dL (70-99) Phosphorus Level 3.1 mg/dL (2.6-4.7) Laboratory Tests Test 11/05/21 10:07 11/05/21 12:59 11/05/21 13:18 11/05/21 17:16 Glucose (Fingerstick) 144 mg/dL (70-99) 146 mg/dL (70-99) 149 mg/dL (70-99) Phosphorus Level 3.1 mg/dL (2.6-4.7) Medications Active Scripts Medications Dose Route/Sig Max Daily Dose Days Date Category Hydrochlorothiazide Tablet (Hydrochlorothiazide) 25 Mg Tablet 25 Mg PO DAILY 10/29/21 Reported Metformin Hcl 1,000 Mg Tablet 1,000 Mg PO BIDWMEALS 10/29/21 Reported Clopidogrel (Clopidogrel Bisulfate) 75 Mg Tablet 1 Tab PO DAILY 10/29/21 Reported Vitamin B-12 (Cyanocobalamin (Vitamin B-12)) 1,000 Mcg Tab.subl 1 Tab SL DAILY 30 10/29/21 Reported Vitamin C (Ascorbic Acid) 500 Mg Capsule.er 1 Cap PO DAILY 30 10/29/21 Reported Omeprazole 40 Mg Capsule.dr 1 Cap PO DAILY 10/29/21 Reported Lyrica (Pregabalin) 50 Mg Capsule 50 Mg PO TID 10/29/21 Reported Benadryl (Diphenhydramine Hcl) 25 Mg Capsule 25 Mg PO DAILY 10/29/21 Reported Tramadol Hcl 50 Mg Tablet 50 Mg PO Q6HRS PRN 10/29/21 Reported Iron (Ferrous Sulfate) 325 Mg Tablet 325 Mg PO DAILY 10/29/21 Reported Aspirin Ec (Aspirin) 81 Mg Tablet.dr 81 Mg PO DAILYWBKFT 90 01/11/18 Rx Amlodipine Besylate 10 Mg Tablet 10 Mg PO DAILY 90 01/11/18 Rx Atorvastatin Calcium 10 Mg Tablet 10 Mg PO QHS 90 01/11/18 Rx Impression . IMPRESSION: 1. Expected postoperative respiratory failure, multifactorial. 2. Chronic obstructive pulmonary disease, tobacco dependent. 3. Coronary artery disease, status post coronary artery bypass grafting. 4. Peripheral arterial disease, status post aorto-bilateral profunda femoris bypass and extensive right superficial femoral artery endarterectomy. 5. Echocardiogram revealing ejection fraction 65% with diastolic dysfunction. 6. Type 2 diabetes. Plan . Updated 11/06 Continue oxygen for sats above 92% IS BD Postop pain management avoid oversedation Aggressive pulmonary hygiene Anticoagulation per surgeon discussed w rn PLAN: 1. Continue current support with oxygen supplementation to maintain sats above 92%. 2. Postoperative pain management. 3. Follow Cardiology input. 4. Anticoagulation. 5. DVT prophylaxis. I do appreciate the privilege in sharing the patient's care. JAMAL GARCES MD Nov 06, 2021 05:59
[2021-11-06] MEDS: IV NORMAL SALINE 1000ML BAG 1,000 ML IV SCH ×2 (06:28→22:48)
[2021-11-06 06:47] LABS: HEMATOCRIT 24.5 % (39.0-53.0); HEMOGLOBIN 8.1 g/dL (13.0-17.5); RED BLOOD COUNT 2.7 x10^6/uL (4.30-5.70); WHITE BLOOD COUNT 17.6 x10^3/uL (4.0-11.0)
[2021-11-06 06:53] LABS: CALCIUM 7.7 mg/dL (8.5-10.1); CREATININE 0.6 mg/dL (0.7-1.3); GFR 140.9; MAGNESIUM 1.9 mg/dL (1.8-2.4); POTASSIUM 3.9 mmol/L (3.5-5.1)
[2021-11-06] MEDS: INSULIN LISPRO 300 UNITS/3 ML VIAL. SQ SCH ×3 (08:00→17:00)
[2021-11-06] MEDS: diphenhydrAMINE HCL 25 MG CAPSULE PO SCH (08:34)
[2021-11-06] MEDS: CYANOCOBALAMIN (VITAMIN B-12) 1,000 MCG TABLET. PO SCH (08:34)
[2021-11-06] MEDS: ASCORBIC ACID 500 MG TABLET PO SCH (08:34)
--- NOTE | 2021-11-06 08:34 | PDOC ---
[facility] PROGRESS NOTE Date of Service DOS: DATE: 11/06/21 TIME: 08:27 Chief Complaint Chief Complaint Postop day 12 OPERATIONS PERFORMED: 1. Aortobilateral profunda femoris bypass with 16 x 8 bifurcated Bethany-Riley graft.2. 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 Complaining of lower abdominal pain. Was able to get up to the chair on 225. Says he is passing flatus. NG tube to suction 200 cc. 11/05/2021 Patient seen and examined in the ICU He has an NG clamped He has [place] boots on both lower extremities Appears depressed He had lower extremity bypass yesterday Discussed with RN Chart reviewed 11/04, Surgery today, fem pop 55-year-old male with significant past medical history of for pancreatitis, hypertension, CABG, peripheral vascular disease with critical limb ischemia who underwent an angio of his lower extremities showing severe peripheral vascular disease and lower extremity wounds. Patient is admitted to the hospitalist service for further management and consult to the vascular surgery service. 2 Vitals/I&O Vitals/I&O: Vital Signs Date Time Temp Pulse Resp B/P (MAP) Pulse Ox O2 Delivery O2 Flow Rate FiO2 11/06/21 06:00 90 22 154/80 (104) 98 Room Air 11/06/21 04:00 99.2 99.2 I & O 11/05/21 11/05/21 11/06/21 15:00 23:00 07:00 Intake Total 2781 ml 365 ml 1467 ml Output Total 625 ml 505 ml 1615 ml Balance 2156 ml -140 ml -148 ml Physical Exam General: Alert Heart: Regular rate Lungs: Crackles Abdomen: Normal bowel sounds Extremities: No clubbing Skin: Other Labs Labs: Laboratory Tests Test 11/05/21 10:07 11/05/21 12:59 11/05/21 13:18 11/05/21 17:16 Glucose (Fingerstick) 144 mg/dL (70-99) 146 mg/dL (70-99) 149 mg/dL (70-99) Phosphorus Level 3.1 mg/dL (2.6-4.7) Test 11/06/21 06:15 11/06/21 08:21 White Blood Count 17.6 x10^3/uL (4.0-11.0) Red Blood Count 2.70 x10^6/uL (4.30-5.70) Hemoglobin 8.1 g/dL (13.0-17.5) Hematocrit 24.5 % (39.0-53.0) Mean Corpuscular Volume 91 fL (79-100) Mean Corpuscular Hemoglobin 30 pg (25-35) Mean Corpuscular Hemoglobin Concent 33 g/dL (31-37) Red Cell Distribution Width 14.0 % (11.5-14.5) Platelet Count 224 x10^3/uL (140-400) Sodium Level 139 mmol/L (136-145) Potassium Level 3.9 mmol/L (3.5-5.1) Chloride Level 103 mmol/L (98-107) Carbon Dioxide Level 27 mmol/L (21-32) Anion Gap 9 (6-14) Blood Urea Nitrogen 8 mg/dL (8-26) Creatinine 0.6 mg/dL (0.7-1.3) Estimated GFR (Cockcroft-Gault) 140.9 Glucose Level 131 mg/dL (70-99) Calcium Level 7.7 mg/dL (8.5-10.1) Magnesium Level 1.9 mg/dL (1.8-2.4) Glucose (Fingerstick) 137 mg/dL (70-99) Comment Review of Relevant I have reviewed the following items ifrah (where applicable) has been applied. Medications: Current Medications Medications (Trade) Dose Ordered Sig/Amara Route PRN Reason Start Time Stop Time Status Last Admin Dose Admin Info ([facility] Electrolyte Protocol) 1 ea DAILY MC 11/05/21 09:00 11/05/21 09:00 Magnesium Sulfate 50 ml @ 25 mls/hr 1X ONCE IV 11/05/21 09:00 11/05/21 10:59 DC 11/05/21 10:16 Aspirin (Aspirin Chewable) 81 mg 1X ONCE PO 11/05/21 09:30 11/05/21 09:31 DC 11/05/21 10:16 Pantoprazole Sodium (PROTONIX VIAL for IV PUSH) 40 mg DAILYAC IVP 11/05/21 09:30 11/05/21 10:23 Sodium Chloride 1,000 ml @ 125 mls/hr Q8H IV 11/05/21 14:00 11/06/21 06:28 Justifications for Admission Other Justification Severe peripheral vascular disease with gangrenous wounds in the lower extremities NATALIE BARBOSA MD Nov 06, 2021 08:34
[2021-11-06] MEDS: PREGABALIN 50 MG CAPSULE PO SCH ×3 (08:35→21:00)
[2021-11-06] MEDS: PANTOPRAZOLE IV PUSH 40 MG VIAL. IVP SCH (08:35)
[2021-11-06] MEDS: oxyCODONE/APAP 5/325 1 TAB TABLET PO PRN (08:37)
--- NOTE | 2021-11-06 08:53 | PDOC ---
PROGRESS NOTES Date of Service DATE: 11/06/21 TIME: 08:48 Subjective Subjective Reports pain controlled enough to get up to chair yesterday NG with about 800 out over past 24 hours, nursing reports 300 out overnight Reports flatus Objective Objective Vital Signs Date Time Temp Pulse Resp B/P (MAP) Pulse Ox O2 Delivery O2 Flow Rate FiO2 11/06/21 08:37 14 99 Room Air 11/06/21 08:35 92 171/78 11/06/21 04:00 99.2 99.2 11/05/21 06:09 8.0 Intake and Output0 11/06/21 07:00 Intake Total 4613 ml Output Total 2745 ml Balance 1868 ml Intake Oral 0 ml IV Total 4433 ml Other 180 ml Output Urine Total 2395 ml Gastric Drainage Total 350 ml Physical Exam Abdomen: Soft, Other (appropriate tenderness, incision c/d/i with gay) Heart: Regular rate General: Alert, Oriented X3 Skin: Other (incision c/d/i) Assessment Assessment 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 no clinical evidence of bleeding Keep dry gauze to both groins change daily Comment Review of Relevant I have reviewed the following items ifrah (where applicable) has been applied. Labs Laboratory Tests Test 11/04/21 09:59 11/04/21 10:35 11/04/21 11:00 11/04/21 13:28 Activated Clotting Time 263 sec (92-181) 182 sec (92-181) Bedside Hemoglobin (Calculated) 7.8 g/dL (14-18) Bedside Hematocrit 23 % (37-52) Bedside Arterial pH 7.39 (7.35-7.45) Arterial Blood pH (Temp corrected) 7.42 Bedside Arterial pCO2 38 mmHg (35-45) Arterial Blood pCO2 (Temp correct) 35 mmHg Bedside Arterial pO2 242 mmHg (75-100) Arterial Blood pO2 (Temp corrected) 233 mmHg Bedside Arterial HCO3 23 mmol/L (21-28) Bedside Arterial Total CO2 24 mmol/L (21-32) Arterial Bld O2 Saturation (Measur) 100 % (95-99) Bedside Arterial Blood Base Excess -2 mmol/L (0-3) Bedside FiO2 50.0 Bedside Sodium 134 mmol/L (135-145) Bedside Potassium 3.5 mmol/L (3.5-5.0) Glucose Level 178 mg/dL (70-99) Bedside Ionized Calcium (Dianne) 1.16 mmol/L (1.13-1.32) Glucose (Fingerstick) 244 mg/dL (70-99) Test 11/04/21 14:40 11/04/21 14:57 11/05/21 05:50 11/05/21 10:07 White Blood Count 22.8 x10^3/uL (4.0-11.0) 17.1 x10^3/uL (4.0-11.0) Red Blood Count 3.56 x10^6/uL (4.30-5.70) 3.14 x10^6/uL (4.30-5.70) Hemoglobin 10.8 g/dL (13.0-17.5) 9.5 g/dL (13.0-17.5) Hematocrit 33.2 % (39.0-53.0) 28.7 % (39.0-53.0) Mean Corpuscular Volume 93 fL (79-100) 92 fL (79-100) Mean Corpuscular Hemoglobin 30 pg (25-35) 30 pg (25-35) Mean Corpuscular Hemoglobin Concent 33 g/dL (31-37) 33 g/dL (31-37) Red Cell Distribution Width 13.7 % (11.5-14.5) 14.2 % (11.5-14.5) Platelet Count 263 x10^3/uL (140-400) 249 x10^3/uL (140-400) Neutrophils (%) (Auto) 89 % (31-73) 80 % (31-73) Lymphocytes (%) (Auto) 7 % (24-48) 9 % (24-48) Monocytes (%) (Auto) 4 % (0-9) 11 % (0-9) Eosinophils (%) (Auto) 0 % (0-3) 0 % (0-3) Basophils (%) (Auto) 1 % (0-3) 0 % (0-3) Neutrophils # (Auto) 20.2 x10^3/uL (1.8-7.7) 13.7 x10^3/uL (1.8-7.7) Lymphocytes # (Auto) 1.5 x10^3/uL (1.0-4.8) 1.5 x10^3/uL (1.0-4.8) Monocytes # (Auto) 0.9 x10^3/uL (0.0-1.1) 1.9 x10^3/uL (0.0-1.1) Eosinophils # (Auto) 0.0 x10^3/uL (0.0-0.7) 0.0 x10^3/uL (0.0-0.7) Basophils # (Auto) 0.1 x10^3/uL (0.0-0.2) 0.0 x10^3/uL (0.0-0.2) Segmented Neutrophils % 73 % (35-66) Band Neutrophils % 18 % (0-9) Lymphocytes % 6 % (24-48) Monocytes % 3 % (0-10) Platelet Estimate Adequate (ADEQUATE) Benigno Cells Present Sodium Level 138 mmol/L (136-145) 139 mmol/L (136-145) Potassium Level 4.2 mmol/L (3.5-5.1) 4.6 mmol/L (3.5-5.1) Chloride Level 105 mmol/L (98-107) 105 mmol/L (98-107) Carbon Dioxide Level 20 mmol/L (21-32) 23 mmol/L (21-32) Anion Gap 13 (6-14) 11 (6-14) Blood Urea Nitrogen 14 mg/dL (8-26) 15 mg/dL (8-26) Creatinine 0.9 mg/dL (0.7-1.3) 0.8 mg/dL (0.7-1.3) Estimated GFR (Cockcroft-Gault) 88.3 101.1 Glucose Level 262 mg/dL (70-99) 154 mg/dL (70-99) Calcium Level 7.2 mg/dL (8.5-10.1) 7.5 mg/dL (8.5-10.1) Glucose (Fingerstick) 252 mg/dL (70-99) 144 mg/dL (70-99) Magnesium Level 1.7 mg/dL (1.8-2.4) Test 11/05/21 12:59 11/05/21 13:18 11/05/21 17:16 11/06/21 06:15 Glucose (Fingerstick) 146 mg/dL (70-99) 149 mg/dL (70-99) Phosphorus Level 3.1 mg/dL (2.6-4.7) White Blood Count 17.6 x10^3/uL (4.0-11.0) Red Blood Count 2.70 x10^6/uL (4.30-5.70) Hemoglobin 8.1 g/dL (13.0-17.5) Hematocrit 24.5 % (39.0-53.0) Mean Corpuscular Volume 91 fL (79-100) Mean Corpuscular Hemoglobin 30 pg (25-35) Mean Corpuscular Hemoglobin Concent 33 g/dL (31-37) Red Cell Distribution Width 14.0 % (11.5-14.5) Platelet Count 224 x10^3/uL (140-400) Sodium Level 139 mmol/L (136-145) Potassium Level 3.9 mmol/L (3.5-5.1) Chloride Level 103 mmol/L (98-107) Carbon Dioxide Level 27 mmol/L (21-32) Anion Gap 9 (6-14) Blood Urea Nitrogen 8 mg/dL (8-26) Creatinine 0.6 mg/dL (0.7-1.3) Estimated GFR (Cockcroft-Gault) 140.9 Glucose Level 131 mg/dL (70-99) Calcium Level 7.7 mg/dL (8.5-10.1) Magnesium Level 1.9 mg/dL (1.8-2.4) Test 11/06/21 08:21 Glucose (Fingerstick) 137 mg/dL (70-99) Laboratory Tests Test 11/05/21 10:07 11/05/21 12:59 11/05/21 13:18 11/05/21 17:16 Glucose (Fingerstick) 144 mg/dL (70-99) 146 mg/dL (70-99) 149 mg/dL (70-99) Phosphorus Level 3.1 mg/dL (2.6-4.7) Test 11/06/21 06:15 11/06/21 08:21 White Blood Count 17.6 x10^3/uL (4.0-11.0) Red Blood Count 2.70 x10^6/uL (4.30-5.70) Hemoglobin 8.1 g/dL (13.0-17.5) Hematocrit 24.5 % (39.0-53.0) Mean Corpuscular Volume 91 fL (79-100) Mean Corpuscular Hemoglobin 30 pg (25-35) Mean Corpuscular Hemoglobin Concent 33 g/dL (31-37) Red Cell Distribution Width 14.0 % (11.5-14.5) Platelet Count 224 x10^3/uL (140-400) Sodium Level 139 mmol/L (136-145) Potassium Level 3.9 mmol/L (3.5-5.1) Chloride Level 103 mmol/L (98-107) Carbon Dioxide Level 27 mmol/L (21-32) Anion Gap 9 (6-14) Blood Urea Nitrogen 8 mg/dL (8-26) Creatinine 0.6 mg/dL (0.7-1.3) Estimated GFR (Cockcroft-Gault) 140.9 Glucose Level 131 mg/dL (70-99) Calcium Level 7.7 mg/dL (8.5-10.1) Magnesium Level 1.9 mg/dL (1.8-2.4) Glucose (Fingerstick) 137 mg/dL (70-99) Medications Current Medications Iodixanol 200 ml/ Sodium Chloride 400 ml @ 400 mls/hr 1X ONCE IART Last administered on 10/29/21at 09:00; Start 10/29/21 at 09:00; Stop 10/29/21 at 09:59; Status DC Lidocaine HCl (Xylocaine-Mpf 1% 2ml Vial) 2 ml STK-MED ONCE .ROUTE ; Start 10/29/21 at 10:55; Stop 10/29/21 at 10:55; Status DC Heparin Sodium/ Sodium Chloride 1,000 ml @ As Directed STK-MED ONCE .ROUTE ; Start 10/29/21 at 10:56; Stop 10/29/21 at 10:56; Status DC Nitroglycerin (Nitroglycerin) 200 mcg STK-MED ONCE .ROUTE ; Start 10/29/21 at 10:58; Stop 10/29/21 at 10:58; Status DC Midazolam HCl (Versed) 5 mg STK-MED ONCE .ROUTE ; Start 10/29/21 at 10:59; Stop 10/29/21 at 10:59; Status DC Fentanyl Citrate (Fentanyl 2ml Vial) 100 mcg STK-MED ONCE .ROUTE ; Start 10/29/21 at 10:59; Stop 10/29/21 at 10:59; Status DC Verapamil HCl (Verapamil) 5 mg STK-MED ONCE .ROUTE ; Start 10/29/21 at 10:59; Stop 10/29/21 at 10:59; Status DC Heparin Sodium (Porcine) (Heparin Sodium) 10,000 unit STK-MED ONCE .ROUTE ; Start 10/29/21 at 10:59; Stop 10/29/21 at 11:00; Status DC Diphenhydramine HCl (Benadryl) 50 mg STK-MED ONCE .ROUTE ; Start 10/29/21 at 11:35; Stop 10/29/21 at 11:36; Status DC Nitroglycerin (Nitroglycerin) 200 mcg 1X ONCE IART Last administered on 10/29/21at 12:11; Start 10/29/21 at 12:00; Stop 10/29/21 at 12:05; Status DC Verapamil HCl (Verapamil) 2.5 mg 1X ONCE IART Last administered on 10/29/21at 12:11; Start 10/29/21 at 12:00; Stop 10/29/21 at 12:05; Status DC Heparin Sodium (Porcine) (Heparin Sodium) 2,500 unit 1X ONCE IART Last administered on 10/29/21at 12:13; Start 10/29/21 at 12:00; Stop 10/29/21 at 12:05; Status DC Heparin Sodium/ Sodium Chloride (HEPARIN for ARTERIAL LINE FLUSH) 1,000 unit 1X ONCE IART Last administered on 10/29/21at 12:10; Start 10/29/21 at 12:00; Stop 10/29/21 at 12:05; Status DC Heparin Sodium/ Sodium Chloride (HEPARIN for ARTERIAL LINE FLUSH) 1,000 unit 1X ONCE IART Last administered on 10/29/21at 12:10; Start 10/29/21 at 12:00; Stop 10/29/21 at 12:05; Status DC Midazolam HCl (Versed) 5 mg 1X ONCE IV Last administered on 10/29/21at 12:12; Start 10/29/21 at 12:00; Stop 10/29/21 at 12:05; Status DC Fentanyl Citrate (Fentanyl 2ml Vial) 100 mcg 1X ONCE IV Last administered on 10/29/21at 12:12; Start 10/29/21 at 12:00; Stop 10/29/21 at 12:05; Status DC Iodixanol (Visipaque 320) 100 ml 1X ONCE IART ; Start 10/29/21 at 12:00; Stop 10/29/21 at 12:05; Status DC Lidocaine HCl (Xylocaine-Mpf 1% 2ml Vial) 2 ml 1X ONCE INJ Last administered on 10/29/21at 12:11; Start 10/29/21 at 12:00; Stop 10/29/21 at 12:05; Status DC Diphenhydramine HCl (Benadryl) 50 mg 1X ONCE IVP Last administered on 10/29/21at 12:00; Start 10/29/21 at 12:00; Stop 10/29/21 at 12:05; Status DC Sodium Chloride 1,000 ml @ 100 mls/hr Q10H IV ; Start 10/29/21 at 12:15; Stop 10/30/21 at 12:14; Status DC Iohexol (Omnipaque 350 Mg/ml) 95 ml 1X ONCE IV Last administered on 10/29/21at 13:25; Start 10/29/21 at 13:30; Stop 10/29/21 at 13:34; Status DC Sennosides (Senna) 17.2 mg PRN BID PRN PO CONSTIPATION; Start 10/29/21 at 15:45 Docusate Sodium (Colace) 100 mg PRN DAILY PRN PO HARD STOOLS; Start 10/29/21 at 15:45 Ondansetron HCl (Zofran) 4 mg PRN Q6HRS PRN IVP NAUSEA/VOMITING, 1st CHOICE; Start 10/29/21 at 15:45; Status Cancel Insulin Human Lispro (HumaLOG) 0-5 UNITS TIDWMEALS SQ ; Start 10/29/21 at 17:00 Dextrose (Dextrose 50%-Water Syringe) 12.5 gm PRN Q15MIN PRN IV SEE COMMENTS; Start 10/29/21 at 15:45 Sodium Chloride 1,000 ml @ 100 mls/hr Q10H IV Last administered on 10/31/21at 06:45; Start 10/29/21 at 15:45; Stop 10/31/21 at 13:06; Status DC Acetaminophen (Tylenol) 650 mg PRN Q4HRS PRN PO TEMP OVER 100.4F OR MILD PAIN; Start 10/29/21 at 15:45 Lorazepam (Ativan) 0.5 mg PRN Q6HRS PRN PO ANXIETY / AGITATION; Start 10/29/21 at 15:45 Lorazepam (Ativan Inj) 0.25 mg PRN Q4HRS PRN IV ANXIETY / AGITATION; Start 10/29/21 at 15:45 Enoxaparin Sodium (Lovenox 40mg Syringe) 40 mg Q24H SQ Last administered on 11/02/21at 17:32; Start 10/29/21 at 16:00; Stop 11/03/21 at 08:18; Status DC Acetaminophen/ Hydrocodone Bitart (Lortab 5/325) 1 tab PRN Q4HRS PRN PO SEVERE PAIN, 1ST CHOICE Last administered on 10/30/21at 20:34; Start 10/29/21 at 15:45; Stop 11/05/21 at 08:00; Status DC Acetaminophen/ Hydrocodone Bitart (Lortab 5/325) 2 tab PRN Q4HRS PRN PO SEVERE PAIN, 2ND CHOICE Last administered on 11/04/21at 02:25; Start 10/29/21 at 15:45; Stop 11/05/21 at 08:00; Status DC Morphine Sulfate (Morphine Sulfate) 1 mg PRN Q1HR PRN IV PAIN-SEE COMMENTS Last administered on 11/01/21at 08:52; Start 10/29/21 at 15:45; Stop 11/04/21 at 13:39; Status DC Morphine Sulfate (Morphine Sulfate) 2 mg PRN Q2HR PRN IVP SEVERE PAIN 7-10; Start 10/29/21 at 15:45; Stop 10/30/21 at 15:44; Status DC Prochlorperazine Edisylate (Compazine) 10 mg PRN Q6HRS PRN IV NAUSEA/VOMITING, 2nd CHOICE; Start 10/29/21 at 15:45; Status Cancel Diphenhydramine HCl (Benadryl) 25 mg PRN Q6HRS PRN IVP ITCHING; Start 10/29/21 at 15:45 Diphenhydramine HCl (Benadryl) 25 mg PRN Q6HRS PRN PO ITCHING; Start 10/29/21 at 15:45 Diphenhydramine HCl (Benadryl) 25 mg PRN QHS PRN PO INSOMNIA, 1st CHOICE Last administered on 10/30/21at 00:19; Start 10/29/21 at 15:45 Zolpidem Tartrate (Ambien) 2.5 mg PRN QHS PRN PO INSOMNIA, 2nd CHOICE; Start 10/29/21 at 15:45 Amlodipine Besylate (Norvasc) 10 mg DAILY PO Last administered on 11/06/21at 08:35; Start 10/30/21 at 09:00 Aspirin (Ecotrin) 81 mg DAILYWBKFT PO Last administered on 11/03/21at 09:05; Start 10/30/21 at 08:00; Stop 11/06/21 at 08:34; Status DC Atorvastatin Calcium (Lipitor) 10 mg QHS PO Last administered on 11/04/21at 20:57; Start 10/29/21 at 21:00 Clopidogrel Bisulfate (Plavix) 75 mg DAILY PO Last administered on 11/03/21at 09:05; Start 10/30/21 at 09:00; Stop 11/04/21 at 13:34; Status DC Diphenhydramine HCl (Benadryl) 25 mg DAILY PO Last administered on 11/06/21at 08:34; Start 10/30/21 at 09:00 Pregabalin (Lyrica) 50 mg TID PO Last administered on 11/06/21 08:35; Start 10/29/21 at 21:00 Tramadol HCl (Ultram) 50 mg Q6HRS PRN PO MILD PAIN (2ND CHOICE) Last adm inistered on 11/04/21at 17:14; Start 10/29/21 at 17:00 Ascorbic Acid (Vitamin C) 500 mg DAILY PO Last administered on 11/06/21at 08:34; Start 10/30/21 at 09:00 Cyanocobalamin (Vitamin B-12) 1,000 mcg DAILY PO Last administered on 11/06/21at 08:34; Start 10/30/21 at 09:00 Pantoprazole Sodium (Protonix) 40 mg DAILYAC PO Last administered on 11/03/21at 05:46; Start 10/30/21 at 07:30; Stop 11/05/21 at 09:27; Status DC Potassium Chloride (Klor-Con) 40 meq BID PO Last administered on 11/02/21at 08:43; Start 11/01/21 at 14:00; Stop 11/02/21 at 13:59; Status DC Polyethylene Glycol (miraLAX PACKET) 17 gm 1X ONCE PO ; Start 11/03/21 at 08:1 5; Stop 11/03/21 at 08:16; Status DC Cefazolin Sodium/ Dextrose 50 ml @ 100 mls/hr 1X PREOP PRN IV PRIOR TO PROCEDURE Last administered on 11/04/21at 08:06; Start 11/04/21 at 08:00; Stop 11/04/21 at 18:00; Status DC Heparin Sodium (Porcine) 5000 unit/Sodium Chloride 505 ml @ 505 mls/hr 1X ONCE IRR Last administered on 11/04/21at 09:05; Start 11/04/21 at 06:00; Stop 11/04/21 at 06:59; Status DC Cefazolin Sodium 1 gm/Sodium Chloride 500 ml @ 500 mls/hr 1X ONCE IRR Last administered on 11/04/21at 09:05; Start 11/04/21 at 06:00; Stop 11/04/21 at 06:59; Status DC Fentanyl Citrate (Fentanyl 2ml Vial) 25 mcg PRN Q5MIN PRN IVP MILD PAIN 1-3; Start 11/04/21 at 06:00; Stop 11/04/21 at 16:54; Status DC Fentanyl Citrate (Fentanyl 2ml Vial) 50 mcg PRN Q5MIN PRN IVP MODERATE PAIN 4-6 Last administered on 11/04/21at 14:02; Start 11/04/21 at 06:00; Stop 11/04/21 at 16:54; Status DC Morphine Sulfate (Morphine Sulfate) 1 mg PRN Q10MIN PRN IVP SEVERE PAIN 7-10 Last administered on 11/04/21at 14:28; Start 11/04/21 at 06:00; Stop 11/04/21 at 16:47; Status DC Ringer's Solution 1,000 ml @ 30 mls/hr Q24H IV Last administered on 11/04/21at 06:00; Start 11/04/21 at 06:00; Stop 11/04/21 at 17:59; Status DC Hydromorphone HCl (Dilaudid) 0.5 mg PRN Q10MIN PRN IVP SEVERE PAIN 7-10, 2nd CHOICE; Start 11/04/21 at 06:00; Stop 11/04/21 at 16:47; Status DC Prochlorperazine Edisylate (Compazine) 5 mg PACU PRN PRN IVP NAUSEA, MRX1 Last administered on 11/04/21at 14:09; Start 11/04/21 at 06:00; Stop 11/04/21 at 16:54; Status DC Cefazolin Sodium/ Dextrose 50 ml @ As Directed STK-MED ONCE IV ; Start 11/04/21 at 06:32; Stop 11/04/21 at 06:32; Status DC Rocuronium [place] (Zemuron) 50 mg STK-MED ONCE .ROUTE ; Start 11/04/21 at 06:54; Stop 11/04/21 at 06:54; Status DC Fentanyl Citrate (Fentanyl 2ml Vial) 100 mcg STK-MED ONCE .ROUTE ; Start 11/04/21 at 06:54; Stop 11/04/21 at 06:54; Status DC Midazolam HCl (Versed) 2 mg STK-MED ONCE .ROUTE ; Start 11/04/21 at 06:54; Stop 11/04/21 at 06:54; Status DC Propofol (Diprivan) 200 mg STK-MED ONCE IV ; Start 11/04/21 at 06:54; Stop 11/04/21 at 06:55; Status DC Lidocaine HCl (Lidocaine Pf 2% Vial) 5 ml STK-MED ONCE .ROUTE ; Start 11/04/21 at 06:54; Stop 11/04/21 at 06:55; Status DC Ondansetron HCl (Zofran) 4 mg STK-MED ONCE .ROUTE ; Start 11/04/21 at 06:54; Stop 11/04/21 at 06:55; Status DC Dexamethasone Sodium Phosphate (Decadron) 4 mg STK-MED ONCE .ROUTE ; Start 10/13 12/31 at 06:54; Stop 11/04/21 at 06:55; Status DC Cellulose (Surgicel Fibrillar 1x2) 1 each STK-MED ONCE .ROUTE Last administered on 11/04/21at 09:05; Start 11/04/21 at 07:03; Stop 11/04/21 at 07:03; Status DC Heparin Sodium (Porcine) (Heparin Sodium) 10,000 unit STK-MED ONCE .ROUTE ; Start 11/04/21 at 07:03; Stop 11/04/21 at 07:04; Status DC Phenylephrine HCl (Jayce-Synephrine Inj) 10 mg STK-MED ONCE .ROUTE ; Start 11/04/21 at 07:09; Stop 11/04/21 at 07:09; Status DC Heparin Sodium (Porcine) (Heparin Sodium) 10,000 unit STK-MED ONCE .ROUTE ; Start 11/04/21 at 07:34; Stop 11/04/21 at 07:35; Status DC Fentanyl Citrate (Fentanyl 2ml Vial) 100 mcg STK-MED ONCE .ROUTE ; Start 11/04/21 at 09:39; Stop 11/04/21 at 09:39; Status DC Albumin Human 500 ml @ As Directed STK-MED ONCE IV ; Start 11/04/21 at 10:16; Stop 11/04/21 at 10:16; Status DC Vasopressin (Vasostrict) 20 unit STK-MED ONCE .ROUTE ; Start 11/04/21 at 10:42; Stop 11/04/21 at 10:43; Status DC Rocuronium [place] (Zemuron) 50 mg STK-MED ONCE .ROUTE ; Start 11/04/21 at 11:06; Stop 11/04/21 at 11:06; Status DC Heparin Sodium (Porcine) (Heparin Sodium) 10,000 unit STK-MED ONCE .ROUTE ; Start 11/04/21 at 11:06; Stop 11/04/21 at 11:06; Status DC Hydromorphone HCl (Dilaudid) 2 mg STK-MED ONCE .ROUTE ; Start 11/04/21 at 11:09; Stop 11/04/21 at 11:09; Status DC Sugammadex Sodium (Bridion) 400 mg 1X ONCE IVP ; Start 11/04/21 at 11:15; Stop 11/04/21 at 11:16; Status DC Cefazolin Sodium/ Dextrose 50 ml @ As Directed STK-MED ONCE IV ; Start 11/04/21 at 11:41; Stop 11/04/21 at 11:42; Status DC Protamine Sulfate (Protamine) 50 mg STK-MED ONCE IV ; Start 11/04/21 at 11:48; Stop 11/04/21 at 11:48; Status DC Gelatin (Gelfoam Size 12-7mm) 1 each STK-MED ONCE .ROUTE Last administered on 11/04/21at 09:05; Start 11/04/21 at 12:08; Stop 11/04/21 at 12:08; Status DC Thrombin 20,000 unit STK-MED ONCE TP Last administered on 11/04/21at 09:05; St art 11/04/21 at 12:08; Stop 11/04/21 at 12:08; Status DC Gelatin (Gelfoam Size 12-7mm) 1 each STK-MED ONCE .ROUTE ; Start 11/04/21 at 12:10; Stop 11/04/21 at 12:11; Status Cancel Gelatin (Gelfoam Size 12-7mm) 1 each STK-MED ONCE .ROUTE ; Start 11/04/21 at 12:10; Stop 11/04/21 at 12:11; Status Cancel Gelatin (Gelfoam Size 12-7mm) 1 each STK-MED ONCE .ROUTE Last administered on 11/04/21at 09:05; Start 11/04/21 at 12:16; Stop 11/04/21 at 12:17; Status DC Gelatin (Gelfoam Size 12-7mm) 1 each STK-MED ONCE .ROUTE ; Start 11/04/21 at 12:16; Stop 11/04/21 at 12:17; Status DC Gelatin (Gelfoam Size 12-7mm) 1 each STK-MED ONCE .ROUTE Last administered on 11/04/21at 09:05; Start 11/04/21 at 12:17; Stop 11/04/21 at 12:17; Status DC Gelatin (Gelfoam Size 12-7mm) 1 each STK-MED ONCE .ROUTE Last administered on 11/04/21at 09:05; Start 11/04/21 at 12:17; Stop 11/04/21 at 12:17; Status DC Sevoflurane (Ultane) 90 ml STK-MED ONCE IH ; Start 11/04/21 at 12:18; Stop 11/04/21 at 12:18; Status DC Insulin Human Lispro (HumaLOG VIAL for OP,RR ONLY) 0-10 units PRN Q1HR PRN SQ PER PROTOCOL Last administered on 11/04/21at 15:08; Start 11/04/21 at 13:30; Stop 11/05/21 at 08:02; Status DC Fentanyl Citrate (Fentanyl 2ml Vial) 100 mcg STK-MED ONCE .ROUTE ; Start 11/04/21 at 13:33; Stop 11/04/21 at 13:33; Status DC Cefazolin Sodium (Ancef) 1 gm Q6H IVP Last administered on 11/05/21at 02:26; Start 11/04/21 at 14:00; Stop 11/05/21 at 02:01; Status DC Famotidine (Pepcid Vial) 20 mg BID IVP ; Start 11/04/21 at 21:00; Status Cancel Info (Icu Electrolyte Protocol) 1 ea DAILY MC Last administered on 11/05/21at 09:00; Start 11/05/21 at 09:00 Naloxone HCl (Narcan) 0.1 mg PRN Q2MIN PRN IV SEE ADMIN INSTRUCTIONS; Start 11/04/21 at 13:30 Sodium Chloride (Normal Saline Flush) 3 ml QSHIFT PRN IV AFTER MEDS AND BLOOD DRAWS; Start 11/04/21 at 13:30 Sodium Chloride 1,000 ml @ 150 mls/hr Q6H40M IV Last administered on 11/05/21at 02:27; Start 11/04/21 at 13:30; Stop 11/05/21 at 13:08; Status DC Naloxone HCl (Narcan) 0.4 mg PRN Q2MIN PRN IV SEE INSTRUCTIONS; Start 11/04/21 at 13:30 Sodium Chloride 1,000 ml @ 25 mls/hr Q24H IV ; Start 11/04/21 at 13:30; Stop 11/05/21 at 15:34; Status DC Morphine Sulfate (Morphine Sulfate) 2 mg PRN Q1HR PRN IV PAIN Last administered on 11/06/21at 02:03; Start 11/04/21 at 13:30 Oxycodone/ Acetaminophen (Percocet 5/325) 1 tab PRN Q4HRS PRN PO MODERATE PAIN; Start 11/04/21 at 13:30 Oxycodone/ Acetaminophen (Percocet 5/325) 2 tab PRN Q4HRS PRN PO SEVERE PAIN Last administered on 11/06/21at 08:37; Start 11/04/21 at 13:30 Ondansetron HCl (Zofran) 4 mg PRN Q6HRS PRN IVP NAUESA, 1ST CHOICE; Start 11/04/21 at 13:30 Prochlorperazine Edisylate (Compazine) 5 mg PRN Q6HRS PRN IV N/V, 2nd Choice, MR X1; Start 11/04/21 at 13:30 Hydralazine HCl (Apresoline Inj) 5 mg PRN Q4HRS PRN IVP ELEVATED BP, SEE COMMENTS Last administered on 11/04/21at 14:28; Start 11/04/21 at 13:30 Labetalol HCl (Normodyne Iv Push) 10 mg PRN Q2HR PRN IVP HYPERTENSION (2ND CHOICE) Last administered on 11/04/21at 17:50; Start 11/04/21 at 13:30 Morphine Sulfate (Morphine Sulfate) 2 mg STK-MED ONCE .ROUTE ; Start 11/04/21 at 14:04; Stop 11/04/21 at 14:05; Status DC Hydralazine HCl (Apresoline Inj) 20 mg STK-MED ONCE .ROUTE ; Start 11/04/21 at 14:04; Stop 11/04/21 at 14:05; Status DC Prochlorperazine Edisylate (Compazine) 10 mg STK-MED ONCE .ROUTE ; Start 11/04/21 at 14:04; Stop 11/04/21 at 14:05; Status DC Magnesium Sulfate 50 ml @ 25 mls/hr 1X ONCE IV Last administered on 11/05/21at 10:16; Start 11/05/21 at 09:00; Stop 11/05/21 at 10:59; Status DC Aspirin (Aspirin Chewable) 81 mg 1X ONCE PO Last administered on 11/05/21at 10:16; Start 11/05/21 at 09:30; Stop 11/05/21 at 09:31; Status DC Pantoprazole Sodium (PROTONIX VIAL for IV PUSH) 40 mg DAILYAC IVP Last administered on 11/06/21at 08:35; Start 11/05/21 at 09:30 Sodium Chloride 1,000 ml @ 125 mls/hr Q8H IV Last administered on 11/06/21at 06:28; Start 11/05/21 at 14:00 Albuterol Sulfate (Ventolin Neb Soln) 2.5 mg PRN Q6HRS PRN NEB SHORTNESS OF BREATH; Start 11/05/21 at 14:45 Aspirin (Aspirin Chewable) 81 mg DAILYWBKFT PO ; Start 11/06/21 at 09:00 Active Scripts Active Aspirin Ec (Aspirin) 81 Mg Tablet.dr 81 Mg PO [id number] 90 Days Amlodipine Besylate 10 Mg Tablet 10 Mg PO DAILY 90 Days Atorvastatin Calcium 10 Mg Tablet 10 Mg PO QHS 90 Days Reported Hydrochlorothiazide Tablet (Hydrochlorothiazide) 25 Mg Tablet 25 Mg PO DAILY Metformin Hcl 1,000 Mg Tablet 1,000 Mg PO BIDWMEALS Clopidogrel (Clopidogrel Bisulfate) 75 Mg Tablet 1 Tab PO DAILY Vitamin B-12 (Cyanocobalamin (Vitamin B-12)) 1,000 Mcg Tab.subl 1 Tab SL DAILY 30 Days Vitamin C (Ascorbic Acid) 500 Mg Capsule.er 1 Cap PO DAILY 30 Days Omeprazole 40 Mg Capsule.dr 1 Cap PO DAILY Lyrica (Pregabalin) 50 Mg Capsule 50 Mg PO TID Benadryl (Diphenhydramine Hcl) 25 Mg Capsule 25 Mg PO DAILY Tramadol Hcl 50 Mg Tablet 50 Mg PO Q6HRS PRN Iron (Ferrous Sulfate) 325 Mg Tablet 325 Mg PO DAILY Vitals/I & O Vital Sign - Last 24 Hours 11/05/21 11/05/21 11/05/21 11/05/21 09:00 10:00 10:22 11:00 Pulse 92 98 95 88 Resp 22 B/P (MAP) 134/104 (114) 154/73 (100) 134/94 140/90 (107) Pulse Ox 97 97 97 O2 Delivery Room Air Room Air Room Air 11/05/21 11/05/21 11/05/21 11/05/21 12:00 13:00 14:00 15:00 Temp 98.8 98.8 Pulse 92 99 96 90 Resp 18 20 23 23 B/P (MAP) 158/76 (103) 155/73 (100) 153/71 (98) 138/69 (92) Pulse Ox 97 98 97 97 O2 Delivery Room Air Room Air Room Air Room Air 11/05/21 11/05/21 11/05/21 11/05/21 16:00 16:08 16:38 17:00 Temp 98.7 98.7 Pulse 90 90 Resp B/P (MAP) 139/68 (91) 125/67 (86) Pulse Ox 97 98 99 97 O2 Delivery Room Air Room Air Room Air Room Air 11/05/21 11/05/21 11/05/21 11/05/21 18:00 18:42 19:00 19:12 Pulse 90 94 Resp B/P (MAP) 118/72 (87) 138/73 (94) Pulse Ox 99 98 98 98 O2 Delivery Room Air Room Air Room Air Room Air 11/05/21 11/05/21 11/05/21 11/05/21 20:00 20:01 20:10 20:31 Temp 99.8 99.8 Pulse 90 Resp B/P (MAP) 145/71 (95) Pulse Ox 99 99 100 O2 Delivery Room Air Room Air Room Air Room Air 11/05/21 11/05/21 11/05/21 11/06/21 21:00 22:00 23:02 00:00 Temp 99.1 99.1 Pulse 86 90 86 84 Resp B/P (MAP) 164/76 (105) 146/62 (90) 161/76 (104) 161/75 (103) Pulse Ox 98 99 98 99 O2 Delivery Room Air Room Air Room Air Room Air 11/06/21 11/06/21 11/06/21 11/06/21 01:00 02:00 02:03 02:33 Pulse 96 90 Resp B/P (MAP) 160/80 (106) 151/73 (99) Pulse Ox 99 98 98 99 O2 Delivery Room Air Room Air Room Air Room Air 11/06/21 11/06/21 11/06/21 11/06/21 03:06 04:00 05:00 06:00 Temp 99.2 99.2 Pulse 90 88 94 90 Resp 21 16 19 22 B/P (MAP) 140/74 (96) 150/67 (94) 154/73 (100) 154/80 (104) Pulse Ox 97 97 94 98 O2 Delivery Room Air Room Air Room Air Room Air 11/06/21 11/06/21 08:35 08:37 Pulse 92 Resp 14 B/P (MAP) 171/78 Pulse Ox 99 O2 Delivery Room Air Intake and Output 11/05/21 11/05/21 11/06/21 15:00 23:00 07:00 Intake Total 2781 ml 365 ml 1467 ml Output Total 625 ml 505 ml 1615 ml Balance 2156 ml -140 ml -148 ml Justifications for Admission Other Justification Severe peripheral vascular disease with gangrenous wounds in the lower extremities ODALIS SWEENEY MD Nov 06, 2021 08:52
[2021-11-06] MEDS: ELECTROLYTE (ICU) PROTOCOL. MC SCH (09:00)
[2021-11-06] MEDS ORDERED: MAGNESIUM SULFATE 1GM 100 ML IV ONE (10:00)
[2021-11-06] MEDS: ASPIRIN CHEWABLE 81 MG TABLET. PO SCH (10:31)
[2021-11-06] MEDS: DOCUSATE SODIUM 100 MG CAPSULE. PO SCH ×2 (10:31→21:00)
[2021-11-06] MEDS: HEPARIN for SUB-Q USE 5,000 UNIT/ML VIAL. SQ SCH ×2 (10:32→22:49)
--- NOTE | 2021-11-06 12:29 | PDOC ---
PROGRESS NOTES Date of Service DATE: 11/06/21 TIME: 12:27 Subjective Subjective Patient seen and examined Objective Objective Vital Signs Date Time Temp Pulse Resp B/P (MAP) Pulse Ox O2 Delivery O2 Flow Rate FiO2 11/06/21 09:07 14 98 Room Air 11/06/21 08:35 92 171/78 11/06/21 04:00 99.2 99.2 11/05/21 06:09 8.0 Intake and Output 11/06/21 07:00 Intake Total 4613 ml Output Total 2745 ml Balance 1868 ml Intake Oral 0 ml IV Total 4433 ml Other 180 ml Output Urine Total 2395 ml Gastric Drainage Total 350 ml Physical Exam Abdomen: Normal bowel sounds Heart: Regular rate General: mild distress Lungs: Clear to auscultation Assessment Assessment Patient seen and examined Severe peripheral vascular disease, critical limb ischemia and left foot toes gangrene. s/p aortobifemoral bypass surgery POD#2. Vascular surgery planning angiogram on Monday for further surgical planning. Coronary artery disease s/p coronary artery bypass surgery in February 2021, presently stable and chest pain-free. Echo with LVEF 65% with diastolic dysfunction. Continue current secondary prevention measures Bilateral carotid stenosis; Carotid US with moderate bilateral ICA disease Hypertension: Mildly elevated. We will continue medications and monitor. Hyperlipidemia: Statin therapy DM2: Treat per IM Tobacco abuse Comment Review of Relevant I have reviewed the following items ifrah (where applicable) has been applied. Labs Laboratory Tests Test 11/04/21 13:28 11/04/21 14:40 11/04/21 14:57 11/05/21 05:50 Glucose (Fingerstick) 244 mg/dL (70-99) 252 mg/dL (70-99) White Blood Count 22.8 x10^3/uL (4.0-11.0) 17.1 x10^3/uL (4.0-11.0) Red Blood Count 3.56 x10^6/uL (4.30-5.70) 3.14 x10^6/uL (4.30-5.70) Hemoglobin 10.8 g/dL (13.0-17.5) 9.5 g/dL (13.0-17.5) Hematocrit 33.2 % (39.0-53.0) 28.7 % (39.0-53.0) Mean Corpuscular Volume 93 fL (79-100) 92 fL (79-100) Mean Corpuscular Hemoglobin 30 pg (25-35) 30 pg (25-35) Mean Corpuscular Hemoglobin Concent 33 g/dL (31-37) 33 g/dL (31-37) Red Cell Distribution Width 13.7 % (11.5-14.5) 14.2 % (11.5-14.5) Platelet Count 263 x10^3/uL (140-400) 249 x10^3/uL (140-400) Neutrophils (%) (Auto) 89 % (31-73) 80 % (31-73) Lymphocytes (%) (Auto) 7 % (24-48) 9 % (24-48) Monocytes (%) (Auto) 4 % (0-9) 11 % (0-9) Eosinophils (%) (Auto) 0 % (0-3) 0 % (0-3) Basophils (%) (Auto) 1 % (0-3) 0 % (0-3) Neutrophils # (Auto) 20.2 x10^3/uL (1.8-7.7) 13.7 x10^3/uL (1.8-7.7) Lymphocytes # (Auto) 1.5 x10^3/uL (1.0-4.8) 1.5 x10^3/uL (1.0-4.8) Monocytes # (Auto) 0.9 x10^3/uL (0.0-1.1) 1.9 x10^3/uL (0.0-1.1) Eosinophils # (Auto) 0.0 x10^3/uL (0.0-0.7) 0.0 x10^3/uL (0.0-0.7) Basophils # (Auto) 0.1 x10^3/uL (0.0-0.2) 0.0 x10^3/uL (0.0-0.2) Segmented Neutrophils % 73 % (35-66) Band Neutrophils % 18 % (0-9) Lymphocytes % 6 % (24-48) Monocytes % 3 % (0-10) Platelet Estimate Adequate (ADEQUATE) Benigno Cells Present Sodium Level 138 mmol/L (136-145) 139 mmol/L (136-145) Potassium Level 4.2 mmol/L (3.5-5.1) 4.6 mmol/L (3.5-5.1) Chloride Level 105 mmol/L (98-107) 105 mmol/L (98-107) Carbon Dioxide Level 20 mmol/L (21-32) 23 mmol/L (21-32) Anion Gap 13 (6-14) 11 (6-14) Blood Urea Nitrogen 14 mg/dL (8-26) 15 mg/dL (8-26) Creatinine 0.9 mg/dL (0.7-1.3) 0.8 mg/dL (0.7-1.3) Estimated GFR (Cockcroft-Gault) 88.3 101.1 Glucose Level 262 mg/dL (70-99) 154 mg/dL (70-99) Calcium Level 7.2 mg/dL (8.5-10.1) 7.5 mg/dL (8.5-10.1) Magnesium Level 1.7 mg/dL (1.8-2.4) Test 11/05/21 10:07 11/05/21 12:59 11/05/21 13:18 11/05/21 17:16 Glucose (Fingerstick) 144 mg/dL (70-99) 146 mg/dL (70-99) 149 mg/dL (70-99) Phosphorus Level 3.1 mg/dL (2.6-4.7) Test 11/06/21 06:15 11/06/21 08:21 White Blood Count 17.6 x10^3/uL (4.0-11.0) Red Blood Count 2.70 x10^6/uL (4.30-5.70) Hemoglobin 8.1 g/dL (13.0-17.5) Hematocrit 24.5 % (39.0-53.0) Mean Corpuscular Volume 91 fL (79-100) Mean Corpuscular Hemoglobin 30 pg (25-35) Mean Corpuscular Hemoglobin Concent 33 g/dL (31-37) Red Cell Distribution Width 14.0 % (11.5-14.5) Platelet Count 224 x10^3/uL (140-400) Sodium Level 139 mmol/L (136-145) Potassium Level 3.9 mmol/L (3.5-5.1) Chloride Level 103 mmol/L (98-107) Carbon Dioxide Level 27 mmol/L (21-32) Anion Gap 9 (6-14) Blood Urea Nitrogen 8 mg/dL (8-26) Creatinine 0.6 mg/dL (0.7-1.3) Estimated GFR (Cockcroft-Gault) 140.9 Glucose Level 131 mg/dL (70-99) Calcium Level 7.7 mg/dL (8.5-10.1) Magnesium Level 1.9 mg/dL (1.8-2.4) Glucose (Fingerstick) 137 mg/dL (70-99) Laboratory Tests Test 11/05/21 12:59 11/05/21 13:18 11/05/21 17:16 11/06/21 06:15 Glucose (Fingerstick) 146 mg/dL (70-99) 149 mg/dL (70-99) Phosphorus Level 3.1 mg/dL (2.6-4.7) White Blood Count 17.6 x10^3/uL (4.0-11.0) Red Blood Count 2.70 x10^6/uL (4.30-5.70) Hemoglobin 8.1 g/dL (13.0-17.5) Hematocrit 24.5 % (39.0-53.0) Mean Corpuscular Volume 91 fL (79-100) Mean Corpuscular Hemoglobin 30 pg (25-35) Mean Corpuscular Hemoglobin Concent 33 g/dL (31-37) Red Cell Distribution Width 14.0 % (11.5-14.5) Platelet Count 224 x10^3/uL (140-400) Sodium Level 139 mmol/L (136-145) Potassium Level 3.9 mmol/L (3.5-5.1) Chloride Level 103 mmol/L (98-107) Carbon Dioxide Level 27 mmol/L (21-32) Anion Gap 9 (6-14) Blood Urea Nitrogen 8 mg/dL (8-26) Creatinine 0.6 mg/dL (0.7-1.3) Estimated GFR (Cockcroft-Gault) 140.9 Glucose Level 131 mg/dL (70-99) Calcium Level 7.7 mg/dL (8.5-10.1) Magnesium Level 1.9 mg/dL (1.8-2.4) Test 11/06/21 08:21 Glucose (Fingerstick) 137 mg/dL (70-99) Medications Current Medications Iodixanol 200 ml/ Sodium Chloride 400 ml @ 400 mls/hr 1X ONCE IART Last administered on 10/29/21at 09:00; Start 10/29/21 at 09:00; Stop 10/29/21 at 09:59; Status DC Lidocaine HCl (Xylocaine-Mpf 1% 2ml Vial) 2 ml STK-MED ONCE .ROUTE ; Start 10/29/21 at 10:55; Stop 10/29/21 at 10:55; Status DC Heparin Sodium/ Sodium Chloride 1,000 ml @ As Directed STK-MED ONCE .ROUTE ; Start 10/29/21 at 10:56; Stop 10/29/21 at 10:56; Status DC Nitroglycerin (Nitroglycerin) 200 mcg STK-MED ONCE .ROUTE ; Start 10/29/21 at 10:58; Stop 10/29/21 at 10:58; Status DC Midazolam HCl (Versed) 5 mg STK-MED ONCE .ROUTE ; Start 10/29/21 at 10:59; Stop 10/29/21 at 10:59; Status DC Fentanyl Citrate (Fentanyl 2ml Vial) 100 mcg STK-MED ONCE .ROUTE ; Start 10/29/21 at 10:59; Stop 10/29/21 at 10:59; Status DC Verapamil HCl (Verapamil) 5 mg STK-MED ONCE .ROUTE ; Start 10/29/21 at 10:59; Stop 10/29/21 at 10:59; Status DC Heparin Sodium (Porcine) (Heparin Sodium) 10,000 unit STK-MED ONCE .ROUTE ; Start 10/29/21 at 10:59; Stop 10/29/21 at 11:00; Status DC Diphenhydramine HCl (Benadryl) 50 mg STK-MED ONCE .ROUTE ; Start 10/29/21 at 11:35; Stop 10/29/21 at 11:36; Status DC Nitroglycerin (Nitroglycerin) 200 mcg 1X ONCE IART Last administered on 10/29/21at 12:11; Start 10/29/21 at 12:00; Stop 10/29/21 at 12:05; Status DC Verapamil HCl (Verapamil) 2.5 mg 1X ONCE IART Last administered on 10/29/21at 12:11; Start 10/29/21 at 12:00; Stop 10/29/21 at 12:05; Status DC Heparin Sodium (Porcine) (Heparin Sodium) 2,500 unit 1X ONCE IART Last administered on 10/29/21at 12:13; Start 10/29/21 at 12:00; Stop 10/29/21 at 12:05; Status DC Heparin Sodium/ Sodium Chloride (HEPARIN for ARTERIAL LINE FLUSH) 1,000 unit 1X ONCE IART Last administered on 10/29/21at 12:10; Start 10/29/21 at 12:00; Stop 10/29/21 at 12:05; Status DC Heparin Sodium/ Sodium Chloride (HEPARIN for ARTERIAL LINE FLUSH) 1,000 unit 1X ONCE IART Last administered on 10/29/21at 12:10; Start 10/29/21 at 12:00; Stop 10/29/21 at 12:05; Status DC Midazolam HCl (Versed) 5 mg 1X ONCE IV Last administered on 10/29/21at 12:12; Start 10/29/21 at 12:00; Stop 10/29/21 at 12:05; Status DC Fentanyl Citrate (Fentanyl 2ml Vial) 100 mcg 1X ONCE IV Last administered on 10/29/21at 12:12; Start 10/29/21 at 12:00; Stop 10/29/21 at 12:05; Status DC Iodixanol (Visipaque 320) 100 ml 1X ONCE IART ; Start 10/29/21 at 12:00; Stop 10/29/21 at 12:05; Status DC Lidocaine HCl (Xylocaine-Mpf 1% 2ml Vial) 2 ml 1X ONCE INJ Last administered on 10/29/21at 12:11; Start 10/29/21 at 12:00; Stop 10/29/21 at 12:05; Status DC Diphenhydramine HCl (Benadryl) 50 mg 1X ONCE IVP Last administered on 10/29/21at 12:00; Start 10/29/21 at 12:00; Stop 10/29/21 at 12:05; Status DC Sodium Chloride 1,000 ml @ 100 mls/hr Q10H IV ; Start 10/29/21 at 12:15; Stop 10/30/21 at 12:14; Status DC Iohexol (Omnipaque 350 Mg/ml) 95 ml 1X ONCE IV Last administered on 10/29/21at 13:25; Start 10/29/21 at 13:30; Stop 10/29/21 at 13:34; Status DC Sennosides (Senna) 17.2 mg PRN BID PRN PO CONSTIPATION; Start 10/29/21 at 15:45 Docusate Sodium (Colace) 100 mg PRN DAILY PRN PO HARD STOOLS; Start 10/29/21 at 15:45; Stop 11/06/21 at 08:58; Status DC Ondansetron HCl (Zofran) 4 mg PRN Q6HRS PRN IVP NAUSEA/VOMITING, 1st CHOICE; Start 10/29/21 at 15:45; Status Cancel Insulin Human Lispro (HumaLOG) 0-5 UNITS TIDWMEALS SQ ; Start 10/29/21 at 17:00 Dextrose (Dextrose 50%-Water Syringe) 12.5 gm PRN Q15MIN PRN IV SEE COMMENTS; Start 10/29/21 at 15:45 Sodium Chloride 1,000 ml @ 100 mls/hr Q10H IV Last administered on 10/31/21at 06:45; Start 10/29/21 at 15:45; Stop 10/31/21 at 13:06; Status DC Acetaminophen (Tylenol) 650 mg PRN Q4HRS PRN PO TEMP OVER 100.4F OR MILD PAIN; Start 10/29/21 at 15:45 Lorazepam (Ativan) 0.5 mg PRN Q6HRS PRN PO ANXIETY / AGITATION; Start 10/29/21 at 15:45 Lorazepam (Ativan Inj) 0.25 mg PRN Q4HRS PRN IV ANXIETY / AGITATION; Start 10/29/21 at 15:45 Enoxaparin Sodium (Lovenox 40mg Syringe) 40 mg Q24H SQ Last administered on 11/02/21at 17:32; Start 10/29/21 at 16:00; Stop 11/03/21 at 08:18; Status DC Acetaminophen/ Hydrocodone Bitart (Lortab 5/325) 1 tab PRN Q4HRS PRN PO SEVERE PAIN, 1ST CHOICE Last administered on 10/30/21at 20:34; Start 10/29/21 at 15:45; Stop 11/05/21 at 08:00; Status DC Acetaminophen/ Hydrocodone Bitart (Lortab 5/325) 2 tab PRN Q4HRS PRN PO SEVERE PAIN, 2ND CHOICE Last administered on 11/04/21at 02:25; Start 10/29/21 at 15:45; Stop 11/05/21 at 08:00; Status DC Morphine Sulfate (Morphine Sulfate) 1 mg PRN Q1HR PRN IV PAIN-SEE COMMENTS Last administered on 11/01/21at 08:52; Start 10/29/21 at 15:45; Stop 11/04/21 at 13:39; Status DC Morphine Sulfate (Morphine Sulfate) 2 mg PRN Q2HR PRN IVP SEVERE PAIN 7-10; Start 10/29/21 at 15:45; Stop 10/30/21 at 15:44; Status DC Prochlorperazine Edisylate (Compazine) 10 mg PRN Q6HRS PRN IV NAUSEA/VOMITING, 2nd CHOICE; Start 10/29/21 at 15:45; Status Cancel Diphenhydramine HCl (Benadryl) 25 mg PRN Q6HRS PRN IVP ITCHING; Start 10/29/21 at 15:45 Diphenhydramine HCl (Benadryl) 25 mg PRN Q6HRS PRN PO ITCHING; Start 10/29/21 at 15:45 Diphenhydramine HCl (Benadryl) 25 mg PRN QHS PRN PO INSOMNIA, 1st CHOICE Last administered on 10/30/21at 00:19; Start 10/29/21 at 15:45 Zolpidem Tartrate (Ambien) 2.5 mg PRN QHS PRN PO INSOMNIA, 2nd CHOICE; Start 10/29/21 at 15:45 Amlodipine Besylate (Norvasc) 10 mg DAILY PO Last administered on 11/06/21at 08:35; Start 10/30/21 at 09:00 Aspirin (Ecotrin) 81 mg [id number] PO Last administered on 11/03/21at 09:05; Start 10/30/21 at 08:00; Stop 11/06/21 at 08:34; Status DC Atorvastatin Calcium (Lipitor) 10 mg QHS PO Last administered on 11/04/21at 20:57; Start 10/29/21 at 21:00 Clopidogrel Bisulfate (Plavix) 75 mg DAILY PO Last administered on 11/03/21at 09:05; Start 10/30/21 at 09:00; Stop 11/04/21 at 13:34; Status DC Diphenhydramine HCl (Benadryl) 25 mg DAILY PO Last administered on 11/06/21at 08:34; Start 10/30/21 at 09:00 Pregabalin (Lyrica) 50 mg TID PO Last administered on 11/06/21at 08:35; Start 10/29/21 at 21:00 Tramadol HCl (Ultram) 50 mg Q6HRS PRN PO MILD PAIN (2ND CHOICE) Last admini stered on 11/04/21at 17:14; Start 10/29/21 at 17:00 Ascorbic Acid (Vitamin C) 500 mg DAILY PO Last administered on 11/06/21at 08:34; Start 10/30/21 at 09:00 Cyanocobalamin (Vitamin B-12) 1,000 mcg DAILY PO Last administered on 11/06/21at 08:34; Start 10/30/21 at 09:00 Pantoprazole Sodium (Protonix) 40 mg DAILYAC PO Last administered on 11/03/21at 05:46; Start 10/30/21 at 07:30; Stop 11/05/21 at 09:27; Status DC Potassium Chloride (Klor-Con) 40 meq BID PO Last administered on 11/02/21at 08:43; Start 11/01/21 at 14:00; Stop 11/02/21 at 13:59; Status DC Polyethylene Glycol (miraLAX PACKET) 17 gm 1X ONCE PO ; Start 11/03/21 at 08:15; Stop 11/03/21 at 08:16; Status DC Cefazolin Sodium/ Dextrose 50 ml @ 100 mls/hr 1X PREOP PRN IV PRIOR TO PROCEDURE Last administered on 11/04/21at 08:06; Start 11/04/21 at 08:00; Stop 11/04/21 at 18:00; Status DC Heparin Sodium (Porcine) 5000 unit/Sodium Chloride 505 ml @ 505 mls/hr 1X ONCE IRR Last administered on 11/04/21at 09:05; Start 11/04/21 at 06:00; Stop 11/04/21 at 06:59; Status DC Cefazolin Sodium 1 gm/Sodium Chloride 500 ml @ 500 mls/hr 1X ONCE IRR Last administered on 11/04/21at 09:05; Start 11/04/21 at 06:00; Stop 11/04/21 at 06:59; Status DC Fentanyl Citrate (Fentanyl 2ml Vial) 25 mcg PRN Q5MIN PRN IVP MILD PAIN 1-3; Start 11/04/21 at 06:00; Stop 11/04/21 at 16:54; Status DC Fentanyl Citrate (Fentanyl 2ml Vial) 50 mcg PRN Q5MIN PRN IVP MODERATE PAIN 4-6 Last administered on 11/04/21at 14:02; Start 11/04/21 at 06:00; Stop 11/04/21 at 16:54; Status DC Morphine Sulfate (Morphine Sulfate) 1 mg PRN Q10MIN PRN IVP SEVERE PAIN 7-10 Last administered on 11/04/21at 14:28; Start 11/04/21 at 06:00; Stop 11/04/21 at 16:47; Status DC Ringer's Solution 1,000 ml @ 30 mls/hr Q24H IV Last administered on 11/04/21at 06:00; Start 11/04/21 at 06:00; Stop 11/04/21 at 17:59; Status DC Hydromorphone HCl (Dilaudid) 0.5 mg PRN Q10MIN PRN IVP SEVERE PAIN 7-10, 2nd CHOICE; Start 11/04/21 at 06:00; Stop 11/04/21 at 16:47; Status DC Prochlorperazine Edisylate (Compazine) 5 mg PACU PRN PRN IVP NAUSEA, MRX1 Last administered on 11/04/21at 14:09; Start 11/04/21 at 06:00; Stop 11/04/21 at 16:54; Status DC Cefazolin Sodium/ Dextrose 50 ml @ As Directed STK-MED ONCE IV ; Start 11/04/21 at 06:32; Stop 11/04/21 at 06:32; Status DC Rocuronium Kenvil (Zemuron) 50 mg STK-MED ONCE .ROUTE ; Start 11/04/21 at 06:54; Stop 11/04/21 at 06:54; Status DC Fentanyl Citrate (Fentanyl 2ml Vial) 100 mcg STK-MED ONCE .ROUTE ; Start 11/04/21 at 06:54; Stop 11/04/21 at 06:54; Status DC Midazolam HCl (Versed) 2 mg STK-MED ONCE .ROUTE ; Start 11/04/21 at 06:54; Stop 11/04/21 at 06:54; Status DC Propofol (Diprivan) 200 mg STK-MED ONCE IV ; Start 11/04/21 at 06:54; Stop 11/04/21 at 06:55; Status DC Lidocaine HCl (Lidocaine Pf 2% Vial) 5 ml STK-MED ONCE .ROUTE ; Start 11/04/21 at 06:54; Stop 11/04/21 at 06:55; Status DC Ondansetron HCl (Zofran) 4 mg STK-MED ONCE .ROUTE ; Start 11/04/21 at 06:54; Stop 11/04/21 at 06:55; Status DC Dexamethasone Sodium Phosphate (Decadron) 4 mg STK-MED ONCE .ROUTE ; Start 11/04/21 at 06:54; Stop 11/04/21 at 06:55; Status DC Cellulose (Surgicel Fibrillar 1x2) 1 each STK-MED ONCE .ROUTE Last administered on 11/04/21at 09:05; Start 11/04/21 at 07:03; Stop 11/04/21 at 07:03; Status DC Heparin Sodium (Porcine) (Heparin Sodium) 10,000 unit STK-MED ONCE .ROUTE ; Start 11/04/21 at 07:03; Stop 11/04/21 at 07:04; Status DC Phenylephrine HCl (Jayce-Synephrine Inj) 10 mg STK-MED ONCE .ROUTE ; Start 11/04/21 at 07:09; Stop 11/04/21 at 07:09; Status DC Heparin Sodium (Porcine) (Heparin Sodium) 10,000 unit STK-MED ONCE .ROUTE ; Start 11/04/21 at 07:34; Stop 11/04/21 at 07:35; Status DC Fentanyl Citrate (Fentanyl 2ml Vial) 100 mcg STK-MED ONCE .ROUTE ; Start 11/04/21 at 09:39; Stop 11/04/21 at 09:39; Status DC Albumin Human 500 ml @ As Directed STK-MED ONCE IV ; Start 11/04/21 at 10:16; Stop 11/04/21 at 10:16; Status DC Vasopressin (Vasostrict) 20 unit STK-MED ONCE .ROUTE ; Start 11/04/21 at 10:42; Stop 11/04/21 at 10:43; Status DC Rocuronium Kenvil (Zemuron) 50 mg STK-MED ONCE .ROUTE ; Start 11/04/21 at 11:06; Stop 11/04/21 at 11:06; Status DC Heparin Sodium (Porcine) (Heparin Sodium) 10,000 unit STK-MED ONCE .ROUTE ; Start 11/04/21 at 11:06; Stop 11/04/21 at 11:06; Status DC Hydromorphone HCl (Dilaudid) 2 mg STK-MED ONCE .ROUTE ; Start 11/04/21 at 11:09; Stop 11/04/21 at 11:09; Status DC Sugammadex Sodium (Bridion) 400 mg 1X ONCE IVP ; Start 11/04/21 at 11:15; Stop 11/04/21 at 11:16; Status DC Cefazolin Sodium/ Dextrose 50 ml @ As Directed STK-MED ONCE IV ; Start 11/04/21 at 11:41; Stop 11/04/21 at 11:42; Status DC Protamine Sulfate (Protamine) 50 mg STK-MED ONCE IV ; Start 11/04/21 at 11:48; Stop 11/04/21 at 11:48; Status DC Gelatin (Gelfoam Size 12-7mm) 1 each STK-MED ONCE .ROUTE Last administered on 11/04/21at 09:05; Start 11/04/21 at 12:08; Stop 11/04/21 at 12:08; Status DC Thrombin 20,000 unit STK-MED ONCE TP Last administered on 11/04/21at 09:05; Start 11/04/21 at 12:08; Stop 11/04/21 at 12:08; Status DC Gelatin (Gelfoam Size 12-7mm) 1 each STK-MED ONCE .ROUTE ; Start 11/04/21 at 12:10; Stop 11/04/21 at 12:11; Status Cancel Gelatin (Gelfoam Size 12-7mm) 1 each STK-MED ONCE .ROUTE ; Start 11/04/21 at 12:10; Stop 11/04/21 at 12:11; Status Cancel Gelatin (Gelfoam Size 12-7mm) 1 each STK-MED ONCE .ROUTE Last administered on 11/04/21at 09:05; Start 11/04/21 at 12:16; Stop 11/04/21 at 12:17; Status DC Gelatin (Gelfoam Size 12-7mm) 1 each STK-MED ONCE .ROUTE ; Start 11/04/21 at 12:16; Stop 11/04/21 at 12:17; Status DC Gelatin (Gelfoam Size 12-7mm) 1 each STK-MED ONCE .ROUTE Last administered on 11/04/21at 09:05; Start 11/04/21 at 12:17; Stop 11/04/21 at 12:17; Status DC Gelatin (Gelfoam Size 12-7mm) 1 each STK-MED ONCE .ROUTE Last administered on 11/04/21at 09:05; Start 11/04/21 at 12:17; Stop 11/04/21 at 12:17; Status DC Sevoflurane (Ultane) 90 ml STK-MED ONCE IH ; Start 11/04/21 at 12:18; Stop 11/04/21 at 12:18; Status DC Insulin Human Lispro (HumaLOG VIAL for OP,RR ONLY) 0-10 units PRN Q1HR PRN SQ PER PROTOCOL Last administered on 11/04/21at 15:08; Start 11/04/21 at 13:30; Stop 11/05/21 at 08:02; Status DC Fentanyl Citrate (Fentanyl 2ml Vial) 100 mcg STK-MED ONCE .ROUTE ; Start 11/04/21 at 13:33; Stop 11/04/21 at 13:33; Status DC Cefazolin Sodium (Ancef) 1 gm Q6H IVP Last administered on 11/05/21at 02:26; Start 11/04/21 at 14:00; Stop 11/05/21 at 02:01; Status DC Famotidine (Pepcid Vial) 20 mg BID IVP ; Start 11/04/21 at 21:00; Status Cancel Info (Icu Electrolyte Protocol) 1 ea DAILY MC Last administered on 11/05/21at 09:00; Start 11/05/21 at 09:00 Naloxone HCl (Narcan) 0.1 mg PRN Q2MIN PRN IV SEE ADMIN INSTRUCTIONS; Start 11/04/21 at 13:30 Sodium Chloride (Normal Saline Flush) 3 ml QSHIFT PRN IV AFTER MEDS AND BLOOD DRAWS; Start 11/04/21 at 13:30 Sodium Chloride 1,000 ml @ 150 mls/hr Q6H40M IV Last administered on 11/05/21at 02:27; Start 11/04/21 at 13:30; Stop 11/05/21 at 13:08; Status DC Naloxone HCl (Narcan) 0.4 mg PRN Q2MIN PRN IV SEE INSTRUCTIONS; Start 11/04/21 at 13:30 Sodium Chloride 1,000 ml @ 25 mls/hr Q24H IV ; Start 11/04/21 at 13:30; Stop 11/05/21 at 15:34; Status DC Morphine Sulfate (Morphine Sulfate) 2 mg PRN Q1HR PRN IV PAIN Last administered on 11/06/21at 02:03; Start 11/04/21 at 13:30 Oxycodone/ Acetaminophen (Percocet 5/325) 1 tab PRN Q4HRS PRN PO MODERATE PAIN; Start 11/04/21 at 13:30 Oxycodone/ Acetaminophen (Percocet 5/325) 2 tab PRN Q4HRS PRN PO SEVERE PAIN Last administered on 11/06/21at 08:37; Start 11/04/21 at 13:30 Ondansetron HCl (Zofran) 4 mg PRN Q6HRS PRN IVP NAUESA, 1ST CHOICE; Start 11/04/21 at 13:30 Prochlorperazine Edisylate (Compazine) 5 mg PRN Q6HRS PRN IV N/V, 2nd Choice, MR X1; Start 11/04/21 at 13:30 Hydralazine HCl (Apresoline Inj) 5 mg PRN Q4HRS PRN IVP ELEVATED BP, SEE COMMENTS Last administered on 11/04/21at 14:28; Start 11/04/21 at 13:30 Labetalol HCl (Normodyne Iv Push) 10 mg PRN Q2HR PRN IVP HYPERTENSION (2ND CHOICE) Last administered on 11/04/21at 17:50; Start 11/04/21 at 13:30 Morphine Sulfate (Morphine Sulfate) 2 mg STK-MED ONCE .ROUTE ; Start 11/04/21 at 14:04; Stop 11/04/21 at 14:05; Status DC Hydralazine HCl (Apresoline Inj) 20 mg STK-MED ONCE .ROUTE ; Start 11/04/21 at 14:04; Stop 11/04/21 at 14:05; Status DC Prochlorperazine Edisylate (Compazine) 10 mg STK-MED ONCE .ROUTE ; Start 11/04/21 at 14:04; Stop 11/04/21 at 14:05; Status DC Magnesium Sulfate 50 ml @ 25 mls/hr 1X ONCE IV Last administered on 11/05/21at 10:16; Start 11/05/21 at 09:00; Stop 11/05/21 at 10:59; Status DC Aspirin (Aspirin Chewable) 81 mg 1X ONCE PO Last administered on 11/05/21at 10:16; Start 11/05/21 at 09:30; Stop 11/05/21 at 09:31; Status DC Pantoprazole Sodium (PROTONIX VIAL for IV PUSH) 40 mg DAILYAC IVP Last administered on 11/06/21at 08:35; Start 11/05/21 at 09:30 Sodium Chloride 1,000 ml @ 60 mls/hr [id number] IV Last administered on 11/06/21at 06:28; Start 11/05/21 at 14:00 Albuterol Sulfate (Ventolin Neb Soln) 2.5 mg PRN Q6HRS PRN NEB SHORTNESS OF BREATH; Start 11/05/21 at 14:45 Aspirin (Aspirin Chewable) 81 mg [id number] PO Last administered on 11/06/21at 10:31; Start 11/06/21 at 09:00 Docusate Sodium (Colace) 100 mg BID PO Last administered on 11/06/21at 10:31; Start 11/06/21 at 10:00 Heparin Sodium (Porcine) (Heparin Sodium) 5,000 unit Q12HR SQ Last administered on 11/06/21at 10:32; Start 11/06/21 at 10:00 Magnesium Sulfate/ Dextrose 100 ml @ 100 mls/hr 1X ONCE IV Last administered on 11/06/21at 10:32; Start 11/06/21 at 10:00; Stop 11/06/21 at 10:59; Status DC Active Scripts Active Aspirin Ec (Aspirin) 81 Mg Tablet.dr 81 Mg PO [id number] 90 Days Amlodipine Besylate 10 Mg Tablet 10 Mg PO DAILY 90 Days Atorvastatin Calcium 10 Mg Tablet 10 Mg PO QHS 90 Days Reported Hydrochlorothiazide Tablet (Hydrochlorothiazide) 25 Mg Tablet 25 Mg PO DAILY Metformin Hcl 1,000 Mg Tablet 1,000 Mg PO BIDWMEALS Clopidogrel (Clopidogrel Bisulfate) 75 Mg Tablet 1 Tab PO DAILY Vitamin B-12 (Cyanocobalamin (Vitamin B-12)) 1,000 Mcg Tab.subl 1 Tab SL DAILY 30 Days Vitamin C (Ascorbic Acid) 500 Mg Capsule.er 1 Cap PO DAILY 30 Days Omeprazole 40 Mg Capsule.dr 1 Cap PO DAILY Lyrica (Pregabalin) 50 Mg Capsule 50 Mg PO TID Benadryl (Diphenhydramine Hcl) 25 Mg Capsule 25 Mg PO DAILY Tramadol Hcl 50 Mg Tablet 50 Mg PO Q6HRS PRN Iron (Ferrous Sulfate) 325 Mg Tablet 325 Mg PO DAILY Vitals/I & O Vital Sign - Last 24 Hours 11/05/21 11/05/21 11/05/21 11/05/21 13:00 14:00 15:00 16:00 Temp 98.7 98.7 Pulse 99 96 90 90 Resp 20 23 23 15 B/P (MAP) 155/73 (100) 153/71 (98) 138/69 (92) 139/68 (91) Pulse Ox 98 97 97 97 O2 Delivery Room Air Room Air Room Air Room Air 11/05/21 11/05/21 11/05/21 11/05/21 16:08 16:38 17:00 18:00 Pulse 90 90 Resp 22 20 19 17 B/P (MAP) 125/67 (86) 118/72 (87) Pulse Ox 98 99 97 99 O2 Delivery Room Air Room Air Room Air Room Air 11/05/21 11/05/21 11/05/21 11/05/21 18:42 19:00 19:12 20:00 Pulse 94 Resp 18 28 21 B/P (MAP) 138/73 (94) Pulse Ox 98 98 98 O2 Delivery Room Air Room Air Room Air Room Air 11/05/21 11/05/21 11/05/21 11/05/21 20:01 20:10 20:31 21:00 Temp 99.8 99.8 Pulse 90 86 Resp 27 14 22 21 B/P (MAP) 145/71 (95) 164/76 (105) Pulse Ox 99 99 100 98 O2 Delivery Room Air Room Air Room Air Room Air 11/05/21 11/05/21 11/06/21 11/06/21 22:00 23:02 00:00 01:00 Temp 99.1 99.1 Pulse 90 86 84 96 Resp 28 16 18 B/P (MAP) 146/62 (90) 161/76 (104) 161/75 (103) 160/80 (106) Pulse Ox 99 98 99 99 O2 Delivery Room Air Room Air Room Air Room Air 11/06/21 11/06/21 11/06/21 11/06/21 02:00 02:03 02:33 03:06 Pulse 90 90 Resp 18 B/P (MAP) 151/73 (99) 140/74 (96) Pulse Ox 98 98 99 97 O2 Delivery Room Air Room Air Room Air Room Air 11/06/21 11/06/21 11/06/21 11/06/21 04:00 05:00 06:00 08:00 Temp 99.2 99.2 Pulse 88 94 90 Resp B/P (MAP) 150/67 (94) 154/73 (100) 154/80 (104) Pulse Ox 97 94 98 O2 Delivery Room Air Room Air Room Air Room Air 11/06/21 11/06/21 11/06/21 08:35 08:37 09:07 Pulse 92 Resp 14 14 B/P (MAP) 171/78 Pulse Ox 99 98 O2 Delivery Room Air Room Air Intake and Output 11/05/21 11/05/21 11/06/21 15:00 23:00 07:00 Intake Total 2781 ml 365 ml 1467 ml Output Total 625 ml 505 ml 1615 ml Balance 2156 ml -140 ml -148 ml Justifications for Admission Other Justification Severe peripheral vascular disease with gangrenous wounds in the lower ext remities FABIENNE ACOSTA MD Nov 06, 2021 12:29
[2021-11-06] MEDS: ATORVASTATIN CALCIUM 10 MG TABLET. PO SCH (21:00)
[2021-11-07] VITALS (10 sets, daily range): BP systolic 95–138; BP diastolic 53–69
[2021-11-07] MEDS: MORPHINE SULFATE 2 MG/ML INJ. IV PRN (05:42)
[2021-11-07 06:08] LABS: HEMOGLOBIN 7.6 g/dL (13.0-17.5); RED BLOOD COUNT 2.52 x10^6/uL (4.30-5.70); WHITE BLOOD COUNT 21.8 x10^3/uL (4.0-11.0)
--- NOTE | 2021-11-07 06:20 | PDOC ---
PULMONARY PROGRESS NOTES DATE: 11/07/21 TIME: 06:19 Subjective on Ra denies sob has occ cough ng removed Vitals Vital Signs Date Time Temp Pulse Resp B/P (MAP) Pulse Ox O2 Delivery O2 Flow Rate FiO2 11/07/21 05:42 23 100 Room Air 11/07/21 04:00 98.5 84 133/63 (86) 98.5 ROS: No Nausea, No Chest Pain, No Increase Cough Lungs: Crackles Cardiovascular: S1, S2 Abdomen: Soft Neuro Exam: Alert Extremities: Other (Evidence of previous surgery) Skin: Warm Labs Laboratory Tests Test 11/05/21 10:07 11/05/21 12:59 11/05/21 13:18 11/05/21 17:16 Glucose (Fingerstick) 144 mg/dL (70-99) 146 mg/dL (70-99) 149 mg/dL (70-99) Phosphorus Level 3.1 mg/dL (2.6-4.7) Test 11/06/21 06:15 11/06/21 08:21 11/06/21 12:41 11/06/21 17:29 White Blood Count 17.6 x10^3/uL (4.0-11.0) Red Blood Count 2.70 x10^6/uL (4.30-5.70) Hemoglobin 8.1 g/dL (13.0-17.5) Hematocrit 24.5 % (39.0-53.0) Mean Corpuscular Volume 91 fL (79-100) Mean Corpuscular Hemoglobin 30 pg (25-35) Mean Corpuscular Hemoglobin Concent 33 g/dL (31-37) Red Cell Distribution Width 14.0 % (11.5-14.5) Platelet Count 224 x10^3/uL (140-400) Sodium Level 139 mmol/L (136-145) Potassium Level 3.9 mmol/L (3.5-5.1) Chloride Level 103 mmol/L (98-107) Carbon Dioxide Level 27 mmol/L (21-32) Anion Gap 9 (6-14) Blood Urea Nitrogen 8 mg/dL (8-26) Creatinine 0.6 mg/dL (0.7-1.3) Estimated GFR (Cockcroft-Gault) 140.9 Glucose Level 131 mg/dL (70-99) Calcium Level 7.7 mg/dL (8.5-10.1) Magnesium Level 1.9 mg/dL (1.8-2.4) Glucose (Fingerstick) 137 mg/dL (70-99) 155 mg/dL (70-99) 129 mg/dL (70-99) Test 11/07/21 05:45 White Blood Count 21.8 x10^3/uL (4.0-11.0) Red Blood Count 2.52 x10^6/uL (4.30-5.70) Hemoglobin 7.6 g/dL (13.0-17.5) Hematocrit 23.0 % (39.0-53.0) Mean Corpuscular Volume 91 fL (79-100) Mean Corpuscular Hemoglobin 30 pg (25-35) Mean Corpuscular Hemoglobin Concent 33 g/dL (31-37) Red Cell Distribution Width 14.0 % (11.5-14.5) Platelet Count 251 x10^3/uL (140-400) Laboratory Tests Test 11/06/21 08:21 11/06/21 12:41 11/06/21 17:29 11/07/21 05:45 Glucose (Fingerstick) 137 mg/dL (70-99) 155 mg/dL (70-99) 129 mg/dL (70-99) White Blood Count 21.8 x10^3/uL (4.0-11.0) Red Blood Count 2.52 x10^6/uL (4.30-5.70) Hemoglobin 7.6 g/dL (13.0-17.5) Hematocrit 23.0 % (39.0-53.0) Mean Corpuscular Volume 91 fL (79-100) Mean Corpuscular Hemoglobin 30 pg (25-35) Mean Corpuscular Hemoglobin Concent 33 g/dL (31-37) Red Cell Distribution Width 14.0 % (11.5-14.5) Platelet Count 251 x10^3/uL (140-400) Medications Active Scripts Medications Dose Route/Sig Max Daily Dose Days Date Category Hydrochlorothiazide Tablet (Hydrochlorothiazide) 25 Mg Tablet 25 Mg PO DAILY 10/29/21 Reported Metformin Hcl 1,000 Mg Tablet 1,000 Mg PO BIDWMEALS 10/29/21 Reported Clopidogrel (Clopidogrel Bisulfate) 75 Mg Tablet 1 Tab PO DAILY 10/29/21 Reported Vitamin B-12 (Cyanocobalamin (Vitamin B-12)) 1,000 Mcg Tab.subl 1 Tab SL DAILY 30 10/29/21 Reported Vitamin C (Ascorbic Acid) 500 Mg Capsule.er 1 Cap PO DAILY 30 10/29/21 Reported Omeprazole 40 Mg Capsule.dr 1 Cap PO DAILY 10/29/21 Reported Lyrica (Pregabalin) 50 Mg Capsule 50 Mg PO TID 10/29/21 Reported Benadryl (Diphenhydramine Hcl) 25 Mg Capsule 25 Mg PO DAILY 10/29/21 Reported Tramadol Hcl 50 Mg Tablet 50 Mg PO Q6HRS PRN 10/29/21 Reported Iron (Ferrous Sulfate) 325 Mg Tablet 325 Mg PO DAILY 10/29/21 Reported Aspirin Ec (Aspirin) 81 Mg Tablet.dr 81 Mg PO DAILYWBKFT 90 01/11/18 Rx Amlodipine Besylate 10 Mg Tablet 10 Mg PO DAILY 90 01/11/18 Rx Atorvastatin Calcium 10 Mg Tablet 10 Mg PO QHS 90 01/11/18 Rx Impression . IMPRESSION: 1. Expected postoperative respiratory failure, multifactorial. 2. Chronic obstructive pulmonary disease, tobacco dependent. 3. Coronary artery disease, status post coronary artery bypass grafting. 4. Peripheral arterial disease, status post aorto-bilateral profunda femoris bypass and extensive right superficial femoral artery endarterectomy. 5. Echocardiogram revealing ejection fraction 65% with diastolic dysfunction. 6. Type 2 diabetes. Plan . Updated 11/07 Continue oxygen for sats above 92% IS BD Postop pain management avoid oversedation Aggressive pulmonary hygiene Anticoagulation per surgeon advised to quit smoking for ever discussed w rn Updated 11/06 Continue oxygen for sats above 92% IS BD Postop pain management avoid oversedation Aggressive pulmonary hygiene Anticoagulation per surgeon discussed w rn PLAN: 1. Continue current support with oxygen supplementation to maintain sats above 92%. 2. Postoperative pain management. 3. Follow Cardiology input. 4. Anticoagulation. 5. DVT prophylaxis. I do appreciate the privilege in sharing the patient's care. JAMAL GARCES MD Nov 07, 2021 06:20
[2021-11-07 06:25] LABS: CALCIUM 7.9 mg/dL (8.5-10.1); CREATININE 0.6 mg/dL (0.7-1.3); GFR 140.9; MAGNESIUM 2.1 mg/dL (1.8-2.4); POTASSIUM 3.4 mmol/L (3.5-5.1)
[2021-11-07] MEDS: INSULIN LISPRO 300 UNITS/3 ML VIAL. SQ SCH ×3 (08:00→17:00)
[2021-11-07] MEDS ORDERED: POTASSIUM CHLORIDE 10MEQ 100 ML IV PRN (08:15)
[2021-11-07] MEDS ORDERED: POTASSIUM CHLORIDE 20 MEQ TABLET.ER. PO PRN ×2 (08:15)
--- NOTE | 2021-11-07 08:33 | PDOC ---
PROGRESS NOTES Date of Service DATE: 11/07/21 TIME: 08:29 Subjective Subjective Vital stable. Remains in ICU room but on stepdown overflow. Up to chair yesterday Objective Objective Vital Signs Date Time Temp Pulse Resp B/P (MAP) Pulse Ox O2 Delivery O2 Flow Rate FiO2 11/07/21 05:42 23 100 Room Air 11/07/21 04:00 98.5 84 133/63 (86) 98.5 11/05/21 06:09 8.0 Intake and Output 11/07/21 07:00 Intake Total 1745 ml Output Total 1200 ml Balance 545 ml Intake Oral 55 ml IV Total 1690 ml Output Urine Total 1150 ml Gastric Drainage Total 50 ml Physical Exam Abdomen: Other (Incision c/d/i. 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 PT signals bilaterally. 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 bowel function will start clears DC IVF Voiding DVT PPX started Trend hgb Continue ASA Encourage ambulation/ PT involved NPO after MN for plans for angiography via left arm approach tomorrow Comment Review of Relevant I have reviewed the following items ifrah (where applicable) has been applied. Labs Laboratory Tests Test 11/05/21 10:07 11/05/21 12:59 11/05/21 13:18 11/05/21 17:16 Glucose (Fingerstick) 144 mg/dL (70-99) 146 mg/dL (70-99) 149 mg/dL (70-99) Phosphorus Level 3.1 mg/dL (2.6-4.7) Test 11/06/21 06:15 11/06/21 08:21 11/06/21 12:41 11/06/21 17:29 White Blood Count 17.6 x10^3/uL (4.0-11.0) Red Blood Count 2.70 x10^6/uL (4.30-5.70) Hemoglobin 8.1 g/dL (13.0-17.5) Hematocrit 24.5 % (39.0-53.0) Mean Corpuscular Volume 91 fL (79-100) Mean Corpuscular Hemoglobin 30 pg (25-35) Mean Corpuscular Hemoglobin Concent 33 g/dL (31-37) Red Cell Distribution Width 14.0 % (11.5-14.5) Platelet Count 224 x10^3/uL (140-400) Sodium Level 139 mmol/L (136-145) Potassium Level 3.9 mmol/L (3.5-5.1) Chloride Level 103 mmol/L (98-107) Carbon Dioxide Level 27 mmol/L (21-32) Anion Gap 9 (6-14) Blood Urea Nitrogen 8 mg/dL (8-26) Creatinine 0.6 mg/dL (0.7-1.3) Estimated GFR (Cockcroft-Gault) 140.9 Glucose Level 131 mg/dL (70-99) Calcium Level 7.7 mg/dL (8.5-10.1) Magnesium Level 1.9 mg/dL (1.8-2.4) Glucose (Fingerstick) 137 mg/dL (70-99) 155 mg/dL (70-99) 129 mg/dL (70-99) Test 11/07/21 05:45 White Blood Count 21.8 x10^3/uL (4.0-11.0) Red Blood Count 2.52 x10^6/uL (4.30-5.70) Hemoglobin 7.6 g/dL (13.0-17.5) Hematocrit 23.0 % (39.0-53.0) Mean Corpuscular Volume 91 fL (79-100) Mean Corpuscular Hemoglobin 30 pg (25-35) Mean Corpuscular Hemoglobin Concent 33 g/dL (31-37) Red Cell Distribution Width 14.0 % (11.5-14.5) Platelet Count 251 x10^3/uL (140-400) Sodium Level 136 mmol/L (136-145) Potassium Level 3.4 mmol/L (3.5-5.1) Chloride Level 100 mmol/L (98-107) Carbon Dioxide Level 26 mmol/L (21-32) Anion Gap 10 (6-14) Blood Urea Nitrogen 12 mg/dL (8-26) Creatinine 0.6 mg/dL (0.7-1.3) Estimated GFR (Cockcroft-Gault) 140.9 Glucose Level 124 mg/dL (70-99) Calcium Level 7.9 mg/dL (8.5-10.1) Magnesium Level 2.1 mg/dL (1.8-2.4) Laboratory Tests Test 11/06/21 12:41 11/06/21 17:29 11/07/21 05:45 Glucose (Fingerstick) 155 mg/dL (70-99) 129 mg/dL (70-99) White Blood Count 21.8 x10^3/uL (4.0-11.0) Red Blood Count 2.52 x10^6/uL (4.30-5.70) Hemoglobin 7.6 g/dL (13.0-17.5) Hematocrit 23.0 % (39.0-53.0) Mean Corpuscular Volume 91 fL (79-100) Mean Corpuscular Hemoglobin 30 pg (25-35) Mean Corpuscular Hemoglobin Concent 33 g/dL (31-37) Red Cell Distribution Width 14.0 % (11.5-14.5) Platelet Count 251 x10^3/uL (140-400) Sodium Level 136 mmol/L (136-145) Potassium Level 3.4 mmol/L (3.5-5.1) Chloride Level 100 mmol/L (98-107) Carbon Dioxide Level 26 mmol/L (21-32) Anion Gap 10 (6-14) Blood Urea Nitrogen 12 mg/dL (8-26) Creatinine 0.6 mg/dL (0.7-1.3) Estimated GFR (Cockcroft-Gault) 140.9 Glucose Level 124 mg/dL (70-99) Calcium Level 7.9 mg/dL (8.5-10.1) Magnesium Level 2.1 mg/dL (1.8-2.4) Medications Current Medications Iodixanol 200 ml/ Sodium Chloride 400 ml @ 400 mls/hr 1X ONCE IART Last administered on 10/29/21at 09:00; Start 10/29/21 at 09:00; Stop 10/29/21 at 09:59; Status DC Lidocaine HCl (Xylocaine-Mpf 1% 2ml Vial) 2 ml STK-MED ONCE .ROUTE ; Start 10/29/21 at 10:55; Stop 10/29/21 at 10:55; Status DC Heparin Sodium/ Sodium Chloride 1,000 ml @ As Directed STK-MED ONCE .ROUTE ; Start 10/29/21 at 10:56; Stop 10/29/21 at 10:56; Status DC Nitroglycerin (Nitroglycerin) 200 mcg STK-MED ONCE .ROUTE ; Start 10/29/21 at 10:58; Stop 10/29/21 at 10:58; Status DC Midazolam HCl (Versed) 5 mg STK-MED ONCE .ROUTE ; Start 10/29/21 at 10:59; Stop 10/29/21 at 10:59; Status DC Fentanyl Citrate (Fentanyl 2ml Vial) 100 mcg STK-MED ONCE .ROUTE ; Start 10/29/21 at 10:59; Stop 10/29/21 at 10:59; Status DC Verapamil HCl (Verapamil) 5 mg STK-MED ONCE .ROUTE ; Start 10/29/21 at 10:59; Stop 10/29/21 at 10:59; Status DC Heparin Sodium (Porcine) (Heparin Sodium) 10,000 unit STK-MED ONCE .ROUTE ; Start 10/29/21 at 10:59; Stop 10/29/21 at 11:00; Status DC Diphenhydramine HCl (Benadryl) 50 mg STK-MED ONCE .ROUTE ; Start 10/29/21 at 11:35; Stop 10/29/21 at 11:36; Status DC Nitroglycerin (Nitroglycerin) 200 mcg 1X ONCE IART Last administered on 10/29/21at 12:11; Start 10/29/21 at 12:00; Stop 10/29/21 at 12:05; Status DC Verapamil HCl (Verapamil) 2.5 mg 1X ONCE IART Last administered on 10/29/21at 12:11; Start 10/29/21 at 12:00; Stop 10/29/21 at 12:05; Status DC Heparin Sodium (Porcine) (Heparin Sodium) 2,500 unit 1X ONCE IART Last admini stered on 10/29/21at 12:13; Start 10/29/21 at 12:00; Stop 10/29/21 at 12:05; Status DC Heparin Sodium/ Sodium Chloride (HEPARIN for ARTERIAL LINE FLUSH) 1,000 unit 1X ONCE IART Last administered on 10/29/21at 12:10; Start 10/29/21 at 12:00; Stop 10/29/21 at 12:05; Status DC Heparin Sodium/ Sodium Chloride (HEPARIN for ARTERIAL LINE FLUSH) 1,000 unit 1X ONCE IART Last administered on 10/29/21at 12:10; Start 10/29/21 at 12:00; Stop 10/29/21 at 12:05; Status DC Midazolam HCl (Versed) 5 mg 1X ONCE IV Last administered on 10/29/21at 12:12; Start 10/29/21 at 12:00; Stop 10/29/21 at 12:05; Status DC Fentanyl Citrate (Fentanyl 2ml Vial) 100 mcg 1X ONCE IV Last administered on 10/29/21at 12:12; Start 10/29/21 at 12:00; Stop 10/29/21 at 12:05; Status DC Iodixanol (Visipaque 320) 100 ml 1X ONCE IART ; Start 10/29/21 at 12:00; Stop 10/29/21 at 12:05; Status DC Lidocaine HCl (Xylocaine-Mpf 1% 2ml Vial) 2 ml 1X ONCE INJ Last administered on 10/29/21at 12:11; Start 10/29/21 at 12:00; Stop 10/29/21 at 12:05; Status DC Diphenhydramine HCl (Benadryl) 50 mg 1X ONCE IVP Last administered on 10/29/21at 12:00; Start 10/29/21 at 12:00; Stop 10/29/21 at 12:05; Status DC Sodium Chloride 1,000 ml @ 100 mls/hr Q10H IV ; Start 10/29/21 at 12:15; Stop 10/30/21 at 12:14; Status DC Iohexol (Omnipaque 350 Mg/ml) 95 ml 1X ONCE IV Last administered on 10/29/21at 13:25; Start 10/29/21 at 13:30; Stop 10/29/21 at 13:34; Status DC Sennosides (Senna) 17.2 mg PRN BID PRN PO CONSTIPATION; Start 10/29/21 at 15:45 Docusate Sodium (Colace) 100 mg PRN DAILY PRN PO HARD STOOLS; Start 10/29/21 at 15:45; Stop 11/06/21 at 08:58; Status DC Ondansetron HCl (Zofran) 4 mg PRN Q6HRS PRN IVP NAUSEA/VOMITING, 1st CHOICE; Start 10/29/21 at 15:45; Status Cancel Insulin Human Lispro (HumaLOG) 0-5 UNITS TIDWMEALS SQ ; Start 10/29/21 at 17:00 Dextrose (Dextrose 50%-Water Syringe) 12.5 gm PRN Q15MIN PRN IV SEE COMMENTS; Start 10/29/21 at 15:45 Sodium Chloride 1,000 ml @ 100 mls/hr Q10H IV Last administered on 10/31/21at 06:45; Start 10/29/21 at 15:45; Stop 10/31/21 at 13:06; Status DC Acetaminophen (Tylenol) 650 mg PRN Q4HRS PRN PO TEMP OVER 100.4F OR MILD PAIN; Start 10/29/21 at 15:45 Lorazepam (Ativan) 0.5 mg PRN Q6HRS PRN PO ANXIETY / AGITATION; Start 10/29/21 at 15:45 Lorazepam (Ativan Inj) 0.25 mg PRN Q4HRS PRN IV ANXIETY / AGITATION; Start 10/29/21 at 15:45 Enoxaparin Sodium (Lovenox 40mg Syringe) 40 mg Q24H SQ Last administered on 11/02/21at 17:32; Start 10/29/21 at 16:00; Stop 11/03/21 at 08:18; Status DC Acetaminophen/ Hydrocodone Bitart (Lortab 5/325) 1 tab PRN Q4HRS PRN PO SEVERE PAIN, 1ST CHOICE Last administered on 10/30/21at 20:34; Start 10/29/21 at 15:45; Stop 11/05/21 at 08:00; Status DC Acetaminophen/ Hydrocodone Bitart (Lortab 5/325) 2 tab PRN Q4HRS PRN PO SEVERE PAIN, 2ND CHOICE Last administered on 11/04/21at 02:25; Start 10/29/21 at 15:45; Stop 11/05/21 at 08:00; Status DC Morphine Sulfate (Morphine Sulfate) 1 mg PRN Q1HR PRN IV PAIN-SEE COMMENTS Last administered on 11/01/21at 08:52; Start 10/29/21 at 15:45; Stop 11/04/21 at 13:39; Status DC Morphine Sulfate (Morphine Sulfate) 2 mg PRN Q2HR PRN IVP SEVERE PAIN 7-10; Start 10/29/21 at 15:45; Stop 10/30/21 at 15:44; Status DC Prochlorperazine Edisylate (Compazine) 10 mg PRN Q6HRS PRN IV NAUSEA/VOMITING, 2nd CHOICE; Start 10/29/21 at 15:45; Status Cancel Diphenhydramine HCl (Benadryl) 25 mg PRN Q6HRS PRN IVP ITCHING; Start 10/29/21 at 15:45 Diphenhydramine HCl (Benadryl) 25 mg PRN Q6HRS PRN PO ITCHING; Start 10/29/21 at 15:45 Diphenhydramine HCl (Benadryl) 25 mg PRN QHS PRN PO INSOMNIA, 1st CHOICE Last administered on 10/30/21at 00:19; Start 10/29/21 at 15:45 Zolpidem Tartrate (Ambien) 2.5 mg PRN QHS PRN PO INSOMNIA, 2nd CHOICE; Start 10/29/21 at 15:45 Amlodipine Besylate (Norvasc) 10 mg DAILY PO Last administered on 11/06/21at 08:35; Start 10/30/21 at 09:00 Aspirin (Ecotrin) 81 mg DAILYWBKFT PO Last administered on 11/03/21at 09:05; Start 10/30/21 at 08:00; Stop 11/06/21 at 08:34; Status DC Atorvastatin Calcium (Lipitor) 10 mg QHS PO Last administered on 11/04/21at 20:57; Start 10/29/21 at 21:00 Clopidogrel Bisulfate (Plavix) 75 mg DAILY PO Last administered on 11/03/21at 09:05; Start 10/30/21 at 09:00; Stop 11/04/21 at 13:34; Status DC Diphenhydramine HCl (Benadryl) 25 mg DAILY PO Last administered on 11/06/21at 08:34; Start 10/30/21 at 09:00 Pregabalin (Lyrica) 50 mg TID PO Last administered on 11/06/21at 08:35; Start 10/29/21 at 21:00 Tramadol HCl (Ultram) 50 mg Q6HRS PRN PO MILD PAIN (2ND CHOICE) Last administered on 11/04/21at 17:14; Start 10/29/21 at 17:00 Ascorbic Acid (Vitamin C) 500 mg DAILY PO Last administered on 11/06/21at 08:34; Start 10/30/21 at 09:00 Cyanocobalamin (Vitamin B-12) 1,000 mcg DAILY PO Last administered on 11/06/21at 08:34; Start 10/30/21 at 09:00 Pantoprazole Sodium (Protonix) 40 mg DAILYAC PO Last administered on 11/03/21at 05:46; Start 10/30/21 at 07:30; Stop 11/05/21 at 09:27; Status DC Potassium Chloride (Klor-Con) 40 meq BID PO Last administered on 11/02/21at 08:43; Start 11/01/21 at 14:00; Stop 11/02/21 at 13:59; Status DC Polyethylene Glycol (miraLAX PACKET) 17 gm 1X ONCE PO ; Start 11/03/21 at 08:15; Stop 11/03/21 at 08:16; Status DC Cefazolin Sodium/ Dextrose 50 ml @ 100 mls/hr 1X PREOP PRN IV PRIOR TO PROCEDURE Last administered on 11/04/21at 08:06; Start 11/04/21 at 08:00; Stop 11/04/21 at 18:00; Status DC Heparin Sodium (Porcine) 5000 unit/Sodium Chloride 505 ml @ 505 mls/hr 1X ONCE IRR Last administered on 11/04/21at 09:05; Start 11/04/21 at 06:00; Stop 11/04/21 at 06:59; Status DC Cefazolin Sodium 1 gm/Sodium Chloride 500 ml @ 500 mls/hr 1X ONCE IRR Last administered on 11/04/21at 09:05; Start 11/04/21 at 06:00; Stop 11/04/21 at 06:59; Status DC Fentanyl Citrate (Fentanyl 2ml Vial) 25 mcg PRN Q5MIN PRN IVP MILD PAIN 1-3; Start 11/04/21 at 06:00; Stop 11/04/21 at 16:54; Status DC Fentanyl Citrate (Fentanyl 2ml Vial) 50 mcg PRN Q5MIN PRN IVP MODERATE PAIN 4-6 Last administered on 11/04/21at 14:02; Start 11/04/21 at 06:00; Stop 11/04/21 at 16:54; Status DC Morphine Sulfate (Morphine Sulfate) 1 mg PRN Q10MIN PRN IVP SEVERE PAIN 7-10 Last administered on 11/04/21at 14:28; Start 11/04/21 at 06:00; Stop 11/04/21 at 16:47; Status DC Ringer's Solution 1,000 ml @ 30 mls/hr Q24H IV Last administered on 11/04/21at 06:00; Start 11/04/21 at 06:00; Stop 11/04/21 at 17:59; Status DC Hydromorphone HCl (Dilaudid) 0.5 mg PRN Q10MIN PRN IVP SEVERE PAIN 7-10, 2nd CHOICE; Start 11/04/21 at 06:00; Stop 11/04/21 at 16:47; Status DC Prochlorperazine Edisylate (Compazine) 5 mg PACU PRN PRN IVP NAUSEA, MRX1 Last administered on 11/04/21at 14:09; Start 11/04/21 at 06:00; Stop 11/04/21 at 16:54; Status DC Cefazolin Sodium/ Dextrose 50 ml @ As Directed STK-MED ONCE IV ; Start 11/04/21 at 06:32; Stop 11/04/21 at 06:32; Status DC Rocuronium Red Jacket (Zemuron) 50 mg STK-MED ONCE .ROUTE ; Start 11/04/21 at 06:54; Stop 11/04/21 at 06:54; Status DC Fentanyl Citrate (Fentanyl 2ml Vial) 100 mcg STK-MED ONCE .ROUTE ; Start 11/04/21 at 06:54; Stop 11/04/21 at 06:54; Status DC Midazolam HCl (Versed) 2 mg STK-MED ONCE .ROUTE ; Start 11/04/21 at 06:54; Stop 11/04/21 at 06:54; Status DC Propofol (Diprivan) 200 mg STK-MED ONCE IV ; Start 11/04/21 at 06:54; Stop 11/04/21 at 06:55; Status DC Lidocaine HCl (Lidocaine Pf 2% Vial) 5 ml STK-MED ONCE .ROUTE ; Start 11/04/21 at 06:54; Stop 11/04/21 at 06:55; Status DC Ondansetron HCl (Zofran) 4 mg STK-MED ONCE .ROUTE ; Start 11/04/21 at 06:54; Stop 11/04/21 at 06:55; Status DC Dexamethasone Sodium Phosphate (Decadron) 4 mg STK-MED ONCE .ROUTE ; Start 11/04/21 at 06:54; Stop 11/04/21 at 06:55; Status DC Cellulose (Surgicel Fibrillar 1x2) 1 each STK-MED ONCE .ROUTE Last administered on 11/04/21at 09:05; Start 11/04/21 at 07:03; Stop 11/04/21 at 07:03; Status DC Heparin Sodium (Porcine) (Heparin Sodium) 10,000 unit STK-MED ONCE .ROUTE ; Start 11/04/21 at 07:03; Stop 11/04/21 at 07:04; Status DC Phenylephrine HCl (Jayce-Synephrine Inj) 10 mg STK-MED ONCE .ROUTE ; Start 11/04/21 at 07:09; Stop 11/04/21 at 07:09; Status DC Heparin Sodium (Porcine) (Heparin Sodium) 10,000 unit STK-MED ONCE .ROUTE ; Start 11/04/21 at 07:34; Stop 11/04/21 at 07:35; Status DC Fentanyl Citrate (Fentanyl 2ml Vial) 100 mcg STK-MED ONCE .ROUTE ; Start 11/04/21 at 09:39; Stop 11/04/21 at 09:39; Status DC Albumin Human 500 ml @ As Directed STK-MED ONCE IV ; Start 11/04/21 at 10:16; Stop 11/04/21 at 10:16; Status DC Vasopressin (Vasostrict) 20 unit STK-MED ONCE .ROUTE ; Start 11/04/21 at 10:42; Stop 11/04/21 at 10:43; Status DC Rocuronium Red Jacket (Zemuron) 50 mg STK-MED ONCE .ROUTE ; Start 11/04/21 at 11:06; Stop 11/04/21 at 11:06; Status DC Heparin Sodium (Porcine) (Heparin Sodium) 10,000 unit STK-MED ONCE .ROUTE ; Start 11/04/21 at 11:06; Stop 11/04/21 at 11:06; Status DC Hydromorphone HCl (Dilaudid) 2 mg STK-MED ONCE .ROUTE ; Start 11/04/21 at 11:09; Stop 11/04/21 at 11:09; Status DC Sugammadex Sodium (Bridion) 400 mg 1X ONCE IVP ; Start 11/04/21 at 11:15; Stop 11/04/21 at 11:16; Status DC Cefazolin Sodium/ Dextrose 50 ml @ As Directed STK-MED ONCE IV ; Start 11/04/21 at 11:41; Stop 11/04/21 at 11:42; Status DC Protamine Sulfate (Protamine) 50 mg STK-MED ONCE IV ; Start 11/04/21 at 11:48; Stop 11/04/21 at 11:48; Status DC Gelatin (Gelfoam Size 12-7mm) 1 each STK-MED ONCE .ROUTE Last administered on 11/04/21at 09:05; Start 11/04/21 at 12:08; Stop 11/04/21 at 12:08; Status DC Thrombin 20,000 unit STK-MED ONCE TP Last administered on 11/04/21at 09:05; Start 11/04/21 at 12:08; Stop 11/04/21 at 12:08; Status DC Gelatin (Gelfoam Size 12-7mm) 1 each STK-MED ONCE .ROUTE ; Start 11/04/21 at 12:10; Stop 11/04/21 at 12:11; Status Cancel Gelatin (Gelfoam Size 12-7mm) 1 each STK-MED ONCE .ROUTE ; Start 11/04/21 at 12:10; Stop 11/04/21 at 12:11; Status Cancel Gelatin (Gelfoam Size 12-7mm) 1 each STK-MED ONCE .ROUTE Last administered on 11/04/21at 09:05; Start 11/04/21 at 12:16; Stop 11/04/21 at 12:17; Status DC Gelatin (Gelfoam Size 12-7mm) 1 each STK-MED ONCE .ROUTE ; Start 11/04/21 at 12:16; Stop 11/04/21 at 12:17; Status DC Gelatin (Gelfoam Size 12-7mm) 1 each STK-MED ONCE .ROUTE Last administered on 11/04/21at 09:05; Start 11/04/21 at 12:17; Stop 11/04/21 at 12:17; Status DC Gelatin (Gelfoam Size 12-7mm) 1 each STK-MED ONCE .ROUTE Last administered on 11/04/21at 09:05; Start 11/04/21 at 12:17; Stop 11/04/21 at 12:17; Status DC Sevoflurane (Ultane) 90 ml STK-MED ONCE IH ; Start 11/04/21 at 12:18; Stop 11/04/21 at 12:18; Status DC Insulin Human Lispro (HumaLOG VIAL for OP,RR ONLY) 0-10 units PRN Q1HR PRN SQ PER PROTOCOL Last administered on 11/04/21at 15:08; Start 11/04/21 at 13:30; Stop 11/05/21 at 08:02; Status DC Fentanyl Citrate (Fentanyl 2ml Vial) 100 mcg STK-MED ONCE .ROUTE ; Start 11/04/21 at 13:33; Stop 11/04/21 at 13:33; Status DC Cefazolin Sodium (Ancef) 1 gm Q6H IVP Last administered on 11/05/21at 02:26; Start 11/04/21 at 14:00; Stop 11/05/21 at 02:01; Status DC Famotidine (Pepcid Vial) 20 mg BID IVP ; Start 11/04/21 at 21:00; Status Cancel Info (Icu Electrolyte Protocol) 1 ea DAILY MC Last administered on 11/05/21at 09:00; Start 11/05/21 at 09:00 Naloxone HCl (Narcan) 0.1 mg PRN Q2MIN PRN IV SEE ADMIN INSTRUCTIONS; Start 11/04/21 at 13:30 Sodium Chloride (Normal Saline Flush) 3 ml QSHIFT PRN IV AFTER MEDS AND BLOOD DRAWS; Start 11/04/21 at 13:30 Sodium Chloride 1,000 ml @ 150 mls/hr Q6H40M IV Last administered on 11/05/21at 02:27; Start 11/04/21 at 13:30; Stop 11/05/21 at 13:08; Status DC Naloxone HCl (Narcan) 0.4 mg PRN Q2MIN PRN IV SEE INSTRUCTIONS; Start 11/04/21 at 13:30 Sodium Chloride 1,000 ml @ 25 mls/hr Q24H IV ; Start 11/04/21 at 13:30; Stop 11/05/21 at 15:34; Status DC Morphine Sulfate (Morphine Sulfate) 2 mg PRN Q1HR PRN IV PAIN Last administered on 11/07/21at 05:42; Start 11/04/21 at 13:30 Oxycodone/ Acetaminophen (Percocet 5/325) 1 tab PRN Q4HRS PRN PO MODERATE PAIN; Start 11/04/21 at 13:30 Oxycodone/ Acetaminophen (Percocet 5/325) 2 tab PRN Q4HRS PRN PO SEVERE PAIN Last administered on 11/06/21at 08:37; Start 11/04/21 at 13:30 Ondansetron HCl (Zofran) 4 mg PRN Q6HRS PRN IVP NAUESA, 1ST CHOICE Last administered on 11/06/21at 12:52; Start 11/04/21 at 13:30 Prochlorperazine Edisylate (Compazine) 5 mg PRN Q6HRS PRN IV N/V, 2nd Choice, MR X1; Start 11/04/21 at 13:30 Hydralazine HCl (Apresoline Inj) 5 mg PRN Q4HRS PRN IVP ELEVATED BP, SEE C OMMENTS Last administered on 11/04/21at 14:28; Start 11/04/21 at 13:30 Labetalol HCl (Normodyne Iv Push) 10 mg PRN Q2HR PRN IVP HYPERTENSION (2ND CHOICE) Last administered on 11/04/21at 17:50; Start 11/04/21 at 13:30 Morphine Sulfate (Morphine Sulfate) 2 mg STK-MED ONCE .ROUTE ; Start 11/04/21 at 14:04; Stop 11/04/21 at 14:05; Status DC Hydralazine HCl (Apresoline Inj) 20 mg STK-MED ONCE .ROUTE ; Start 11/04/21 at 14:04; Stop 11/04/21 at 14:05; Status DC Prochlorperazine Edisylate (Compazine) 10 mg STK-MED ONCE .ROUTE ; Start 11/04/21 at 14:04; Stop 11/04/21 at 14:05; Status DC Magnesium Sulfate 50 ml @ 25 mls/hr 1X ONCE IV Last administered on 11/05/21at 10:16; Start 11/05/21 at 09:00; Stop 11/05/21 at 10:59; Status DC Aspirin (Aspirin Chewable) 81 mg 1X ONCE PO Last administered on 11/05/21at 10:16; Start 11/05/21 at 09:30; Stop 11/05/21 at 09:31; Status DC Pantoprazole Sodium (PROTONIX VIAL for IV PUSH) 40 mg DAILYAC IVP Last administered on 11/06/21at 08:35; Start 11/05/21 at 09:30 Sodium Chloride 1,000 ml @ 60 mls/hr [id number] IV Last administered on 11/06/21at 22:48; Start 11/05/21 at 14:00; Stop 11/07/21 at 08:28; Status DC Albuterol Sulfate (Ventolin Neb Soln) 2.5 mg PRN Q6HRS PRN NEB SHORTNESS OF BREATH; Start 11/05/21 at 14:45 Aspirin (Aspirin Chewable) 81 mg DAILYWBKFT PO Last administered on 11/06/21at 10:31; Start 11/06/21 at 09:00 Docusate Sodium (Colace) 100 mg BID PO Last administered on 11/06/21at 10:31; Start 11/06/21 at 10:00 Heparin Sodium (Porcine) (Heparin Sodium) 5,000 unit Q12HR SQ Last administered on 11/06/21at 22:49; Start 11/06/21 at 10:00 Magnesium Sulfate/ Dextrose 100 ml @ 100 mls/hr 1X ONCE IV Last administered on 11/06/21at 10:32; Start 11/06/21 at 10:00; Stop 11/06/21 at 10:59; Status DC Potassium Chloride/Water 100 ml @ 100 mls/hr Q1H PRN IV PER PROTOCOL; Start 11/07/21 at 08:30 Potassium Chloride (Klor-Con) 40 meq Q2H PRN PO PER PROTOCOL; Start 11/07/21 at 08:15; Status UNV Potassium Chloride/Water 100 ml @ 100 mls/hr Q1H PRN IV PER PROTOCOL; Start 11/07/21 at 08:15; Status UNV Potassium Chloride (Klor-Con) 40 meq Q2H PRN PO PER PROTOCOL; Start 11/07/21 at 08:15; Status UNV Active Scripts Active Aspirin Ec (Aspirin) 81 Mg Tablet.dr 81 Mg PO DAILYWBKFT 90 Days Amlodipine Besylate 10 Mg Tablet 10 Mg PO DAILY 90 Days Atorvastatin Calcium 10 Mg Tablet 10 Mg PO QHS 90 Days Reported Hydrochlorothiazide Tablet (Hydrochlorothiazide) 25 Mg Tablet 25 Mg PO DAILY Metformin Hcl 1,000 Mg Tablet 1,000 Mg PO BIDWMEALS Clopidogrel (Clopidogrel Bisulfate) 75 Mg Tablet 1 Tab PO DAILY Vitamin B-12 (Cyanocobalamin (Vitamin B-12)) 1,000 Mcg Tab.subl 1 Tab SL DAILY 30 Days Vitamin C (Ascorbic Acid) 500 Mg Capsule.er 1 Cap PO DAILY 30 Days Omeprazole 40 Mg Capsule.dr 1 Cap PO DAILY Lyrica (Pregabalin) 50 Mg Capsule 50 Mg PO TID Benadryl (Diphenhydramine Hcl) 25 Mg Capsule 25 Mg PO DAILY Tramadol Hcl 50 Mg Tablet 50 Mg PO Q6HRS PRN Iron (Ferrous Sulfate) 325 Mg Tablet 325 Mg PO DAILY Vitals/I & O Vital Sign - Last 24 Hours 11/06/21 11/06/21 11/06/21 11/06/21 08:35 08:37 09:00 09:07 Pulse 92 98 Resp 14 14 B/P (MAP) 171/78 149/71 (97) Pulse Ox 99 97 98 O2 Delivery Room Air Room Air Room Air 11/06/21 11/06/21 11/06/21 11/06/21 12:00 16:00 20:00 20:00 Temp 99.3 98.3 98.9 99.3 98.3 98.9 Pulse 84 86 82 Resp 14 28 B/P (MAP) 98/79 (85) 134/70 (91) 121/62 (81) Pulse Ox 96 99 99 O2 Delivery Room Air Room Air Room Air Room Air 11/06/21 11/07/21 11/07/21 11/07/21 22:54 00:00 04:00 05:42 Temp 98.4 98.5 98.4 98.5 Pulse 82 84 Resp 23 19 17 23 B/P (MAP) 118/55 (76) 133/63 (86) Pulse Ox 98 97 100 100 O2 Delivery Room Air Room Air Room Air Room Air Intake and Output 11/06/21 11/06/21 11/07/21 15:00 23:00 07:00 Intake Total 10 ml 1735 ml Output Total 600 ml 200 ml 400 ml Balance -590 ml -200 ml 1335 ml Justifications for Admission Other Justification Severe peripheral vascular disease with gangrenous wounds in the lower extremities ODALIS SWEENEY MD Nov 07, 2021 08:33
[2021-11-07] MEDS: ELECTROLYTE (ICU) PROTOCOL. MC SCH (09:00)
[2021-11-07] MEDS: POTASSIUM CHLORIDE 20MEQ 100 ML IV PRN ×2 (09:52→10:46)
--- NOTE | 2021-11-07 10:09 | PDOC ---
[facility] PROGRESS NOTE Date of Service DOS: DATE: 11/07/21 TIME: 09:45 Chief Complaint Chief Complaint Postop day 12 OPERATIONS PERFORMED: 1. Aortobilateral profunda femoris bypass with 16 x 8 bifurcated Quincy-Riley graft.2. 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 NG tube out no further abdominal pain nausea vomiting. Passing some stool. Left leg and foot pain stable. Up to chair today. Wearing Rooke boots n.p.o. for midnight for angiography. 11/06: Hb dropped to 8.1. Complaining of lower abdominal pain. Was able to get up to the chair on 225. Says he is passing flatus. NG tube to suction 200 cc. 11/05/2021 Patient seen and examined in the ICU He has an NG clamped He has Rooke boots on both lower extremities Appears depressed He had lower extremity bypass yesterday Discussed with RN Chart reviewed 11/04, Surgery today, fem pop 55-year-old male with significant past medical history of for pancreatitis, hypertension, CABG, peripheral vascular disease with critical limb ischemia who underwent an angio of his lower extremities showing severe peripheral vascular disease and lower extremity wounds. Patient is admitted to the hospitalist service for further management and consult to the vascular surgery service. 2 Vitals/I&O Vitals/I&O: Vital Signs Date Time Temp Pulse Resp B/P (MAP) Pulse Ox O2 Delivery O2 Flow Rate FiO2 11/07/21 05:42 23 100 Room Air 11/07/21 04:00 98.5 84 133/63 (86) 98.5 I & O 11/06/21 11/06/21 11/07/21 15:00 23:00 07:00 Intake Total 10 ml 1735 ml Output Total 600 ml 200 ml 400 ml Balance -590 ml -200 ml 1335 ml Physical Exam General: Alert, Oriented X3 Heart: Regular rate Lungs: Crackles Abdomen: Other (Incision c/d/i. 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 PT signals bilaterally. Palpable femoral pulses bilaterally) Skin: Other Labs Labs: Laboratory Tests Test 11/06/21 12:41 11/06/21 17:29 11/07/21 05:45 Glucose (Fingerstick) 155 mg/dL (70-99) 129 mg/dL (70-99) White Blood Count 21.8 x10^3/uL (4.0-11.0) Red Blood Count 2.52 x10^6/uL (4.30-5.70) Hemoglobin 7.6 g/dL (13.0-17.5) Hematocrit 23.0 % (39.0-53.0) Mean Corpuscular Volume 91 fL (79-100) Mean Corpuscular Hemoglobin 30 pg (25-35) Mean Corpuscular Hemoglobin Concent 33 g/dL (31-37) Red Cell Distribution Width 14.0 % (11.5-14.5) Platelet Count 251 x10^3/uL (140-400) Sodium Level 136 mmol/L (136-145) Potassium Level 3.4 mmol/L (3.5-5.1) Chloride Level 100 mmol/L (98-107) Carbon Dioxide Level 26 mmol/L (21-32) Anion Gap 10 (6-14) Blood Urea Nitrogen 12 mg/dL (8-26) Creatinine 0.6 mg/dL (0.7-1.3) Estimated GFR (Cockcroft-Gault) 140.9 Glucose Level 124 mg/dL (70-99) Calcium Level 7.9 mg/dL (8.5-10.1) Magnesium Level 2.1 mg/dL (1.8-2.4) Comment Review of Relevant I have reviewed the following items ifrah (where applicable) has been applied. Medications: Current Medications Medications (Trade) Dose Ordered Sig/Amara Route PRN Reason Start Time Stop Time Status Last Admin Dose Admin Docusate Sodium (Colace) 100 mg BID PO 11/06/21 10:00 11/06/21 10:31 Heparin Sodium (Porcine) (Heparin Sodium) 5,000 unit Q12HR SQ 11/06/21 10:00 11/06/21 22:49 Magnesium Sulfate/ Dextrose 100 ml @ 100 mls/hr 1X ONCE IV 11/06/21 10:00 11/06/21 10:59 DC 11/06/21 10:32 Justifications for Admission Other Justification Severe peripheral vascular disease with gangrenous wounds in the lower extremities NATALIE BARBOSA MD Nov 07, 2021 10:09
[2021-11-07] MEDS: ASPIRIN CHEWABLE 81 MG TABLET. PO SCH (10:43)
[2021-11-07] MEDS: DOCUSATE SODIUM 100 MG CAPSULE. PO SCH ×2 (10:43→21:57)
[2021-11-07] MEDS: diphenhydrAMINE HCL 25 MG CAPSULE PO SCH (10:43)
[2021-11-07] MEDS: CYANOCOBALAMIN (VITAMIN B-12) 1,000 MCG TABLET. PO SCH (10:44)
[2021-11-07] MEDS: PREGABALIN 50 MG CAPSULE PO SCH ×3 (10:45→21:57)
[2021-11-07] MEDS: oxyCODONE/APAP 5/325 1 TAB TABLET PO PRN ×2 (10:45→15:12)
[2021-11-07] MEDS: PANTOPRAZOLE IV PUSH 40 MG VIAL. IVP SCH (10:46)
[2021-11-07] MEDS: ASCORBIC ACID 500 MG TABLET PO SCH (10:46)
[2021-11-07] MEDS: HEPARIN for SUB-Q USE 5,000 UNIT/ML VIAL. SQ SCH ×2 (10:49→21:58)
--- NOTE | 2021-11-07 13:46 | PDOC ---
PROGRESS NOTES Date of Service DATE: 11/07/21 TIME: 13:44 Subjective Subjective Patient seen and examined Objective Objective Vital Signs Date Time Temp Pulse Resp B/P (MAP) Pulse Ox O2 Delivery O2 Flow Rate FiO2 11/07/21 11:15 100 Room Air 8.0 11/07/21 10:44 77 131/65 11/07/21 08:00 97.9 20 97.9 Intake and Output 11/07/21 07:00 Intake Total 1745 ml Output Total 1200 ml Balance 545 ml Intake Oral 55 ml IV Total 1690 ml Output Urine Total 1150 ml Gastric Drainage Total 50 ml Physical Exam Abdomen: Normal bowel sounds Heart: Regular rate General: mild distress Lungs: Clear to auscultation Assessment Assessment Severe peripheral vascular disease, critical limb ischemia and left foot toes gangrene. s/p aortobifemoral bypass surgery POD#3. Vascular surgery planning angiogram on Monday for further surgical planning. Morning hemoglobin hematocrit down to 7.6 and 23.0. Coronary artery disease s/p coronary artery bypass surgery in February 2021, presently stable and chest pain-free. Echo with LVEF 65% with diastolic dysfunction. Continue current secondary prevention measures Bilateral carotid stenosis; Carotid US with moderate bilateral ICA disease Hypertension: Mildly elevated. We will continue medications and monitor. Hyperlipidemia: Statin therapy DM2: Treat per IM Tobacco abuse Comment Review of Relevant I have reviewed the following items ifrah (where applicable) has been applied. Labs Laboratory Tests Test 11/05/21 17:16 11/06/21 06:15 11/06/21 08:21 11/06/21 12:41 Glucose (Fingerstick) 149 mg/dL (70-99) 137 mg/dL (70-99) 155 mg/dL (70-99) White Blood Count 17.6 x10^3/uL (4.0-11.0) Red Blood Count 2.70 x10^6/uL (4.30-5.70) Hemoglobin 8.1 g/dL (13.0-17.5) Hematocrit 24.5 % (39.0-53.0) Mean Corpuscular Volume 91 fL (79-100) Mean Corpuscular Hemoglobin 30 pg (25-35) Mean Corpuscular Hemoglobin Concent 33 g/dL (31-37) Red Cell Distribution Width 14.0 % (11.5-14.5) Platelet Count 224 x10^3/uL (140-400) Sodium Level 139 mmol/L (136-145) Potassium Level 3.9 mmol/L (3.5-5.1) Chloride Level 103 mmol/L (98-107) Carbon Dioxide Level 27 mmol/L (21-32) Anion Gap 9 (6-14) Blood Urea Nitrogen 8 mg/dL (8-26) Creatinine 0.6 mg/dL (0.7-1.3) Estimated GFR (Cockcroft-Gault) 140.9 Glucose Level 131 mg/dL (70-99) Calcium Level 7.7 mg/dL (8.5-10.1) Magnesium Level 1.9 mg/dL (1.8-2.4) Test 11/06/21 17:29 11/07/21 05:45 11/07/21 12:14 Glucose (Fingerstick) 129 mg/dL (70-99) 152 mg/dL (70-99) White Blood Count 21.8 x10^3/uL (4.0-11.0) Red Blood Count 2.52 x10^6/uL (4.30-5.70) Hemoglobin 7.6 g/dL (13.0-17.5) Hematocrit 23.0 % (39.0-53.0) Mean Corpuscular Volume 91 fL (79-100) Mean Corpuscular Hemoglobin 30 pg (25-35) Mean Corpuscular Hemoglobin Concent 33 g/dL (31-37) Red Cell Distribution Width 14.0 % (11.5-14.5) Platelet Count 251 x10^3/uL (140-400) Sodium Level 136 mmol/L (136-145) Potassium Level 3.4 mmol/L (3.5-5.1) Chloride Level 100 mmol/L (98-107) Carbon Dioxide Level 26 mmol/L (21-32) Anion Gap 10 (6-14) Blood Urea Nitrogen 12 mg/dL (8-26) Creatinine 0.6 mg/dL (0.7-1.3) Estimated GFR (Cockcroft-Gault) 140.9 Glucose Level 124 mg/dL (70-99) Calcium Level 7.9 mg/dL (8.5-10.1) Magnesium Level 2.1 mg/dL (1.8-2.4) Laboratory Tests Test 11/06/21 17:29 11/07/21 05:45 11/07/21 12:14 Glucose (Fingerstick) 129 mg/dL (70-99) 152 mg/dL (70-99) White Blood Count 21.8 x10^3/uL (4.0-11.0) Red Blood Count 2.52 x10^6/uL (4.30-5.70) Hemoglobin 7.6 g/dL (13.0-17.5) Hematocrit 23.0 % (39.0-53.0) Mean Corpuscular Volume 91 fL (79-100) Mean Corpuscular Hemoglobin 30 pg (25-35) Mean Corpuscular Hemoglobin Concent 33 g/dL (31-37) Red Cell Distribution Width 14.0 % (11.5-14.5) Platelet Count 251 x10^3/uL (140-400) Sodium Level 136 mmol/L (136-145) Potassium Level 3.4 mmol/L (3.5-5.1) Chloride Level 100 mmol/L (98-107) Carbon Dioxide Level 26 mmol/L (21-32) Anion Gap 10 (6-14) Blood Urea Nitrogen 12 mg/dL (8-26) Creatinine 0.6 mg/dL (0.7-1.3) Estimated GFR (Cockcroft-Gault) 140.9 Glucose Level 124 mg/dL (70-99) Calcium Level 7.9 mg/dL (8.5-10.1) Magnesium Level 2.1 mg/dL (1.8-2.4) Medications Current Medications Iodixanol 200 ml/ Sodium Chloride 400 ml @ 400 mls/hr 1X ONCE IART Last administered on 10/29/21at 09:00; Start 10/29/21 at 09:00; Stop 10/29/21 at 09:59; Status DC Lidocaine HCl (Xylocaine-Mpf 1% 2ml Vial) 2 ml STK-MED ONCE .ROUTE ; Start 10/29/21 at 10:55; Stop 10/29/21 at 10:55; Status DC Heparin Sodium/ Sodium Chloride 1,000 ml @ As Directed STK-MED ONCE .ROUTE ; Start 10/29/21 at 10:56; Stop 10/29/21 at 10:56; Status DC Nitroglycerin (Nitroglycerin) 200 mcg STK-MED ONCE .ROUTE ; Start 10/29/21 at 10:58; Stop 10/29/21 at 10:58; Status DC Midazolam HCl (Versed) 5 mg STK-MED ONCE .ROUTE ; Start 10/29/21 at 10:59; Stop 10/29/21 at 10:59; Status DC Fentanyl Citrate (Fentanyl 2ml Vial) 100 mcg STK-MED ONCE .ROUTE ; Start 10/29/21 at 10:59; Stop 10/29/21 at 10:59; Status DC Verapamil HCl (Verapamil) 5 mg STK-MED ONCE .ROUTE ; Start 10/29/21 at 10:59; Stop 10/29/21 at 10:59; Status DC Heparin Sodium (Porcine) (Heparin Sodium) 10,000 unit STK-MED ONCE .ROUTE ; Start 10/29/21 at 10:59; Stop 10/29/21 at 11:00; Status DC Diphenhydramine HCl (Benadryl) 50 mg STK-MED ONCE .ROUTE ; Start 10/29/21 at 11:35; Stop 10/29/21 at 11:36; Status DC Nitroglycerin (Nitroglycerin) 200 mcg 1X ONCE IART Last administered on 10/29/21at 12:11; Start 10/29/21 at 12:00; Stop 10/29/21 at 12:05; Status DC Verapamil HCl (Verapamil) 2.5 mg 1X ONCE IART Last administered on 10/29/21at 12:11; Start 10/29/21 at 12:00; Stop 10/29/21 at 12:05; Status DC Heparin Sodium (Porcine) (Heparin Sodium) 2,500 unit 1X ONCE IART Last administered on 10/29/21at 12:13; Start 10/29/21 at 12:00; Stop 10/29/21 at 12:05; Status DC Heparin Sodium/ Sodium Chloride (HEPARIN for ARTERIAL LINE FLUSH) 1,000 unit 1X ONCE IART Last administered on 10/29/21at 12:10; Start 10/29/21 at 12:00; Stop 10/29/21 at 12:05; Status DC Heparin Sodium/ Sodium Chloride (HEPARIN for ARTERIAL LINE FLUSH) 1,000 unit 1X ONCE IART Last administered on 10/29/21at 12:10; Start 10/29/21 at 12:00; Stop 10/29/21 at 12:05; Status DC Midazolam HCl (Versed) 5 mg 1X ONCE IV Last administered on 10/29/21at 12:12; Start 10/29/21 at 12:00; Stop 10/29/21 at 12:05; Status DC Fentanyl Citrate (Fentanyl 2ml Vial) 100 mcg 1X ONCE IV Last administered on 10/29/21at 12:12; Start 10/29/21 at 12:00; Stop 10/29/21 at 12:05; Status DC Iodixanol (Visipaque 320) 100 ml 1X ONCE IART ; Start 10/29/21 at 12:00; Stop 10/29/21 at 12:05; Status DC Lidocaine HCl (Xylocaine-Mpf 1% 2ml Vial) 2 ml 1X ONCE INJ Last administered on 10/29/21at 12:11; Start 10/29/21 at 12:00; Stop 10/29/21 at 12:05; Status DC Diphenhydramine HCl (Benadryl) 50 mg 1X ONCE IVP Last administered on 10/29/21at 12:00; Start 10/29/21 at 12:00; Stop 10/29/21 at 12:05; Status DC Sodium Chloride 1,000 ml @ 100 mls/hr Q10H IV ; Start 10/29/21 at 12:15; Stop 10/30/21 at 12:14; Status DC Iohexol (Omnipaque 350 Mg/ml) 95 ml 1X ONCE IV Last administered on 10/29/21at 13:25; Start 10/29/21 at 13:30; Stop 10/29/21 at 13:34; Status DC Sennosides (Senna) 17.2 mg PRN BID PRN PO CONSTIPATION; Start 10/29/21 at 15:45 Docusate Sodium (Colace) 100 mg PRN DAILY PRN PO HARD STOOLS; Start 10/29/21 at 15:45; Stop 11/06/21 at 08:58; Status DC Ondansetron HCl (Zofran) 4 mg PRN Q6HRS PRN IVP NAUSEA/VOMITING, 1st CHOICE; Start 10/29/21 at 15:45; Status Cancel Insulin Human Lispro (HumaLOG) 0-5 UNITS TIDWMEALS SQ Last administered on 11/07/21at 12:19; Start 10/29/21 at 17:00 Dextrose (Dextrose 50%-Water Syringe) 12.5 gm PRN Q15MIN PRN IV SEE COMMENTS; Start 10/29/21 at 15:45 Sodium Chloride 1,000 ml @ 100 mls/hr Q10H IV Last administered on 10/31/21at 06:45; Start 10/29/21 at 15:45; Stop 10/31/21 at 13:06; Status DC Acetaminophen (Tylenol) 650 mg PRN Q4HRS PRN PO TEMP OVER 100.4F OR MILD PAIN; Start 10/29/21 at 15:45 Lorazepam (Ativan) 0.5 mg PRN Q6HRS PRN PO ANXIETY / AGITATION; Start 10/29/21 at 15:45 Lorazepam (Ativan Inj) 0.25 mg PRN Q4HRS PRN IV ANXIETY / AGITATION; Start 10/29/21 at 15:45 Enoxaparin Sodium (Lovenox 40mg Syringe) 40 mg Q24H SQ Last administered on 11/02/21at 17:32; Start 10/29/21 at 16:00; Stop 11/03/21 at 08:18; Status DC Acetaminophen/ Hydrocodone Bitart (Lortab 5/325) 1 tab PRN Q4HRS PRN PO SEVERE PAIN, 1ST CHOICE Last administered on 10/30/21at 20:34; Start 10/29/21 at 15:45; Stop 11/05/21 at 08:00; Status DC Acetaminophen/ Hydrocodone Bitart (Lortab 5/325) 2 tab PRN Q4HRS PRN PO SEVERE PAIN, 2ND CHOICE Last administered on 11/04/21at 02:25; Start 10/29/21 at 15:45; Stop 11/05/21 at 08:00; Status DC Morphine Sulfate (Morphine Sulfate) 1 mg PRN Q1HR PRN IV PAIN-SEE COMMENTS Last administered on 11/01/21at 08:52; Start 10/29/21 at 15:45; Stop 11/04/21 at 13:39; Status DC Morphine Sulfate (Morphine Sulfate) 2 mg PRN Q2HR PRN IVP SEVERE PAIN 7-10; Start 10/29/21 at 15:45; Stop 10/30/21 at 15:44; Status DC Prochlorperazine Edisylate (Compazine) 10 mg PRN Q6HRS PRN IV NAUSEA/VOMITING, 2nd CHOICE; Start 10/29/21 at 15:45; Status Cancel Diphenhydramine HCl (Benadryl) 25 mg PRN Q6HRS PRN IVP ITCHING; Start 10/29/21 at 15:45 Diphenhydramine HCl (Benadryl) 25 mg PRN Q6HRS PRN PO ITCHING; Start 10/29/21 at 15:45 Diphenhydramine HCl (Benadryl) 25 mg PRN QHS PRN PO INSOMNIA, 1st CHOICE Last administered on 10/30/21at 00:19; Start 10/29/21 at 15:45 Zolpidem Tartrate (Ambien) 2.5 mg PRN QHS PRN PO INSOMNIA, 2nd CHOICE; Start 10/29/21 at 15:45 Amlodipine Besylate (Norvasc) 10 mg DAILY PO Last administered on 11/07/21at 10:44; Start 10/30/21 at 09:00 Aspirin (Ecotrin) 81 mg DAILYWBKFT PO Last administered on 11/03/21at 09:05; Start 10/30/21 at 08:00; Stop 11/06/21 at 08:34; Status DC Atorvastatin Calcium (Lipitor) 10 mg QHS PO Last administered on 11/04/21at 20:57; Start 10/29/21 at 21:00 Clopidogrel Bisulfate (Plavix) 75 mg DAILY PO Last administered on 11/03/21at 09 :05; Start 10/30/21 at 09:00; Stop 11/04/21 at 13:34; Status DC Diphenhydramine HCl (Benadryl) 25 mg DAILY PO Last administered on 11/07/21at 10:43; Start 10/30/21 at 09:00 Pregabalin (Lyrica) 50 mg TID PO Last administered on 11/07/21at 10:45; Start 10/29/21 at 21:00 Tramadol HCl (Ultram) 50 mg Q6HRS PRN PO MILD PAIN (2ND CHOICE) Last administered on 11/04/21at 17:14; Start 10/29/21 at 17:00 Ascorbic Acid (Vitamin C) 500 mg DAILY PO Last administered on 11/07/21at 10:46; Start 10/30/21 at 09:00 Cyanocobalamin (Vitamin B-12) 1,000 mcg DAILY PO Last administered on 11/07/21at 10:44; Start 10/30/21 at 09:00 Pantoprazole Sodium (Protonix) 40 mg DAILYAC PO Last administered on 11/03/21at 05:46; Start 10/30/21 at 07:30; Stop 11/05/21 at 09:27; Status DC Potassium Chloride (Klor-Con) 40 meq BID PO Last administered on 11/02/21at 08:43; Start 11/01/21 at 14:00; Stop 11/02/21 at 13:59; Status DC Polyethylene Glycol (miraLAX PACKET) 17 gm 1X ONCE PO ; Start 11/03/21 at 08:15; Stop 11/03/21 at 08:16; Status DC Cefazolin Sodium/ Dextrose 50 ml @ 100 mls/hr 1X PREOP PRN IV PRIOR TO PROCEDURE Last administered on 11/04/21at 08:06; Start 11/04/21 at 08:00; Stop 11/04/21 at 18:00; Status DC Heparin Sodium (Porcine) 5000 unit/Sodium Chloride 505 ml @ 505 mls/hr 1X ONCE IRR Last administered on 11/04/21at 09:05; Start 11/04/21 at 06:00; Stop 11/04/21 at 06:59; Status DC Cefazolin Sodium 1 gm/Sodium Chloride 500 ml @ 500 mls/hr 1X ONCE IRR Last administered on 11/04/21at 09:05; Start 11/04/21 at 06:00; Stop 11/04/21 at 06:59; Status DC Fentanyl Citrate (Fentanyl 2ml Vial) 25 mcg PRN Q5MIN PRN IVP MILD PAIN 1-3; Start 11/04/21 at 06:00; Stop 11/04/21 at 16:54; Status DC Fentanyl Citrate (Fentanyl 2ml Vial) 50 mcg PRN Q5MIN PRN IVP MODERATE PAIN 4-6 Last administered on 11/04/21at 14:02; Start 11/04/21 at 06:00; Stop 11/04/21 at 16:54; Status DC Morphine Sulfate (Morphine Sulfate) 1 mg PRN Q10MIN PRN IVP SEVERE PAIN 7-10 Last administered on 11/04/21at 14:28; Start 11/04/21 at 06:00; Stop 11/04/21 at 16:47; Status DC Ringer's Solution 1,000 ml @ 30 mls/hr Q24H IV Last administered on 11/04/21at 06:00; Start 11/04/21 at 06:00; Stop 11/04/21 at 17:59; Status DC Hydromorphone HCl (Dilaudid) 0.5 mg PRN Q10MIN PRN IVP SEVERE PAIN 7-10, 2nd CHOICE; Start 11/04/21 at 06:00; Stop 11/04/21 at 16:47; Status DC Prochlorperazine Edisylate (Compazine) 5 mg PACU PRN PRN IVP NAUSEA, MRX1 Last administered on 11/04/21at 14:09; Start 11/04/21 at 06:00; Stop 11/04/21 at 16:54; Status DC Cefazolin Sodium/ Dextrose 50 ml @ As Directed STK-MED ONCE IV ; Start 11/04/21 at 06:32; Stop 11/04/21 at 06:32; Status DC Rocuronium [place] (Zemuron) 50 mg STK-MED ONCE .ROUTE ; Start 11/04/21 at 06:54; Stop 11/04/21 at 06:54; Status DC Fentanyl Citrate (Fentanyl 2ml Vial) 100 mcg STK-MED ONCE .ROUTE ; Start 11/04/21 at 06:54; Stop 11/04/21 at 06:54; Status DC Midazolam HCl (Versed) 2 mg STK-MED ONCE .ROUTE ; Start 11/04/21 at 06:54; Stop 11/04/21 at 06:54; Status DC Propofol (Diprivan) 200 mg STK-MED ONCE IV ; Start 11/04/21 at 06:54; Stop at 06:55; Status DC Lidocaine HCl (Lidocaine Pf 2% Vial) 5 ml STK-MED ONCE .ROUTE ; Start 11/04/21 at 06:54; Stop 11/04/21 at 06:55; Status DC Ondansetron HCl (Zofran) 4 mg STK-MED ONCE .ROUTE ; Start 11/04/21 at 06:54; Stop 11/04/21 at 06:55; Status DC Dexamethasone Sodium Phosphate (Decadron) 4 mg STK-MED ONCE .ROUTE ; Start 11/04/21 at 06:54; Stop 11/04/21 at 06:55; Status DC Cellulose (Surgicel Fibrillar 1x2) 1 each STK-MED ONCE .ROUTE Last administered on 11/04/21at 09:05; Start 11/04/21 at 07:03; Stop 11/04/21 at 07:03; Status DC Heparin Sodium (Porcine) (Heparin Sodium) 10,000 unit STK-MED ONCE .ROUTE ; Start 11/04/21 at 07:03; Stop 11/04/21 at 07:04; Status DC Phenylephrine HCl (Jayce-Synephrine Inj) 10 mg STK-MED ONCE .ROUTE ; Start 11/04 at 07:09; Stop 11/04/21 at 07:09; Status DC Heparin Sodium (Porcine) (Heparin Sodium) 10,000 unit STK-MED ONCE .ROUTE ; St art 11/04/21 at 07:34; Stop 11/04/21 at 07:35; Status DC Fentanyl Citrate (Fentanyl 2ml Vial) 100 mcg STK-MED ONCE .ROUTE ; Start 11/04/21 at 09:39; Stop 11/04/21 at 09:39; Status DC Albumin Human 500 ml @ As Directed STK-MED ONCE IV ; Start 11/04/21 at 10:16; Stop 11/04/21 at 10:16; Status DC Vasopressin (Vasostrict) 20 unit STK-MED ONCE .ROUTE ; Start 11/04/21 at 10:42; Stop 11/04/21 at 10:43; Status DC Rocuronium [place] (Zemuron) 50 mg STK-MED ONCE .ROUTE ; Start 11/04/21 at 11:06; Stop 11/04/21 at 11:06; Status DC Heparin Sodium (Porcine) (Heparin Sodium) 10,000 unit STK-MED ONCE .ROUTE ; Start 11/04/21 at 11:06; Stop 11/04/21 at 11:06; Status DC Hydromorphone HCl (Dilaudid) 2 mg STK-MED ONCE .ROUTE ; Start 11/04/21 at 11:09; Stop 11/04/21 at 11:09; Status DC Sugammadex Sodium (Bridion) 400 mg 1X ONCE IVP ; Start 11/04/21 at 11:15; Stop 11/04/21 at 11:16; Status DC Cefazolin Sodium/ Dextrose 50 ml @ As Directed STK-MED ONCE IV ; Start 11/04/21 at 11:41; Stop 11/04/21 at 11:42; Status DC Protamine Sulfate (Protamine) 50 mg STK-MED ONCE IV ; Start 11/04/21 at 11:48; Stop 11/04/21 at 11:48; Status DC Gelatin (Gelfoam Size 12-7mm) 1 each STK-MED ONCE .ROUTE Last administered on 11/04/21at 09:05; Start 11/04/21 at 12:08; Stop 11/04/21 at 12:08; Status DC Thrombin 20,000 unit STK-MED ONCE TP Last administered on 11/04/21at 09:05; Start 11/04/21 at 12:08; Stop 11/04/21 at 12:08; Status DC Gelatin (Gelfoam Size 12-7mm) 1 each STK-MED ONCE .ROUTE ; Start 11/04/21 at 12:10; Stop 11/04/21 at 12:11; Status Cancel Gelatin (Gelfoam Size 12-7mm) 1 each STK-MED ONCE .ROUTE ; Start 11/04/21 at 12:10; Stop 11/04/21 at 12:11; Status Cancel Gelatin (Gelfoam Size 12-7mm) 1 each STK-MED ONCE .ROUTE Last administered on 11/04/21at 09:05; Start 11/04/21 at 12:16; Stop 11/04/21 at 12:17; Status DC Gelatin (Gelfoam Size 12-7mm) 1 each STK-MED ONCE .ROUTE ; Start 11/04/21 at 12:16; Stop 11/04/21 at 12:17; Status DC Gelatin (Gelfoam Size 12-7mm) 1 each STK-MED ONCE .ROUTE Last administered on 11/04/21at 09:05; Start 11/04/21 at 12:17; Stop 11/04/21 at 12:17; Status DC Gelatin (Gelfoam Size 12-7mm) 1 each STK-MED ONCE .ROUTE Last administered on 11/04/21at 09:05; Start 11/04/21 at 12:17; Stop 11/04/21 at 12:17; Status DC Sevoflurane (Ultane) 90 ml STK-MED ONCE IH ; Start 11/04/21 at 12:18; Stop 11/04/21 at 12:18; Status DC Insulin Human Lispro (HumaLOG VIAL for OP,RR ONLY) 0-10 units PRN Q1HR PRN SQ PER PROTOCOL Last administered on 11/04/21at 15:08; Start 11/04/21 at 13:30; Stop 11/05/21 at 08:02; Status DC Fentanyl Citrate (Fentanyl 2ml Vial) 100 mcg STK-MED ONCE .ROUTE ; Start 11/04/21 at 13:33; Stop 11/04/21 at 13:33; Status DC Cefazolin Sodium (Ancef) 1 gm Q6H IVP Last administered on 11/05/21at 02:26; Start 11/04/21 at 14:00; Stop 11/05/21 at 02:01; Status DC Famotidine (Pepcid Vial) 20 mg BID IVP ; Start 11/04/21 at 21:00; Status Cancel Info (Icu Electrolyte Protocol) 1 ea DAILY MC Last administered on 11/07/21at 09:00; Start 11/05/21 at 09:00 Naloxone HCl (Narcan) 0.1 mg PRN Q2MIN PRN IV SEE ADMIN INSTRUCTIONS; Start 11/04/21 at 13:30 Sodium Chloride (Normal Saline Flush) 3 ml QSHIFT PRN IV AFTER MEDS AND BLOOD DRAWS; Start 11/04/21 at 13:30 Sodium Chloride 1,000 ml @ 150 mls/hr Q6H40M IV Last administered on 11/05/21at 02:27; Start 11/04/21 at 13:30; Stop 11/05/21 at 13:08; Status DC Naloxone HCl (Narcan) 0.4 mg PRN Q2MIN PRN IV SEE INSTRUCTIONS; Start 11/04/21 at 13:30 Sodium Chloride 1,000 ml @ 25 mls/hr Q24H IV ; Start 11/04/21 at 13:30; Stop 11/05/21 at 15:34; Status DC Morphine Sulfate (Morphine Sulfate) 2 mg PRN Q1HR PRN IV PAIN Last administered on 11/07/21at 05:42; Start 11/04/21 at 13:30 Oxycodone/ Acetaminophen (Percocet 5/325) 1 tab PRN Q4HRS PRN PO MODERATE PAIN Last administered on 11/07/21at 10:45; Start 11/04/21 at 13:30 Oxycodone/ Acetaminophen (Percocet 5/325) 2 tab PRN Q4HRS PRN PO SEVERE PAIN Last administered on 11/06/21at 08:37; Start 11/04/21 at 13:30 Ondansetron HCl (Zofran) 4 mg PRN Q6HRS PRN IVP NAUESA, 1ST CHOICE Last administered on 11/06/21at 12:52; Start 11/04/21 at 13:30 Prochlorperazine Edisylate (Compazine) 5 mg PRN Q6HRS PRN IV N/V, 2nd Choice, MR X1; Start 11/04/21 at 13:30 Hydralazine HCl (Apresoline Inj) 5 mg PRN Q4HRS PRN IVP ELEVATED BP, SEE COMMENTS Last administered on 11/04/21at 14:28; Start 11/04/21 at 13:30 Labetalol HCl (Normodyne Iv Push) 10 mg PRN Q2HR PRN IVP HYPERTENSION (2ND CHOICE) Last administered on 11/04/21at 17:50; Start 11/04/21 at 13:30 Morphine Sulfate (Morphine Sulfate) 2 mg STK-MED ONCE .ROUTE ; Start 11/04/21 at 14:04; Stop 11/04/21 at 14:05; Status DC Hydralazine HCl (Apresoline Inj) 20 mg STK-MED ONCE .ROUTE ; Start 11/04/21 at 14:04; Stop 11/04/21 at 14:05; Status DC Prochlorperazine Edisylate (Compazine) 10 mg STK-MED ONCE .ROUTE ; Start 11/04/21 at 14:04; Stop 11/04/21 at 14:05; Status DC Magnesium Sulfate 50 ml @ 25 mls/hr 1X ONCE IV Last administered on 11/05/21at 10:16; Start 11/05/21 at 09:00; Stop 11/05/21 at 10:59; Status DC Aspirin (Aspirin Chewable) 81 mg 1X ONCE PO Last administered on 11/05/21at 10:16; Start 11/05/21 at 09:30; Stop 11/05/21 at 09:31; Status DC Pantoprazole Sodium (PROTONIX VIAL for IV PUSH) 40 mg DAILYAC IVP Last administered on 11/07/21at 10:46; Start 11/05/21 at 09:30 Sodium Chloride 1,000 ml @ 60 mls/hr [id number] IV Last administered on 11/06/21at 22:48; Start 11/05/21 at 14:00; Stop 11/07/21 at 08:28; Status DC Albuterol Sulfate (Ventolin Neb Soln) 2.5 mg PRN Q6HRS PRN NEB SHORTNESS OF BREATH; Start 11/05/21 at 14:45 Aspirin (Aspirin Chewable) 81 mg DAILYWBKFT PO Last administered on 11/07/21at 10:43; Start 11/06/21 at 09:00 Docusate Sodium (Colace) 100 mg BID PO Last administered on 11/07/21at 10:43; Start 11/06/21 at 10:00 Heparin Sodium (Porcine) (Heparin Sodium) 5,000 unit Q12HR SQ Last administered on 11/07/21at 10:49; Start 11/06/21 at 10:00 Magnesium Sulfate/ Dextrose 100 ml @ 100 mls/hr 1X ONCE IV Last administered on 11/06/21at 10:32; Start 11/06/21 at 10:00; Stop 11/06/21 at 10:59; Status DC Potassium Chloride/Water 100 ml @ 100 mls/hr Q1H PRN IV PER PROTOCOL Last administered on 11/07/21at 10:46; Start 11/07/21 at 08:30; Stop 11/07/21 at 10:48; Status DC Potassium Chloride (Klor-Con) 40 meq Q2H PRN PO PER PROTOCOL; Start 11/07/21 at 08:15; Status UNV Potassium Chloride/Water 100 ml @ 100 mls/hr Q1H PRN IV PER PROTOCOL; Start 11/07/21 at 08:15; Status UNV Potassium Chloride (Klor-Con) 40 meq Q2H PRN PO PER PROTOCOL; Start 11/07/21 at 08:15; Status UNV Active Scripts Active Aspirin Ec (Aspirin) 81 Mg Tablet. 81 Mg PO DAILYWBKFT 90 Days Amlodipine Besylate 10 Mg Tablet 10 Mg PO DAILY 90 Days Atorvastatin Calcium 10 Mg Tablet 10 Mg PO QHS 90 Days Reported Hydrochlorothiazide Tablet (Hydrochlorothiazide) 25 Mg Tablet 25 Mg PO DAILY Metformin Hcl 1,000 Mg Tablet 1,000 Mg PO BIDWMEALS Clopidogrel (Clopidogrel Bisulfate) 75 Mg Tablet 1 Tab PO DAILY Vitamin B-12 (Cyanocobalamin (Vitamin B-12)) 1,000 Mcg Tab.subl 1 Tab SL DAILY 30 Days Vitamin C (Ascorbic Acid) 500 Mg Capsule.er 1 Cap PO DAILY 30 Days Omeprazole 40 Mg Capsule.dr 1 Cap PO DAILY Lyrica (Pregabalin) 50 Mg Capsule 50 Mg PO TID Benadryl (Diphenhydramine Hcl) 25 Mg Capsule 25 Mg PO DAILY Tramadol Hcl 50 Mg Tablet 50 Mg PO Q6HRS PRN Iron (Ferrous Sulfate) 325 Mg Tablet 325 Mg PO DAILY Vitals/I & O Vital Sign - Last 24 Hours 11/06/21 11/06/21 11/06/21 11/06/21 16:00 20:00 20:00 22:54 Temp 98.3 98.9 98.3 98.9 Pulse 86 82 Resp 21 28 23 B/P (MAP) 134/70 (91) 121/62 (81) Pulse Ox 99 99 98 O2 Delivery Room Air Room Air Room Air Room Air 11/07/21 11/07/21 11/07/21 11/07/21 00:00 04:00 05:42 08:00 Temp 98.4 98.5 97.9 98.4 98.5 97.9 Pulse 82 84 82 Resp 19 17 23 20 B/P (MAP) 118/55 (76) 133/63 (86) 131/55 (80) Pulse Ox 97 100 100 94 O2 Delivery Room Air Room Air Room Air Room Air 11/07/21 11/07/21 11/07/21 11/07/21 08:00 10:44 10:45 11:15 Pulse 77 B/P (MAP) 131/65 Pulse Ox 100 100 O2 Delivery Room Air Room Air Room Air O2 Flow Rate 8.0 8.0 Intake and Output 11/06/21 11/06/21 11/07/21 15:00 23:00 07:00 Intake Total 10 ml 1735 ml Output Total 600 ml 200 ml 400 ml Balance -590 ml -200 ml 1335 ml Justifications for Admission Other Justification Severe peripheral vascular disease with gangrenous wounds in the lower extremities FABIENNE ACOSTA MD Nov 07, 2021 13:46
[2021-11-07] MEDS: ATORVASTATIN CALCIUM 10 MG TABLET. PO SCH (21:57)
--- NOTE | 2021-11-07 23:10 | NUR ---
Pt transferred to 6S room 665. Walked pt up in W/C with three green property bags with pt.
[2021-11-08] VITALS (7 sets, daily range): BP systolic 107–160; BP diastolic 65–82
[2021-11-08] MEDS: oxyCODONE/APAP 5/325 1 TAB TABLET PO PRN ×5 (05:37→20:30)
[2021-11-08 05:59] LABS: CREATININE 0.6 mg/dL (0.7-1.3); GFR 140.9; POTASSIUM 3.7 mmol/L (3.5-5.1)
[2021-11-08 06:16] LABS: HEMATOCRIT 25.6 % (39.0-53.0); HEMOGLOBIN 8.8 g/dL (13.0-17.5); RED BLOOD COUNT 2.99 x10^6/uL (4.30-5.70); RED CELL DISTRIBUTION WIDTH 14.9 % (11.5-14.5); WHITE BLOOD COUNT 17.9 x10^3/uL (4.0-11.0)
--- NOTE | 2021-11-08 07:39 | PHYS DOC ---
MODERATE SEDATION ASSESSMENT RISKS/ALTERNATIVES Risks/Alternatives Risks and alternatives of this type of sedation and procedure discussed with: RISK/ALTERNATIVES: Patient H & P ON CHART H & P H & P on chart and reviewed for co-morbid conditions and appropriate labs. H&P ON CHART: Yes STATUS PREG STATUS ASSESSED: Yes MEDS/ALLERGIES REVIEWED Meds/Allergies Reviewed Medications and Allergies including time and route of recently administered narcotics and sedatives. MEDS/ALLERGIES REVIEWED: Yes ASA RATING ASA RATING: III AIRWAY ASSESSMENT Airway Assessment Airway patency, oral function limitations, presence of caps, crowns, dentures, partials, and ability to extend neck assessed. AIRWAY ASSESSMENT: Yes MALLAMPATI SCORE MALLAMPATI SCORE: I PRE-SEDATION ASSESSMENT PRE-SEDATION ASSESSMENT: Yes (No personal or family hx of anesthetic complications) ODALIS SWEENEY MD Nov 08, 2021 07:39
--- NOTE | 2021-11-08 07:46 | PDOC ---
PROGRESS NOTES Date of Service DATE: 11/08/21 TIME: 07:39 Subjective Subjective Patient doing well. able to ambulate some yesterday, having flatus tolerated clears. 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 Heel ulceration on left small with surrounding fissures. left medial calf ulceration.) Diagnosis DIAGNOSIS PAD with left lower extremity ulceration/gangrene Acute blood loss anemia Will proceed with AARO via left arm approach to plan next revascualrization Will need debridement of left calf, heel and 1-5 toe amps on left at time of staged revasc. Comment Review of Relevant I have reviewed the following items ifrah (where applicable) has been applied. Labs Laboratory Tests Test 11/06/21 08:21 11/06/21 12:41 11/06/21 17:29 11/07/21 05:45 Glucose (Fingerstick) 137 mg/dL (70-99) 155 mg/dL (70-99) 129 mg/dL (70-99) White Blood Count 21.8 x10^3/uL (4.0-11.0) Red Blood Count 2.52 x10^6/uL (4.30-5.70) Hemoglobin 7.6 g/dL (13.0-17.5) Hematocrit 23.0 % (39.0-53.0) Mean Corpuscular Volume 91 fL (79-100) Mean Corpuscular Hemoglobin 30 pg (25-35) Mean Corpuscular Hemoglobin Concent 33 g/dL (31-37) Red Cell Distribution Width 14.0 % (11.5-14.5) Platelet Count 251 x10^3/uL (140-400) Sodium Level 136 mmol/L (136-145) Potassium Level 3.4 mmol/L (3.5-5.1) Chloride Level 100 mmol/L (98-107) Carbon Dioxide Level 26 mmol/L (21-32) Anion Gap 10 (6-14) Blood Urea Nitrogen 12 mg/dL (8-26) Creatinine 0.6 mg/dL (0.7-1.3) Estimated GFR (Cockcroft-Gault) 140.9 Glucose Level 124 mg/dL (70-99) Calcium Level 7.9 mg/dL (8.5-10.1) Magnesium Level 2.1 mg/dL (1.8-2.4) Test 11/07/21 12:14 11/07/21 18:10 11/08/21 05:20 11/08/21 07:18 Glucose (Fingerstick) 152 mg/dL (70-99) 121 mg/dL (70-99) 111 mg/dL (70-99) White Blood Count 17.9 x10^3/uL (4.0-11.0) Red Blood Count 2.99 x10^6/uL (4.30-5.70) Hemoglobin 8.8 g/dL (13.0-17.5) Hematocrit 25.6 % (39.0-53.0) Mean Corpuscular Volume 86 fL (79-100) Mean Corpuscular Hemoglobin 30 pg (25-35) Mean Corpuscular Hemoglobin Concent 35 g/dL (31-37) Red Cell Distribution Width 14.9 % (11.5-14.5) Platelet Count 266 x10^3/uL (140-400) Sodium Level 133 mmol/L (136-145) Potassium Level 3.7 mmol/L (3.5-5.1) Chloride Level 100 mmol/L (98-107) Carbon Dioxide Level 26 mmol/L (21-32) Anion Gap 7 (6-14) Blood Urea Nitrogen 13 mg/dL (8-26) Creatinine 0.6 mg/dL (0.7-1.3) Estimated GFR (Cockcroft-Gault) 140.9 Glucose Level 116 mg/dL (70-99) Calcium Level 8.0 mg/dL (8.5-10.1) Magnesium Level 2.0 mg/dL (1.8-2.4) Laboratory Tests Test 11/07/21 12:14 11/07/21 18:10 11/08/21 05:20 11/08/21 07:18 Glucose (Fingerstick) 152 mg/dL (70-99) 121 mg/dL (70-99) 111 mg/dL (70-99) White Blood Count 17.9 x10^3/uL (4.0-11.0) Red Blood Count 2.99 x10^6/uL (4.30-5.70) Hemoglobin 8.8 g/dL (13.0-17.5) Hematocrit 25.6 % (39.0-53.0) Mean Corpuscular Volume 86 fL (79-100) Mean Corpuscular Hemoglobin 30 pg (25-35) Mean Corpuscular Hemoglobin Concent 35 g/dL (31-37) Red Cell Distribution Width 14.9 % (11.5-14.5) Platelet Count 266 x10^3/uL (140-400) Sodium Level 133 mmol/L (136-145) Potassium Level 3.7 mmol/L (3.5-5.1) Chloride Level 100 mmol/L (98-107) Carbon Dioxide Level 26 mmol/L (21-32) Anion Gap 7 (6-14) Blood Urea Nitrogen 13 mg/dL (8-26) Creatinine 0.6 mg/dL (0.7-1.3) Estimated GFR (Cockcroft-Gault) 140.9 Glucose Level 116 mg/dL (70-99) Calcium Level 8.0 mg/dL (8.5-10.1) Magnesium Level 2.0 mg/dL (1.8-2.4) Medications Current Medications Iodixanol 200 ml/ Sodium Chloride 400 ml @ 400 mls/hr 1X ONCE IART Last administered on 10/29/21at 09:00; Start 10/29/21 at 09:00; Stop 10/29/21 at 09:59; Status DC Lidocaine HCl (Xylocaine-Mpf 1% 2ml Vial) 2 ml STK-MED ONCE .ROUTE ; Start 10/29/21 at 10:55; Stop 10/29/21 at 10:55; Status DC Heparin Sodium/ Sodium Chloride 1,000 ml @ As Directed STK-MED ONCE .ROUTE ; Start 10/29/21 at 10:56; Stop 10/29/21 at 10:56; Status DC Nitroglycerin (Nitroglycerin) 200 mcg STK-MED ONCE .ROUTE ; Start 10/29/21 at 10:58; Stop 10/29/21 at 10:58; Status DC Midazolam HCl (Versed) 5 mg STK-MED ONCE .ROUTE ; Start 10/29/21 at 10:59; Stop 10/29/21 at 10:59; Status DC Fentanyl Citrate (Fentanyl 2ml Vial) 100 mcg STK-MED ONCE .ROUTE ; Start 10/29/21 at 10:59; Stop 10/29/21 at 10:59; Status DC Verapamil HCl (Verapamil) 5 mg STK-MED ONCE .ROUTE ; Start 10/29/21 at 10:59; Stop 10/29/21 at 10:59; Status DC Heparin Sodium (Porcine) (Heparin Sodium) 10,000 unit STK-MED ONCE .ROUTE ; Start 10/29/21 at 10:59; Stop 10/29/21 at 11:00; Status DC Diphenhydramine HCl (Benadryl) 50 mg STK-MED ONCE .ROUTE ; Start 10/29/21 at 11:35; Stop 10/29/21 at 11:36; Status DC Nitroglycerin (Nitroglycerin) 200 mcg 1X ONCE IART Last administered on 10/29/21at 12:11; Start 10/29/21 at 12:00; Stop 10/29/21 at 12:05; Status DC Verapamil HCl (Verapamil) 2.5 mg 1X ONCE IART Last administered on 10/29/21at 12:11; Start 10/29/21 at 12:00; Stop 10/29/21 at 12:05; Status DC Heparin Sodium (Porcine) (Heparin Sodium) 2,500 unit 1X ONCE IART Last administered on 10/29/21at 12:13; Start 10/29/21 at 12:00; Stop 10/29/21 at 12:05; Status DC Heparin Sodium/ Sodium Chloride (HEPARIN for ARTERIAL LINE FLUSH) 1,000 unit 1X ONCE IART Last administered on 10/29/21at 12:10; Start 10/29/21 at 12:00; Stop 10/29/21 at 12:05; Status DC Heparin Sodium/ Sodium Chloride (HEPARIN for ARTERIAL LINE FLUSH) 1,000 unit 1X ONCE IART Last administered on 10/29/21at 12:10; Start 10/29/21 at 12:00; Stop 10/29/21 at 12:05; Status DC Midazolam HCl (Versed) 5 mg 1X ONCE IV Last administered on 10/29/21at 12:12; Start 10/29/21 at 12:00; Stop 10/29/21 at 12:05; Status DC Fentanyl Citrate (Fentanyl 2ml Vial) 100 mcg 1X ONCE IV Last administered on 10/29/21at 12:12; Start 10/29/21 at 12:00; Stop 10/29/21 at 12:05; Status DC Iodixanol (Visipaque 320) 100 ml 1X ONCE IART ; Start 10/29/21 at 12:00; Stop 10/29/21 at 12:05; Status DC Lidocaine HCl (Xylocaine-Mpf 1% 2ml Vial) 2 ml 1X ONCE INJ Last administered on 10/29/21at 12:11; Start 10/29/21 at 12:00; Stop 10/29/21 at 12:05; Status DC Diphenhydramine HCl (Benadryl) 50 mg 1X ONCE IVP Last administered on 10/29/21at 12:00; Start 10/29/21 at 12:00; Stop 10/29/21 at 12:05; Status DC Sodium Chloride 1,000 ml @ 100 mls/hr Q10H IV ; Start 10/29/21 at 12:15; Stop 10/30/21 at 12:14; Status DC Iohexol (Omnipaque 350 Mg/ml) 95 ml 1X ONCE IV Last administered on 10/29/21at 13:25; Start 10/29/21 at 13:30; Stop 10/29/21 at 13:34; Status DC Sennosides (Senna) 17.2 mg PRN BID PRN PO CONSTIPATION; Start 10/29/21 at 15:45 Docusate Sodium (Colace) 100 mg PRN DAILY PRN PO HARD STOOLS; Start 10/29/21 at 15:45; Stop 11/06/21 at 08:58; Status DC Ondansetron HCl (Zofran) 4 mg PRN Q6HRS PRN IVP NAUSEA/VOMITING, 1st CHOICE; Start 10/29/21 at 15:45; Status Cancel Insulin Human Lispro (HumaLOG) 0-5 UNITS TIDWMEALS SQ Last administered on 11/07/21at 12:19; Start 10/29/21 at 17:00 Dextrose (Dextrose 50%-Water Syringe) 12.5 gm PRN Q15MIN PRN IV SEE COMMENTS; Start 10/29/21 at 15:45 Sodium Chloride 1,000 ml @ 100 mls/hr Q10H IV Last administered on 10/31/21at 06:45; Start 10/29/21 at 15:45; Stop 10/31/21 at 13:06; Status DC Acetaminophen (Tylenol) 650 mg PRN Q4HRS PRN PO TEMP OVER 100.4F OR MILD PAIN; Start 10/29/21 at 15:45 Lorazepam (Ativan) 0.5 mg PRN Q6HRS PRN PO ANXIETY / AGITATION; Start 10/29/21 at 15:45 Lorazepam (Ativan Inj) 0.25 mg PRN Q4HRS PRN IV ANXIETY / AGITATION; Start at 15:45 Enoxaparin Sodium (Lovenox 40mg Syringe) 40 mg Q24H SQ Last administered on 11/02/21at 17:32; Start 10/29/21 at 16:00; Stop 11/03/21 at 08:18; Status DC Acetaminophen/ Hydrocodone Bitart (Lortab 5/325) 1 tab PRN Q4HRS PRN PO SEVERE PAIN, 1ST CHOICE Last administered on 10/30/21at 20:34; Start 10/29/21 at 15:45; Stop 11/05/21 at 08:00; Status DC Acetaminophen/ Hydrocodone Bitart (Lortab 5/325) 2 tab PRN Q4HRS PRN PO SEVERE PAIN, 2ND CHOICE Last administered on 11/04/21at 02:25; Start 10/29/21 at 15:45; Stop 11/05/21 at 08:00; Status DC Morphine Sulfate (Morphine Sulfate) 1 mg PRN Q1HR PRN IV PAIN-SEE COMMENTS Last administered on 11/01/21at 08:52; Start 10/29/21 at 15:45; Stop 11/04/21 at 13:39; Status DC Morphine Sulfate (Morphine Sulfate) 2 mg PRN Q2HR PRN IVP SEVERE PAIN 7-10; Start 10/29/21 at 15:45; Stop 10/30/21 at 15:44; Status DC Prochlorperazine Edisylate (Compazine) 10 mg PRN Q6HRS PRN IV NAUSEA/VOMITING, 2nd CHOICE; Start 10/29/21 at 15:45; Status Cancel Diphenhydramine HCl (Benadryl) 25 mg PRN Q6HRS PRN IVP ITCHING; Start 10/29/21 at 15:45 Diphenhydramine HCl (Benadryl) 25 mg PRN Q6HRS PRN PO ITCHING; Start 10/29/21 at 15:45 Diphenhydramine HCl (Benadryl) 25 mg PRN QHS PRN PO INSOMNIA, 1st CHOICE Last administered on 10/30/21at 00:19; Start 10/29/21 at 15:45 Zolpidem Tartrate (Ambien) 2.5 mg PRN QHS PRN PO INSOMNIA, 2nd CHOICE; Start 10/29/21 at 15:45 Amlodipine Besylate (Norvasc) 10 mg DAILY PO Last administered on 11/07/21at 10:44; Start 10/30/21 at 09:00 Aspirin (Ecotrin) 81 mg DAILYWBKFT PO Last administered on 11/03/21at 09:05; Start 10/30/21 at 08:00; Stop 11/06/21 at 08:34; Status DC Atorvastatin Calcium (Lipitor) 10 mg QHS PO Last administered on 11/07/21at 21:57; Start 10/29/21 at 21:00 Clopidogrel Bisulfate (Plavix) 75 mg DAILY PO Last administered on 11/03/21at 09:05; Start 10/30/21 at 09:00; Stop 11/04/21 at 13:34; Status DC Diphenhydramine HCl (Benadryl) 25 mg DAILY PO Last administered on 11/07/21at 10:43; Start 10/30/21 at 09:00 Pregabalin (Lyrica) 50 mg TID PO Last administered on 11/07/21at 21:57; Start 10/29/21 at 21:00 Tramadol HCl (Ultram) 50 mg Q6HRS PRN PO MILD PAIN (2ND CHOICE) Last administered on 11/04/21at 17:14; Start 10/29/21 at 17:00 Ascorbic Acid (Vitamin C) 500 mg DAILY PO Last administered on 11/07/21at 10:46; Start 10/30/21 at 09:00 Cyanocobalamin (Vitamin B-12) 1,000 mcg DAILY PO Last administered on 11/07/21at 10:44; Start 10/30/21 at 09:00 Pantoprazole Sodium (Protonix) 40 mg DAILYAC PO Last administered on 11/03/21at 05:46; Start 10/30/21 at 07:30; Stop 11/05/21 at 09:27; Status DC Potassium Chloride (Klor-Con) 40 meq BID PO Last administered on 11/02/21at 08:43; Start 11/01/21 at 14:00; Stop 11/02/21 at 13:59; Status DC Polyethylene Glycol (miraLAX PACKET) 17 gm 1X ONCE PO ; Start 11/03/21 at 08:15; Stop 11/03/21 at 08:16; Status DC Cefazolin Sodium/ Dextrose 50 ml @ 100 mls/hr 1X PREOP PRN IV PRIOR TO PROCED URE Last administered on 11/04/21at 08:06; Start 11/04/21 at 08:00; Stop 11/04/21 at 18:00; Status DC Heparin Sodium (Porcine) 5000 unit/Sodium Chloride 505 ml @ 505 mls/hr 1X ONCE IRR Last administered on 11/04/21at 09:05; Start 11/04/21 at 06:00; Stop 11/04/21 at 06:59; Status DC Cefazolin Sodium 1 gm/Sodium Chloride 500 ml @ 500 mls/hr 1X ONCE IRR Last administered on 11/04/21at 09:05; Start 11/04/21 at 06:00; Stop 11/04/21 at 06:59; Status DC Fentanyl Citrate (Fentanyl 2ml Vial) 25 mcg PRN Q5MIN PRN IVP MILD PAIN 1-3; Start 11/04/21 at 06:00; Stop 11/04/21 at 16:54; Status DC Fentanyl Citrate (Fentanyl 2ml Vial) 50 mcg PRN Q5MIN PRN IVP MODERATE PAIN 4-6 Last administered on 11/04/21at 14:02; Start 11/04/21 at 06:00; Stop 11/04/21 at 16:54; Status DC Morphine Sulfate (Morphine Sulfate) 1 mg PRN Q10MIN PRN IVP SEVERE PAIN 7-10 Last administered on 11/04/21at 14:28; Start 11/04/21 at 06:00; Stop 11/04/21 at 16:47; Status DC Ringer's Solution 1,000 ml @ 30 mls/hr Q24H IV Last administered on 11/04/21at 06:00; Start 11/04/21 at 06:00; Stop 11/04/21 at 17:59; Status DC Hydromorphone HCl (Dilaudid) 0.5 mg PRN Q10MIN PRN IVP SEVERE PAIN 7-10, 2nd CHOICE; Start 11/04/21 at 06:00; Stop 11/04/21 at 16:47; Status DC Prochlorperazine Edisylate (Compazine) 5 mg PACU PRN PRN IVP NAUSEA, MRX1 Last administered on 11/04/21at 14:09; Start 11/04/21 at 06:00; Stop 11/04/21 at 16:54; Status DC Cefazolin Sodium/ Dextrose 50 ml @ As Directed STK-MED ONCE IV ; Start 11/04/21 at 06:32; Stop 11/04/21 at 06:32; Status DC Rocuronium [place] (Zemuron) 50 mg STK-MED ONCE .ROUTE ; Start 11/04/21 at 06:54; Stop 11/04/21 at 06:54; Status DC Fentanyl Citrate (Fentanyl 2ml Vial) 100 mcg STK-MED ONCE .ROUTE ; Start 11/04/21 at 06:54; Stop 11/04/21 at 06:54; Status DC Midazolam HCl (Versed) 2 mg STK-MED ONCE .ROUTE ; Start 11/04/21 at 06:54; Stop 11/04/21 at 06:54; Status DC Propofol (Diprivan) 200 mg STK-MED ONCE IV ; Start 11/04/21 at 06:54; Stop 11/04/21 at 06:55; Status DC Lidocaine HCl (Lidocaine Pf 2% Vial) 5 ml STK-MED ONCE .ROUTE ; Start 11/04/21 at 06:54; Stop 11/04/21 at 06:55; Status DC Ondansetron HCl (Zofran) 4 mg STK-MED ONCE .ROUTE ; Start 11/04/21 at 06:54; Stop 11/04/21 at 06:55; Status DC Dexamethasone Sodium Phosphate (Decadron) 4 mg STK-MED ONCE .ROUTE ; Start 11/04/21 at 06:54; Stop 11/04/21 at 06:55; Status DC Cellulose (Surgicel Fibrillar 1x2) 1 each STK-MED ONCE .ROUTE Last administered on 11/04/21at 09:05; Start 11/04/21 at 07:03; Stop 11/04/21 at 07:03; Status DC Heparin Sodium (Porcine) (Heparin Sodium) 10,000 unit STK-MED ONCE .ROUTE ; Start 11/04/21 at 07:03; Stop 11/04/21 at 07:04; Status DC Phenylephrine HCl (Jayce-Synephrine Inj) 10 mg STK-MED ONCE .ROUTE ; Start 11/04/21 at 07:09; Stop 11/04/21 at 07:09; Status DC Heparin Sodium (Porcine) (Heparin Sodium) 10,000 unit STK-MED ONCE .ROUTE ; Start 11/04/21 at 07:34; Stop 11/04/21 at 07:35; Status DC Fentanyl Citrate (Fentanyl 2ml Vial) 100 mcg STK-MED ONCE .ROUTE ; Start 11/04/21 at 09:39; Stop 11/04/21 at 09:39; Status DC Albumin Human 500 ml @ As Directed STK-MED ONCE IV ; Start 11/04/21 at 10:16; Stop 11/04/21 at 10:16; Status DC Vasopressin (Vasostrict) 20 unit STK-MED ONCE .ROUTE ; Start 11/04/21 at 10:42; Stop 11/04/21 at 10:43; Status DC Rocuronium [place] (Zemuron) 50 mg STK-MED ONCE .ROUTE ; Start 11/04/21 at 11:06; Stop 11/04/21 at 11:06; Status DC Heparin Sodium (Porcine) (Heparin Sodium) 10,000 unit STK-MED ONCE .ROUTE ; Start 11/04/21 at 11:06; Stop 11/04/21 at 11:06; Status DC Hydromorphone HCl (Dilaudid) 2 mg STK-MED ONCE .ROUTE ; Start 11/04/21 at 11:09; Stop 11/04/21 at 11:09; Status DC Sugammadex Sodium (Bridion) 400 mg 1X ONCE IVP ; Start 11/04/21 at 11:15; Stop 11/04/21 at 11:16; Status DC Cefazolin Sodium/ Dextrose 50 ml @ As Directed STK-MED ONCE IV ; Start 11/04/21 at 11:41; Stop 11/04/21 at 11:42; Status DC Protamine Sulfate (Protamine) 50 mg STK-MED ONCE IV ; Start 11/04/21 at 11:48; Stop 11/04/21 at 11:48; Status DC Gelatin (Gelfoam Size 12-7mm) 1 each STK-MED ONCE .ROUTE Last administered on 11/04/21at 09:05; Start 11/04/21 at 12:08; Stop 11/04/21 at 12:08; Status DC Thrombin 20,000 unit STK-MED ONCE TP Last administered on 11/04/21at 09:05; Start 11/04/21 at 12:08; Stop 11/04/21 at 12:08; Status DC Gelatin (Gelfoam Size 12-7mm) 1 each STK-MED ONCE .ROUTE ; Start 11/04/21 at 12:10; Stop 11/04/21 at 12:11; Status Cancel Gelatin (Gelfoam Size 12-7mm) 1 each STK-MED ONCE .ROUTE ; Start 11/04/21 at 12:10; Stop 11/04/21 at 12:11; Status Cancel Gelatin (Gelfoam Size 12-7mm) 1 each STK-MED ONCE .ROUTE Last administered on 11/04/21at 09:05; Start 11/04/21 at 12:16; Stop 11/04/21 at 12:17; Status DC Gelatin (Gelfoam Size 12-7mm) 1 each STK-MED ONCE .ROUTE ; Start 11/04/21 at 12:16; Stop 11/04/21 at 12:17; Status DC Gelatin (Gelfoam Size 12-7mm) 1 each STK-MED ONCE .ROUTE Last administered on 11/04/21at 09:05; Start 11/04/21 at 12:17; Stop 11/04/21 at 12:17; Status DC Gelatin (Gelfoam Size 12-7mm) 1 each STK-MED ONCE .ROUTE Last administered on 11/04/21at 09:05; Start 11/04/21 at 12:17; Stop 11/04/21 at 12:17; Status DC Sevoflurane (Ultane) 90 ml STK-MED ONCE IH ; Start 11/04/21 at 12:18; Stop 11/04/21 at 12:18; Status DC Insulin Human Lispro (HumaLOG VIAL for OP,RR ONLY) 0-10 units PRN Q1HR PRN SQ PER PROTOCOL Last administered on 11/04/21at 15:08; Start 11/04/21 at 13:30; Stop 11/05/21 at 08:02; Status DC Fentanyl Citrate (Fentanyl 2ml Vial) 100 mcg STK-MED ONCE .ROUTE ; Start 11/04 at 13:33; Stop 11/04/21 at 13:33; Status DC Cefazolin Sodium (Ancef) 1 gm Q6H IVP Last administered on 11/05/21at 02:26; S tart 11/04/21 at 14:00; Stop 11/05/21 at 02:01; Status DC Famotidine (Pepcid Vial) 20 mg BID IVP ; Start 11/04/21 at 21:00; Status Cancel Info (Icu Electrolyte Protocol) 1 ea DAILY MC Last administered on 11/07/21at 09:00; Start 11/05/21 at 09:00 Naloxone HCl (Narcan) 0.1 mg PRN Q2MIN PRN IV SEE ADMIN INSTRUCTIONS; Start 11/04/21 at 13:30 Sodium Chloride (Normal Saline Flush) 3 ml QSHIFT PRN IV AFTER MEDS AND BLOOD DRAWS; Start 11/04/21 at 13:30 Sodium Chloride 1,000 ml @ 150 mls/hr Q6H40M IV Last administered on 11/05/21at 02:27; Start 11/04/21 at 13:30; Stop 11/05/21 at 13:08; Status DC Naloxone HCl (Narcan) 0.4 mg PRN Q2MIN PRN IV SEE INSTRUCTIONS; Start 11/04/21 at 13:30 Sodium Chloride 1,000 ml @ 25 mls/hr Q24H IV ; Start 11/04/21 at 13:30; Stop 11/05/21 at 15:34; Status DC Morphine Sulfate (Morphine Sulfate) 2 mg PRN Q1HR PRN IV PAIN Last administered on 11/07/21at 05:42; Start 11/04/21 at 13:30 Oxycodone/ Acetaminophen (Percocet 5/325) 1 tab PRN Q4HRS PRN PO MODERATE PAIN Last administered on 11/07/21at 15:12; Start 11/04/21 at 13:30 Oxycodone/ Acetaminophen (Percocet 5/325) 2 tab PRN Q4HRS PRN PO SEVERE PAIN Last administered on 11/08/21at 05:37; Start 11/04/21 at 13:30 Ondansetron HCl (Zofran) 4 mg PRN Q6HRS PRN IVP NAUESA, 1ST CHOICE Last ad ministered on 11/06/21at 12:52; Start 11/04/21 at 13:30 Prochlorperazine Edisylate (Compazine) 5 mg PRN Q6HRS PRN IV N/V, 2nd Choice, MR X1; Start 11/04/21 at 13:30 Hydralazine HCl (Apresoline Inj) 5 mg PRN Q4HRS PRN IVP ELEVATED BP, SEE COMMENTS Last administered on 11/04/21at 14:28; Start 11/04/21 at 13:30 Labetalol HCl (Normodyne Iv Push) 10 mg PRN Q2HR PRN IVP HYPERTENSION (2ND CHOICE) Last administered on 11/04/21at 17:50; Start 11/04/21 at 13:30 Morphine Sulfate (Morphine Sulfate) 2 mg STK-MED ONCE .ROUTE ; Start 11/04/21 at 14:04; Stop 11/04/21 at 14:05; Status DC Hydralazine HCl (Apresoline Inj) 20 mg STK-MED ONCE .ROUTE ; Start 11/04/21 at 14:04; Stop 11/04/21 at 14:05; Status DC Prochlorperazine Edisylate (Compazine) 10 mg STK-MED ONCE .ROUTE ; Start 11/04/21 at 14:04; Stop 11/04/21 at 14:05; Status DC Magnesium Sulfate 50 ml @ 25 mls/hr 1X ONCE IV Last administered on 11/05/21at 10:16; Start 11/05/21 at 09:00; Stop 11/05/21 at 10:59; Status DC Aspirin (Aspirin Chewable) 81 mg 1X ONCE PO Last administered on 11/05/21at 10:16; Start 11/05/21 at 09:30; Stop 11/05/21 at 09:31; Status DC Pantoprazole Sodium (PROTONIX VIAL for IV PUSH) 40 mg DAILYAC IVP Last administered on 11/07/21at 10:46; Start 11/05/21 at 09:30 Sodium Chloride 1,000 ml @ 60 mls/hr [id number] IV Last administered on 11/06/21at 22:48; Start 11/05/21 at 14:00; Stop 11/07/21 at 08:28; Status DC Albuterol Sulfate (Ventolin Neb Soln) 2.5 mg PRN Q6HRS PRN NEB SHORTNESS OF BREATH; Start 11/05/21 at 14:45 Aspirin (Aspirin Chewable) 81 mg DAILYWBKFT PO Last administered on 11/07/21at 10:43; Start 11/06/21 at 09:00 Docusate Sodium (Colace) 100 mg BID PO Last administered on 11/07/21at 21:57; Start 11/06/21 at 10:00 Heparin Sodium (Porcine) (Heparin Sodium) 5,000 unit Q12HR SQ Last administered on 11/07/21at 21:58; Start 11/06/21 at 10:00 Magnesium Sulfate/ Dextrose 100 ml @ 100 mls/hr 1X ONCE IV Last administered on 11/06/21at 10:32; Start 11/06/21 at 10:00; Stop 11/06/21 at 10:59; Status DC Potassium Chloride/Water 100 ml @ 100 mls/hr Q1H PRN IV PER PROTOCOL Last administered on 11/07/21at 10:46; Start 11/07/21 at 08:30; Stop 11/07/21 at 10:48; Status DC Potassium Chloride (Klor-Con) 40 meq Q2H PRN PO PER PROTOCOL; Start 11/07/21 at 08:15; Status UNV Potassium Chloride/Water 100 ml @ 100 mls/hr Q1H PRN IV PER PROTOCOL; Start 11/07/21 at 08:15; Status UNV Potassium Chloride (Klor-Con) 40 meq Q2H PRN PO PER PROTOCOL; Start 11/07/21 at 08:15; Status UNV Active Scripts Active Aspirin Ec (Aspirin) 81 Mg Tablet. 81 Mg PO DAILYWBKFT 90 Days Amlodipine Besylate 10 Mg Tablet 10 Mg PO DAILY 90 Days Atorvastatin Calcium 10 Mg Tablet 10 Mg PO QHS 90 Days Reported Hydrochlorothiazide Tablet (Hydrochlorothiazide) 25 Mg Tablet 25 Mg PO DAILY Metformin Hcl 1,000 Mg Tablet 1,000 Mg PO BIDWMEALS Clopidogrel (Clopidogrel Bisulfate) 75 Mg Tablet 1 Tab PO DAILY Vitamin B-12 (Cyanocobalamin (Vitamin B-12)) 1,000 Mcg Tab.subl 1 Tab SL DAILY 30 Days Vitamin C (Ascorbic Acid) 500 Mg Capsule.er 1 Cap PO DAILY 30 Days Omeprazole 40 Mg Capsule.dr 1 Cap PO DAILY Lyrica (Pregabalin) 50 Mg Capsule 50 Mg PO TID Benadryl (Diphenhydramine Hcl) 25 Mg Capsule 25 Mg PO DAILY Tramadol Hcl 50 Mg Tablet 50 Mg PO Q6HRS PRN Iron (Ferrous Sulfate) 325 Mg Tablet 325 Mg PO DAILY Vitals/I & O Vital Sign - Last 24 Hours 11/07/21 11/07/21 11/07/21 11/07/21 08:00 08:00 10:44 10:45 Temp 97.9 97.9 Pulse 82 77 Resp 20 B/P (MAP) 131/55 (80) 131/65 Pulse Ox 94 100 O2 Delivery Room Air Room Air Room Air O2 Flow Rate 8.0 11/07/21 11/07/21 11/07/21 11/07/21 11:15 12:00 13:55 14:10 Temp 97.7 97.7 98.5 97.7 97.7 98.5 Pulse 82 80 73 Resp 18 20 16 B/P (MAP) 95/54 (68) 95/54 95/53 Pulse Ox 100 99 O2 Delivery Room Air Room Air O2 Flow Rate 8.0 11/07/21 11/07/21 11/07/21 11/07/21 15:10 15:12 15:42 16:00 Temp 97.6 97.6 97.6 97.6 Pulse 74 72 Resp 18 18 B/P (MAP) 99/63 99/63 (75) Pulse Ox 100 97 97 O2 Delivery Room Air Room Air Room Air O2 Flow Rate 8.0 8.0 11/07/21 11/07/21 11/07/21 11/07/21 20:00 20:00 23:10 23:15 Temp 98.3 97.7 98.3 97.7 Pulse 72 74 Resp 18 20 B/P (MAP) 111/68 (82) 138/69 (92) Pulse Ox 100 93 O2 Delivery Room Air Room Air Room Air Room Air 11/08/21 11/08/21 11/08/21 11/08/21 00:00 03:20 05:37 06:07 Temp 97.9 97.9 Pulse 66 Resp 20 20 B/P (MAP) 116/70 (85) Pulse Ox 96 96 O2 Delivery Room Air Room Air Room Air Room Air 11/08/21 07:00 Temp 97.7 97.7 Pulse 68 Resp 18 B/P (MAP) 124/69 (87) Pulse Ox 97 O2 Delivery Room Air Intake and Output 11/07/21 11/07/21 11/08/21 15:00 23:00 07:00 Intake Total 350 ml 400 ml 0 ml Output Total 450 ml 250 ml Balance -100 ml 150 ml 0 ml Justifications for Admission Other Justification Severe peripheral vascular disease with gangrenous wounds in the lower extremities ODALIS SWEENEY MD Nov 08, 2021 07:46
[2021-11-08] MEDS: INSULIN LISPRO 300 UNITS/3 ML VIAL. SQ SCH ×3 (08:00→17:00)
[2021-11-08] MEDS: diphenhydrAMINE HCL 25 MG CAPSULE PO SCH (08:01)
[2021-11-08] MEDS: ASPIRIN CHEWABLE 81 MG TABLET. PO SCH (08:01)
[2021-11-08] MEDS: DOCUSATE SODIUM 100 MG CAPSULE. PO SCH ×2 (08:02→20:27)
[2021-11-08] MEDS: ASCORBIC ACID 500 MG TABLET PO SCH (08:02)
[2021-11-08] MEDS: PREGABALIN 50 MG CAPSULE PO SCH ×3 (08:03→20:30)
[2021-11-08] MEDS: CYANOCOBALAMIN (VITAMIN B-12) 1,000 MCG TABLET. PO SCH (08:03)
[2021-11-08] MEDS: HEPARIN for SUB-Q USE 5,000 UNIT/ML VIAL. SQ SCH ×2 (08:05→20:26)
[2021-11-08] MEDS: PANTOPRAZOLE IV PUSH 40 MG VIAL. IVP SCH (08:06)
[2021-11-08] MEDS ORDERED: LIDOCAINE 1% PF 2 ML VIAL. ONE (08:07)
[2021-11-08] MEDS ORDERED: VERAPAMIL 5 MG/2 ML VIAL. ONE (08:11)
[2021-11-08] MEDS ORDERED: MIDAZOLAM HCL/PF 2 MG/2 ML VIAL. ONE (08:11)
[2021-11-08] MEDS ORDERED: fentaNYL PF VIAL 100 MCG/2 ML VIAL ONE (08:11)
[2021-11-08] MEDS ORDERED: HEPARIN for IV BOLUS 10,000 UNIT/10 ML VIAL. ONE (08:11)
[2021-11-08] MEDS ORDERED: IODIXANOL 320 200 ML in NS 200 ML IART ONE (08:30)
[2021-11-08] MEDS ORDERED: diphenhydrAMINE 50 MG/ML VIAL ONE (08:52)
[2021-11-08] MEDS ORDERED: VERAPAMIL 5 MG/2 ML VIAL. IART ONE (09:15)
[2021-11-08] MEDS ORDERED: HEPARIN for IV BOLUS 10,000 UNIT/10 ML VIAL. IV ONE (09:15)
[2021-11-08] MEDS ORDERED: fentaNYL PF VIAL 100 MCG/2 ML VIAL IVP ONE (09:15)
[2021-11-08] MEDS ORDERED: LIDOCAINE 1% PF 2 ML VIAL. INJ ONE (09:15)
[2021-11-08] MEDS ORDERED: NITROGLYCERIN 200 MCG/2 ML SYRINGE FOR CATH/VASC LAB. IART ONE (09:15)
[2021-11-08] MEDS ORDERED: HEPARIN for IV BOLUS 10,000 UNIT/10 ML VIAL. IART ONE (09:15)
[2021-11-08] MEDS ORDERED: MIDAZOLAM HCL/PF 2 MG/2 ML VIAL. IV ONE (09:15)
[2021-11-08] MEDS ORDERED: diphenhydrAMINE 50 MG/ML VIAL IVP ONE (09:15)
[2021-11-08] MEDS ORDERED: IODIXANOL 320 MG/ML 100 ML VIAL. ONE (09:25)
--- NOTE | 2021-11-08 09:40 | NUR ---
REC'D REPORT FROM [facility]. PT RETURNING WITH TR BAND ON, TIME OF HOMEOSTASIS 0933. WILL BEGIN REMOVING AIR AT 1033.
[2021-11-08] MEDS ORDERED: PROTAMINE 50 MG/5 ML VIAL. IV ONE (09:45)
--- NOTE | 2021-11-08 10:48 | PDOC ---
CHI GOODE PHOTOENGRAVING FINISHER 11/08/21 1048: CARDIO Progress Notes Date and Time Date of Service 11/08/21 Time of Evaluation 1045 Subjective Subjective: No Chest Pain, No shortness of breath, No Palpitations, Other (sleepy ) Vitals Vitals Vital Signs Date Time Temp Pulse Resp B/P (MAP) Pulse Ox O2 Delivery O2 Flow Rate FiO2 11/08/21 10:32 67 16 128/67 (87) 97 Room Air 11/08/21 10:13 2.0 11/08/21 07:00 97.7 97.7 Weight Weight [ ] Input and Output Intake and Output Intake and Output 11/08/21 07:00 Intake Total 750 ml Output Total 700 ml Balance 50 ml Intake Oral 750 ml Output Urine Total 700 ml Laboratory Labs Laboratory Tests Test 11/07/21 12:14 11/07/21 18:10 11/08/21 05:20 11/08/21 07:18 Glucose (Fingerstick) 152 mg/dL (70-99) 121 mg/dL (70-99) 111 mg/dL (70-99) White Blood Count 17.9 x10^3/uL (4.0-11.0) Red Blood Count 2.99 x10^6/uL (4.30-5.70) Hemoglobin 8.8 g/dL (13.0-17.5) Hematocrit 25.6 % (39.0-53.0) Mean Corpuscular Volume 86 fL (79-100) Mean Corpuscular Hemoglobin 30 pg (25-35) Mean Corpuscular Hemoglobin Concent 35 g/dL (31-37) Red Cell Distribution Width 14.9 % (11.5-14.5) Platelet Count 266 x10^3/uL (140-400) Sodium Level 133 mmol/L (136-145) Potassium Level 3.7 mmol/L (3.5-5.1) Chloride Level 100 mmol/L (98-107) Carbon Dioxide Level 26 mmol/L (21-32) Anion Gap 7 (6-14) Blood Urea Nitrogen 13 mg/dL (8-26) Creatinine 0.6 mg/dL (0.7-1.3) Estimated GFR (Cockcroft-Gault) 140.9 Glucose Level 116 mg/dL (70-99) Calcium Level 8.0 mg/dL (8.5-10.1) Magnesium Level 2.0 mg/dL (1.8-2.4) Physical Exam HEENT: Neck Supple W Full Motion Chest: Symmetric LUNGS: Clear to Auscultation Heart: RRR Abdomen: Soft N/T Extremities: Other (left franklin wound, left 3 digits toe gangrene with surrounding erythema. ) Neurology: alert, other (drowsy post procedure ) Assessment Assessment 1. Severe peripheral vascular disease, critical limb ischemia and left foot toes gangrene. s/p aortobifemoral bypass surgery. Underwent AARO this morning for further surgical planning. continue as per vascular team 2. Coronary artery disease s/p coronary artery bypass surgery in February 2021, presently stable and chest pain-free. Echo with LVEF 65% with diastolic dysfunction. Continue current secondary prevention measures 3. Bilateral carotid stenosis; Carotid US with moderate bilateral ICA disease 4. Hypertension: Controlled 5. Hyperlipidemia: Statin therapy 6. DM2: Treat per IM 7. Anemia; s/p transfusion; hgb stable 8. Leukocytosis 9. Tobacco abuse: Advised on smoking cessation Justicifation of Admission Dx: Justifications for Admission: Justification of Admission Dx: Yes MOLLY VARGAS MD 11/08/21 1547: CARDIO Progress Notes Assessment Assessment Patient seen and examined. Agree with GUM SPRAYER's assessment and plan. Severe PAD/critical limb ischemia underwent aortobifemoral bypass surgery last week and aortogram with runoff this morning for further surgical planning. Continue management per vascular surgery team. CAD s/p CABG clinically stable Continue current medical regimen CHI GOODE APRN Nov 08, 2021 10:48 MOLLY VARGAS MD Nov 08, 2021 15:47
--- NOTE | 2021-11-08 12:01 | PDOC ---
[facility] PROGRESS NOTE Date of Service DOS: DATE: 11/08/21 TIME: 11:59 Chief Complaint Chief Complaint Postop day 12 OPERATIONS PERFORMED: 1. Aortobilateral profunda femoris bypass with 16 x 8 bifurcated Catharpin-Riley graft.2. 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% occlusion of the left common iliac artery Renal artery stenosis atherosclerotic disease in the abdominal aorta, celiac axis and SMA Bilateral carotid stenosis approximately 50% History of diabetes mellitus type 2 History of hypertension History of CAD History of Present Illness History of Present Illness 11/08/2021 Patient seen and examined He is resting with no apparent distress He just got back from angiography with runoff of the lower extremities Discussed with case management Discussed with RN Chart reviewed 11/07: Hb to 7.6. NG tube out no further abdominal pain nausea vomiting. Passing some stool. Left leg and foot pain stable. Up to chair today. Wearing Rooke boots n.p.o. for midnight for angiography. 11/06: Hb dropped to 8.1. Complaining of lower abdominal pain. Was able to get up to the chair on 225. Says he is passing flatus. NG tube to suction 200 cc. 11/05/2021 Patient seen and examined in the ICU He has an NG clamped He has Rooke boots on both lower extremities Appears depressed He had lower extremity bypass yesterday Discussed with RN Chart reviewed 11/04, Surgery today, fem pop 55-year-old male with significant past medical history of for pancreatitis, hypertension, CABG, peripheral vascular disease with critical limb ischemia who underwent an angio of his lower extremities showing severe peripheral vascular disease and lower extremity wounds. Patient is admitted to the hospitalist service for further management and consult to the vascular surgery service. 2 Vitals/I&O Vitals/I&O: Vital Signs Date Time Temp Pulse Resp B/P (MAP) Pulse Ox O2 Delivery O2 Flow Rate FiO2 11/08/21 10:32 67 16 128/67 (87) 97 Room Air 11/08/21 10:13 2.0 11/08/21 07:00 97.7 97.7 I & O 11/07/21 11/07/21 11/08/21 14:59 22:59 06:59 Intake Total 350 ml 400 ml 0 ml Output Total 450 ml 250 ml Balance -100 ml 150 ml 0 ml Physical Exam General: No acute distress Heart: Regular rate Lungs: Crackles Abdomen: Soft, Other (incision c/d/i with gay/) Extremities: Other (Dry gangrene of left toes 1-5, medial ulceration on left calf with dry eschar. PT signals bilaterally. Palpable femoral pulses bilaterally) Skin: Other (Dry gangrene of left toes 1-5. Heel ulceration on left small with surrounding fissures. left medial calf ulceration.) Labs Labs: Laboratory Tests Test 11/07/21 12:14 11/07/21 18:10 11/08/21 05:20 11/08/21 07:18 Glucose (Fingerstick) 152 mg/dL (70-99) 121 mg/dL (70-99) 111 mg/dL (70-99) White Blood Count 17.9 x10^3/uL (4.0-11.0) Red Blood Count 2.99 x10^6/uL (4.30-5.70) Hemoglobin 8.8 g/dL (13.0-17.5) Hematocrit 25.6 % (39.0-53.0) Mean Corpuscular Volume 86 fL (79-100) Mean Corpuscular Hemoglobin 30 pg (25-35) Mean Corpuscular Hemoglobin Concent 35 g/dL (31-37) Red Cell Distribution Width 14.9 % (11.5-14.5) Platelet Count 266 x10^3/uL (140-400) Sodium Level 133 mmol/L (136-145) Potassium Level 3.7 mmol/L (3.5-5.1) Chloride Level 100 mmol/L (98-107) Carbon Dioxide Level 26 mmol/L (21-32) Anion Gap 7 (6-14) Blood Urea Nitrogen 13 mg/dL (8-26) Creatinine 0.6 mg/dL (0.7-1.3) Estimated GFR (Cockcroft-Gault) 140.9 Glucose Level 116 mg/dL (70-99) Calcium Level 8.0 mg/dL (8.5-10.1) Magnesium Level 2.0 mg/dL (1.8-2.4) Test 11/08/21 11:47 Glucose (Fingerstick) 101 mg/dL (70-99) Assessment and Plan Assessmemt and Plan Postop day 12 OPERATIONS PERFORMED: 1. Aortobilateral profunda femoris bypass with 16 x 8 bifurcated Catharpin-Riley graft.2. 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% occlusion of the left common iliac artery Renal artery stenosis atherosclerotic disease in the abdominal aorta, celiac axis and SMA Bilateral carotid stenosis approximately 50% History of diabetes mellitus type 2 History of hypertension History of CAD Plan Await angiography results Continue wound care Cardiac monitoring Home meds DVT prophylaxis Full code PT OT Encourage p.o. intake Trend labs Comment Review of Relevant I have reviewed the following items ifrah (where applicable) has been applied. Medications: Current Medications Medications (Trade) Dose Ordered Sig/Amara Route PRN Reason Start Time Stop Time Status Last Admin Dose Admin Iodixanol 200 ml/ Sodium Chloride 400 ml @ 400 mls/hr 1X ONCE IART 11/08/21 08:30 11/08/21 09:29 DC 11/08/21 08:30 Nitroglycerin (Nitroglycerin) 200 mcg 1X ONCE IART 11/08/21 09:15 11/08/21 09:22 DC 11/08/21 09:43 Verapamil HCl (Verapamil) 2.5 mg 1X ONCE IART 11/08/21 09:15 11/08/21 09:22 DC 11/08/21 09:44 Heparin Sodium (Porcine) (Heparin Sodium) 2,500 unit 1X ONCE IART 11/08/21 09:15 11/08/21 09:22 DC 11/08/21 09:46 Heparin Sodium/ Sodium Chloride (HEPARIN for ARTERIAL LINE FLUSH) 1,000 unit 1X ONCE IART 11/08/21 09:15 11/08/21 09:22 DC 11/08/21 09:44 Heparin Sodium/ Sodium Chloride (HEPARIN for ARTERIAL LINE FLUSH) 1,000 unit 1X ONCE IART 11/08/21 09:15 11/08/21 09:22 DC 11/08/21 09:45 Midazolam HCl (Versed) 2 mg 1X ONCE IV 11/08/21 09:15 11/08/21 09:22 DC 11/08/21 09:45 Lidocaine HCl (Xylocaine-Mpf 1% 2ml Vial) 2 ml 1X ONCE INJ 11/08/21 09:15 11/08/21 09:22 DC 11/08/21 09:42 Diphenhydramine HCl (Benadryl) 50 mg 1X ONCE IVP 11/08/21 09:15 11/08/21 09:22 DC 11/08/21 09:43 Fentanyl Citrate (Fentanyl 2ml Vial) 75 mcg 1X ONCE IVP 11/08/21 09:15 11/08/21 09:22 DC 11/08/21 09:43 Heparin Sodium (Porcine) (Heparin Sodium) 2,000 unit 1X ONCE IV 11/08/21 09:15 11/08/21 09:22 DC 11/08/21 09:46 Protamine Sulfate (Protamine) 20 mg 1X ONCE IV 11/08/21 09:45 11/08/21 09:46 DC 11/08/21 09:45 Justifications for Admission Other Justification Severe peripheral vascular disease with gangrenous wounds in the lower extremities CATHY GARCIA III DO Nov 08, 2021 12:01
--- NOTE | 2021-11-08 12:26 | NUR ---
ALL AIR REMOVED FROM TR BAND AT THIS TIME. NO WEEPING OR DRAINAGE FROM UNDER BAND. WILL REMOVE BAND IN 1 HOUR, ARM BOARD TO REMAIN IN PLACE.
--- NOTE | 2021-11-08 12:43 | NUR ---
SS following up with discharge planning. SS reviewed pt chart and discussed with pt RN. Pt is currently on room air. COVID19 negative. Pt having abdominal aortogram today. PT/OT recommended inpatient rehabilitation. SS met with pt and discussed discharge planning and inpatient rehabilitation. Pt stated that he would prefer to return to home with outpatient PT/OT. Pt stated that his son and spouse are waiting at home for him and could provide transportation to and from appointments. Pt's RN notified. SS will continue to follow for discharge planning.
--- NOTE | 2021-11-08 17:19 | OP ---
DATE OF SURGERY: 11/08/2021 SURGEON: Dr. Laya Harrison. PREOPERATIVE DIAGNOSES: 1. Peripheral arterial disease with ulcerations, left lower extremity. 2. Hypertension. 3. Coronary artery disease. POSTOPERATIVE DIAGNOSES: 1. Peripheral arterial disease with ulcerations, left lower extremity. 2. Hypertension. 3. Coronary artery disease.. INDICATION FOR PROCEDURE: This is a 55-year-old male who recently underwent aortobifemoral bypass as a limb salvage procedure for the left lower extremity. He now presents for angiography to obtain better imaging of the lower extremity arteries to allow for planning for a bypass operation to complete revascularization of the bilateral lower extremities. OPERATIVE FINDINGS: The aortobifemoral bypass is widely patent. LEFT LOWER EXTREMITY ANGIOGRAPHY: There is evidence of at least 70% stenosis in the proximal deep femoral artery on the left. There is occlusion shortly after takeoff of the left superficial femoral artery with a 1 cm nub of patent superficial femoral artery. The superficial femoral artery reconstitutes at the P1 segment of the popliteal artery, although it is very diseased at this segment. There has been a healthy appearing P3 popliteal artery with a healthy appearing tibioperoneal trunk and proximally the anterior tibial artery, peroneal artery, and posterior tibial artery are all patent; however, the anterior tibial and peroneal artery occlude distally and there has been single vessel runoff via the posterior tibial artery into the foot. Selective angio of the right lower extremity was then performed. RIGHT LOWER EXTREMITY ANGIOGRAPHY: The profunda femoris is patent. There is occlusion of the right superficial femoral artery shortly after its origin. Again, the popliteal artery constitutes and there is widely patent P3 segment of the popliteal artery with again initially patent tibial trifurcation; however, distal occlusion of the anterior tibial and peroneal artery with a single vessel posterior tibial artery runoff into the foot. DESCRIPTION OF PROCEDURE: The patient was brought to the cardiac catheterization lab and positioned supine on the table with his left arm positioned out. The left wrist was then prepped and draped in standard sterile fashion. A sedation nurse was present and provided sedation throughout the procedure. Under physician supervision with appropriate cardiac and respiratory monitoring in place throughout the entire procedure and with her having no other assigned tasks. A total of 78 minutes of physician-supervised sedation time was required for the procedure with the patient receiving 2 mg of Versed, 50 mcg of fentanyl and 50 mg of Benadryl throughout the procedure. Under ultrasound guidance with image saved for the medical record, the left radial artery was then accessed after infiltrating the area with 1% lidocaine. A 4/5-Sudanese Terumo radial access sheath was then placed in the left radial artery after an initial attempted access was unsuccessful. A radial cocktail of 2500 units of heparin, 2.5 mg of verapamil, and 200 mcg of nitroglycerin was then administered through the sheath. The PV multiple curved catheter was then used to traverse the radial artery using a soft angled Glidewire until I encountered some resistance at the left subclavian artery. I performed angiography at this level, which demonstrated a diffuse moderate approximately 60% stenosis of the left subclavian artery over a distance of at least 5 cm. I then used radial J-wire and the PV multi-curved catheter to cross this area of stenosis into the descending thoracic aorta. I was able to successfully cannulate the descending thoracic aorta and pass the PV multi-curved catheter into the paravisceral aorta. I then performed angiography through the catheter and performed an abdominal aortogram. This showed a widely patent aortobifemoral reconstruction. There was filling of both renal arteries. I then selected the left limb of the aortobifemoral bypass and selectively catheterized the left common femoral artery from the left radial artery approach and then performed a step angiography of the left lower extremity with findings as detailed above with reconstitution of the below-knee popliteal artery and single vessel runoff via the posterior tibial artery. I then the catheter and to the paravisceral aorta and selectively catheterized the right limb of the aortobifemoral bypass and then performed a step angiography of the right lower extremity, which showed similar findings with single vessel runoff via the posterior tibial artery and reconstitution of the P2 segment of the popliteal artery. I did also administer an additional 2000 units of heparin at the start of the procedure with access in the radial artery. I then removed the catheter and the sheath was then removed and pressure held with a TR band with good hemostasis noted. The patient was then transferred to recovery room in stable condition. PROCEDURE PERFORMED: 1. Ultrasound-guided access, left radial artery. 2. Abdominal aortography. 3. Bilateral lower extremity angiography. 4. Selective catheter placement, second order vessel x 2. 5. Left common femoral artery from the left radial approach and right common femoral artery from the left radial approach. 6. Moderate sedation, total time 78 minutes, physician-supervised. SPECIMENS: None. ESTIMATED BLOOD LOSS: 5 mL. CORRINE/MEKHI/VICTOR MANUEL DR: CORRINE/amanda TID: [id number]
[2021-11-08] MEDS: ATORVASTATIN CALCIUM 10 MG TABLET. PO SCH (20:27)
[2021-11-09 03:25] VITALS: BP 122/66
[2021-11-09] MEDS: oxyCODONE/APAP 5/325 1 TAB TABLET PO PRN ×5 (05:20→21:37)
[2021-11-09 07:00] VITALS: BP 123/64
[2021-11-09] MEDS: INSULIN LISPRO 300 UNITS/3 ML VIAL. SQ SCH ×3 (08:00→17:00)
--- NOTE | 2021-11-09 08:02 | PDOC ---
CHI GOODE CENTRAL SUPPLY SUPERVISOR 11/09/21 0802: CARDIO Progress Notes Date and Time Date of Service 11/09/21 Time of Evaluation 1145 Subjective Subjective: No Chest Pain, No shortness of breath, No Palpitations, Other (c/o left foot pain) Vitals Vitals Vital Signs Date Time Temp Pulse Resp B/P (MAP) Pulse Ox O2 Delivery O2 Flow Rate FiO2 11/09/21 05:20 18 Room Air 11/09/21 03:25 98.5 62 122/66 (84) 97 98.5 11/08/21 17:37 2.0 Weight Weight [ ] Input and Output Intake and Output Intake and Output 11/09/21 07:00 Intake Total 450 ml Output Total 1150 ml Balance -700 ml Intake Oral 450 ml Output Urine Total 1150 ml Laboratory Labs Laboratory Tests Test 11/08/21 11:47 11/08/21 17:04 11/08/21 21:06 11/09/21 07:11 Glucose (Fingerstick) 101 mg/dL (70-99) 128 mg/dL (70-99) 151 mg/dL (70-99) 119 mg/dL (70-99) Physical Exam HEENT: Neck Supple W Full Motion Chest: Symmetric LUNGS: Clear to Auscultation Heart: RRR Abdomen: Soft N/T Extremities: Other (left franklin wound, left 3 digits toe gangrene with surrounding erythema. ) Neurology: alert, follow commands Assessment Assessment 1. Severe peripheral vascular disease, critical limb ischemia and left foot toes gangrene. s/p aortobifemoral bypass surgery. Plan for left fem-pop bypass, toe amputation, and wound debridement on . continue as per vascular team 2. Coronary artery disease s/p coronary artery bypass surgery in February 2021, p resently stable and chest pain-free. Echo with LVEF 65% with diastolic dysfunction. Continue current secondary prevention measures 3. Bilateral carotid stenosis; Carotid US with moderate bilateral ICA disease 4. Hypertension: Controlled 5. Hyperlipidemia: Statin therapy 6. DM2: Treat per IM 7. Anemia; s/p transfusion; hgb stable 8. Leukocytosis 9. Tobacco abuse: Advised on smoking cessation Justicifation of Admission Dx: Justifications for Admission: Justification of Admission Dx: Yes MOLLY VARGAS MD 11/09/21 2016: CARDIO Progress Notes Assessment Assessment Patient seen and examined. Agree with CLEANER ASSISTANT's assessment and plan. Severe PAD/critical limb ischemia underwent aortobifemoral bypass surgery last week Vasc surgery planning left fem pop bypass surgery, toe amputation and wound debridement on CAD s/p CABG clinically stable Continue current medical regimen CHI GOODE APRN Nov 09, 2021 08:02 MOLLY VARGAS MD Nov 09, 2021 20:16
[2021-11-09] MEDS: DOCUSATE SODIUM 100 MG CAPSULE. PO SCH ×2 (08:19→20:09)
[2021-11-09] MEDS: PANTOPRAZOLE IV PUSH 40 MG VIAL. IVP SCH (08:19)
[2021-11-09] MEDS: PREGABALIN 50 MG CAPSULE PO SCH ×3 (08:20→20:09)
[2021-11-09] MEDS: ASPIRIN CHEWABLE 81 MG TABLET. PO SCH (08:21)
[2021-11-09] MEDS: diphenhydrAMINE HCL 25 MG CAPSULE PO SCH (08:21)
[2021-11-09] MEDS: CYANOCOBALAMIN (VITAMIN B-12) 1,000 MCG TABLET. PO SCH (08:22)
[2021-11-09] MEDS: ASCORBIC ACID 500 MG TABLET PO SCH (08:22)
[2021-11-09] MEDS: HEPARIN for SUB-Q USE 5,000 UNIT/ML VIAL. SQ SCH ×2 (08:29→20:11)
--- NOTE | 2021-11-09 09:05 | PDOC ---
Provider Note Date of Service: DATE: 11/09/21 TIME: 08:54 Provider Note Provider Note Vascular S: Patient is awake and alert. Complains of some left ischemic foot pain, mildly improved since surgery. Tolerating diet, no BM O: Awake and alert, vital signs stable, afebrile Abdomen is soft, nontender, nondistended. Incision is dry and intact. Bilateral groin incisions dry and intact. Left foot multiple digit gangrene. Left heel eschar. Left medial calf necrotic eschar. No drainage. Erythema and swelling improved. Right heel with fissure that is clean without drainage. A/P: Severe aortoiliac and femoral disease. Status post aortobifemoral bypass and aortic and femoral endarterectomies. Angiogram yesterday demonstrates bilateral lower extremity SFA disease with reconstitution in the below-knee popliteal with single vessel runoff via the posterior tibial. Patient is scheduled for left femoral to popliteal bypass and toe amputation and wound debridement 11/11/2021. Plan is for staged bypass with his right lower extremity bypass scheduled 11/22/2021. Hgb 8.8. Justicifation of Admission Dx: Justifications for Admission: Justification of Admission Dx: Yes PAM KAHN APRN Nov 09, 2021 09:05
--- NOTE | 2021-11-09 10:38 | PDOC ---
PULMONARY PROGRESS NOTES DATE: 11/09/21 TIME: 10:33 Subjective Patient sitting in bed this morning, in a pleasant mood, currently on RA, denies SOA/ Cough Vitals Vital Signs Date Time Temp Pulse Resp B/P (MAP) Pulse Ox O2 Delivery O2 Flow Rate FiO2 11/09/21 09:44 Room Air 11/09/21 08:21 72 123/87 11/09/21 07:00 97.8 19 93 97.8 11/08/21 17:37 2.0 ROS: No Nausea, No Chest Pain, No Increase Cough Lungs: Crackles Cardiovascular: S1, S2 Abdomen: Soft Neuro Exam: Alert Extremities: Other (Evidence of previous surgery) Skin: Warm Labs Laboratory Tests Test 11/07/21 12:14 11/07/21 18:10 11/08/21 05:20 11/08/21 07:18 Glucose (Fingerstick) 152 mg/dL (70-99) 121 mg/dL (70-99) 111 mg/dL (70-99) White Blood Count 17.9 x10^3/uL (4.0-11.0) Red Blood Count 2.99 x10^6/uL (4.30-5.70) Hemoglobin 8.8 g/dL (13.0-17.5) Hematocrit 25.6 % (39.0-53.0) Mean Corpuscular Volume 86 fL (79-100) Mean Corpuscular Hemoglobin 30 pg (25-35) Mean Corpuscular Hemoglobin Concent 35 g/dL (31-37) Red Cell Distribution Width 14.9 % (11.5-14.5) Platelet Count 266 x10^3/uL (140-400) Sodium Level 133 mmol/L (136-145) Potassium Level 3.7 mmol/L (3.5-5.1) Chloride Level 100 mmol/L (98-107) Carbon Dioxide Level 26 mmol/L (21-32) Anion Gap 7 (6-14) Blood Urea Nitrogen 13 mg/dL (8-26) Creatinine 0.6 mg/dL (0.7-1.3) Estimated GFR (Cockcroft-Gault) 140.9 Glucose Level 116 mg/dL (70-99) Calcium Level 8.0 mg/dL (8.5-10.1) Magnesium Level 2.0 mg/dL (1.8-2.4) Test 11/08/21 11:47 11/08/21 17:04 11/08/21 21:06 11/09/21 07:11 Glucose (Fingerstick) 101 mg/dL (70-99) 128 mg/dL (70-99) 151 mg/dL (70-99) 119 mg/dL (70-99) Laboratory Tests Test 11/08/21 11:47 11/08/21 17:04 11/08/21 21:06 11/09/21 07:11 Glucose (Fingerstick) 101 mg/dL (70-99) 128 mg/dL (70-99) 151 mg/dL (70-99) 119 mg/dL (70-99) Medications Active Scripts Medications Dose Route/Sig Max Daily Dose Days Date Category Hydrochlorothiazide Tablet (Hydrochlorothiazide) 25 Mg Tablet 25 Mg PO DAILY 10/29/21 Reported Metformin Hcl 1,000 Mg Tablet 1,000 Mg PO BIDWMEALS 10/29/21 Reported Clopidogrel (Clopidogrel Bisulfate) 75 Mg Tablet 1 Tab PO DAILY 10/29/21 Reported Vitamin B-12 (Cyanocobalamin (Vitamin B-12)) 1,000 Mcg Tab.subl 1 Tab SL DAILY 30 10/29/21 Reported Vitamin C (Ascorbic Acid) 500 Mg Capsule.er 1 Cap PO DAILY 30 10/29/21 Reported Omeprazole 40 Mg Capsule.dr 1 Cap PO DAILY 10/29/21 Reported Lyrica (Pregabalin) 50 Mg Capsule 50 Mg PO TID 10/29/21 Reported Benadryl (Diphenhydramine Hcl) 25 Mg Capsule 25 Mg PO DAILY 10/29/21 Reported Tramadol Hcl 50 Mg Tablet 50 Mg PO Q6HRS PRN 10/29/21 Reported Iron (Ferrous Sulfate) 325 Mg Tablet 325 Mg PO DAILY 10/29/21 Reported Aspirin Ec (Aspirin) 81 Mg Tablet. 81 Mg PO [id number] 01/11/18 Rx Amlodipine Besylate 10 Mg Tablet 10 Mg PO DAILY 01/11/18 Rx Atorvastatin Calcium 10 Mg Tablet 10 Mg PO QHS 01/11/18 Rx Impression . IMPRESSION: 1. Expected postoperative respiratory failure, multifactorial. 2. Chronic obstructive pulmonary disease, tobacco dependent. 3. Coronary artery disease, status post coronary artery bypass grafting. 4. Peripheral arterial disease, status post aorto-bilateral profunda femoris bypass and extensive right superficial femoral artery endarterectomy. 5. Echocardiogram revealing ejection fraction 65% with diastolic dysfunction. 6. Type 2 diabetes. Plan . Updated 11/09 Continue on RA; oxygen supplementation as needed to keep O2 above 95% Encourage pulmonary hygiene Continue Heparin per surgeon Will visit patient as needed Updated 11/07 Continue oxygen for sats above 92% IS BD Postop pain management avoid oversedation Aggressive pulmonary hygiene Anticoagulation per surgeon advised to quit smoking for ever discussed w rn Updated 11/06 Continue oxygen for sats above 92% IS BD Postop pain management avoid oversedation Aggressive pulmonary hygiene Anticoagulation per surgeon discussed w rn PLAN: 1. Continue current support with oxygen supplementation to maintain sats above 92%. 2. Postoperative pain management. 3. Follow Cardiology input. 4. Anticoagulation. 5. DVT prophylaxis. I do appreciate the privilege in sharing the patient's care. CAROLE MAHONEY MD Nov 09, 2021 10:38
[2021-11-09 11:00] VITALS: BP 116/67
--- NOTE | 2021-11-09 11:39 | PDOC ---
[facility] PROGRESS NOTE Date of Service DOS: DATE: 11/09/21 TIME: 11:38 Chief Complaint Chief Complaint Postop day 12 OPERATIONS PERFORMED: 1. Aortobilateral profunda femoris bypass with 16 x 8 bifurcated Industry-Riley graft.2. 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% occlusion of the left common iliac artery Renal artery stenosis atherosclerotic disease in the abdominal aorta, celiac axis and SMA Bilateral carotid stenosis approximately 50% History of diabetes mellitus type 2 History of hypertension History of CAD History of Present Illness History of Present Illness 11/09/2021 Patient seen and examined He is alert and cooperative The left foot has heel wound and toe wounds please see the pictures Discussed with case management Chart reviewed Discussed with RN 11/08/2021 Patient seen and examined He is resting with no apparent distress He just got back from angiography with runoff of the lower extremities Discussed with case management Discussed with RN Chart reviewed 11/07: Hb to 7.6. NG tube out no further abdominal pain nausea vomiting. Passing some stool. Left leg and foot pain stable. Up to chair today. Wearing Rooke boots n.p.o. for midnight for angiography. 11/06: Hb dropped to 8.1. Complaining of lower abdominal pain. Was able to get up to the chair on 225. Says he is passing flatus. NG tube to suction 200 cc. 11/05/2021 Patient seen and examined in the ICU He has an NG clamped He has Rooke boots on both lower extremities Appears depressed He had lower extremity bypass yesterday Discussed with RN Chart reviewed 11/04, Surgery today, fem pop 55-year-old male with significant past medical history of for pancreatitis, hypertension, CABG, peripheral vascular disease with critical limb ischemia who underwent an angio of his lower extremities showing severe peripheral vascular disease and lower extremity wounds. [facility] for further management and consult to the vascular surgery service. 2 Vitals/I&O Vitals/I&O: Vital Signs Date Time Temp Pulse Resp B/P (MAP) Pulse Ox O2 Delivery O2 Flow Rate FiO2 11/09/21 09:44 Room Air 11/09/21 08:21 72 123/87 11/09/21 07:00 97.8 19 93 97.8 11/08/21 17:37 2.0 I & O 11/08/21 11/08/21 11/09/21 15:00 23:00 07:00 Intake Total 250 ml 200 ml Output Total 750 ml 400 ml Balance -750 ml -150 ml 200 ml Physical Exam General: No acute distress Heart: Regular rate Lungs: Crackles Abdomen: Soft, Other (incision c/d/i with gay/) Extremities: Other (Dry gangrene of left toes 1-5, medial ulceration on left calf with dry eschar. PT signals bilaterally. Palpable femoral pulses bilaterally) Skin: Other (Dry gangrene of left toes 1-5. Heel ulceration on left small with surrounding fissures. left medial calf ulceration.) Labs Labs: Laboratory Tests Test 11/08/21 11:47 11/08/21 17:04 11/08/21 21:06 11/09/21 07:11 Glucose (Fingerstick) 101 mg/dL (70-99) 128 mg/dL (70-99) 151 mg/dL (70-99) 119 mg/dL (70-99) Test 11/09/21 10:33 Glucose (Fingerstick) 187 mg/dL (70-99) Assessment and Plan Assessmemt and Plan Postop day 12 OPERATIONS PERFORMED: 1. Aortobilateral profunda femoris bypass with 16 x 8 bifurcated Industry-Riley graft.2. 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% occlusion of the left common iliac artery Renal artery stenosis atherosclerotic disease in the abdominal aorta, celiac axis and SMA Bilateral carotid stenosis approximately 50% History of diabetes mellitus type 2 History of hypertension History of CAD Plan Continue wound care Cardiac monitoring Home meds DVT prophylaxis Cruciate subspecialist input Full code PT OT Encourage p.o. intake Trend labs Discharge disposition pending, discussed with immigration case manager Comment Review of Relevant I have reviewed the following items ifrah (where applicable) has been applied. Justifications for Admission Other Justification Severe peripheral vascular disease with gangrenous wounds in the lower extremities CATHY GARCIA III DO Nov 09, 2021 11:39
--- NOTE | 2021-11-09 14:39 | NUR ---
SS following up with discharge planning. SS reviewed pt chart and discussed with pt RN. Pt is currently on room air. COVID19 negative. Pt scheduled for surgery and debridement with vascular on 11/11/2021. Pt scheduled for another surgery with vascular on 11/22/2021. Pt requesting outpatient PT/OT and services at discharge. Pt reporting that family will assist getting him to and from appointments. SS will continue to follow for discharge planning.
[2021-11-09 15:00] VITALS: BP 121/65
[2021-11-09 19:35] VITALS: BP 128/74
[2021-11-09] MEDS: ATORVASTATIN CALCIUM 10 MG TABLET. PO SCH (20:09)
[2021-11-09 22:50] VITALS: BP 133/67
[2021-11-10 03:30] VITALS: BP 134/70
[2021-11-10] MEDS: PANTOPRAZOLE IV PUSH 40 MG VIAL. IVP SCH (05:57)
[2021-11-10] MEDS: oxyCODONE/APAP 5/325 1 TAB TABLET PO PRN ×3 (05:58→17:10)
[2021-11-10 07:00] VITALS: BP_SYST 136; BP_SYST 174; BP_DIAS 65; BP_DIAS 80
[2021-11-10] MEDS: INSULIN LISPRO 300 UNITS/3 ML VIAL. SQ SCH ×3 (08:00→17:00)
[2021-11-10] MEDS: DOCUSATE SODIUM 100 MG CAPSULE. PO SCH ×3 (08:08→20:41)
[2021-11-10] MEDS: ASPIRIN CHEWABLE 81 MG TABLET. PO SCH (08:08)
[2021-11-10] MEDS: ASCORBIC ACID 500 MG TABLET PO SCH (08:08)
[2021-11-10] MEDS: CYANOCOBALAMIN (VITAMIN B-12) 1,000 MCG TABLET. PO SCH (08:08)
[2021-11-10] MEDS: PREGABALIN 50 MG CAPSULE PO SCH ×3 (08:09→20:27)
[2021-11-10] MEDS: diphenhydrAMINE HCL 25 MG CAPSULE PO SCH (08:09)
[2021-11-10] MEDS: HEPARIN for SUB-Q USE 5,000 UNIT/ML VIAL. SQ SCH ×2 (09:35→20:30)
[2021-11-10 09:51] LABS: BASO # 0.1 x10^3/uL (0.0-0.2); BASO % 0 % (0-3); EOS # 0.1 x10^3/uL (0.0-0.7); EOS % 1 % (0-3); HEMATOCRIT 25.3 % (39.0-53.0); HEMOGLOBIN 8.1 g/dL (13.0-17.5); LYMPH % 16 % (24-48); MEAN CORPUSCULAR HEMOGLOBIN 30 pg (25-35); MEAN CORPUSCULAR HGB CONC 32 g/dL (31-37); MEAN CORPUSCULAR VOLUME 92 fL (79-100); MONO # 1.2 x10^3/uL (0.0-1.1); MONO % 10 % (0-9); NEUT % 73 % (31-73); PLATELET COUNT 372 x10^3/uL (140-400); RED BLOOD COUNT 2.76 x10^6/uL (4.30-5.70); RED CELL DISTRIBUTION WIDTH 15.5 % (11.5-14.5); WHITE BLOOD COUNT 12.4 x10^3/uL (4.0-11.0)
--- NOTE | 2021-11-10 10:25 | PDOC ---
[facility] PROGRESS NOTE Date of Service DOS: DATE: 11/10/21 TIME: 10:24 Chief Complaint Chief Complaint Postop day 12 OPERATIONS PERFORMED: 1. Aortobilateral profunda femoris bypass with 16 x 8 bifurcated [place]-Riley graft.2. 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% occlusion of the left common iliac artery Renal artery stenosis atherosclerotic disease in the abdominal aorta, celiac axis and SMA Bilateral carotid stenosis approximately 50% History of diabetes mellitus type 2 History of hypertension History of CAD History of Present Illness History of Present Illness 11/10/2021 Patient seen and examined Discussed with RN Chart reviewed Discussed with case management Patient apparently going to surgery in the morning for toe amputations 11/09/2021 Patient seen and examined He is alert and cooperative The left foot has heel wound and toe wounds please see the pictures Discussed with case management Chart reviewed Discussed with RN 11/08/2021 Patient seen and examined He is resting with no apparent distress He just got back from angiography with runoff of the lower extremities Discussed with case management Discussed with RN Chart reviewed 11/07: Hb to 7.6. NG tube out no further abdominal pain nausea vomiting. Passing some stool. Left leg and foot pain stable. Up to chair today. Wearing Rooke boots n.p.o. for midnight for angiography. 11/06: Hb dropped to 8.1. Complaining of lower abdominal pain. Was able to get up to the chair on 225. Says he is passing flatus. NG tube to suction 200 cc. 11/05/2021 Patient seen and examined in the ICU He has an NG clamped He has Rooke boots on both lower extremities Appears depressed He had lower extremity bypass yesterday Discussed with RN Chart reviewed 11/04, Surgery today, fem pop 55-year-old male with significant past medical history of for pancreatitis, hypertension, CABG, peripheral vascular disease with critical limb ischemia who underwent an angio of his lower extremities showing severe peripheral vascular disease and lower extremity wounds. Patient is admitted to the hospitalist service for further management and consult to the vascular surgery service. 2 Vitals/I&O Vitals/I&O: Vital Signs Date Time Temp Pulse Resp B/P (MAP) Pulse Ox O2 Delivery O2 Flow Rate FiO2 11/10/21 08:08 77 136/65 11/10/21 08:00 Room Air 11/10/21 07:00 98.4 18 98 98.4 11/10/21 05:58 2.0 I & O 11/09/21 11/09/21 11/10/21 15:00 23:00 07:00 Intake Total 480 ml 240 ml 400 ml Output Total 280 ml 1500 ml Balance 200 ml 240 ml -1100 ml Physical Exam General: No acute distress Heart: Regular rate Lungs: Crackles Abdomen: Soft, Other (incision c/d/i with gay/) Extremities: Other (Dry gangrene of left toes 1-5, medial ulceration on left calf with dry eschar. PT signals bilaterally. Palpable femoral pulses bilaterally) Skin: Other (Dry gangrene of left toes 1-5. Heel ulceration on left small with surrounding fissures. left medial calf ulceration.) Labs Labs: Laboratory Tests Test 11/09/21 10:33 11/09/21 17:37 11/09/21 20:40 11/10/21 07:46 Glucose (Fingerstick) 187 mg/dL (70-99) 99 mg/dL (70-99) 118 mg/dL (70-99) 124 mg/dL (70-99) Test 11/10/21 09:45 White Blood Count 12.4 x10^3/uL (4.0-11.0) Red Blood Count 2.76 x10^6/uL (4.30-5.70) Hemoglobin 8.1 g/dL (13.0-17.5) Hematocrit 25.3 % (39.0-53.0) Mean Corpuscular Volume 92 fL (79-100) Mean Corpuscular Hemoglobin 30 pg (25-35) Mean Corpuscular Hemoglobin Concent 32 g/dL (31-37) Red Cell Distribution Width 15.5 % (11.5-14.5) Platelet Count 372 x10^3/uL (140-400) Neutrophils (%) (Auto) 73 % (31-73) Lymphocytes (%) (Auto) 16 % (24-48) Monocytes (%) (Auto) 10 % (0-9) Eosinophils (%) (Auto) 1 % (0-3) Basophils (%) (Auto) 0 % (0-3) Neutrophils # (Auto) 9.0 x10^3/uL (1.8-7.7) Lymphocytes # (Auto) 2.0 x10^3/uL (1.0-4.8) Monocytes # (Auto) 1.2 x10^3/uL (0.0-1.1) Eosinophils # (Auto) 0.1 x10^3/uL (0.0-0.7) Basophils # (Auto) 0.1 x10^3/uL (0.0-0.2) Assessment and Plan Assessmemt and Plan Postop day 12 OPERATIONS PERFORMED: 1. Aortobilateral profunda femoris bypass with 16 x 8 bifurcated [place]-Riley graft.2. 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% occlusion of the left common iliac artery Renal artery stenosis atherosclerotic disease in the abdominal aorta, celiac axis and SMA Bilateral carotid stenosis approximately 50% History of diabetes mellitus type 2 History of hypertension History of CAD Plan Going to surgery in the morning for toe amputations For now continue to follow Continue wound care Cardiac monitoring Appreciate subspecialist input Home meds DVT prophylaxis Full code PT OT Encourage p.o. intake Trend labs Suspect he will need senior living? Comment Review of Relevant I have reviewed the following items ifrah (where applicable) has been applied. Justifications for Admission Other Justification Severe peripheral vascular disease with gangrenous wounds in the lower extremities CATHY GARCIA III DO Nov 10, 2021 10:25
[2021-11-10 10:47] VITALS: BP 136/71
--- NOTE | 2021-11-10 11:15 | PDOC ---
[facility] SCOUT 11/10/21 1115: CARDIO Progress Notes Date and Time Date of Service 11/10/21 Time of Evaluation 1115 Subjective Subjective: No Chest Pain, No shortness of breath, No Palpitations, Other (c/o left foot pain) Vitals Vitals Vital Signs Date Time Temp Pulse Resp B/P (MAP) Pulse Ox O2 Delivery O2 Flow Rate FiO2 11/10/21 10:47 97.6 66 16 136/71 (92) 100 Room Air 97.6 11/10/21 05:58 2.0 Weight Weight [ ] Input and Output Intake and Output Intake and Output 11/10/21 07:00 Intake Total 1120 ml Output Total 1780 ml Balance -660 ml Intake Oral 1120 ml Output Urine Total 1780 ml # Bowel Movements 1 Laboratory Labs Laboratory Tests Test 11/09/21 17:37 11/09/21 20:40 11/10/21 07:46 11/10/21 09:45 Glucose (Fingerstick) 99 mg/dL (70-99) 118 mg/dL (70-99) 124 mg/dL (70-99) White Blood Count 12.4 x10^3/uL (4.0-11.0) Red Blood Count 2.76 x10^6/uL (4.30-5.70) Hemoglobin 8.1 g/dL (13.0-17.5) Hematocrit 25.3 % (39.0-53.0) Mean Corpuscular Volume 92 fL (79-100) Mean Corpuscular Hemoglobin 30 pg (25-35) Mean Corpuscular Hemoglobin Concent 32 g/dL (31-37) Red Cell Distribution Width 15.5 % (11.5-14.5) Platelet Count 372 x10^3/uL (140-400) Neutrophils (%) (Auto) 73 % (31-73) Lymphocytes (%) (Auto) 16 % (24-48) Monocytes (%) (Auto) 10 % (0-9) Eosinophils (%) (Auto) 1 % (0-3) Basophils (%) (Auto) 0 % (0-3) Neutrophils # (Auto) 9.0 x10^3/uL (1.8-7.7) Lymphocytes # (Auto) 2.0 x10^3/uL (1.0-4.8) Monocytes # (Auto) 1.2 x10^3/uL (0.0-1.1) Eosinophils # (Auto) 0.1 x10^3/uL (0.0-0.7) Basophils # (Auto) 0.1 x10^3/uL (0.0-0.2) Physical Exam HEENT: Neck Supple W Full Motion Chest: Symmetric LUNGS: Clear to Auscultation Heart: RRR Abdomen: Soft N/T Extremities: Other (left franklin wound, left 3 digits toe gangrene with surrounding erythema. ) Neurology: alert, follow commands Assessment Assessment 1. Severe peripheral vascular disease, critical limb ischemia and left foot t oes gangrene. s/p aortobifemoral bypass surgery. Plan for left fem-pop bypass, toe amputation, and wound debridement tomorrow. continue as per vascular team 2. Coronary artery disease s/p coronary artery bypass surgery in February 2021, presently stable and chest pain-free. Echo with LVEF 65% with diastolic dysfunction. Continue current secondary prevention measures 3. Bilateral carotid stenosis; Carotid US with moderate bilateral ICA disease 4. Hypertension: Controlled 5. Hyperlipidemia: Statin therapy 6. DM2: Treat per IM 7. Anemia; s/p transfusion; hgb stable 8. Leukocytosis 9. Tobacco abuse: Advised on smoking cessation Justicifation of Admission Dx: Justifications for Admission: Justification of Admission Dx: Yes MOLLY VARGAS MD 11/10/212151: CARDIO Progress Notes Assessment Assessment Patient seen and examined. Agree with REGULATORY SUBMISSIONS SPECIALIST's assessment and plan. Severe PAD/critical limb ischemia underwent aortobifemoral bypass surgery last week Vasc surgery planning left fem pop bypass surgery, toe amputation and wound debridement tomorrow CAD s/p CABG clinically stable Continue current medical regimen CHI GOODE APRN Nov 10, 2021 11:15 MOLLY VARGAS MD Nov 10, 2021 21:52
--- NOTE | 2021-11-10 13:01 | NUR ---
SS following up with discharge planning. SS reviewed pt chart and discussed with pt RN. Pt is currently on room air. COVID19 negative. Pt scheduled for surgery and debridement with vascular on 11/11/2021. Pt requesting outpatient PT/OT and services at discharge. Pt reporting that family will assist getting him to and from appointments. SS will continue to follow for discharge planning.
[2021-11-10 14:56] VITALS: BP 123/72
[2021-11-10 19:04] VITALS: BP 140/71
[2021-11-10] MEDS: ATORVASTATIN CALCIUM 10 MG TABLET. PO SCH (20:27)
[2021-11-10 22:25] VITALS: BP 132/72
[2021-11-11] VITALS (15 sets, daily range): BP systolic 109–150; BP diastolic 54–77
[2021-11-11] MEDS ORDERED: MORPHINE SULFATE 2 MG/ML INJ. IVP PRN (06:00)
[2021-11-11] MEDS ORDERED: fentaNYL PF VIAL 100 MCG/2 ML VIAL IVP PRN (06:00)
[2021-11-11] MEDS ORDERED: HYDROmorphone 2 MG/ML INJ. IVP PRN (06:00)
[2021-11-11] MEDS ORDERED: IV RINGERS,LACTATED 1000ML 1,000 ML IV SCH (06:00)
[2021-11-11] MEDS ORDERED: PROCHLORPERAZINE 10 MG/2 ML VIAL. IVP PRN (06:00)
[2021-11-11] MEDS ORDERED: HEPARIN SODIUM 5,000 UNIT in IV NORMAL SALINE 500ML BAG 500 ML IRR ONE (06:00)
[2021-11-11] MEDS ORDERED: fentaNYL PF VIAL 100 MCG/2 ML VIAL ONE ×2 (06:45→12:52)
[2021-11-11] MEDS ORDERED: ONDANSETRON PF 4 MG/2 ML VIAL. ONE (06:45)
[2021-11-11] MEDS ORDERED: diphenhydrAMINE 50 MG/ML VIAL ONE (06:45)
[2021-11-11] MEDS ORDERED: PROPOFOL 10 MG/ML (20ML) VIAL. IV ONE (06:45)
[2021-11-11] MEDS ORDERED: FAMOTIDINE 20 MG/2 ML VIAL ONE (06:45)
[2021-11-11] MEDS ORDERED: LIDOCAINE 2% PF 5 ML VIAL. ONE (06:45)
[2021-11-11] MEDS ORDERED: SUCCINYLCHOLINE 200 MG/10 ML VIAL. ONE (06:45)
[2021-11-11] MEDS ORDERED: PHENYLEPHRINE 10 MG/ML VIAL. ONE (06:45)
[2021-11-11] MEDS ORDERED: SEVOFLURANE 61 TO 120 MINUTES. IH ONE (06:45)
[2021-11-11] MEDS ORDERED: SURGICEL FIBRILLAR 1X2 EACH. ONE ×2 (07:05→12:07)
[2021-11-11] MEDS ORDERED: LIDOCAINE 1% PF 30 ML VIAL. ONE (07:05)
[2021-11-11] MEDS ORDERED: GELATIN SPONGE SIZE 100. ONE (07:05)
[2021-11-11] MEDS ORDERED: IOHEXOL 300 MG/ML 50 ML VIAL. ONE (07:05)
[2021-11-11] MEDS ORDERED: THROMBIN TOPICAL 20,000 UNIT SPRAY.SYRN KIT TP ONE (07:05)
[2021-11-11] MEDS ORDERED: PAPAVERINE 60 MG/2 ML VIAL. ONE (07:05)
[2021-11-11] MEDS ORDERED: ETOMIDATE 20 MG/10 ML VIAL. IV ONE (07:08)
[2021-11-11] MEDS ORDERED: ALTEPLASE 2 MG VIAL INT CAT ONE (07:15)
--- NOTE | 2021-11-11 07:19 | PDOC ---
Provider Note Date of Service: DATE: 11/11/21 TIME: 07:16 Provider Note Provider Note Patient seen and examined in preoperative area. He has a palpable pulse in the left groin. He has stable gangrene changes to the left foot, heel and calf. On ultrasound vein mapping he had no usable vein in the left leg and there are plans to perform staged bypass of right leg with marginal vein on that side. Therefore will plan to use artegraft for conduit for fem to BK pop bypass. Plans for deep femoral endarterectomy on the left as well. He agrees to undergo left foot toe amputations and heel/leg debridement as well. Will proceed with left leg bypass and left toe amputations/leg debridements. Patient agrees to procedure. Explained risks, benefits in detail including risks of bleeding, infection, limb loss and cardiopulmonary complications. Justicifation of Admission Dx: Justifications for Admission: Justification of Admission Dx: Yes ODALIS SWEENEY MD Nov 11, 2021 07:19
[2021-11-11] MEDS: PANTOPRAZOLE IV PUSH 40 MG VIAL. IVP SCH (07:30)
[2021-11-11] MEDS ORDERED: ROCURONIUM 50 MG/5 ML VIAL. ONE (07:47)
[2021-11-11] MEDS: ASPIRIN CHEWABLE 81 MG TABLET. PO SCH (07:56)
[2021-11-11] MEDS: diphenhydrAMINE HCL 25 MG CAPSULE PO SCH (07:56)
[2021-11-11] MEDS: DOCUSATE SODIUM 100 MG CAPSULE. PO SCH ×2 (07:56→21:00)
[2021-11-11] MEDS: CYANOCOBALAMIN (VITAMIN B-12) 1,000 MCG TABLET. PO SCH (07:57)
[2021-11-11] MEDS: ASCORBIC ACID 500 MG TABLET PO SCH (07:57)
[2021-11-11] MEDS: PREGABALIN 50 MG CAPSULE PO SCH ×3 (07:57→21:18)
[2021-11-11] MEDS: INSULIN LISPRO 300 UNITS/3 ML VIAL. SQ SCH ×3 (07:57→16:45)
[2021-11-11] MEDS ORDERED: HEPARIN for IV BOLUS 10,000 UNIT/10 ML VIAL. ONE ×2 (08:55→08:56)
[2021-11-11] MEDS ORDERED: HYDROmorphone 2 MG/ML INJ. ONE (10:14)
[2021-11-11] MEDS ORDERED: GLYCOPYRROLATE 1 MG/5 ML VIAL. ONE (10:46)
[2021-11-11] MEDS ORDERED: NEOSTIGMINE METHYLSULFATE 5 MG/5 ML SYRINGE. ONE (10:46)
[2021-11-11] MEDS ORDERED: 0.9 % SODIUM CHLORIDE 10 ML DISP.SYRIN. IV PRN (12:00)
--- NOTE | 2021-11-11 12:25 | PDOC4 ---
BRIEF OPERATIVE NOTE Date: Nov 11, 2021 Pre-Op Diagnosis 1. Tobacco abuse 2. Peripheral arterial disease with gangrene and ulceration of left foot, heel, calf 3. CAD s/p CABG Post-Op Diagnosis Same Procedure Performed 1. Left deep femoral artery to below knee popliteal artery with artegraft 2.. Left 1, 2, 3, 4, and 5 toe amputations 3. Sharp excisional debridement of left medial calf ulceration 6.5x3.5x0.5, Left lateral foot ulceration and left ankle ulceration Surgeon Odalis Harrison Lpn Medical Assistant Daniel Arcos An botany laboratory assistant was necessary to assist with exposure given the increased difficulty related to recent aortobifemoral bypass grafting and extensive lower extremity wounds requiring surgical debridement Anesthesia Type: General Blood Loss 100 cc Complications none immediately identified Operative Note Palpable pt pulse at completion. Excellent bleeding at all toe amputation sites after revascularization. ODALIS HARRISON MD Nov 11, 2021 12:25
[2021-11-11] MEDS: fentaNYL PF VIAL 100 MCG/2 ML VIAL IVP PRN ×2 (13:03→14:06)
[2021-11-11 13:19] LABS: BASO # 0.1 x10^3/uL (0.0-0.2); BASO % 1 % (0-3); EOS # 0.2 x10^3/uL (0.0-0.7); EOS % 1 % (0-3); HEMATOCRIT 24.5 % (39.0-53.0); HEMOGLOBIN 7.9 g/dL (13.0-17.5); LYMPH # 2.5 x10^3/uL (1.0-4.8); LYMPH % 12 % (24-48); MEAN CORPUSCULAR HEMOGLOBIN 29 pg (25-35); MEAN CORPUSCULAR HGB CONC 32 g/dL (31-37); MEAN CORPUSCULAR VOLUME 91 fL (79-100); MONO # 1.6 x10^3/uL (0.0-1.1); MONO % 8 % (0-9); NEUT # 16.1 x10^3/uL (1.8-7.7); NEUT % 78 % (31-73); PLATELET COUNT 389 x10^3/uL (140-400); RED CELL DISTRIBUTION WIDTH 15.2 % (11.5-14.5); WHITE BLOOD COUNT 20.6 x10^3/uL (4.0-11.0)
[2021-11-11 14:04] LABS: % LYMPHS 9 % (24-48); % MONOS 4 % (0-10); % SEGS 87 % (35-66); NUCLEATED RBC 1
[2021-11-11 14:05] LABS: PLT ESTIMATE ADEQUATE (ADEQUATE)
--- NOTE | 2021-11-11 14:09 | NUR ---
SS following up with discharge planning. SS reviewed pt chart and discussed with pt RN. Pt is currently requiring oxygen at two liters nasal canula. COVID19 negative. Pt on IV Cefazolin. Pt had surgery, debridement, and amputation of left toes today with Vascular. Discharge plan continues to be to home with family with outpatient PT/OT and wound care if needed per patient. SS will continue to follow for discharge planning.
--- NOTE | 2021-11-11 14:29 | OP ---
DATE OF SURGERY: 11/11/2021 SURGEON: Laya Harrison MD FUR CUTTER: Daniel Arcos DO The assistance of Dr. Arcos was necessary to assist with redo femoral exposure and performing the anastomoses to expedite revascularization in this chronically ill individual given the need for extensive debridement and amputation of the toes on the left foot. PREOPERATIVE DIAGNOSES: 1. Left lower extremity peripheral arterial disease with chronic limb-threatening ischemia of the bilateral lower extremities due to multilevel occlusive disease. 2. Tobacco abuse. 3. Left superficial femoral artery occlusion. 4. History of coronary artery disease status post coronary artery bypass graft. OPERATIONS: 1. Left deep femoral artery to below knee popliteal artery bypass with Artegraft 6 mm x 50 cm. 2. Toe amputations of the left toes 1, 2, 3, 4, and 5. 3. Sharp excisional debridement of left medial calf ulceration 6.5 x 3.5 x 0.5, left lateral foot ulceration 4 x 3 x 0.5, left lateral ankle ulceration 1 x 1 x 0.5 cm. 4. Left deep femoral artery endarterectomy. ANESTHESIA: General. INDICATIONS: This is a 55-year-old gentleman who developed a heel ulceration on the right and on the left multiple ulcerations involving all 5 toes, his heel, his lateral foot and lateral ankle as well as the medial calf. He had imaging demonstrating multilevel arterial occlusive disease. He recently underwent aortobifemoral bypass on 11/04/2021. He now is here to undergo staged revascularization of the left lower extremity with plan for debridement and toe amputation of the left lower extremity to address his significant gangrene and ulcerations of his left leg. In order to allow for potential healing of his extensive left lower extremity wounds he will require inline flow via bypass on the left leg. He will need later staged revascularization of the right leg as well for an associated superficial heel ulceration on the right side. OPERATIVE FINDINGS: Within the left deep femoral artery, there was a plaque that was lifted from the previous endpoint in the left deep femoral artery. This was causing a severe stenosis of the deep femoral artery at this level. This was trimmed back flush at the first order branches of the left deep femoral artery. This was then tacked to achieve an excellent endpoint without any loose debris. The deep femoral artery arteriotomy was then used as our proximal anastomosis with excellent inflow noted from the aortobifemoral graft. The below knee popliteal artery was widely patent without any significant disease. There was a palpable PT pulse at completion. There was extensive gangrenous changes of all 5 toes requiring amputation of all 5 toes back to the first and second metatarsal heads and back to the proximal phalanx of the third, fourth and fifth toes. There was exposed fascia and muscle, both on the medial calf wound and the lateral foot wounds following sharp excisional debridement of these wounds. There was no clear exposed bone. There was excellent bleeding noted during debridement and with toe amputations following revascularization. DESCRIPTION OF PROCEDURE: The patient was brought to the operative theater and placed supine upon the operating table. General endotracheal anesthesia was induced. A Meek catheter was placed. The bilateral groins and left leg were then prepped and draped in standard sterile fashion with an Ioban used to protect our planned bypass incisions from the ulceration on the left medial calf as well as a towel used to circumferentially cover the left foot to exclude this from the field and to carefulyl avoid cross contamination. Surgical timeout was performed and preoperative antibiotics were administered. A Meek catheter was placed after induction. We then simultaneously reopened the left femoral incision to expose the distal limb of the aortobifemoral graft and performed a left below knee popliteal incision starting from the medial femoral condyle extending just medial to the tibia approximately 8 cm. In the left groin, the previous sutures from the recent closure of the left common femoral artery were then divided to allow for exposure of the previous aortobifemoral graft limb. Further dissection was then performed by extending the previous incision distally and dividing the subcutaneous tissues with Bovie cautery to then carefully expose the deep femoral artery distally. The proximal deep femoral artery was without significant disease there. We were able to palpate the area of severe stenosis visualized on angiography and we then controlled the first order branches of the profunda femoris with vessel loops. The femoral graft limb as well as the common femoral artery were encircled with vessel loops. Simultaneous exposure was performed by myself of the below knee popliteal artery. After making the skin incision, the incision was deepened through subcutaneous tissue with cautery. The great saphenous vein had previously been harvested for coronary revascularization. The gastrocnemius fascia was opened and the posterior compartment entered. The soleal sling fibers were then taken down to expose the distal popliteal artery. The popliteal vein and tibial nerve were identified and spared during dissection. The popliteal artery was then encircled above the level of the anterior tibial vein and the vein was was left intact. There was an additional posterior branch that was encircled with a vessel loop and the artery was easily compressible and healthy throughout its entire length. A Bard tunneler was then used to tunnel in anatomic subsartorial plan from the below knee incision to the common femoral artery exposure specifically aiming laterally toward the deep femoral artery. A 6 mm x 50 cm Artegraft was then prepared with copious flushing with heparinized saline per instructions for use and records management assistant's recommendations. The patient was then administered 6000 units of heparin. The deep femoral artery was then clamped with proximal deep femoral artery controlled with a vessel loop and the first order branches controlled with atraumatic vascular clamps. An #11 blade was then used to create an anterior longitudinal arteriotomy on the deep femoral artery and this was extended with the Hooper scissors to just above the bifurcation into its first order branches. There was a shelf of plaque that had lifted from the previous endarterectomy. This was then excised by sharply trimming this back using Hooper scissors to fashion an endpoint in the deep femoral artery. This was then tacked with 7-0 Prolene sutures to prevent lifting of the endpoint. Following this, there was then excellent backbleeding confirmed from both of the first order profunda branches. The arteries were soft in this area and a dilator was able to be easily passed out to the lateral femoral circumflex artery. We then performed our proximal anastomosis between the Artegraft and the left profunda femoris artery in end-to-side fashion using 6-0 Prolene. Once this was completed, we then flushed into the graft with an excellent pulse noted within the graft and no evidence of side hole bleeding. The graft was then marked for orientation and this was then tunneled using the previously passed Bard tunneler into the below knee popliteal incision. This was tunneled in an anatomic plane. After tunneling, we assured there were no twists and that there was excellent pulsatile flow in the bypass conduit after releasing the proximal clamp. We then performed a standard end-to-side anastomosis between the below knee popliteal artery and the Artegraft after trimming the graft appropriately to fit and spatulating the graft. An anterior longitudinal arteriotomy was made in the below knee popliteal artery after clamping the proximal popliteal artery with a Mickey clamp and the occluding the distal popliteal artery and side branch with vessel loops. Anastomosis was then performed in standard fashion with 6-0 Prolene in an end-to-side fashion to the below knee popliteal artery. There was no significant disease of the below-knee popliteal artery. This artery was widely patent. Prior to completion of anastomosis, the outflow and inflow were forward bled, backbled and flushed and the anastomosis was then completed. After completion of the anastomosis, there was a palpable pulse within the distal popliteal artery and excellent multiphasic Doppler signals in the distal popliteal artery and proximal posterior tibial artery. Both wounds were inspected and found to be hemostatic. Fibrillar was placed around the below knee popliteal anastomosis. The wounds were copiously irrigated with antibiotic solution. The deep tissues in the groin were closed with 2-0 Vicryl followed by 3-0 Vicryl deep dermal and 4-0 Monocryl subcuticular suture. Steri-Strips, gauze and Tegaderm were then applied to this incision. The left below-knee popliteal incision was closed in layers with 2-0 Vicryl for the fascia, 3-0 Vicryl for deep dermal and 4-0 Monocryl for the skin. Dermabond was then applied to completely cover the incision for popliteal exposure prior to exposure of the wounds on his left leg. After the Dermabond had completely dried, the left foot was then exposed to allow for performing of amputations of the left first through fifth toes. In order to perform toe amputations, a fishmouth incision was made at each toe along the proximal phalanx, proximal to the area of necrotic gangrenous tissue. This was taken down sharply to bone with a #10 blade and in the case of the first and second toes, the proximal phalanx was dislocated from the metatarsophalangeal joint after sharp dissection to free the soft tissue from around the proximal phalanx. The plantar tendons were also trimmed far back. For the third, fourth and fifth toes, the incision was taken around the proximal phalanx and the proximal phalanx was divided with a bone cutter and the bone was further resected back using a rongeur to resect back to healthy proximal phalanx in the case of the third, fourth and fifth toes and to allow for tension-free closure of the skin. All of the toe amputation sites were then irrigated and inspected for hemostasis. All of the toes prior to amputation were felt to be non-salvageable due to significant gangrenous changes involving the distal and middle phalanx of toes 1 through 5. The wounds were then inspected for hemostasis with cautery used for additional hemostasis. The toe wounds were then closed using running 3-0 nylon to close all 5 incisions. The attention was then turned to the left medial calf wound where this was then debrided sharply using a #10 blade scalpel and scissors to debride back to healthy appearing underlying fascia without exposure of the underlying tibia. Wound measurements were 6.5 x 3.5 x 0.5 following debridement. With debridement of all nonviable necrotic tissue, there was good bleeding noted at the wound edges along the skin edges. Attention was then turned to the left lateral foot wound. This was then sharply debrided using a #10 blade scalpel, curette, and rongeur to debride back to healthy appearing underlying fascia and tendon overlying the fifth metatarsal on the left side. There was minimal debridement of fascia at this location and again this was debrided back to healthy appearing tissue. There was again excellent bleeding noted at the wound edges following debridement. Finally, on the left lateral ankle, there was a smaller ulceration. This was debrided sharply with the #15 blade scalpel and further debridement performed with a curette and rongeur to resect back to healthy appearing skin and subcutaneous tissue. The underlying fascia was exposed within this wound as well. All the wounds in the left leg that underwent debridement as well as toe amputations were then dressed with Adaptic, gauze, Kerlix and an Erik wrap. There was a palpable left posterior tibial pulse at the ankle after completion of the procedure. The patient was then awakened and transferred to recovery room in stable condition after extubation. Lip And Gate Builder was Dr. Arcos. An food and nutrition services assistant was necessary for exposure given the recent aortobifemoral bypass, which complicated exposure of the common femoral artery due to recent surgical scarring and to facilitate completion of the bypass anastomosis in this otherwise ill patient to facilitate the procedure and expedite the procedure. DAVE DR: Paulo TID: [id number] [facility]ITALSkip
[2021-11-11] MEDS: IV NORMAL SALINE 1000ML BAG 1,000 ML IV SCH (15:00)
[2021-11-11] MEDS: ceFAZolin SODIUM IV Push 1 GM VIAL. IVP SCH ×2 (15:00→21:19)
[2021-11-11] MEDS: MORPHINE SULFATE 2 MG/ML INJ. IV PRN (18:39)
[2021-11-11] MEDS: ATORVASTATIN CALCIUM 10 MG TABLET. PO SCH (21:17)
[2021-11-11] MEDS: HEPARIN for SUB-Q USE 5,000 UNIT/ML VIAL. SQ SCH (21:31)
[2021-11-12] MEDS: ceFAZolin SODIUM IV Push 1 GM VIAL. IVP SCH (01:53)
[2021-11-12 02:28] VITALS: BP 129/55
[2021-11-12] MEDS: PANTOPRAZOLE IV PUSH 40 MG VIAL. IVP SCH (06:07)
[2021-11-12] MEDS: HEPARIN for SUB-Q USE 5,000 UNIT/ML VIAL. SQ SCH (06:08)
[2021-11-12] MEDS: IV NORMAL SALINE 1000ML BAG 1,000 ML IV SCH ×2 (06:09→21:20)
[2021-11-12 07:00] VITALS: BP 131/61
[2021-11-12] MEDS: INSULIN LISPRO 300 UNITS/3 ML VIAL. SQ SCH ×3 (08:00→17:00)
[2021-11-12] MEDS: oxyCODONE/APAP 5/325 1 TAB TABLET PO PRN ×2 (08:14→20:12)
[2021-11-12] MEDS: ASPIRIN CHEWABLE 81 MG TABLET. PO SCH (08:16)
[2021-11-12] MEDS: CYANOCOBALAMIN (VITAMIN B-12) 1,000 MCG TABLET. PO SCH (08:16)
[2021-11-12] MEDS: diphenhydrAMINE HCL 25 MG CAPSULE PO SCH (08:16)
[2021-11-12] MEDS: ASCORBIC ACID 500 MG TABLET PO SCH (08:16)
[2021-11-12] MEDS: PREGABALIN 50 MG CAPSULE PO SCH ×3 (08:16→20:12)
[2021-11-12] MEDS: DOCUSATE SODIUM 100 MG CAPSULE. PO SCH ×2 (08:17→20:13)
[2021-11-12 10:08] LABS: BASO % 0 % (0-3); EOS # 0.1 x10^3/uL (0.0-0.7); EOS % 1 % (0-3); HEMOGLOBIN 7.8 g/dL (13.0-17.5); LYMPH # 1.4 x10^3/uL (1.0-4.8); LYMPH % 9 % (24-48); MEAN CORPUSCULAR HEMOGLOBIN 29 pg (25-35); MEAN CORPUSCULAR HGB CONC 33 g/dL (31-37); MEAN CORPUSCULAR VOLUME 90 fL (79-100); MONO # 1.2 x10^3/uL (0.0-1.1); MONO % 7 % (0-9); NEUT # 13.1 x10^3/uL (1.8-7.7); NEUT % 83 % (31-73); PLATELET COUNT 400 x10^3/uL (140-400); RED BLOOD COUNT 2.67 x10^6/uL (4.30-5.70); RED CELL DISTRIBUTION WIDTH 15.1 % (11.5-14.5); WHITE BLOOD COUNT 15.8 x10^3/uL (4.0-11.0)
[2021-11-12 10:13] LABS: CALCIUM 7.5 mg/dL (8.5-10.1); CREATININE 0.7 mg/dL (0.7-1.3); POTASSIUM 3.7 mmol/L (3.5-5.1)
[2021-11-12 10:45] VITALS: BP 102/57
--- NOTE | 2021-11-12 11:03 | PDOC ---
[facility] PROGRESS NOTE Date of Service DOS: DATE: 11/12/21 TIME: 11:01 Chief Complaint Chief Complaint Postop day 1 OPERATIONS: 1. Left deep femoral artery to below knee popliteal artery bypass with Artegraft 6 mm x 50 cm. 2. Toe amputations of the left toes 1, 2, 3, 4, and 5. 3. Sharp excisional debridement of left medial calf ulceration 6.5 x 3.5 x 0.5, left lateral foot ulceration 4 x 3 x 0.5, left lateral ankle ulceration 1 x 1 x 0.5 cm. 4. Left deep femoral artery endarterectomy. Postop day 13 OPERATIONS PERFORMED: 1. Aortobilateral profunda femoris bypass with 16 x 8 bifurcated [place]-Riley graft.2. 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% occlusion of the left common iliac artery Renal artery stenosis atherosclerotic disease in the abdominal aorta, celiac a xis and SMA Bilateral carotid stenosis approximately 50% History of diabetes mellitus type 2 History of hypertension History of CAD History of Present Illness History of Present Illness 11/12/2021 Patient seen and examined Discussed with RN Chart reviewed Discussed with case management He had his surgery yesterday 11/10/2021 Patient seen and examined Discussed with RN Chart reviewed Discussed with case management Patient apparently going to surgery in the morning for toe amputations 11/09/2021 Patient seen and examined He is alert and cooperative The left foot has heel wound and toe wounds please see the pictures Discussed with case management Chart reviewed Discussed with RN 11/08/2021 Patient seen and examined He is resting with no apparent distress He just got back from angiography with runoff of the lower extremities Discussed with case management Discussed with RN Chart reviewed 11/07: Hb to 7.6. NG tube out no further abdominal pain nausea vomiting. Passing some stool. Left leg and foot pain stable. Up to chair today. Wearing Rooke boots n.p.o. for midnight for angiography. 11/06: Hb dropped to 8.1. Complaining of lower abdominal pain. Was able to get up to the chair on 225. Says he is passing flatus. NG tube to suction 200 cc. 11/05/2021 Patient seen and examined in the ICU He has an NG clamped He has Rooke boots on both lower extremities Appears depressed He had lower extremity bypass yesterday Discussed with RN Chart reviewed 11/04, Surgery today, fem pop 55-year-old male with significant past medical history of for pancreatitis, hypertension, CABG, peripheral vascular disease with critical limb ischemia who underwent an angio of his lower extremities showing severe peripheral vascular disease and lower extremity wounds. Patient is admitted to the hospitalist service for further management and consult to the vascular surgery service. 2 Vitals/I&O Vitals/I&O: Vital Signs Date Time Temp Pulse Resp B/P (MAP) Pulse Ox O2 Delivery O2 Flow Rate FiO2 11/12/21 10:45 98.5 75 18 102/57 (72) 100 Room Air 98.5 11/12/21 08:00 2.0 I & O 11/11/21 11/11/21 11/12/21 14:59 22:59 06:59 Intake Total 1500 ml 820 ml Output Total 625 ml 200 ml 1300 ml Balance 875 ml -200 ml -480 ml Physical Exam General: No acute distress Heart: Regular rate Lungs: Crackles Abdomen: Soft, Other (incision c/d/i with gay/) Extremities: Other (Dry gangrene of left toes 1-5, medial ulceration on left calf with dry eschar. PT signals bilaterally. Palpable femoral pulses bilaterally) Skin: Other (Dry gangrene of left toes 1-5. Heel ulceration on left small with surrounding fissures. left medial calf ulceration.) Labs Labs: Laboratory Tests Test 11/11/21 12:05 11/11/21 12:27 11/11/21 16:36 11/11/21 20:51 Glucose (Fingerstick) 118 mg/dL (70-99) 124 mg/dL (70-99) 163 mg/dL (70-99) White Blood Count 20.6 x10^3/uL (4.0-11.0) Red Blood Count 2.70 x10^6/uL (4.30-5.70) Hemoglobin 7.9 g/dL (13.0-17.5) Hematocrit 24.5 % (39.0-53.0) Mean Corpuscular Volume 91 fL (79-100) Mean Corpuscular Hemoglobin 29 pg (25-35) Mean Corpuscular Hemoglobin Concent 32 g/dL (31-37) Red Cell Distribution Width 15.2 % (11.5-14.5) Platelet Count 389 x10^3/uL (140-400) Neutrophils (%) (Auto) 78 % (31-73) Lymphocytes (%) (Auto) 12 % (24-48) Monocytes (%) (Auto) 8 % (0-9) Eosinophils (%) (Auto) 1 % (0-3) Basophils (%) (Auto) 1 % (0-3) Neutrophils # (Auto) 16.1 x10^3/uL (1.8-7.7) Lymphocytes # (Auto) 2.5 x10^3/uL (1.0-4.8) Monocytes # (Auto) 1.6 x10^3/uL (0.0-1.1) Eosinophils # (Auto) 0.2 x10^3/uL (0.0-0.7) Basophils # (Auto) 0.1 x10^3/uL (0.0-0.2) Segmented Neutrophils % 87 % (35-66) Lymphocytes % 9 % (24-48) Monocytes % 4 % (0-10) Nucleated Red Blood Cells 1 Platelet Estimate Adequate (ADEQUATE) Test 11/12/21 07:50 11/12/21 09:47 11/12/21 10:37 Glucose (Fingerstick) 122 mg/dL (70-99) 141 mg/dL (70-99) White Blood Count 15.8 x10^3/uL (4.0-11.0) Red Blood Count 2.67 x10^6/uL (4.30-5.70) Hemoglobin 7.8 g/dL (13.0-17.5) Hematocrit 24.0 % (39.0-53.0) Mean Corpuscular Volume 90 fL (79-100) Mean Corpuscular Hemoglobin 29 pg (25-35) Mean Corpuscular Hemoglobin Concent 33 g/dL (31-37) Red Cell Distribution Width 15.1 % (11.5-14.5) Platelet Count 400 x10^3/uL (140-400) Neutrophils (%) (Auto) 83 % (31-73) Lymphocytes (%) (Auto) 9 % (24-48) Monocytes (%) (Auto) 7 % (0-9) Eosinophils (%) (Auto) 1 % (0-3) Basophils (%) (Auto) 0 % (0-3) Neutrophils # (Auto) 13.1 x10^3/uL (1.8-7.7) Lymphocytes # (Auto) 1.4 x10^3/uL (1.0-4.8) Monocytes # (Auto) 1.2 x10^3/uL (0.0-1.1) Eosinophils # (Auto) 0.1 x10^3/uL (0.0-0.7) Basophils # (Auto) 0.0 x10^3/uL (0.0-0.2) Sodium Level 140 mmol/L (136-145) Potassium Level 3.7 mmol/L (3.5-5.1) Chloride Level 102 mmol/L (98-107) Carbon Dioxide Level 30 mmol/L (21-32) Anion Gap 8 (6-14) Blood Urea Nitrogen 7 mg/dL (8-26) Creatinine 0.7 mg/dL (0.7-1.3) Estimated GFR (Cockcroft-Gault) 118.0 Glucose Level 150 mg/dL (70-99) Calcium Level 7.5 mg/dL (8.5-10.1) Assessment and Plan Assessmemt and Plan OPERATIONS: 1. Left deep femoral artery to below knee popliteal artery bypass with Artegraft 6 mm x 50 cm. 2. Toe amputations of the left toes 1, 2, 3, 4, and 5. 3. Sharp excisional debridement of left medial calf ulceration 6.5 x 3.5 x 0.5, left lateral foot ulceration 4 x 3 x 0.5, left lateral ankle ulceration 1 x 1 x 0.5 cm. 4. Left deep femoral artery endarterectomy. Postop day 13 OPERATIONS PERFORMED: 1. Aortobilateral profunda femoris bypass with 16 x 8 bifurcated [place]-Riley graft.2. 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 intake Home meds DVT prophylaxis Full code Suspect he will need to go to senior care or rehab? Appreciate subspecialist Comment Review of Relevant I have reviewed the following items ifrah (where applicable) has been applied. Medications: Current Medications Medications (Trade) Dose Ordered Sig/Amara Route PRN Reason Start Time Stop Time Status Last Admin Dose Admin Sodium Chloride 1,000 ml @ 60 mls/hr [id number] IV 11/11/21 12:00 11/12/21 06:09 Cefazolin Sodium (Ancef) 1 gm Q6H IVP 11/11/21 14:00 11/12/21 02:01 DC 11/12/21 01:53 Heparin Sodium (Porcine) (Heparin Sodium) 5,000 unit Q8HRS SQ 11/11/21 22:00 11/12/21 06:08 Justifications for Admission Other Justification Severe peripheral vascular disease with gangrenous wounds in the lower extremities CATHY GARCIA III DO Nov 12, 2021 11:03
--- NOTE | 2021-11-12 11:27 | PDOC ---
Provider Note Date of Service: DATE: 11/12/21 TIME: 11:05 Provider Note Provider Note Vascular S: Patient is without complaints of pain, continues to complain of constipation. O: Awake and alert VSS, afebrile Abdomen soft, NTND, incision dry and intact. Right groin incision is dry and intact. Fissue on heel with small ulceration. Palpable femoral pulse. Left groin incision dressing is dry and intact. Medial calf incision dry and intact, medial wound bed pink, no drainage. Dressing dry and intact to foot. Dressing was recently changed by nurse, reports incisions are dry and intact. Heel was small superficial wound that is pink in the wound bed without drainage. Multiple fissures on heel. 2+ palapable PT pulse. A/P: 1. Severe Aorto iliac occlusive disease, bilateral lower extremity peripheral arterial disease with chronic limb-threatening due to multilevel occlusive disease. 2. Tobacco abuse. 3. History of coronary artery disease status post coronary artery bypass graft. POD #8 1. Aortobilateral profunda femoris bypass with 16 x 8 bifurcated Arabi-Riley graft. 2. Extended right superficial femoral artery endarterectomy with patch angioplasty. POD #1 1. Left deep femoral artery to below knee popliteal artery bypass with Artegraft 6 mm x 50 cm. 2. Toe amputations of the left toes 1, 2, 3, 4, and 5. 3. Sharp excisional debridement of left medial calf ulceration 6.5 x 3.5 x 0.5, left lateral foot ulceration 4 x 3 x 0.5, left lateral ankle ulceration 1 x 1 x 0.5 cm. 4. Left deep femoral artery endarterectomy. Patient is doing well post procedures. We plan to perform right leg bypass 11/22/2021. Recommend continue local wound care Recommend strict offloading of left foot and right heel. Will plan to start low dose Xarelto 2.5mg BID this pm. Justicifation of Admission Dx: Justifications for Admission: Justification of Admission Dx: Yes PAM KAHN APRN Nov 12, 2021 11:27
--- NOTE | 2021-11-12 13:45 | NUR ---
SS following up with discharge planning. SS reviewed pt chart and discussed with pt RN. Pt is currently on room air. COVID19 negative. Pt had surgery, debridement, and amputation of left toes on 11/11/2021. Pt scheduled for right leg bypass with Vascular on 11/22/2021. Discharge plan continues to be to home with family with outpatient PT/OT and wound care if needed per patient. SS will continue to follow for discharge planning.
[2021-11-12 15:00] VITALS: BP 129/52
--- NOTE | 2021-11-12 16:22 | PDOC ---
PROGRESS NOTES Date of Service: DATE: 11/12/21 TIME: 16:17 Subjective Subjective c/o surgical incisional pain, denied any chest pain Objective Objective Vital Signs Date Time Temp Pulse Resp B/P (MAP) Pulse Ox O2 Delivery O2 Flow Rate FiO2 11/12/21 15:00 94.8 78 18 129/52 (77) 100 Room Air 94.8 11/12/21 08:00 2.0 Intake and Output 11/12/21 07:00 Intake Total 2320 ml Output Total 2125 ml Balance 195 ml Intake Oral 100 ml IV Total 2220 ml Output Urine Total 2075 ml Estimated Blood Loss 50 ml Physical Exam Abdomen: Soft, Other (incision c/d/i with gay/) Heart: Regular rate Extremities: Other (Dry gangrene of left toes 1-5, medial ulceration on left calf with dry eschar. PT signals bilaterally. Palpable femoral pulses bilaterally) General: No acute distress HEENT: Atraumatic, EOMI Lungs: Normal air movement MUSCULOSKELETAL: No deformity Neck: Supple Neuro: Normal speech Skin: Other (Dry gangrene of left toes 1-5. Heel ulceration on left small with surrounding fissures. left medial calf ulceration.) Assessment Assessment 1. Severe peripheral vascular disease, critical limb ischemia and left foot toes gangrene. s/p aortobifemoral bypass surgery, left femoropopliteal bypass, toe amputation, and wound debridement. Vascular surgery planning right leg bypass on 11/22/2021 2. Coronary artery disease s/p coronary artery bypass surgery in February 2021, presently stable and chest pain-free. Echo with LVEF 65% with diastolic dysfunction. Continue current secondary prevention measures 3. Bilateral carotid stenosis; Carotid US with moderate bilateral ICA disease 4. Hypertension: Controlled 5. Hyperlipidemia: Statin therapy 6. DM2: Treat per IM 7. Anemia; s/p transfusion; hgb stable 8. Leukocytosis 9. Tobacco abuse: Advised on smoking cessation Comment Review of Relevant I have reviewed the following items ifrah (where applicable) has been applied. Labs Laboratory Tests Test 11/11/21 16:36 11/11/21 20:51 11/12/21 07:50 11/12/21 09:47 Glucose (Fingerstick) 124 mg/dL (70-99) 163 mg/dL (70-99) 122 mg/dL (70-99) White Blood Count 15.8 x10^3/uL (4.0-11.0) Red Blood Count 2.67 x10^6/uL (4.30-5.70) Hemoglobin 7.8 g/dL (13.0-17.5) Hematocrit 24.0 % (39.0-53.0) Mean Corpuscular Volume 90 fL (79-100) Mean Corpuscular Hemoglobin 29 pg (25-35) Mean Corpuscular Hemoglobin Concent 33 g/dL (31-37) Red Cell Distribution Width 15.1 % (11.5-14.5) Platelet Count 400 x10^3/uL (140-400) Neutrophils (%) (Auto) 83 % (31-73) Lymphocytes (%) (Auto) 9 % (24-48) Monocytes (%) (Auto) 7 % (0-9) Eosinophils (%) (Auto) 1 % (0-3) Basophils (%) (Auto) 0 % (0-3) Neutrophils # (Auto) 13.1 x10^3/uL (1.8-7.7) Lymphocytes # (Auto) 1.4 x10^3/uL (1.0-4.8) Monocytes # (Auto) 1.2 x10^3/uL (0.0-1.1) Eosinophils # (Auto) 0.1 x10^3/uL (0.0-0.7) Basophils # (Auto) 0.0 x10^3/uL (0.0-0.2) Sodium Level 140 mmol/L (136-145) Potassium Level 3.7 mmol/L (3.5-5.1) Chloride Level 102 mmol/L (98-107) Carbon Dioxide Level 30 mmol/L (21-32) Anion Gap 8 (6-14) Blood Urea Nitrogen 7 mg/dL (8-26) Creatinine 0.7 mg/dL (0.7-1.3) Estimated GFR (Cockcroft-Gault) 118.0 Glucose Level 150 mg/dL (70-99) Calcium Level 7.5 mg/dL (8.5-10.1) Test 11/12/21 10:37 Glucose (Fingerstick) 141 mg/dL (70-99) Medications Current Medications Heparin Sodium (Porcine) (Heparin Sodium) 5,000 unit Q8HRS SQ Last administered on 3/4/22at 06:08; Start 11/11/21 at 22:00; Stop 11/12/21 at 11:03; Status DC Rivaroxaban (Xarelto) 2.5 mg BID PO ; Start 11/12/21 at 21:00 Vitals/I & O Vital Sign - Last 24 Hours 11/11/21 11/11/21 11/11/21 11/11/21 18:54 19:09 19:24 19:39 Temp 99.0 99.0 Pulse 82 84 78 76 Resp 16 B/P (MAP) 112/62 (79) 119/62 (81) 117/54 (75) 116/63 (80) Pulse Ox 100 O2 Delivery Nasal Cannula O2 Flow Rate 3.0 11/11/21 11/11/21 11/11/21 11/11/21 19:54 20:09 20:24 20:39 Pulse 80 74 82 76 B/P (MAP) 113/58 (76) 115/60 (78) 121/59 (79) 113/58 (76) 11/11/21 11/11/21 11/11/21 11/11/21 20:45 20:54 21:09 21:24 Pulse 80 78 78 B/P (MAP) 122/63 (82) 115/62 (79) 120/61 (80) O2 Delivery Nasal Cannula O2 Flow Rate 2.0 11/11/21 11/11/21 11/12/21 11/12/21 21:39 22:38 02:28 07:00 Temp 99.5 99.9 99.3 99.5 99.9 99.3 Pulse 76 82 71 78 Resp 19 20 18 B/P (MAP) 110/59 (76) 109/62 (78) 129/55 (79) 131/61 (84) Pulse Ox 100 100 100 O2 Delivery Room Air Room Air Room Air 11/12/21 11/12/21 11/12/21 11/12/21 08:00 08:16 10:45 15:00 Temp 98.5 94.8 98.5 94.8 Pulse 75 75 78 Resp 18 18 B/P (MAP) 132/66 102/57 (72) 129/52 (77) Pulse Ox 100 100 O2 Delivery Nasal Cannula Room Air Room Air O2 Flow Rate 2.0 Intake and Output 11/11/21 11/11/21 11/12/21 15:00 23:00 07:00 Intake Total 1500 ml 820 ml Output Total 625 ml 200 ml 1300 ml Balance 875 ml -200 ml -480 ml MOLLY VARGAS MD Nov 12, 2021 16:22
[2021-11-12 19:24] VITALS: BP 135/68
[2021-11-12] MEDS: ATORVASTATIN CALCIUM 10 MG TABLET. PO SCH (20:12)
[2021-11-12] MEDS: RIVAROXABAN 10 MG TABLET. PO SCH (20:14)
[2021-11-12 23:13] VITALS: BP 111/60
[2021-11-13 03:17] VITALS: BP 133/67
[2021-11-13] MEDS: PANTOPRAZOLE IV PUSH 40 MG VIAL. IVP SCH (05:48)
[2021-11-13 07:00] VITALS: BP 140/72
[2021-11-13] MEDS: INSULIN LISPRO 300 UNITS/3 ML VIAL. SQ SCH ×3 (08:00→16:18)
[2021-11-13] MEDS: CYANOCOBALAMIN (VITAMIN B-12) 1,000 MCG TABLET. PO SCH (08:31)
[2021-11-13] MEDS: ASCORBIC ACID 500 MG TABLET PO SCH (08:31)
[2021-11-13] MEDS: PREGABALIN 50 MG CAPSULE PO SCH ×3 (08:31→19:16)
[2021-11-13] MEDS: diphenhydrAMINE HCL 25 MG CAPSULE PO SCH (08:31)
[2021-11-13] MEDS: DOCUSATE SODIUM 100 MG CAPSULE. PO SCH ×2 (08:31→19:16)
[2021-11-13] MEDS: ASPIRIN CHEWABLE 81 MG TABLET. PO SCH (08:31)
[2021-11-13] MEDS: RIVAROXABAN 10 MG TABLET. PO SCH ×2 (08:32→19:16)
--- NOTE | 2021-11-13 09:44 | PDOC ---
PROGRESS NOTES Date of Service: DATE: 11/13/21 TIME: 09:44 Subjective Subjective No new complaints Objective Objective Vital Signs Date Time Temp Pulse Resp B/P (MAP) Pulse Ox O2 Delivery O2 Flow Rate FiO2 11/13/21 08:31 70 140/72 11/13/21 08:00 Room Air 2.0 11/13/21 07:00 94.8 18 92 94.8 Intake and Output 11/13/21 07:00 Intake Total 275 ml Output Total 400 ml Balance -125 ml Intake Oral 275 ml Output Urine Total 400 ml Physical Exam Abdomen: Soft, Other (incision c/d/i with gay/) Heart: Regular rate Extremities: Other (Dry gangrene of left toes 1-5, medial ulceration on left calf with dry eschar. PT signals bilaterally. Palpable femoral pulses bilaterally) General: No acute distress HEENT: Atraumatic, EOMI Lungs: Normal air movement MUSCULOSKELETAL: No deformity Neck: Supple Neuro: Normal speech Skin: Other (Dry gangrene of left toes 1-5. Heel ulceration on left small with surrounding fissures. left medial calf ulceration.) Assessment Assessment 1. Severe peripheral vascular disease, critical limb ischemia and left foot toes gangrene. s/p aortobifemoral bypass surgery, left femoropopliteal bypass, toe amputation, and wound debridement. Vascular surgery planning right leg bypass on 11/22/2021 2. Coronary artery disease s/p coronary artery bypass surgery in February 2021, presently stable and chest pain-free. Echo with LVEF 65% with diastolic dysfunction. Continue current secondary prevention measures 3. Bilateral carotid stenosis; Carotid US with moderate bilateral ICA disease 4. Hypertension: Controlled 5. Hyperlipidemia: Statin therapy 6. DM2: Treat per IM 7. Anemia; s/p transfusion; hgb stable 8. Leukocytosis 9. Tobacco abuse: Advised on smoking cessation Comment Review of Relevant I have reviewed the following items ifrah (where applicable) has been applied. Labs Laboratory Tests Test 11/12/21 09:47 11/12/21 10:37 11/12/21 16:59 11/12/21 20:41 White Blood Count 15.8 x10^3/uL (4.0-11.0) Red Blood Count 2.67 x10^6/uL (4.30-5.70) Hemoglobin 7.8 g/dL (13.0-17.5) Hematocrit 24.0 % (39.0-53.0) Mean Corpuscular Volume 90 fL (79-100) Mean Corpuscular Hemoglobin 29 pg (25-35) Mean Corpuscular Hemoglobin Concent 33 g/dL (31-37) Red Cell Distribution Width 15.1 % (11.5-14.5) Platelet Count 400 x10^3/uL (140-400) Neutrophils (%) (Auto) 83 % (31-73) Lymphocytes (%) (Auto) 9 % (24-48) Monocytes (%) (Auto) 7 % (0-9) Eosinophils (%) (Auto) 1 % (0-3) Basophils (%) (Auto) 0 % (0-3) Neutrophils # (Auto) 13.1 x10^3/uL (1.8-7.7) Lymphocytes # (Auto) 1.4 x10^3/uL (1.0-4.8) Monocytes # (Auto) 1.2 x10^3/uL (0.0-1.1) Eosinophils # (Auto) 0.1 x10^3/uL (0.0-0.7) Basophils # (Auto) 0.0 x10^3/uL (0.0-0.2) Sodium Level 140 mmol/L (136-145) Potassium Level 3.7 mmol/L (3.5-5.1) Chloride Level 102 mmol/L (98-107) Carbon Dioxide Level 30 mmol/L (21-32) Anion Gap 8 (6-14) Blood Urea Nitrogen 7 mg/dL (8-26) Creatinine 0.7 mg/dL (0.7-1.3) Estimated GFR (Cockcroft-Gault) 118.0 Glucose Level 150 mg/dL (70-99) Calcium Level 7.5 mg/dL (8.5-10.1) Glucose (Fingerstick) 141 mg/dL (70-99) 118 mg/dL (70-99) 140 mg/dL (70-99) Test 11/13/21 07:33 Glucose (Fingerstick) 116 mg/dL (70-99) Medications Current Medications Rivaroxaban (Xarelto) 2.5 mg BID PO Last administered on 11/13/21at 08:32; Start 11/12/21 at 21:00 Vitals/I & O Vital Sign - Last 24 Hours 11/12/21 11/12/21 11/12/21 11/12/21 10:45 15:00 19:24 20:00 Temp 98.5 94.8 96.1 98.5 94.8 96.1 Pulse 75 78 82 Resp 18 18 16 B/P (MAP) 102/57 (72) 129/52 (77) 135/68 (90) Pulse Ox 100 100 97 O2 Delivery Room Air Room Air Room Air Room Air 11/12/21 11/12/21 11/12/21 11/13/21 20:12 20:42 23:13 03:17 Temp 99.2 98.8 99.2 98.8 Pulse 72 66 Resp 16 18 B/P (MAP) 111/60 (77) 133/67 (89) Pulse Ox 97 99 99 98 O2 Delivery Nasal Cannula Nasal Cannula Room Air Room Air O2 Flow Rate 2.0 2.0 11/13/21 11/13/21 11/13/21 07:00 08:00 08:31 Temp 94.8 94.8 Pulse 70 70 Resp 18 B/P (MAP) 140/72 (94) 140/72 Pulse Ox 92 O2 Delivery Room Air Room Air O2 Flow Rate 2.0 Intake and Output 11/12/21 11/12/21 11/13/21 15:00 23:00 07:00 Intake Total 275 ml 0 ml Output Total 400 ml Balance 275 ml -400 ml 0 ml MOLLY VARGAS MD Nov 13, 2021 09:44
[2021-11-13 10:22] VITALS: BP 120/64
--- NOTE | 2021-11-13 12:51 | PDOC ---
[facility] PROGRESS NOTE Date of Service DOS: DATE: 11/13/21 TIME: 12:51 Chief Complaint Chief Complaint Postop day 1 OPERATIONS: 1. Left deep femoral artery to below knee popliteal artery bypass with Artegraft 6 mm x 50 cm. 2. Toe amputations of the left toes 1, 2, 3, 4, and 5. 3. Sharp excisional debridement of left medial calf ulceration 6.5 x 3.5 x 0.5, left lateral foot ulceration 4 x 3 x 0.5, left lateral ankle ulceration 1 x 1 x 0.5 cm. 4. Left deep femoral artery endarterectomy. Postop day 13 OPERATIONS PERFORMED: 1. Aortobilateral profunda femoris bypass with 16 x 8 bifurcated [place]-Riley graft.2. 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% occlusion of the left common iliac artery Renal artery stenosis atherosclerotic disease in the abdominal aorta, celiac a xis and SMA Bilateral carotid stenosis approximately 50% History of diabetes mellitus type 2 History of hypertension History of CAD History of Present Illness History of Present Illness 11/13/2021 Patient seen and examined He is resting with NAD Discussed with RN Chart reviewed 11/12/2021 Patient seen and examined Discussed with RN Chart reviewed Discussed with case management He had his surgery yesterday 11/10/2021 Patient seen and examined Discussed with RN Chart reviewed Discussed with case management Patient apparently going to surgery in the morning for toe amputations 11/09/2021 Patient seen and examined He is alert and cooperative The left foot has heel wound and toe wounds please see the pictures Discussed with case management Chart reviewed Discussed with RN 11/08/2021 Patient seen and examined He is resting with no apparent distress He just got back from angiography with runoff of the lower extremities Discussed with case management Discussed with RN Chart reviewed 11/07: Hb to 7.6. NG tube out no further abdominal pain nausea vomiting. Passing some stool. Left leg and foot pain stable. Up to chair today. Wearing Rooke boots n.p.o. for midnight for angiography. 11/06: Hb dropped to 8.1. Complaining of lower abdominal pain. Was able to get up to the chair on 225. Says he is passing flatus. NG tube to suction 200 cc. 11/05/2021 Patient seen and examined in the ICU He has an NG clamped He has Rooke boots on both lower extremities Appears depressed He had lower extremity bypass yesterday Discussed with RN Chart reviewed 11/04, Surgery today, fem pop 55-year-old male with significant past medical history of for pancreatitis, hypertension, CABG, peripheral vascular disease with critical limb ischemia who underwent an angio of his lower extremities showing severe peripheral vascular disease and lower extremity wounds. Patient is admitted to the hospitalist service for further management and consult to the vascular surgery service. 2 Vitals/I&O Vitals/I&O: Vital Signs Date Time Temp Pulse Resp B/P (MAP) Pulse Ox O2 Delivery O2 Flow Rate FiO2 11/13/21 10:22 98.4 68 18 120/64 (82) 95 Room Air 98.4 11/13/21 08:00 2.0 I & O 11/12/21 11/12/21 11/13/21 15:00 23:00 07:00 Intake Total 275 ml 0 ml Output Total 400 ml Balance 275 ml -400 ml 0 ml Physical Exam General: No acute distress Heart: Regular rate Lungs: Crackles Abdomen: Soft, Other (incision c/d/i with gay/) Extremities: Other (Dry gangrene of left toes 1-5, medial ulceration on left calf with dry eschar. PT signals bilaterally. Palpable femoral pulses bilaterally) Skin: Other (Dry gangrene of left toes 1-5. Heel ulceration on left small with surrounding fissures. left medial calf ulceration.) Labs Labs: Laboratory Tests Test 11/12/21 16:59 11/12/21 20:41 11/13/21 07:33 11/13/21 12:00 Glucose (Fingerstick) 118 mg/dL (70-99) 140 mg/dL (70-99) 116 mg/dL (70-99) 142 mg/dL (70-99) Assessment and Plan Assessmemt and Plan Assessmemt and Plan OPERATIONS: 1. Left deep femoral artery to below knee popliteal artery bypass with Artegraft 6 mm x 50 cm. 2. Toe amputations of the left toes 1, 2, 3, 4, and 5. 3. Sharp excisional debridement of left medial calf ulceration 6.5 x 3.5 x 0.5, left lateral foot ulceration 4 x 3 x 0.5, left lateral ankle ulceration 1 x 1 x 0.5 cm. 4. Left deep femoral artery endarterectomy. Postop day 13 OPERATIONS PERFORMED: 1. Aortobilateral profunda femoris bypass with 16 x 8 bifurcated [place]-Riley graft.2. 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 intake Home meds DVT prophylaxis Full code Suspect he will need to go to long term or rehab? Appreciate subspecialist Comment Review of Relevant I have reviewed the following items ifrah (where applicable) has been applied. Medications: Current Medications Medications (Trade) Dose Ordered Sig/Amara Route PRN Reason Start Time Stop Time Status Last Admin Dose Admin Rivaroxaban (Xarelto) 2.5 mg BID PO 11/12/21 21:00 11/13/21 08:32 Justifications for Admission Other Justification Severe peripheral vascular disease with gangrenous wounds in the lower extre CATHY Cottrell III DO Nov 13, 2021 12:51
--- NOTE | 2021-11-13 13:14 | PDOC ---
PROGRESS NOTES Date of Service DATE: 11/13/21 TIME: 13:11 Subjective Subjective He has expected incisional discomfort. Tolerating diet without difficulty. Objective Objective Vital Signs Date Time Temp Pulse Resp B/P (MAP) Pulse Ox O2 Delivery O2 Flow Rate FiO2 11/13/21 10:22 98.4 68 18 120/64 (82) 95 Room Air 98.4 11/13/21 08:00 2.0 Intake and Output 11/13/21 07:00 Intake Total 275 ml Output Total 400 ml Balance -125 ml Intake Oral 275 ml Output Urine Total 400 ml Physical Exam Abdomen: Soft, No tenderness, Other (Midline incision intact without erythema or signs of infection) Heart: Regular rate Extremities: Other (Bilateral groin and left medial calf incisions intact. Dressing intact on left toe amputation site. Superficial ulcer on the posterior aspect of the right heel with granulating base.) General: Alert, No acute distress Lungs: Normal air movement Assessment Assessment 1. Peripheral arterial disease status post aortobifemoral bypass and left femoral to popliteal artery bypass 2. Status post left transmetatarsal amputation 3. Right heel ulcer Plan Plan of Care He is doing well following vascular reconstruction. He will need to stay nonweightbearing to the left foot for approximately 2 weeks. Would continue local wound care to the right heel and incision care. Tentatively scheduled for right leg bypass in the near future. Comment Review of Relevant I have reviewed the following items ifrah (where applicable) has been applied. Labs Laboratory Tests Test 11/11/21 16:36 11/11/21 20:51 11/12/21 07:50 11/12/21 09:47 Glucose (Fingerstick) 124 mg/dL (70-99) 163 mg/dL (70-99) 122 mg/dL (70-99) White Blood Count 15.8 x10^3/uL (4.0-11.0) Red Blood Count 2.67 x10^6/uL (4.30-5.70) Hemoglobin 7.8 g/dL (13.0-17.5) Hematocrit 24.0 % (39.0-53.0) Mean Corpuscular Volume 90 fL (79-100) Mean Corpuscular Hemoglobin 29 pg (25-35) Mean Corpuscular Hemoglobin Concent 33 g/dL (31-37) Red Cell Distribution Width 15.1 % (11.5-14.5) Platelet Count 400 x10^3/uL (140-400) Neutrophils (%) (Auto) 83 % (31-73) Lymphocytes (%) (Auto) 9 % (24-48) Monocytes (%) (Auto) 7 % (0-9) Eosinophils (%) (Auto) 1 % (0-3) Basophils (%) (Auto) 0 % (0-3) Neutrophils # (Auto) 13.1 x10^3/uL (1.8-7.7) Lymphocytes # (Auto) 1.4 x10^3/uL (1.0-4.8) Monocytes # (Auto) 1.2 x10^3/uL (0.0-1.1) Eosinophils # (Auto) 0.1 x10^3/uL (0.0-0.7) Basophils # (Auto) 0.0 x10^3/uL (0.0-0.2) Sodium Level 140 mmol/L (136-145) Potassium Level 3.7 mmol/L (3.5-5.1) Chloride Level 102 mmol/L (98-107) Carbon Dioxide Level 30 mmol/L (21-32) Anion Gap 8 (6-14) Blood Urea Nitrogen 7 mg/dL (8-26) Creatinine 0.7 mg/dL (0.7-1.3) Estimated GFR (Cockcroft-Gault) 118.0 Glucose Level 150 mg/dL (70-99) Calcium Level 7.5 mg/dL (8.5-10.1) Test 11/12/21 10:37 11/12/21 16:59 11/12/21 20:41 11/13/21 07:33 Glucose (Fingerstick) 141 mg/dL (70-99) 118 mg/dL (70-99) 140 mg/dL (70-99) 116 mg/dL (70-99) Test 11/13/21 12:00 Glucose (Fingerstick) 142 mg/dL (70-99) Laboratory Tests Test 11/12/21 16:59 11/12/21 20:41 11/13/21 07:33 11/13/21 12:00 Glucose (Fingerstick) 118 mg/dL (70-99) 140 mg/dL (70-99) 116 mg/dL (70-99) 142 mg/dL (70-99) Medications Current Medications Iodixanol 200 ml/ Sodium Chloride 400 ml @ 400 mls/hr 1X ONCE IART Last administered on 10/29/21at 09:00; Start 10/29/21 at 09:00; Stop 10/29/21 at 09:59; Status DC Lidocaine HCl (Xylocaine-Mpf 1% 2ml Vial) 2 ml STK-MED ONCE .ROUTE ; Start 10/29/21 at 10:55; Stop 10/29/21 at 10:55; Status DC Heparin Sodium/ Sodium Chloride 1,000 ml @ As Directed STK-MED ONCE .ROUTE ; Start 10/29/21 at 10:56; Stop 10/29/21 at 10:56; Status DC Nitroglycerin (Nitroglycerin) 200 mcg STK-MED ONCE .ROUTE ; Start 10/29/21 at 10:58; Stop 10/29/21 at 10:58; Status DC Midazolam HCl (Versed) 5 mg STK-MED ONCE .ROUTE ; Start 10/29/21 at 10:59; Stop 10/29/21 at 10:59; Status DC Fentanyl Citrate (Fentanyl 2ml Vial) 100 mcg STK-MED ONCE .ROUTE ; Start 10/29/21 at 10:59; Stop 10/29/21 at 10:59; Status DC Verapamil HCl (Verapamil) 5 mg STK-MED ONCE .ROUTE ; Start 10/29/21 at 10:59; Stop 10/29/21 at 10:59; Status DC Heparin Sodium (Porcine) (Heparin Sodium) 10,000 unit STK-MED ONCE .ROUTE ; Start 10/29/21 at 10:59; Stop 10/29/21 at 11:00; Status DC Diphenhydramine HCl (Benadryl) 50 mg STK-MED ONCE .ROUTE ; Start 10/29/21 at 11:35; Stop 10/29/21 at 11:36; Status DC Nitroglycerin (Nitroglycerin) 200 mcg 1X ONCE IART Last administered on 10/29/21at 12:11; Start 10/29/21 at 12:00; Stop 10/29/21 at 12:05; Status DC Verapamil HCl (Verapamil) 2.5 mg 1X ONCE IART Last administered on 10/29/21at 12:11; Start 10/29/21 at 12:00; Stop 10/29/21 at 12:05; Status DC Heparin Sodium (Porcine) (Heparin Sodium) 2,500 unit 1X ONCE IART Last administered on 10/29/21at 12:13; Start 10/29/21 at 12:00; Stop 10/29/21 at 12:05; Status DC Heparin Sodium/ Sodium Chloride (HEPARIN for ARTERIAL LINE FLUSH) 1,000 unit 1X ONCE IART Last administered on 10/29/21at 12:10; Start 10/29/21 at 12:00; Stop 10/29/21 at 12:05; Status DC Heparin Sodium/ Sodium Chloride (HEPARIN for ARTERIAL LINE FLUSH) 1,000 unit 1X ONCE IART Last administered on 10/29/21at 12:10; Start 10/29/21 at 12:00; Stop 10/29/21 at 12:05; Status DC Midazolam HCl (Versed) 5 mg 1X ONCE IV Last administered on 10/29/21at 12:12; Start 10/29/21 at 12:00; Stop 10/29/21 at 12:05; Status DC Fentanyl Citrate (Fentanyl 2ml Vial) 100 mcg 1X ONCE IV Last administered on 10/29/21at 12:12; Start 10/29/21 at 12:00; Stop 10/29/21 at 12:05; Status DC Iodixanol (Visipaque 320) 100 ml 1X ONCE IART ; Start 10/29/21 at 12:00; Stop 10/29/21 at 12:05; Status DC Lidocaine HCl (Xylocaine-Mpf 1% 2ml Vial) 2 ml 1X ONCE INJ Last administered on 10/29/21at 12:11; Start 10/29/21 at 12:00; Stop 10/29/21 at 12:05; Status DC Diphenhydramine HCl (Benadryl) 50 mg 1X ONCE IVP Last administered on 10/29/21at 12:00; Start 10/29/21 at 12:00; Stop 10/29/21 at 12:05; Status DC Sodium Chloride 1,000 ml @ 100 mls/hr Q10H IV ; Start 10/29/21 at 12:15; Stop 10/30/21 at 12:14; Status DC Iohexol (Omnipaque 350 Mg/ml) 95 ml 1X ONCE IV Last administered on 10/29/21at 13:25; Start 10/29/21 at 13:30; Stop 10/29/21 at 13:34; Status DC Sennosides (Senna) 17.2 mg PRN BID PRN PO CONSTIPATION; Start 10/29/21 at 15:45 Docusate Sodium (Colace) 100 mg PRN DAILY PRN PO HARD STOOLS; Start 10/29/21 at 15:45; Stop 11/06/21 at 08:58; Status DC Ondansetron HCl (Zofran) 4 mg PRN Q6HRS PRN IVP NAUSEA/VOMITING, 1st CHOICE; Start 10/29/21 at 15:45; Status Cancel Insulin Human Lispro (HumaLOG) 0-5 UNITS TIDWMEALS SQ Last administered on 11/09/21at 12:27; Start 10/29/21 at 17:00 Dextrose (Dextrose 50%-Water Syringe) 12.5 gm PRN Q15MIN PRN IV SEE COMMENTS; Start 10/29/21 at 15:45 Sodium Chloride 1,000 ml @ 100 mls/hr Q10H IV Last administered on 10/31/21at 06:45; Start 10/29/21 at 15:45; Stop 10/31/21 at 13:06; Status DC Acetaminophen (Tylenol) 650 mg PRN Q4HRS PRN PO TEMP OVER 100.4F OR MILD PAIN; Start 10/29/21 at 15:45 Lorazepam (Ativan) 0.5 mg PRN Q6HRS PRN PO ANXIETY / AGITATION; Start 10/29/21 at 15:45 Lorazepam (Ativan Inj) 0.25 mg PRN Q4HRS PRN IV ANXIETY / AGITATION; Start 10/12 05/02 at 15:45 Enoxaparin Sodium (Lovenox 40mg Syringe) 40 mg Q24H SQ Last administered on 11/02/21at 17:32; Start 10/29/21 at 16:00; Stop 11/03/21 at 08:18; Status DC Acetaminophen/ Hydrocodone Bitart (Lortab 5/325) 1 tab PRN Q4HRS PRN PO SEVERE PAIN, 1ST CHOICE Last administered on 10/30/21at 20:34; Start 10/29/21 at 15:45; Stop 11/05/21 at 08:00; Status DC Acetaminophen/ Hydrocodone Bitart (Lortab 5/325) 2 tab PRN Q4HRS PRN PO SEVERE PAIN, 2ND CHOICE Last administered on 11/04/21at 02:25; Start 10/29/21 at 15:45; Stop 11/05/21 at 08:00; Status DC Morphine Sulfate (Morphine Sulfate) 1 mg PRN Q1HR PRN IV PAIN-SEE COMMENTS Last administered on 11/01/21at 08:52; Start 10/29/21 at 15:45; Stop 11/04/21 at 13:39; Status DC Morphine Sulfate (Morphine Sulfate) 2 mg PRN Q2HR PRN IVP SEVERE PAIN 7-10; Start 10/29/21 at 15:45; Stop 10/30/21 at 15:44; Status DC Prochlorperazine Edisylate (Compazine) 10 mg PRN Q6HRS PRN IV NAUSEA/VOMITING, 2nd CHOICE; Start 10/29/21 at 15:45; Status Cancel Diphenhydramine HCl (Benadryl) 25 mg PRN Q6HRS PRN IVP ITCHING; Start 10/29/21 at 15:45 Diphenhydramine HCl (Benadryl) 25 mg PRN Q6HRS PRN PO ITCHING; Start 10/29/21 at 15:45 Diphenhydramine HCl (Benadryl) 25 mg PRN QHS PRN PO INSOMNIA, 1st CHOICE Last administered on 10/30/21at 00:19; Start 10/29/21 at 15:45 Zolpidem Tartrate (Ambien) 2.5 mg PRN QHS PRN PO INSOMNIA, 2nd CHOICE; Start 10/29/21 at 15:45 Amlodipine Besylate (Norvasc) 10 mg DAILY PO Last administered on 11/13/21at 08:31; Start 10/30/21 at 09:00 Aspirin (Ecotrin) 81 mg [id number] PO Last administered on 11/03/21at 09:05; Start 10/30/21 at 08:00; Stop 11/06/21 at 08:34; Status DC Atorvastatin Calcium (Lipitor) 10 mg QHS PO Last administered on 11/12/21at 20:12; Start 10/29/21 at 21:00 Clopidogrel Bisulfate (Plavix) 75 mg DAILY PO Last administered on 11/03/21 09:05; Start 10/30/21 at 09:00; Stop 11/04/21 at 13:34; Status DC Diphenhydramine HCl (Benadryl) 25 mg DAILY PO Last administered on 11/13/21 08:31; Start 10/30/21 at 09:00 Pregabalin (Lyrica) 50 mg TID PO Last administered on 11/13/21 08:31; Start 10/29/21 at 21:00 Tramadol HCl (Ultram) 50 mg Q6HRS PRN PO MILD PAIN (2ND CHOICE) Last administered on 11/04/21at 17:14; Start 10/29/21 at 17:00 Ascorbic Acid (Vitamin C) 500 mg DAILY PO Last administered on 11/13/21 08:31; Start 10/30/21 at 09:00 Cyanocobalamin (Vitamin B-12) 1,000 mcg DAILY PO Last administered on 11/13/21 08:31; Start 10/30/21 at 09:00 Pantoprazole Sodium (Protonix) 40 mg DAILYAC PO Last administered on 11/03/21at 05:46; Start 10/30/21 at 07:30; Stop 11/05/21 at 09:27; Status DC Potassium Chloride (Klor-Con) 40 meq BID PO Last administered on 11/02/21at 08:43; Start 11/01/21 at 14:00; Stop 11/02/21 at 13:59; Status DC Polyethylene Glycol (miraLAX PACKET) 17 gm 1X ONCE PO ; Start 11/03/21 at 0 8:15; Stop 11/03/21 at 08:16; Status DC Cefazolin Sodium/ Dextrose 50 ml @ 100 mls/hr 1X PREOP PRN IV PRIOR TO PROCEDURE Last administered on 11/04/21at 08:06; Start 11/04/21 at 08:00; Stop 11/04/21 at 18:00; Status DC Heparin Sodium (Porcine) 5000 unit/Sodium Chloride 505 ml @ 505 mls/hr 1X ONCE IRR Last administered on 11/04/21at 09:05; Start 11/04/21 at 06:00; Stop 11/04/21 at 06:59; Status DC Cefazolin Sodium 1 gm/Sodium Chloride 500 ml @ 500 mls/hr 1X ONCE IRR Last administered on 11/04/21at 09:05; Start 11/04/21 at 06:00; Stop 11/04/21 at 06:59; Status DC Fentanyl Citrate (Fentanyl 2ml Vial) 25 mcg PRN Q5MIN PRN IVP MILD PAIN 1-3; Start 11/04/21 at 06:00; Stop 11/04/21 at 16:54; Status DC Fentanyl Citrate (Fentanyl 2ml Vial) 50 mcg PRN Q5MIN PRN IVP MODERATE PAIN 4-6 Last administered on 11/04/21at 14:02; Start 11/04/21 at 06:00; Stop 11/04/21 at 16:54; Status DC Morphine Sulfate (Morphine Sulfate) 1 mg PRN Q10MIN PRN IVP SEVERE PAIN 7-10 Last administered on 11/04/21at 14:28; Start 11/04/21 at 06:00; Stop 11/04/21 at 16:47; Status DC Ringer's Solution 1,000 ml @ 30 mls/hr Q24H IV Last administered on 11/04/21at 06:00; Start 11/04/21 at 06:00; Stop 11/04/21 at 17:59; Status DC Hydromorphone HCl (Dilaudid) 0.5 mg PRN Q10MIN PRN IVP SEVERE PAIN 7-10, 2nd CHOICE; Start 11/04/21 at 06:00; Stop 11/04/21 at 16:47; Status DC Prochlorperazine Edisylate (Compazine) 5 mg PACU PRN PRN IVP NAUSEA, MRX1 Last administered on 11/04/21at 14:09; Start 11/04/21 at 06:00; Stop 11/04/21 at 16:54; Status DC Cefazolin Sodium/ Dextrose 50 ml @ As Directed STK-MED ONCE IV ; Start 11/04/21 at 06:32; Stop 11/04/21 at 06:32; Status DC Rocuronium [place] (Zemuron) 50 mg STK-MED ONCE .ROUTE ; Start 11/04/21 at 06:54; Stop 11/04/21 at 06:54; Status DC Fentanyl Citrate (Fentanyl 2ml Vial) 100 mcg STK-MED ONCE .ROUTE ; Start 11/04/21 at 06:54; Stop 11/04/21 at 06:54; Status DC Midazolam HCl (Versed) 2 mg STK-MED ONCE .ROUTE ; Start 11/04/21 at 06:54; Stop 11/04/21 at 06:54; Status DC Propofol (Diprivan) 200 mg STK-MED ONCE IV ; Start 11/04/21 at 06:54; Stop 11/04/21 at 06:55; Status DC Lidocaine HCl (Lidocaine Pf 2% Vial) 5 ml STK-MED ONCE .ROUTE ; Start 11/04/21 at 06:54; Stop 11/04/21 at 06:55; Status DC Ondansetron HCl (Zofran) 4 mg STK-MED ONCE .ROUTE ; Start 11/04/21 at 06:54; Stop 11/04/21 at 06:55; Status DC Dexamethasone Sodium Phosphate (Decadron) 4 mg STK-MED ONCE .ROUTE ; Start 11/04/21 at 06:54; Stop 11/04/21 at 06:55; Status DC Cellulose (Surgicel Fibrillar 1x2) 1 each STK-MED ONCE .ROUTE Last administered on 11/04/21at 09:05; Start 11/04/21 at 07:03; Stop 11/04/21 at 07:03; Status DC Heparin Sodium (Porcine) (Heparin Sodium) 10,000 unit STK-MED ONCE .ROUTE ; Start 11/04/21 at 07:03; Stop 11/04/21 at 07:04; Status DC Phenylephrine HCl (Jayce-Synephrine Inj) 10 mg STK-MED ONCE .ROUTE ; Start 11/04/21 at 07:09; Stop 11/04/21 at 07:09; Status DC Heparin Sodium (Porcine) (Heparin Sodium) 10,000 unit STK-MED ONCE .ROUTE ; Start 11/04/21 at 07:34; Stop 11/04/21 at 07:35; Status DC Fentanyl Citrate (Fentanyl 2ml Vial) 100 mcg STK-MED ONCE .ROUTE ; Start 11/04/21 at 09:39; Stop 11/04/21 at 09:39; Status DC Albumin Human 500 ml @ As Directed STK-MED ONCE IV ; Start 11/04/21 at 10:16; Stop 11/04/21 at 10:16; Status DC Vasopressin (Vasostrict) 20 unit STK-MED ONCE .ROUTE ; Start 11/04/21 at 10:42; Stop 11/04/21 at 10:43; Status DC Rocuronium [place] (Zemuron) 50 mg STK-MED ONCE .ROUTE ; Start 11/04/21 at 11:06; Stop 11/04/21 at 11:06; Status DC Heparin Sodium (Porcine) (Heparin Sodium) 10,000 unit STK-MED ONCE .ROUTE ; Start 11/04/21 at 11:06; Stop 11/04/21 at 11:06; Status DC Hydromorphone HCl (Dilaudid) 2 mg STK-MED ONCE .ROUTE ; Start 11/04/21 at 11:09; Stop 11/04/21 at 11:09; Status DC Sugammadex Sodium (Bridion) 400 mg 1X ONCE IVP ; Start 11/04/21 at 11:15; Stop 11/04/21 at 11:16; Status DC Cefazolin Sodium/ Dextrose 50 ml @ As Directed STK-MED ONCE IV ; Start 11/04/21 at 11:41; Stop 11/04/21 at 11:42; Status DC Protamine Sulfate (Protamine) 50 mg STK-MED ONCE IV ; Start 11/04/21 at 11:48; Stop 11/04/21 at 11:48; Status DC Gelatin (Gelfoam Size 12-7mm) 1 each STK-MED ONCE .ROUTE Last administered on 11/04/21at 09:05; Start 11/04/21 at 12:08; Stop 11/04/21 at 12:08; Status DC Thrombin 20,000 unit STK-MED ONCE TP Last administered on 11/04/21at 09:05; Start 11/04/21 at 12:08; Stop 11/04/21 at 12:08; Status DC Gelatin (Gelfoam Size 12-7mm) 1 each STK-MED ONCE .ROUTE ; Start 11/04/21 at 12:10; Stop 11/04/21 at 12:11; Status Cancel Gelatin (Gelfoam Size 12-7mm) 1 each STK-MED ONCE .ROUTE ; Start 11/04/21 at 12:10; Stop 11/04/21 at 12:11; Status Cancel Gelatin (Gelfoam Size 12-7mm) 1 each STK-MED ONCE .ROUTE Last administered on 11/04/21at 09:05; Start 11/04/21 at 12:16; Stop 11/04/21 at 12:17; Status DC Gelatin (Gelfoam Size 12-7mm) 1 each STK-MED ONCE .ROUTE ; Start 11/04/21 at 12:16; Stop 11/04/21 at 12:17; Status DC Gelatin (Gelfoam Size 12-7mm) 1 each STK-MED ONCE .ROUTE Last administered on 11/04/21at 09:05; Start 11/04/21 at 12:17; Stop 11/04/21 at 12:17; Status DC Gelatin (Gelfoam Size 12-7mm) 1 each STK-MED ONCE .ROUTE Last administered on 11/04/21at 09:05; Start 11/04/21 at 12:17; Stop 11/04/21 at 12:17; Status DC Sevoflurane (Ultane) 90 ml STK-MED ONCE IH ; Start 11/04/21 at 12:18; Stop 11/04/21 at 12:18; Status DC Insulin Human Lispro (HumaLOG VIAL for OP,RR ONLY) 0-10 units PRN Q1HR PRN SQ PER PROTOCOL Last administered on 11/04/21at 15:08; Start 11/04/21 at 13:30; Stop 11/05/21 at 08:02; Status DC Fentanyl Citrate (Fentanyl 2ml Vial) 100 mcg STK-MED ONCE .ROUTE ; Start 11/04/21 at 13:33; Stop 11/04/21 at 13:33; Status DC Cefazolin Sodium (Ancef) 1 gm Q6H IVP Last administered on 11/05/21at 02:26; Start 11/04/21 at 14:00; Stop 11/05/21 at 02:01; Status DC Famotidine (Pepcid Vial) 20 mg BID IVP ; Start 11/04/21 at 21:00; Status Cancel Info (Icu Electrolyte Protocol) 1 ea DAILY MC Last administered on 11/07/21at 09:00; Start 11/05/21 at 09:00; Stop 11/08/21 at 10:08; Status DC Naloxone HCl (Narcan) 0.1 mg PRN Q2MIN PRN IV SEE ADMIN INSTRUCTIONS; Start 11/04/21 at 13:30 Sodium Chloride (Normal Saline Flush) 3 ml QSHIFT PRN IV AFTER MEDS AND BLOOD DRAWS; Start 11/04/21 at 13:30; Status Cancel Sodium Chloride 1,000 ml @ 150 mls/hr Q6H40M IV Last administered on 11/05/21at 02:27; Start 11/04/21 at 13:30; Stop 11/05/21 at 13:08; Status DC Naloxone HCl (Narcan) 0.4 mg PRN Q2MIN PRN IV SEE INSTRUCTIONS; Start 11/04/21 at 13:30 Sodium Chloride 1,000 ml @ 25 mls/hr Q24H IV ; Start 11/04/21 at 13:30; Stop 11/05/21 at 15:34; Status DC Morphine Sulfate (Morphine Sulfate) 2 mg PRN Q1HR PRN IV PAIN Last administered on 11/11/21at 18:39; Start 11/04/21 at 13:30 Oxycodone/ Acetaminophen (Percocet 5/325) 1 tab PRN Q4HRS PRN PO MODERATE PAIN Last administered on 11/09/21at 17:41; Start 11/04/21 at 13:30 Oxycodone/ Acetaminophen (Percocet 5/325) 2 tab PRN Q4HRS PRN PO SEVERE PAIN Last administered on 11/12/21at 20:12; Start 11/04/21 at 13:30 Ondansetron HCl (Zofran) 4 mg PRN Q6HRS PRN IVP NAUESA, 1ST CHOICE Last administered on 11/06/21at 12:52; Start 11/04/21 at 13:30 Prochlorperazine Edisylate (Compazine) 5 mg PRN Q6HRS PRN IV N/V, 2nd Choice, MR X1; Start 11/04/21 at 13:30 Hydralazine HCl (Apresoline Inj) 5 mg PRN Q4HRS PRN IVP ELEVATED BP, SEE COMMENTS Last administered on 11/04/21at 14:28; Start 11/04/21 at 13:30 Labetalol HCl (Normodyne Iv Push) 10 mg PRN Q2HR PRN IVP HYPERTENSION (2ND CHOICE) Last administered on 11/04/21at 17:50; Start 11/04/21 at 13:30 Morphine Sulfate (Morphine Sulfate) 2 mg STK-MED ONCE .ROUTE ; Start 11/04/21 at 14:04; Stop 11/04/21 at 14:05; Status DC Hydralazine HCl (Apresoline Inj) 20 mg STK-MED ONCE .ROUTE ; Start 11/04/21 at 14:04; Stop 11/04/21 at 14:05; Status DC Prochlorperazine Edisylate (Compazine) 10 mg STK-MED ONCE .ROUTE ; Start 11/04/21 at 14:04; Stop 11/04/21 at 14:05; Status DC Magnesium Sulfate 50 ml @ 25 mls/hr 1X ONCE IV Last administered on 11/05/21at 10:16; Start 11/05/21 at 09:00; Stop 11/05/21 at 10:59; Status DC Aspirin (Aspirin Chewable) 81 mg 1X ONCE PO Last administered on 11/05/21at 10:16; Start 11/05/21 at 09:30; Stop 11/05/21 at 09:31; Status DC Pantoprazole Sodium (PROTONIX VIAL for IV PUSH) 40 mg DAILYAC IVP Last administered on 11/13/21at 05:48; Start 11/05/21 at 09:30 Sodium Chloride 1,000 ml @ 60 mls/hr [id number] IV Last administered on 11/06/21at 22:48; Start 11/05/21 at 14:00; Stop 11/07/21 at 08:28; Status DC Albuterol Sulfate (Ventolin Neb Soln) 2.5 mg PRN Q6HRS PRN NEB SHORTNESS OF BREATH; Start 11/05/21 at 14:45 Aspirin (Aspirin Chewable) 81 mg DAILYWBKFT PO Last administered on 11/13/21at 08:31; Start 11/06/21 at 09:00 Docusate Sodium (Colace) 100 mg BID PO Last administered on 11/13/21at 08:31; Start 11/06/21 at 10:00 Heparin Sodium (Porcine) (Heparin Sodium) 5,000 unit Q12HR SQ Last administered on 11/10/21at 20:30; Start 11/06/21 at 10:00; Stop 11/11/21 at 12:19; Status DC Magnesium Sulfate/ Dextrose 100 ml @ 100 mls/hr 1X ONCE IV Last administered on 11/06/21at 10:32; Start 11/06/21 at 10:00; Stop 11/06/21 at 10:59; Status DC Potassium Chloride/Water 100 ml @ 100 mls/hr Q1H PRN IV PER PROTOCOL Last administered on 11/07/21at 10:46; Start 11/07/21 at 08:30; Stop 11/07/21 at 10:48; Status DC Potassium Chloride (Klor-Con) 40 meq Q2H PRN PO PER PROTOCOL; Start 11/07/21 at 08:15; Status UNV Potassium Chloride/Water 100 ml @ 100 mls/hr Q1H PRN IV PER PROTOCOL; Start 11/07/21 at 08:15; Status UNV Potassium Chloride (Klor-Con) 40 meq Q2H PRN PO PER PROTOCOL; Start 11/07/21 at 08:15; Status UNV Iodixanol 200 ml/ Sodium Chloride 400 ml @ 400 mls/hr 1X ONCE IART Last administered on 11/08/21at 08:30; Start 11/08/21 at 08:30; Stop 11/08/21 at 09:29; Status DC Lidocaine HCl (Xylocaine-Mpf 1% 2ml Vial) 2 ml STK-MED ONCE .ROUTE ; Start 11/08/21 at 08:07; Stop 11/08/21 at 08:08; Status DC Heparin Sodium/ Sodium Chloride 1,000 ml @ As Directed STK-MED ONCE .ROUTE ; Start 11/08/21 at 08:08; Stop 11/08/21 at 08:08; Status DC Midazolam HCl (Versed) 2 mg STK-MED ONCE .ROUTE ; Start 11/08/21 at 08:11; Stop 11/08/21 at 08:12; Status DC Fentanyl Citrate (Fentanyl 2ml Vial) 100 mcg STK-MED ONCE .ROUTE ; Start 11/08/21 at 08:11; Stop 11/08/21 at 08:12; Status DC Verapamil HCl (Verapamil) 5 mg STK-MED ONCE .ROUTE ; Start 11/08/21 at 08:11; Stop 11/08/21 at 08:12; Status DC Heparin Sodium (Porcine) (Heparin Sodium) 10,000 unit STK-MED ONCE .ROUTE ; Start 11/08/21 at 08:11; Stop 11/08/21 at 08:12; Status DC Diphenhydramine HCl (Benadryl) 50 mg STK-MED ONCE .ROUTE ; Start 11/08/21 at 08:52; Stop 11/08/21 at 08:53; Status DC Nitroglycerin (Nitroglycerin) 200 mcg 1X ONCE IART Last administered on 11/08/21at 09:43; Start 11/08/21 at 09:15; Stop 11/08/21 at 09:22; Status DC Verapamil HCl (Verapamil) 2.5 mg 1X ONCE IART Last administered on 11/08/21at 09:44; Start 11/08/21 at 09:15; Stop 11/08/21 at 09:22; Status DC Heparin Sodium (Porcine) (Heparin Sodium) 2,500 unit 1X ONCE IART Last adminis tered on 11/08/21at 09:46; Start 11/08/21 at 09:15; Stop 11/08/21 at 09:22; Status DC Heparin Sodium/ Sodium Chloride (HEPARIN for ARTERIAL LINE FLUSH) 1,000 unit 1X ONCE IART Last administered on 11/08/21at 09:44; Start 11/08/21 at 09:15; Stop 11/08/21 at 09:22; Status DC Heparin Sodium/ Sodium Chloride (HEPARIN for ARTERIAL LINE FLUSH) 1,000 unit 1X ONCE IART Last administered on 11/08/21at 09:45; Start 11/08/21 at 09:15; Stop 11/08/21 at 09:22; Status DC Midazolam HCl (Versed) 2 mg 1X ONCE IV Last administered on 11/08/21at 09:45; Start 11/08/21 at 09:15; Stop 11/08/21 at 09:22; Status DC Lidocaine HCl (Xylocaine-Mpf 1% 2ml Vial) 2 ml 1X ONCE INJ Last administered on 11/08/21at 09:42; Start 11/08/21 at 09:15; Stop 11/08/21 at 09:22; Status DC Diphenhydramine HCl (Benadryl) 50 mg 1X ONCE IVP Last administered on 11/08/21at 09:43; Start 11/08/21 at 09:15; Stop 11/08/21 at 09:22; Status DC Fentanyl Citrate (Fentanyl 2ml Vial) 75 mcg 1X ONCE IVP Last administered on 11/08/21at 09:43; Start 11/08/21 at 09:15; Stop 11/08/21 at 09:22; Status DC Heparin Sodium (Porcine) (Heparin Sodium) 2,000 unit 1X ONCE IV Last administered on 11/08/21at 09:46; Start 11/08/21 at 09:15; Stop 11/08/21 at 09:22; Status DC Iodixanol (Visipaque 320) 100 ml STK-MED ONCE .ROUTE ; Start 11/08/21 at 09:25; Stop 11/08/21 at 09:26; Status DC Protamine Sulfate (Protamine) 20 mg 1X ONCE IV Last administered on 11/08/21at 09:45; Start 11/08/21 at 09:45; Stop 11/08/21 at 09:46; Status DC Cefazolin Sodium/ Dextrose 50 ml @ 100 mls/hr 1X PREOP PRN IV PRIOR TO PROCEDURE Last administered on 11/11/21at 07:50; Start 11/11/21 at 06:00; Stop 11/11/21 at 18:00; Status DC Fentanyl Citrate (Fentanyl 2ml Vial) 25 mcg PRN Q5MIN PRN IVP MILD PAIN 1-3 Last administered on 11/11/21at 14:06; Start 11/11/21 at 06:00; Stop 11/12/21 at 06:00; Status DC Fentanyl Citrate (Fentanyl 2ml Vial) 50 mcg PRN Q5MIN PRN IVP MODERATE PAIN 4- 6; Start 11/11/21 at 06:00; Stop 11/12/21 at 06:00; Status DC Morphine Sulfate (Morphine Sulfate) 1 mg PRN Q10MIN PRN IVP SEVERE PAIN 7-10; Start 11/11/21 at 06:00; Stop 11/12/21 at 06:00; Status DC Ringer's Solution 1,000 ml @ 30 mls/hr Q24H IV Last administered on 11/11/21at 07:00; Start 11/11/21 at 06:00; Stop 11/11/21 at 17:59; Status DC Hydromorphone HCl (Dilaudid) 0.5 mg PRN Q10MIN PRN IVP SEVERE PAIN 7-10, 2nd CHOICE; Start 11/11/21 at 06:00; Stop 11/12/21 at 06:00; Status DC Prochlorperazine Edisylate (Compazine) 5 mg PACU PRN PRN IVP NAUSEA, MRX1; Start 11/11/21 at 06:00; Stop 11/12/21 at 06:00; Status DC Heparin Sodium (Porcine) 5000 unit/Sodium Chloride 505 ml @ 505 mls/hr 1X ONCE IRR ; Start 11/11/21 at 06:00; Stop 11/11/21 at 06:59; Status DC Cefazolin Sodium 1 gm/Sodium Chloride 500 ml @ 500 mls/hr 1X ONCE IRR Last administered on 11/11/21at 08:14; Start 11/11/21 at 06:00; Stop 11/11/21 at 06:59; Status DC Lidocaine HCl (Lidocaine Pf 2% Vial) 5 ml STK-MED ONCE .ROUTE ; Start 11/11/21 at 06:45; Stop 11/11/21 at 06:45; Status DC Propofol (Diprivan) 200 mg STK-MED ONCE IV ; Start 11/11/21 at 06:45; Stop 11/11/21 at 06:45; Status DC Diphenhydramine HCl (Benadryl) 50 mg STK-MED ONCE .ROUTE ; Start 11/11/21 at 06:45; Stop 11/11/21 at 06:45; Status DC Famotidine (Pepcid Vial) 20 mg STK-MED ONCE .ROUTE ; Start 11/11/21 at 06:45; Stop 11/11/21 at 06:45; Status DC Ondansetron HCl (Zofran) 4 mg STK-MED ONCE .ROUTE ; Start 11/11/21 at 06:45; Stop 11/11/21 at 06:45; Status DC Phenylephrine HCl (Jayce-Synephrine Inj) 10 mg STK-MED ONCE .ROUTE ; Start 11/11/21 at 06:45; Stop 11/11/21 at 06:45; Status DC Sevoflurane (Ultane) 60 ml STK-MED ONCE IH ; Start 11/11/21 at 06:45; Stop 11/11/21 at 06:45; Status DC Succinylcholine Chloride (Anectine) 200 mg STK-MED ONCE .ROUTE ; Start 11/11/21 at 06:45; Stop 11/11/21 at 06:45; Status DC Fentanyl Citrate (Fentanyl 2ml Vial) 100 mcg STK-MED ONCE .ROUTE ; Start 11/11/21 at 06:45; Stop 11/11/21 at 06:45; Status DC Gelatin (Gelfoam Size 100) 1 each STK-MED ONCE .ROUTE ; Start 11/11/21 at 07:05; Stop 11/11/21 at 07:05; Status DC Cellulose (Surgicel Fibrillar 1x2) 1 each STK-MED ONCE .ROUTE Last administered on 11/11/21at 08:14; Start 11/11/21 at 07:05; Stop 11/11/21 at 07:05; Status DC Iohexol (Omnipaque 300 Mg/ml) 50 ml STK-MED ONCE .ROUTE ; Start 11/11/21 at 07:05; Stop 11/11/21 at 07:05; Status DC Lidocaine HCl (Xylocaine 1% Pf 30ml Vial) 30 ml STK-MED ONCE .ROUTE ; Start 11/11/21 at 07:05; Stop 11/11/21 at 07:05; Status DC Papaverine HCl 60 mg STK-MED ONCE .ROUTE ; Start 11/11/21 at 07:05; Stop 11/11/21 at 07:06; Status DC Thrombin 20,000 unit STK-MED ONCE TP ; Start 11/11/21 at 07:05; Stop 11/11/21 at 07:06; Status DC Etomidate (Amidate) 20 mg STK-MED ONCE IV ; Start 11/11/21 at 07:08; Stop 11/11/21 at 07:09; Status DC Cefazolin Sodium/ Dextrose 50 ml @ As Directed STK-MED ONCE IV ; Start 11/11/21 at 07:11; Stop 11/11/21 at 07:11; Status DC Alteplase, Recombinant (Cathflo) 4 mg 1X ONCE INT CAT ; Start 11/11/21 at 07:15; Stop 11/11/21 at 07:16; Status DC Rocuronium [place] (Zemuron) 50 mg STK-MED ONCE .ROUTE ; Start 11/11/21 at 07:47; Stop 11/11/21 at 07:48; Status DC Heparin Sodium (Porcine) (Heparin Sodium) 10,000 unit STK-MED ONCE .ROUTE ; Start 11/11/21 at 08:55; Stop 11/11/21 at 08:55; Status DC Heparin Sodium (Porcine) (Heparin Sodium) 10,000 unit STK-MED ONCE .ROUTE ; Start 11/11/21 at 08:56; Stop 11/11/21 at 08:57; Status DC Hydromorphone HCl (Dilaudid) 2 mg STK-MED ONCE .ROUTE ; Start 11/11/21 at 10:14; Stop 11/11/21 at 10:14; Status DC Neostigmine [place] (Neostigmine Methylsulfate) 5 mg STK-MED ONCE .ROUTE ; Start 11/11/21 at 10:46; Stop 11/11/21 at 10:46; Status DC Glycopyrrolate (Robinul) 1 mg STK-MED ONCE .ROUTE ; Start 11/11/21 at 10:46; Stop 11/11/21 at 10:46; Status DC Cellulose (Surgicel Fibrillar 1x2) 1 each STK-MED ONCE .ROUTE ; Start 11/11/21 at 12:07; Stop 11/11/21 at 12:07; Status DC Sodium Chloride (Normal Saline Flush) 3 ml QSHIFT PRN IV AFTER MEDS AND BLOOD DRAWS; Start 11/11/21 at 12:00 Sodium Chloride 1,000 ml @ 60 mls/hr [id number] IV Last administered on 11/12/21at 06:09; Start 11/11/21 at 12:00 Cefazolin Sodium (Ancef) 1 gm Q6H IVP Last administered on 11/12/21at 01:53; Start 11/11/21 at 14:00; Stop 11/12/21 at 02:01; Status DC Heparin Sodium (Porcine) (Heparin Sodium) 5,000 unit Q8HRS SQ Last administered on 11/12/21at 06:08; Start 11/11/21 at 22:00; Stop 11/12/21 at 11:03; Status DC Fentanyl Citrate (Fentanyl 2ml Vial) 100 mcg STK-MED ONCE .ROUTE ; Start 11/11/21 at 12:52; Stop 11/11/21 at 12:52; Status DC Rivaroxaban (Xarelto) 2.5 mg BID PO Last administered on 11/13/21at 08:32; Start 11/12/21 at 21:00 Active Scripts Active Aspirin Ec (Aspirin) 81 Mg Tablet. 81 Mg PO [id number] 90 Days Amlodipine Besylate 10 Mg Tablet 10 Mg PO DAILY 90 Days Atorvastatin Calcium 10 Mg Tablet 10 Mg PO QHS 90 Days Reported Hydrochlorothiazide Tablet (Hydrochlorothiazide) 25 Mg Tablet 25 Mg PO DAILY Metformin Hcl 1,000 Mg Tablet 1,000 Mg PO BIDWMEALS Clopidogrel (Clopidogrel Bisulfate) 75 Mg Tablet 1 Tab PO DAILY Vitamin B-12 (Cyanocobalamin (Vitamin B-12)) 1,000 Mcg Tab.subl 1 Tab SL DAILY 30 Days Vitamin C (Ascorbic Acid) 500 Mg Capsule.er 1 Cap PO DAILY 30 Days Omeprazole 40 Mg Capsule.dr 1 Cap PO DAILY Lyrica (Pregabalin) 50 Mg Capsule 50 Mg PO TID Benadryl (Diphenhydramine Hcl) 25 Mg Capsule 25 Mg PO DAILY Tramadol Hcl 50 Mg Tablet 50 Mg PO Q6HRS PRN Iron (Ferrous Sulfate) 325 Mg Tablet 325 Mg PO DAILY Vitals/I & O Vital Sign - Last 24 Hours 11/12/21 11/12/21 11/12/21 11/12/21 15:00 19:24 20:00 20:12 Temp 94.8 96.1 94.8 96.1 Pulse 78 82 Resp 18 16 B/P (MAP) 129/52 (77) 135/68 (90) Pulse Ox 100 97 97 O2 Delivery Room Air Room Air Room Air Nasal Cannula O2 Flow Rate 2.0 11/12/21 11/12/21 11/13/21 11/13/21 20:42 23:13 03:17 07:00 Temp 99.2 98.8 94.8 99.2 98.8 94.8 Pulse 72 66 70 Resp 16 18 18 B/P (MAP) 111/60 (77) 133/67 (89) 140/72 (94) Pulse Ox 99 99 98 92 O2 Delivery Nasal Cannula Room Air Room Air Room Air O2 Flow Rate 2.0 11/13/21 11/13/21 11/13/21 08:00 08:31 10:22 Temp 98.4 98.4 Pulse 70 68 Resp 18 B/P (MAP) 140/72 120/64 (82) Pulse Ox 95 O2 Delivery Room Air Room Air O2 Flow Rate 2.0 Intake and Output 11/12/21 11/12/21 11/13/21 15:00 23:00 07:00 Intake Total 275 ml 0 ml Output Total 400 ml Balance 275 ml -400 ml 0 ml Justifications for Admission Other Justification Severe peripheral vascular disease with gangrenous wounds in the lower extremities MENG CHAVARRIA MD Nov 13, 2021 13:14
[2021-11-13] MEDS: IV NORMAL SALINE 1000ML BAG 1,000 ML IV SCH (13:47)
[2021-11-13 14:59] VITALS: BP 123/63
[2021-11-13 19:00] VITALS: BP 120/63
[2021-11-13] MEDS: ATORVASTATIN CALCIUM 10 MG TABLET. PO SCH (19:16)
[2021-11-13] MEDS: oxyCODONE/APAP 5/325 1 TAB TABLET PO PRN (19:17)
[2021-11-13 22:45] VITALS: BP 123/60
[2021-11-14 02:42] VITALS: BP 120/65
[2021-11-14 07:00] VITALS: BP 133/68
[2021-11-14] MEDS: INSULIN LISPRO 300 UNITS/3 ML VIAL. SQ SCH ×3 (08:00→17:28)
--- NOTE | 2021-11-14 08:28 | PDOC ---
PROGRESS NOTES Date of Service: DATE: 11/14/21 TIME: 08:28 Subjective Subjective Denied any chest pain or shortness of breath Objective Objective Vital Signs Date Time Temp Pulse Resp B/P (MAP) Pulse Ox O2 Delivery O2 Flow Rate FiO2 11/14/21 02:42 97.8 69 16 120/65 (83) 99 Room Air 97.8 11/13/21 08:00 2.0 Intake and Output 11/14/21 07:00 Output Total 950 ml Balance -950 ml Output Urine Total 950 ml Physical Exam Abdomen: Soft, No tenderness, Other (Midline incision intact without erythema or signs of infection) Heart: Regular rate Extremities: Other (Bilateral groin and left medial calf incisions intact. Dressing intact on left toe amputation site. Superficial ulcer on the posterior aspect of the right heel with granulating base.) General: Alert, No acute distress HEENT: Atraumatic, EOMI Lungs: Normal air movement MUSCULOSKELETAL: No deformity Neck: Supple Neuro: Normal speech Skin: Other (Dry gangrene of left toes 1-5. Heel ulceration on left small with surrounding fissures. left medial calf ulceration.) Assessment Assessment 1. Severe peripheral vascular disease, critical limb ischemia and left foot toes gangrene. s/p aortobifemoral bypass surgery, left femoropopliteal bypass, toe amputation, and wound debridement. Vascular surgery planning right leg bypass on 11/22/2021 2. Coronary artery disease s/p coronary artery bypass surgery in February 2021, presently stable and chest pain-free. Echo with LVEF 65% with diastolic dysfunction. Continue current secondary prevention measures 3. Bilateral carotid stenosis; Carotid US with moderate bilateral ICA disease 4. Hypertension: Controlled 5. Hyperlipidemia: Statin therapy 6. DM2: Treat per IM 7. Anemia; s/p transfusion; hgb stable 8. Leukocytosis 9. Tobacco abuse: Advised on smoking cessation Comment Review of Relevant I have reviewed the following items ifrah (where applicable) has been applied. Labs Laboratory Tests Test 11/13/21 12:00 11/13/21 16:11 11/13/21 19:44 11/14/21 07:22 Glucose (Fingerstick) 142 mg/dL (70-99) 202 mg/dL (70-99) 154 mg/dL (70-99) 127 mg/dL (70-99) Vitals/I & O Vital Sign - Last 24 Hours 11/13/21 11/13/21 11/13/21 11/13/21 08:31 10:22 14:59 19:00 Temp 98.4 98.1 98.2 98.4 98.1 98.2 Pulse 70 68 75 69 Resp 18 18 18 B/P (MAP) 140/72 120/64 (82) 123/63 (83) 120/63 (82) Pulse Ox 95 98 98 O2 Delivery Room Air Room Air Room Air 11/13/21 11/13/21 11/13/21 11/14/21 19:17 20:00 22:45 02:42 Temp 98.1 97.8 98.1 97.8 Pulse 67 69 Resp 18 18 16 B/P (MAP) 123/60 (81) 120/65 (83) Pulse Ox 99 99 O2 Delivery Room Air Room Air Room Air Room Air Intake and Output 11/13/21 11/13/21 11/14/21 15:00 23:00 07:00 Output Total 250 ml 700 ml Balance -250 ml -700 ml MOLLY VARGAS MD Nov 14, 2021 08:28
[2021-11-14] MEDS: ASCORBIC ACID 500 MG TABLET PO SCH (08:53)
[2021-11-14] MEDS: RIVAROXABAN 10 MG TABLET. PO SCH ×2 (08:53→20:50)
[2021-11-14] MEDS: PANTOPRAZOLE IV PUSH 40 MG VIAL. IVP SCH (08:53)
[2021-11-14] MEDS: diphenhydrAMINE HCL 25 MG CAPSULE PO SCH (08:53)
[2021-11-14] MEDS: DOCUSATE SODIUM 100 MG CAPSULE. PO SCH ×2 (08:53→20:50)
[2021-11-14] MEDS: ASPIRIN CHEWABLE 81 MG TABLET. PO SCH (08:53)
[2021-11-14] MEDS: CYANOCOBALAMIN (VITAMIN B-12) 1,000 MCG TABLET. PO SCH (08:54)
[2021-11-14] MEDS: PREGABALIN 50 MG CAPSULE PO SCH ×3 (08:54→20:50)
[2021-11-14] MEDS: MORPHINE SULFATE 2 MG/ML INJ. IV PRN ×2 (08:54→15:56)
[2021-11-14 11:00] VITALS: BP 128/67
[2021-11-14 11:35] LABS: HEMATOCRIT 24.7 % (39.0-53.0); RED BLOOD COUNT 2.75 x10^6/uL (4.30-5.70); RED CELL DISTRIBUTION WIDTH 15.3 % (11.5-14.5); WHITE BLOOD COUNT 14.8 x10^3/uL (4.0-11.0)
--- NOTE | 2021-11-14 11:43 | PDOC ---
Provider Note Date of Service: DATE: 11/14/21 TIME: 11:43 Provider Note Patient wheeling around floor in wheelchair. Continue supportive care. Justifications for Admission Other Justification Severe peripheral vascular disease with gangrenous wounds in the lower extremities MENG CHAVARRIA MD Nov 14, 2021 11:43
[2021-11-14 11:47] LABS: CALCIUM 8.5 mg/dL (8.5-10.1); CREATININE 0.6 mg/dL (0.7-1.3); GFR 140.9; POTASSIUM 4.1 mmol/L (3.5-5.1)
--- NOTE | 2021-11-14 12:29 | PDOC ---
[facility] PROGRESS NOTE Date of Service DOS: DATE: 11/14/21 TIME: 12:28 Chief Complaint Chief Complaint Postop day 1 OPERATIONS: 1. Left deep femoral artery to below knee popliteal artery bypass with Artegraft 6 mm x 50 cm. 2. Toe amputations of the left toes 1, 2, 3, 4, and 5. 3. Sharp excisional debridement of left medial calf ulceration 6.5 x 3.5 x 0.5, left lateral foot ulceration 4 x 3 x 0.5, left lateral ankle ulceration 1 x 1 x 0.5 cm. 4. Left deep femoral artery endarterectomy. Postop day 13 OPERATIONS PERFORMED: 1. Aortobilateral profunda femoris bypass with 16 x 8 bifurcated Riley-Riley graft.2. 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% occlusion of the left common iliac artery Renal artery stenosis atherosclerotic disease in the abdominal aorta, celiac a xis and SMA Bilateral carotid stenosis approximately 50% History of diabetes mellitus type 2 History of hypertension History of CAD History of Present Illness History of Present Illness 11/14/2021 Patient seen and examined Discussed with RN Chart reviewed 11/13/2021 Patient seen and examined He is resting with NAD Discussed with RN Chart reviewed 11/12/2021 Patient seen and examined Discussed with RN Chart reviewed Discussed with case management He had his surgery yesterday 11/10/2021 Patient seen and examined Discussed with RN Chart reviewed Discussed with case management Patient apparently going to surgery in the morning for toe amputations 11/09/2021 Patient seen and examined He is alert and cooperative The left foot has heel wound and toe wounds please see the pictures Discussed with case management Chart reviewed Discussed with RN 11/08/2021 Patient seen and examined He is resting with no apparent distress He just got back from angiography with runoff of the lower extremities Discussed with case management Discussed with RN Chart reviewed 11/07: Hb to 7.6. NG tube out no further abdominal pain nausea vomiting. Passing some stool. Left leg and foot pain stable. Up to chair today. Wearing Rooke boots n.p.o. for midnight for angiography. 11/06: Hb dropped to 8.1. Complaining of lower abdominal pain. Was able to get up to the chair on 225. Says he is passing flatus. NG tube to suction 200 cc. 11/05/2021 Patient seen and examined in the ICU He has an NG clamped He has Rooke boots on both lower extremities Appears depressed He had lower extremity bypass yesterday Discussed with RN Chart reviewed 11/04, Surgery today, fem pop 55-year-old male with significant past medical history of for pancreatitis, hypertension, CABG, peripheral vascular disease with critical limb ischemia who underwent an angio of his lower extremities showing severe peripheral vascular disease and lower extremity wounds. Patient is admitted to the hospitalist service for further management and consult to the vascular surgery service. 2 Vitals/I&O Vitals/I&O: Vital Signs Date Time Temp Pulse Resp B/P (MAP) Pulse Ox O2 Delivery O2 Flow Rate FiO2 11/14/21 11:00 96.9 68 18 128/67 (87) 97 96.9 11/14/21 09:24 Room Air 11/13/21 08:00 2.0 I & O 11/13/21 11/13/21 11/14/21 15:00 23:00 07:00 Output Total 250 ml 700 ml Balance -250 ml -700 ml Physical Exam General: Alert, No acute distress Heart: Regular rate Lungs: Crackles Abdomen: Soft, No tenderness, Other (Midline incision intact without erythema or signs of infection) Extremities: Other (Bilateral groin and left medial calf incisions intact. Dressing intact on left toe amputation site. Superficial ulcer on the posterior aspect of the right heel with granulating base.) Skin: Other (Dry gangrene of left toes 1-5. Heel ulceration on left small with surrounding fissures. left medial calf ulceration.) Labs Labs: Laboratory Tests Test 11/13/21 16:11 11/13/21 19:44 11/14/21 07:22 11/14/21 11:23 Glucose (Fingerstick) 202 mg/dL (70-99) 154 mg/dL (70-99) 127 mg/dL (70-99) White Blood Count 14.8 x10^3/uL (4.0-11.0) Red Blood Count 2.75 x10^6/uL (4.30-5.70) Hemoglobin 8.0 g/dL (13.0-17.5) Hematocrit 24.7 % (39.0-53.0) Mean Corpuscular Volume 90 fL (79-100) Mean Corpuscular Hemoglobin 29 pg (25-35) Mean Corpuscular Hemoglobin Concent 32 g/dL (31-37) Red Cell Distribution Width 15.3 % (11.5-14.5) Platelet Count 477 x10^3/uL (140-400) Sodium Level 139 mmol/L (136-145) Potassium Level 4.1 mmol/L (3.5-5.1) Chloride Level 101 mmol/L (98-107) Carbon Dioxide Level 29 mmol/L (21-32) Anion Gap 9 (6-14) Blood Urea Nitrogen 11 mg/dL (8-26) Creatinine 0.6 mg/dL (0.7-1.3) Estimated GFR (Cockcroft-Gault) 140.9 Glucose Level 127 mg/dL (70-99) Calcium Level 8.5 mg/dL (8.5-10.1) Test 11/14/21 11:30 Glucose (Fingerstick) 116 mg/dL (70-99) Assessment and Plan Assessmemt and Plan Assessmemt and Plan OPERATIONS: 1. Left deep femoral artery to below knee popliteal artery bypass with Artegraft 6 mm x 50 cm. 2. Toe amputations of the left toes 1, 2, 3, 4, and 5. 3. Sharp excisional debridement of left medial calf ulceration 6.5 x 3.5 x 0.5, left lateral foot ulceration 4 x 3 x 0.5, left lateral ankle ulceration 1 x 1 x 0.5 cm. 4. Left deep femoral artery endarterectomy. Postop day 13 OPERATIONS PERFORMED: 1. Aortobilateral profunda femoris bypass with 16 x 8 bifurcated Riley-Riley graft.2. 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% occlusion of the left common iliac artery Renal artery stenosis atherosclerotic disease in the abdominal aorta, celiac axis and SMA Bilateral carotid stenosis approximately 50% History of diabetes mellitus type 2 History of hypertension History of CAD Plan He might be going for more vascular bypass on the right lower extremity on the For now continue the following; Wound care Encourage p.o. intake Home meds DVT prophylaxis Full code Suspect he will need to go to longterm or rehab? Appreciate subspecialist Comment Review of Relevant I have reviewed the following items ifrah (where applicable) has been applied. Justifications for Admission Other Justification Severe peripheral vascular disease with gangrenous wounds in the lower extremities CATHY GARCIA III DO Nov 14, 2021 12:29
[2021-11-14 15:00] VITALS: BP 141/71
[2021-11-14 19:22] VITALS: BP 142/64
[2021-11-14] MEDS: ATORVASTATIN CALCIUM 10 MG TABLET. PO SCH (20:50)
[2021-11-14] MEDS: oxyCODONE/APAP 5/325 1 TAB TABLET PO PRN (20:50)
[2021-11-14 22:35] VITALS: BP 136/68
[2021-11-15 02:23] VITALS: BP 139/68
[2021-11-15 07:00] VITALS: BP 146/68
--- NOTE | 2021-11-15 09:00 | NUR ---
Wound/Ostomy Care Wound Type/Assessment: Patient seen per wound care for follow up regarding recent left TMA with bypass on 11/11. Dressing removed and TMA with sutures is well approximated and sutures intact, cleansed with choloraprep. Patient has palpable dorsal pedis. Patient has open incision/DFU to right heel, left heel, left ankle, and left lateral foot all post-op debridement on 11/11 as well. All wounds cleansed and assessed. There is minimal slough with red granulation in wound bed of all these wound with good pink edges. Treatment Recommendations/Plan: Cleanse wound and pat dry. Apply lotion to areas of dry skin per patient request. Recommendations to apply Hydrofera Blue to wound bed, cover with ABD pad and kerlix. Change every 2-3 days. Hydrofera Blue left in room. No other wounds noted. The groins and bypass site to left leg all clean and dry. Patient not wearing Rooke boots, patient encouraged to wear Rooke boots as tolerated. Patient denied at this time. Education provided: Patient educated on dressing changes, wound care, POC and PU prevention. Offloading surface/device: Patient to offload the left foot completely, patient stated he would be able to do this at home as he has lots of help at home. Recommended Referrals/Tests: Wound care and vascular following. Discharge Recommendations for dressings: Dressing change instructions left in room. Hydrofera Blue left with instructions. Patient familiar with Hydrofera Blue. Patient will follow up in the clinic if needed following discharge after his vascular appointment for follow up. Bed lowered and call light in reach. Wound care will follow up on 11/22/21.
[2021-11-15] MEDS: PANTOPRAZOLE IV PUSH 40 MG VIAL. IVP SCH (09:04)
[2021-11-15] MEDS: CYANOCOBALAMIN (VITAMIN B-12) 1,000 MCG TABLET. PO SCH (09:05)
[2021-11-15] MEDS: diphenhydrAMINE HCL 25 MG CAPSULE PO SCH (09:05)
[2021-11-15] MEDS: DOCUSATE SODIUM 100 MG CAPSULE. PO SCH ×2 (09:05→22:09)
[2021-11-15] MEDS: ASPIRIN CHEWABLE 81 MG TABLET. PO SCH (09:05)
[2021-11-15] MEDS: ASCORBIC ACID 500 MG TABLET PO SCH (09:06)
[2021-11-15] MEDS: PREGABALIN 50 MG CAPSULE PO SCH ×3 (09:06→22:08)
[2021-11-15] MEDS: RIVAROXABAN 10 MG TABLET. PO SCH ×2 (09:07→22:09)
[2021-11-15] MEDS: INSULIN LISPRO 300 UNITS/3 ML VIAL. SQ SCH ×3 (09:09→17:00)
--- NOTE | 2021-11-15 10:58 | PDOC ---
[facility] PROGRESS NOTE Date of Service DOS: DATE: 11/15/21 TIME: 10:53 Chief Complaint Chief Complaint Postop day 1 OPERATIONS: 1. Left deep femoral artery to below knee popliteal artery bypass with Artegraft 6 mm x 50 cm. 2. Toe amputations of the left toes 1, 2, 3, 4, and 5. 3. Sharp excisional debridement of left medial calf ulceration 6.5 x 3.5 x 0.5, left lateral foot ulceration 4 x 3 x 0.5, left lateral ankle ulceration 1 x 1 x 0.5 cm. 4. Left deep femoral artery endarterectomy. Postop day 13 OPERATIONS PERFORMED: 1. Aortobilateral profunda femoris bypass with 16 x 8 bifurcated [place]-Riley graft.2. 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% occlusion of the left common iliac artery Renal artery stenosis atherosclerotic disease in the abdominal aorta, celiac a xis and SMA Bilateral carotid stenosis approximately 50% History of diabetes mellitus type 2 History of hypertension History of CAD History of Present Illness History of Present Illness 11/15/2021 Patient seen and examined Discussed with RN Chart reviewed We hope to discharge perhaps later today 11/14/2021 Patient seen and examined Discussed with RN Chart reviewed 11/13/2021 Patient seen and examined He is resting with NAD Discussed with RN Chart reviewed 11/12/2021 Patient seen and examined Discussed with RN Chart reviewed Discussed with case management He had his surgery yesterday 11/10/2021 Patient seen and examined Discussed with RN Chart reviewed Discussed with case management Patient apparently going to surgery in the morning for toe amputations 11/09/2021 Patient seen and examined He is alert and cooperative The left foot has heel wound and toe wounds please see the pictures Discussed with case management Chart reviewed Discussed with RN 11/08/2021 Patient seen and examined He is resting with no apparent distress He just got back from angiography with runoff of the lower extremities Discussed with case management Discussed with RN Chart reviewed 11/07: Hb to 7.6. NG tube out no further abdominal pain nausea vomiting. Passing some stool. Left leg and foot pain stable. Up to chair today. Wearing Rooke boots n.p.o. for midnight for angiography. 11/06: Hb dropped to 8.1. Complaining of lower abdominal pain. Was able to get up to the chair on 225. Says he is passing flatus. NG tube to suction 200 cc. 11/05/2021 Patient seen and examined in the ICU He has an NG clamped He has Rooke boots on both lower extremities Appears depressed He had lower extremity bypass yesterday Discussed with RN Chart reviewed 11/04, Surgery today, fem pop 55-year-old male with significant past medical history of for pancreatitis, hypertension, CABG, peripheral vascular disease with critical limb ischemia who underwent an angio of his lower extremities showing severe peripheral vascular disease and lower extremity wounds. Patient is admitted to the hospitalist service for further management and consult to the vascular surgery service. 2 Vitals/I&O Vitals/I&O: Vital Signs Date Time Temp Pulse Resp B/P (MAP) Pulse Ox O2 Delivery O2 Flow Rate FiO2 11/15/21 09:06 75 146/68 11/15/21 08:00 Room Air 11/15/21 07:00 98.6 18 96 98.6 I & O 11/14/21 11/14/21 11/15/21 15:00 23:00 07:00 Intake Total 420 ml 700 ml 500 ml Output Total 900 ml 850 ml 1150 ml Balance -480 ml -150 ml -650 ml Physical Exam General: Alert, No acute distress Heart: Regular rate Lungs: Crackles Abdomen: Soft, No tenderness, Other (Midline incision intact without erythema or signs of infection) Extremities: Other (Bilateral groin and left medial calf incisions intact. Dressing intact on left toe amputation site. Superficial ulcer on the posterior aspect of the right heel with granulating base.) Skin: Other (Dry gangrene of left toes 1-5. Heel ulceration on left small with surrounding fissures. left medial calf ulceration.) Labs Labs: Laboratory Tests Test 11/14/21 11:23 11/14/21 11:30 11/14/21 16:51 11/14/21 20:02 White Blood Count 14.8 x10^3/uL (4.0-11.0) Red Blood Count 2.75 x10^6/uL (4.30-5.70) Hemoglobin 8.0 g/dL (13.0-17.5) Hematocrit 24.7 % (39.0-53.0) Mean Corpuscular Volume 90 fL (79-100) Mean Corpuscular Hemoglobin 29 pg (25-35) Mean Corpuscular Hemoglobin Concent 32 g/dL (31-37) Red Cell Distribution Width 15.3 % (11.5-14.5) Platelet Count 477 x10^3/uL (140-400) Sodium Level 139 mmol/L (136-145) Potassium Level 4.1 mmol/L (3.5-5.1) Chloride Level 101 mmol/L (98-107) Carbon Dioxide Level 29 mmol/L (21-32) Anion Gap 9 (6-14) Blood Urea Nitrogen 11 mg/dL (8-26) Creatinine 0.6 mg/dL (0.7-1.3) Estimated GFR (Cockcroft-Gault) 140.9 Glucose Level 127 mg/dL (70-99) Calcium Level 8.5 mg/dL (8.5-10.1) Glucose (Fingerstick) 116 mg/dL (70-99) 192 mg/dL (70-99) 142 mg/dL (70-99) Test 11/15/21 08:31 Glucose (Fingerstick) 170 mg/dL (70-99) Assessment and Plan Assessmemt and Plan OPERATIONS: 1. Left deep femoral artery to below knee popliteal artery bypass with Artegraft 6 mm x 50 cm. 2. Toe amputations of the left toes 1, 2, 3, 4, and 5. 3. Sharp excisional debridement of left medial calf ulceration 6.5 x 3.5 x 0.5, left lateral foot ulceration 4 x 3 x 0.5, left lateral ankle ulceration 1 x 1 x 0.5 cm. 4. Left deep femoral artery endarterectomy. Postop day 15 OPERATIONS PERFORMED: 1. Aortobilateral profunda femoris bypass with 16 x 8 bifurcated [place]-Riley graft.2. 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% occlusion of the left common iliac artery Renal artery stenosis atherosclerotic disease in the abdominal aorta, celiac axis and SMA Bilateral carotid stenosis approximately 50% History of diabetes mellitus type 2 History of hypertension History of CAD Plan He might be going for more vascular bypass on the right lower extremity on the I spoke with case management we hope to discharge to home with home health or retirement until the above can be done For now continue the following; Wound care Encourage p.o. intake Home meds DVT prophylaxis Full code Appreciate subspecialist Hoping to discharge later today to home with home health or retirement Comment Review of Relevant I have reviewed the following items ifrah (where applicable) has been applied. Justifications for Admission Other Justification Severe peripheral vascular disease with gangrenous wounds in the lower extremities CATHY GARCIA III DO Nov 15, 2021 10:58
[2021-11-15] MEDS ORDERED: RIVA10TA PO (11:02)
[2021-11-15] MEDS ORDERED: LORA0.5T96 PO (11:02)
[2021-11-15] MEDS ORDERED: OXYC1TAB15 PO (11:02)
--- NOTE | 2021-11-15 11:03 | PDOC ---
CHI GOODE HYDROGEN TREATER 11/15/21 1103: CARDIO Progress Notes Date and Time Date of Service 11/15/21 Time of Evaluation 1100 Subjective Subjective: No Chest Pain, No shortness of breath, No Palpitations Vitals Vitals Vital Signs Date Time Temp Pulse Resp B/P (MAP) Pulse Ox O2 Delivery O2 Flow Rate FiO2 11/15/21 09:06 75 146/68 11/15/21 08:00 Room Air 11/15/21 07:00 98.6 18 96 98.6 Weight Weight [ ] Input and Output Intake and Output Intake and Output 11/15/21 06:59 Intake Total 1620 ml Output Total 2900 ml Balance -1280 ml Intake Oral 1620 ml Output Urine Total 2900 ml # Bowel Movements 1 Laboratory Labs Laboratory Tests Test 11/14/21 11:23 11/14/21 11:30 11/14/21 16:51 11/14/21 20:02 White Blood Count 14.8 x10^3/uL (4.0-11.0) Red Blood Count 2.75 x10^6/uL (4.30-5.70) Hemoglobin 8.0 g/dL (13.0-17.5) Hematocrit 24.7 % (39.0-53.0) Mean Corpuscular Volume 90 fL (79-100) Mean Corpuscular Hemoglobin 29 pg (25-35) Mean Corpuscular Hemoglobin Concent 32 g/dL (31-37) Red Cell Distribution Width 15.3 % (11.5-14.5) Platelet Count 477 x10^3/uL (140-400) Sodium Level 139 mmol/L (136-145) Potassium Level 4.1 mmol/L (3.5-5.1) Chloride Level 101 mmol/L (98-107) Carbon Dioxide Level 29 mmol/L (21-32) Anion Gap 9 (6-14) Blood Urea Nitrogen 11 mg/dL (8-26) Creatinine 0.6 mg/dL (0.7-1.3) Estimated GFR (Cockcroft-Gault) 140.9 Glucose Level 127 mg/dL (70-99) Calcium Level 8.5 mg/dL (8.5-10.1) Glucose (Fingerstick) 116 mg/dL (70-99) 192 mg/dL (70-99) 142 mg/dL (70-99) Test 11/15/21 08:31 Glucose (Fingerstick) 170 mg/dL (70-99) Physical Exam HEENT: Neck Supple W Full Motion Chest: Symmetric LUNGS: Clear to Auscultation Heart: RRR Abdomen: Soft N/T Extremities: Other (bilateral groin and left medial calf incisions intact. Dressing intact on left toe amputation site. Superficial ulcer on the posterior aspect of the right heel with granulating base) Neurology: alert, oriented, follow commands Assessment Assessment 1. Severe peripheral vascular disease, critical limb ischemia and left foot toes gangrene. s/p aortobifemoral bypass surgery, left femoropopliteal bypass, toe amputation, and wound debridement. Vascular surgery planning right leg bypass on 11/22/2021 2. Coronary artery disease s/p coronary artery bypass surgery in February 2021, presently stable and chest pain-free. Echo with LVEF 65% with diastolic dysfunction. Continue current secondary prevention measures 3. Bilateral carotid stenosis; Carotid US with moderate bilateral ICA disease 4. Hypertension: Controlled 5. Hyperlipidemia: Statin therapy 6. DM2: Treat per IM 7. Anemia; s/p transfusion; hgb stable 8. Leukocytosis 9. Tobacco abuse: Advised on smoking cessation Justicifation of Admission Dx: Justifications for Admission: Justification of Admission Dx: Yes MOLLY VARGAS MD 11/15/21 1538: CARDIO Progress Notes Assessment Assessment Patient seen and examined. Agree with TRAINING PROFESSIONAL's assessment and plan. s/p aortobifem and left femoropopliteal bypass surgery. Continue postop care per vascular surgery team. CV status clinically stable. Telemetry did not show any significant arrhythmias. Continue current secondary prevention measures. CHI GOODE APRN Nov 15, 2021 11:03 MOLLY VARGAS MD Nov 15, 2021 15:38
--- NOTE | 2021-11-15 11:04 | SNU/HH DC ---
DISCHARGE WITH HOME HEALTH DISCHARGE INFORMATION: Condition on Discharge: Stable CODE STATUS: Code Status: Full HOME HEALTH: Face to Face: I certify this patient is under my care and that I, or a nurse practitioner or physician's curriculum assistant principal working with me, had a face to face encounter that meets the physician face to face encounter requirements with this patient on []. Medical Complications: Other (Severe peripheral vascular disease) [facility] For: Assess & Educate Safety RN For Eval/Treatment: Yes Physical Therapy For: Evalulation/Treatment Occupational Therapy For: Evaluation/Treatment Home Health Aide For: Self-care OPTICAL LABORATORY MANAGER For: Community Resources Pt Meets Homebound Status: Poor coordination w/ amb. POST DISCHARGE ORDERS: Activity Instructions for Disc: Activity as tolerated Weight Bearing Status after Di: As tolerated DIET AFTER DISCHARGE: Cardiac Wound/Incision Care: No wound care needed CHECKS AFTER DISCHARGE: Checks after discharge: Check blood press - daily TREATMENT/EQUIPMENT ORDERS: Adaptive Equipment Issued: None CERTIFICATION STATEMENT: Certification Statement: Certification Statement: Based on the above finding, I certify that this patient is confined to the home and needs intermittent jail care, physical therapy and/or speech therapy, or continues to need occupational therapy.~ This patient is under my care, and I have initiated the establishment of the plan of care.~ This patient will be followed by myself or a community physician who will periodically review the plan of care. Home Meds Active Scripts Lorazepam (ATIVAN) 0.5 Mg Tablet, 0.5 MG PO PRN Q6HRS PRN for ANXIETY / AGITATION for 7 Days, #14 TAB Prov:CASTLE,NIAL K III DO 11/15/21 Oxycodone/Apap 5-325 (PERCOCET 5-325 MG TABLET ) 1 Each Tablet, 1 TAB PO PRN Q4HRS PRN for MODERATE PAIN for 10 Days, #30 TAB Prov:CASTLE,NIAL K III DO 11/15/21 Rivaroxaban (XARELTO) 10 Mg Tablet, 2.5 MG PO BID for pad for 90 Days, #45 TAB Prov:CASTLE,NIAL K III DO 11/15/21 Aspirin (ASPIRIN EC) 81 Mg Tablet., 81 MG PO DAILYWBKFT for 90 Days, #90 TAB.SR Prov:YUNI MCCORMACK MD 01/11/18 Amlodipine Besylate (AMLODIPINE BESYLATE) 10 Mg Tablet, 10 MG PO DAILY for 90 Days, #90 TAB Prov:YUNI MCCORMACK MD 01/11/18 Atorvastatin Calcium (ATORVASTATIN CALCIUM) 10 Mg Tablet, 10 MG PO QHS for 90 Days, #90 TAB Prov:YUNI MCCORMACK MD 01/11/18 Reported Medications Hydrochlorothiazide (HYDROCHLOROTHIAZIDE TABLET ) 25 Mg Tablet, 25 MG PO DAILY for DIURETIC, TAB 0 Refills 10/29/21 Metformin Hcl (METFORMIN HCL) 1,000 Mg Tablet, 1000 MG PO BIDWMEALS for diabetes management, TAB 10/29/21 Clopidogrel Bisulfate (CLOPIDOGREL) 75 Mg Tablet, 1 TAB PO DAILY for platelet inhibitor, #90 TAB 1 Refill 10/29/21 Cyanocobalamin (Vitamin B-12) (VITAMIN B-12) 1,000 Mcg Tab.subl, 1 TAB SL DAILY for daily for 30 Days, #30 TAB 0 Refills 10/29/21 Ascorbic Acid (VITAMIN C) 500 Mg Capsule.er, 1 CAP PO DAILY for wound healing for 30 Days, #30 CAP 0 Refills 10/29/21 Omeprazole (OMEPRAZOLE) 40 Mg Capsule.dr, 1 CAP PO DAILY for GERD, #30 CAP 3 Refills 10/29/21 Pregabalin (LYRICA) 50 Mg Capsule, 50 MG PO TID for diabetic management, CAP 10/29/21 Diphenhydramine Hcl (BENADRYL) 25 Mg Capsule, 25 MG PO DAILY for allergies, CAP 10/29/21 Tramadol Hcl (TRAMADOL HCL) 50 Mg Tablet, 50 MG PO Q6HRS PRN for PAIN, TAB 10/29/21 Ferrous Sulfate (IRON) 325 Mg Tablet, 325 MG PO DAILY for supplement, TAB 10/29/21 CATHY GARCIA III DO Nov 15, 2021 11:04
[2021-11-15 11:07] VITALS: BP 148/67
--- NOTE | 2021-11-15 12:07 | PDOC ---
Provider Note Date of Service: DATE: 11/15/21 TIME: 12:03 Provider Note Provider Note Vascular S: Patient is without complaints of pain, tolerating diet. Utilizing walker and wheelchair. O: Awake and alert VSS, afebrile Abdomen soft, NTND, incision dry and intact. Right groin incision is dry and intact. Fissue on heel with small ulceration. Palpable femoral pulse. Left groin incision dry and intact. Medial calf incision dry and intact. Lyle ssing dry and intact to foot and lower leg. Dressing was recently changed by nurse. 2+ palapable PT pulse. A/P: 1. Severe Aorto iliac occlusive disease, bilateral lower extremity peripheral arterial disease with chronic limb-threatening due to multilevel occlusive disease. 2. Tobacco abuse. 3. History of coronary artery disease status post coronary artery bypass graft. POD #11 1. Aortobilateral profunda femoris bypass with 16 x 8 bifurcated [place]-Riley graft. 2. Extended right superficial femoral artery endarterectomy with patch angioplasty. POD #4 1. Left deep femoral artery to below knee popliteal artery bypass with Artegraft 6 mm x 50 cm. 2. Toe amputations of the left toes 1, 2, 3, 4, and 5. 3. Sharp excisional debridement of left medial calf ulceration 6.5 x 3.5 x 0.5, left lateral foot ulceration 4 x 3 x 0.5, left lateral ankle ulceration 1 x 1 x 0.5 cm. 4. Left deep femoral artery endarterectomy. Patient is doing well post procedures. We plan to perform right leg bypass 11/22/2021. Recommend continue local wound care Recommend strict offloading of left foot and right heel. Will plan to start low dose Xarelto 2.5mg BID this pm. Ok from vascular standpoint to discharge to home and return for OR 11/22/2021. Discussed with RN. Justicifation of Admission Dx: Justifications for Admission: Justification of Admission Dx: Yes PAM KAHN APRN Nov 15, 2021 12:07 ODALIS SWEENEY MD Nov 15, 2021 12:36
--- NOTE | 2021-11-15 13:17 | NUR ---
SS following up with discharge planning. SS reviewed pt chart and discussed with pt RN. Pt is currently on room air. COVID19 negative. Discharge order on the chart for home. Scripts received for wheelchair and outpatient PT/OT. Script and clinical phoned and faxed to [facility], ; fax [phone], for wheelchair. SS discussed with Jayme at [facility]. Script and clinical phoned and faxed to [facility] outpatient physical therapy, ; fax [phone]. Pt's RN notified. SS will continue to follow for discharge planning. Addendum: 11/15/21 at 1419 by JENI SANCHEZ SS [facility] stating that [employer] is out of network for DME. SS contacted [facility] and no other wheelchairs available at this time. SS contacted [facility] and was notified that they also have no wheelchairs available. SS contacted [employer] and was notified that they are out of network with pt's insurance. SS contacted [employer], ; fax [phone] and was notified that they are in network but will need prior authorization from insurance prior to delivery. Request for prior authorization phoned and faxed to [facility], ; fax [phone]. Script and referral phoned and faxed to [employer], ; fax [phone]. Pt's RN.
--- NOTE | 2021-11-15 14:52 | NUR ---
DISCUSSED ISSUES WITH GETTING A WHEELCHAIR FOR HOME DISCHARGE WITH NICOLE. EXPLAINED FEARS THAT IT WOULD NOT BE A SAFE DISCHARGE WITHOUT. SHE AGREES, ET PT IS AGREEABLE WITH STAYING. PLAN FOR DC HOME TOMORROW IF WHEELCHAIR CAN BE OBTAINED. THEIR ONLY REMAINING CONCERN IS THAT WE CANCEL HIS APPOINTMENT WITH OUTPATIENT THERAPY IF HE DOESNT DISCHARGE IN TIME.
[2021-11-15 15:00] VITALS: BP 126/69
--- NOTE | 2021-11-15 18:54 | DS ---
DATE OF DISCHARGE: 11/15/2021 ADMITTING DIAGNOSIS: Severe peripheral vascular disease with arterial occlusion. DISCHARGE DIAGNOSES: Severe peripheral vascular disease with status post multiple surgeries including left deep femoral artery to below the knee popliteal artery bypass, toe amputations, sharp excisional debridement of the left medial calf, left deep femoral artery endarterectomy, aorto-bilateral profunda femoris bypass. HOSPITAL COURSE: The patient is a pleasant middle-aged male who presented with severe peripheral vascular disease. He was admitted. We have consulted Vascular Surgery. He is going to surgery at least 3 times with multiple procedures. Please see above and in the chart. He has got incisions above both groins. He has got a ventral incision below the umbilicus on down. He also has an incision on the left calf and has had numerous bypasses. He still needs another procedure on the right calf, a right fem-pop bypass, which is scheduled tentatively for later this month. Today, I saw and examined him. He is at his baseline. He is going to go home with home health. DISPOSITION: Home with home health. ACTIVITY: Nonweightbearing for 2 weeks. DIET: Cardiac. MEDICATIONS: Please see the MRAD. Lorazepam 0.5 every 6 hours, oxycodone 5 every 6 hours p.r.n., Xarelto 2.5 b.i.d., amlodipine 10 a day, vitamin C, aspirin 81 a day, atorvastatin 10 a day, Plavix 75 a day, B12, Benadryl, iron 325 a day, hydrochlorothiazide 25 a day, metformin 1000 b.i.d., omeprazole 40 a day, Lyrica 50 t.i.d. and Ultram 50 every 6 hours.. TOTAL TIME: [address]: Kristina TID: [id number]
[2021-11-15 19:10] VITALS: BP 137/59
[2021-11-15] MEDS: NYSTATIN TOPICAL POWDER 15GM BOTTLE. TP SCH (21:00)
[2021-11-15] MEDS: ATORVASTATIN CALCIUM 10 MG TABLET. PO SCH (22:09)
[2021-11-15 22:45] VITALS: BP 128/67
[2021-11-16 03:15] VITALS: BP 140/68
[2021-11-16] MEDS: PANTOPRAZOLE 40 MG TABLET.DR. PO SCH (05:51)
[2021-11-16 07:00] VITALS: BP 123/64
[2021-11-16] MEDS: DOCUSATE SODIUM 100 MG CAPSULE. PO SCH ×2 (08:43→21:01)
[2021-11-16] MEDS: CYANOCOBALAMIN (VITAMIN B-12) 1,000 MCG TABLET. PO SCH (08:43)
[2021-11-16] MEDS: ASCORBIC ACID 500 MG TABLET PO SCH (08:43)
[2021-11-16] MEDS: ASPIRIN CHEWABLE 81 MG TABLET. PO SCH (08:43)
[2021-11-16] MEDS: RIVAROXABAN 10 MG TABLET. PO SCH ×2 (08:43→21:02)
[2021-11-16] MEDS: diphenhydrAMINE HCL 25 MG CAPSULE PO SCH (08:43)
[2021-11-16] MEDS: PREGABALIN 50 MG CAPSULE PO SCH ×3 (08:44→21:02)
[2021-11-16] MEDS: oxyCODONE/APAP 5/325 1 TAB TABLET PO PRN (08:44)
[2021-11-16] MEDS: INSULIN LISPRO 300 UNITS/3 ML VIAL. SQ SCH ×3 (08:48→17:00)
[2021-11-16] MEDS: NYSTATIN TOPICAL POWDER 15GM BOTTLE. TP SCH ×2 (08:48→21:00)
--- NOTE | 2021-11-16 09:45 | PDOC ---
Provider Note Date of Service: DATE: 11/16/21 TIME: 09:43 Provider Note Provider Note Vascular S: Patient is without complaints of pain, tolerating diet. Utilizing walker and wheelchair. Awaiting wheelchair for discharge to home. O: Awake and alert VSS, afebrile Abdomen soft, NTND, incision dry and intact. Right groin incision is dry and intact. Dressing intact to heel Left groin incision dry and intact. Dressing to lower leg intact A/P: 1. Severe Aorto iliac occlusive disease, bilateral lower extremity peripheral arterial disease with chronic limb-threatening due to multilevel occlusive disease. 2. Tobacco abuse. 3. History of coronary artery disease status post coronary artery bypass graft. POD #12 1. Aortobilateral profunda femoris bypass with 16 x 8 bifurcated [place]-Riley graft. 2. Extended right superficial femoral artery endarterectomy with patch angioplasty. POD #5 1. Left deep femoral artery to below knee popliteal artery bypass with Artegraft 6 mm x 50 cm. 2. Toe amputations of the left toes 1, 2, 3, 4, and 5. 3. Sharp excisional debridement of left medial calf ulceration 6.5 x 3.5 x 0.5, left lateral foot ulceration 4 x 3 x 0.5, left lateral ankle ulceration 1 x 1 x 0.5 cm. 4. Left deep femoral artery endarterectomy. Patient is doing well post procedures. We plan to perform right leg bypass . Recommend continue local wound care Recommend strict offloading of left foot and right heel. Will plan to start low dose Xarelto 2.5mg BID this pm. Ok from vascular standpoint to discharge to home and return for OR 11/22/2021. Discussed with RN. Justicifation of Admission Dx: Justifications for Admission: Justification of Admission Dx: Yes PAM KAHN APRN Nov 16, 2021 09:45
--- NOTE | 2021-11-16 10:31 | PDOC ---
CHI GOODE ASPHALT MIXER 11/16/21 1031: CARDIO Progress Notes Date and Time Date of Service 11/16/21 Time of Evaluation 1030 Subjective Subjective: No Chest Pain, No shortness of breath, No Palpitations Vitals Vitals Vital Signs Date Time Temp Pulse Resp B/P (MAP) Pulse Ox O2 Delivery O2 Flow Rate FiO2 11/16/21 08:44 69 123/64 11/16/21 07:46 Room Air 11/16/21 07:00 97.8 18 99 97.8 Weight Weight [ ] Input and Output Intake and Output Intake and Output 11/16/21 07:00 Intake Total 577 ml Output Total 4450 ml Balance -3873 ml Intake Oral 577 ml Output Urine Total 4450 ml Laboratory Labs Laboratory Tests Test 11/15/21 11:26 11/15/21 17:10 11/15/21 21:15 11/16/21 08:21 Glucose (Fingerstick) 104 mg/dL (70-99) 116 mg/dL (70-99) 147 mg/dL (70-99) 156 mg/dL (70-99) Physical Exam HEENT: Neck Supple W Full Motion Chest: Symmetric LUNGS: Clear to Auscultation Heart: RRR Abdomen: Soft N/T Extremities: Other (bilateral groin and left medial calf incisions intact. Dressing intact on left toe amputation site. Superficial ulcer on the posterior aspect of the right heel with granulating base) Neurology: alert, oriented, follow commands Assessment Assessment 1. Severe peripheral vascular disease, critical limb ischemia and left foot toes gangrene. s/p aortobifemoral bypass surgery, left femoropopliteal bypass, toe amputation, and wound debridement. Vascular surgery planning right leg b ypass on 11/22/2021 2. Coronary artery disease s/p coronary artery bypass surgery in February 2021, presently stable and chest pain-free. Echo with LVEF 65% with diastolic dysfunction. Continue current secondary prevention measures. Follow up in our office as scheduled. 3. Bilateral carotid stenosis; Carotid US with moderate bilateral ICA disease 4. Hypertension: Controlled 5. Hyperlipidemia: Statin therapy 6. DM2: Treat per IM 7. Anemia; s/p transfusion; hgb stable 8. Leukocytosis 9. Tobacco abuse: Advised on smoking cessation Justicifation of Admission Dx: Justifications for Admission: Justification of Admission Dx: Yes MOLLY VARGAS MD 11/16/21 1552: CARDIO Progress Notes Assessment Assessment Patient seen and examined. Agree with CLASSIFIED AD CLERK's assessment and plan. s/p aortobifem and left femoropopliteal bypass surgery. Continue postop care per vascular surgery team. CV status clinically stable. Telemetry did not show any significant arrhythmias. Continue current secondary prevention measures. CHI GOODE APRN Nov 16, 2021 10:31 MOLLY VARGAS MD Nov 16, 2021 15:52
--- NOTE | 2021-11-16 10:40 | PDOC ---
[facility] PROGRESS NOTE Date of Service DOS: DATE: 11/16/21 TIME: 10:39 Chief Complaint Chief Complaint Postop day 1 OPERATIONS: 1. Left deep femoral artery to below knee popliteal artery bypass with Artegraft 6 mm x 50 cm. 2. Toe amputations of the left toes 1, 2, 3, 4, and 5. 3. Sharp excisional debridement of left medial calf ulceration 6.5 x 3.5 x 0.5, left lateral foot ulceration 4 x 3 x 0.5, left lateral ankle ulceration 1 x 1 x 0.5 cm. 4. Left deep femoral artery endarterectomy. Postop day 13 OPERATIONS PERFORMED: 1. Aortobilateral profunda femoris bypass with 16 x 8 bifurcated [place]-Riley graft.2. 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% occlusion of the left common iliac artery Renal artery stenosis atherosclerotic disease in the abdominal aorta, celiac a xis and SMA Bilateral carotid stenosis approximately 50% History of diabetes mellitus type 2 History of hypertension History of CAD History of Present Illness History of Present Illness 11/17/2019 Patient seen and examined He is at his baseline Awaiting discharge and we are arranging outpatient PT OT 11/15/2021 Patient seen and examined Discussed with RN Chart reviewed We hope to discharge perhaps later today 11/14/2021 Patient seen and examined Discussed with RN Chart reviewed 11/13/2021 Patient seen and examined He is resting with NAD Discussed with RN Chart reviewed 11/12/2021 Patient seen and examined Discussed with RN Chart reviewed Discussed with case management He had his surgery yesterday 11/10/2021 Patient seen and examined Discussed with RN Chart reviewed Discussed with case management Patient apparently going to surgery in the morning for toe amputations 11/09/2021 Patient seen and examined He is alert and cooperative The left foot has heel wound and toe wounds please see the pictures Discussed with case management Chart reviewed Discussed with RN 11/08/2021 Patient seen and examined He is resting with no apparent distress He just got back from angiography with runoff of the lower extremities Discussed with case management Discussed with RN Chart reviewed 11/07: Hb to 7.6. NG tube out no further abdominal pain nausea vomiting. Passing some stool. Left leg and foot pain stable. Up to chair today. Wearing Rooke boots n.p.o. for midnight for angiography. 11/06: Hb dropped to 8.1. Complaining of lower abdominal pain. Was able to get up to the chair on 225. Says he is passing flatus. NG tube to suction 200 cc. 11/05/2021 Patient seen and examined in the ICU He has an NG clamped He has Rooke boots on both lower extremities Appears depressed He had lower extremity bypass yesterday Discussed with RN Chart reviewed 11/04, Surgery today, fem pop 55-year-old male with significant past medical history of for pancreatitis, hypertension, CABG, peripheral vascular disease with critical limb ischemia who underwent an angio of his lower extremities showing severe peripheral vascular disease and lower extremity wounds. Patient is admitted to the hospitalist service for further management and consult to the vascular surgery service. 2 Vitals/I&O Vitals/I&O: Vital Signs Date Time Temp Pulse Resp B/P (MAP) Pulse Ox O2 Delivery O2 Flow Rate FiO2 11/16/21 08:44 69 123/64 11/16/21 07:46 Room Air 11/16/21 07:00 97.8 18 99 97.8 I & O 11/15/21 11/15/21 11/16/21 15:00 23:00 07:00 Intake Total 337 ml 240 ml Output Total 1000 ml 2000 ml 1450 ml Balance -1000 ml -1663 ml -1210 ml Physical Exam General: Alert, No acute distress Heart: Regular rate Lungs: Crackles Abdomen: Soft, No tenderness, Other (Midline incision intact without erythema or signs of infection) Extremities: Other (Bilateral groin and left medial calf incisions intact. Dressing intact on left toe amputation site. Superficial ulcer on the posterior aspect of the right heel with granulating base.) Skin: Other (Dry gangrene of left toes 1-5. Heel ulceration on left small with surrounding fissures. left medial calf ulceration.) Labs Labs: Laboratory Tests Test 11/15/21 11:26 11/15/21 17:10 11/15/21 21:15 11/16/21 08:21 Glucose (Fingerstick) 104 mg/dL (70-99) 116 mg/dL (70-99) 147 mg/dL (70-99) 156 mg/dL (70-99) Assessment and Plan Assessmemt and Plan Assessmemt and Plan OPERATIONS: 1. Left deep femoral artery to below knee popliteal artery bypass with Artegraft 6 mm x 50 cm. 2. Toe amputations of the left toes 1, 2, 3, 4, and 5. 3. Sharp excisional debridement of left medial calf ulceration 6.5 x 3.5 x 0.5, left lateral foot ulceration 4 x 3 x 0.5, left lateral ankle ulceration 1 x 1 x 0.5 cm. 4. Left deep femoral artery endarterectomy. Postop day 15 OPERATIONS PERFORMED: 1. Aortobilateral profunda femoris bypass with 16 x 8 bifurcated [place]-Riley graft.2. 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% occlusion of the left common iliac artery Renal artery stenosis atherosclerotic disease in the abdominal aorta, celiac axis and SMA Bilateral carotid stenosis approximately 50% History of diabetes mellitus type 2 History of hypertension History of CAD Plan He might be going for more vascular bypass on the right lower extremity on the I spoke with case management the plan is to discharge with outpatient PT OT For now continue the following; Wound care Encourage p.o. intake Home meds DVT prophylaxis Full code Appreciate subspecialist Hoping to discharge later today to home with outpatient PT OT Comment Review of Relevant I have reviewed the following items ifrah (where applicable) has been applied. Medications: Current Medications Medications (Trade) Dose Ordered Sig/Amara Route PRN Reason Start Time Stop Time Status Last Admin Dose Admin Nystatin (Nystop) 1 andra BID TP 11/15/21 21:00 11/16/21 08:48 Pantoprazole Sodium (Protonix) 40 mg DAILYAC PO 11/16/21 07:30 11/16/21 05:51 Justifications for Admission Other Justification Severe peripheral vascular disease with gangrenous wounds in the lower extremities CATHY GARCIA III DO Nov 16, 2021 10:40
[2021-11-16 11:00] VITALS: BP 99/58
--- NOTE | 2021-11-16 12:29 | NUR ---
SS following up with discharge planning. SS reviewed pt chart and discussed with pt RN. Pt is currently on room air. Discharge order on the chart. Pt has outpatient PT services set up at [facility] outpatient physical therapy, ; fax [phone]. Wheelchair ordered through [facility], ; fax [phone]. [employer] requiring prior authorization from [employer]. SS received phone call from Minerva, , with the prior authorization department from [employer], stating that they have received the request for authorization sent yesterday and are processing request for wheelchair. She stated that once complete they will send to there medical field representative for final approval. Omer at [facility] notified. Omer reported that he will notify SS of delivery time frame once authorization has been received. Pt's RN notified. SS will continue to follow for discharge planning.
[2021-11-16 15:00] VITALS: BP 111/60
[2021-11-16 19:00] VITALS: BP 124/65
[2021-11-16] MEDS: ATORVASTATIN CALCIUM 10 MG TABLET. PO SCH (21:01)
[2021-11-16 22:50] VITALS: BP 129/60
[2021-11-17 02:50] VITALS: BP 135/61
[2021-11-17] MEDS: PANTOPRAZOLE 40 MG TABLET.DR. PO SCH (05:41)
[2021-11-17 07:00] VITALS: BP 133/66
[2021-11-17] MEDS: INSULIN LISPRO 300 UNITS/3 ML VIAL. SQ SCH ×2 (08:00→12:00)
[2021-11-17] MEDS: DOCUSATE SODIUM 100 MG CAPSULE. PO SCH (08:23)
[2021-11-17] MEDS: PREGABALIN 50 MG CAPSULE PO SCH ×2 (08:23→15:20)
[2021-11-17] MEDS: CYANOCOBALAMIN (VITAMIN B-12) 1,000 MCG TABLET. PO SCH (08:23)
[2021-11-17] MEDS: ASCORBIC ACID 500 MG TABLET PO SCH (08:23)
[2021-11-17] MEDS: ASPIRIN CHEWABLE 81 MG TABLET. PO SCH (08:23)
[2021-11-17] MEDS: diphenhydrAMINE HCL 25 MG CAPSULE PO SCH (08:23)
[2021-11-17] MEDS: RIVAROXABAN 10 MG TABLET. PO SCH (08:25)
[2021-11-17] MEDS: NYSTATIN TOPICAL POWDER 15GM BOTTLE. TP SCH (08:26)
--- NOTE | 2021-11-17 08:30 | PDOC ---
[facility] PROGRESS NOTE Date of Service DOS: DATE: 11/17/21 TIME: 08:29 Chief Complaint Chief Complaint Postop day 1 OPERATIONS: 1. Left deep femoral artery to below knee popliteal artery bypass with Artegraft 6 mm x 50 cm. 2. Toe amputations of the left toes 1, 2, 3, 4, and 5. 3. Sharp excisional debridement of left medial calf ulceration 6.5 x 3.5 x 0.5, left lateral foot ulceration 4 x 3 x 0.5, left lateral ankle ulceration 1 x 1 x 0.5 cm. 4. Left deep femoral artery endarterectomy. Postop day 13 OPERATIONS PERFORMED: 1. Aortobilateral profunda femoris bypass with 16 x 8 bifurcated Holder-Riley graft.2. 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% occlusion of the left common iliac artery Renal artery stenosis atherosclerotic disease in the abdominal aorta, celiac a xis and SMA Bilateral carotid stenosis approximately 50% History of diabetes mellitus type 2 History of hypertension History of CAD History of Present Illness History of Present Illness 11/17/2021 Patient seen and examined with Dr. Jensen His wounds look great She plans on having the patient come back next Monday for another vascular surgery with Dr. Can We will go ahead and redischarge with home wheelchair and outpatient PT if it can be arranged 11/17/2019 Patient seen and examined He is at his baseline Awaiting discharge and we are arranging outpatient PT OT 11/15/2021 Patient seen and examined Discussed with RN Chart reviewed We hope to discharge perhaps later today 11/14/2021 Patient seen and examined Discussed with RN Chart reviewed 11/13/2021 Patient seen and examined He is resting with NAD Discussed with RN Chart reviewed 11/12/2021 Patient seen and examined Discussed with RN Chart reviewed Discussed with case management He had his surgery yesterday 11/10/2021 Patient seen and examined Discussed with RN Chart reviewed Discussed with case management Patient apparently going to surgery in the morning for toe amputations 11/09/2021 Patient seen and examined He is alert and cooperative The left foot has heel wound and toe wounds please see the pictures Discussed with case management Chart reviewed Discussed with RN 11/08/2021 Patient seen and examined He is resting with no apparent distress He just got back from angiography with runoff of the lower extremities Discussed with case management Discussed with RN Chart reviewed 11/07: Hb to 7.6. NG tube out no further abdominal pain nausea vomiting. Passing some stool. Left leg and foot pain stable. Up to chair today. Wearing Rooke boots n.p.o. for midnight for angiography. 11/06: Hb dropped to 8.1. Complaining of lower abdominal pain. Was able to get up to the chair on 225. Says he is passing flatus. NG tube to suction 200 cc. 11/05/2021 Patient seen and examined in the ICU He has an NG clamped He has Rooke boots on both lower extremities Appears depressed He had lower extremity bypass yesterday Discussed with RN Chart reviewed 11/04, Surgery today, fem pop 55-year-old male with significant past medical history of for pancreatitis, hypertension, CABG, peripheral vascular disease with critical limb ischemia who underwent an angio of his lower extremities showing severe peripheral vascular disease and lower extremity wounds. Patient is admitted to the hospitalist service for further management and consult to the vascular surgery service. 2 Vitals/I&O Vitals/I&O: Vital Signs Date Time Temp Pulse Resp B/P (MAP) Pulse Ox O2 Delivery O2 Flow Rate FiO2 11/17/21 08:24 72 133/66 11/17/21 07:00 98.6 18 96 Room Air 98.6 I & O 11/16/21 11/16/21 11/17/21 15:00 23:00 07:00 Intake Total 180 ml 480 ml Output Total 450 ml 1550 ml Balance -270 ml -1070 ml Physical Exam General: Alert, No acute distress Heart: Regular rate Lungs: Crackles Abdomen: Soft, No tenderness, Other (Midline incision intact without erythema or signs of infection) Extremities: Other (Bilateral groin and left medial calf incisions intact. Dressing intact on left toe amputation site. Superficial ulcer on the posterior aspect of the right heel with granulating base.) Skin: Other (Dry gangrene of left toes 1-5. Heel ulceration on left small with surrounding fissures. left medial calf ulceration.) Labs Labs: Laboratory Tests Test 11/16/21 11:59 11/16/21 17:30 11/16/21 21:25 11/17/21 07:10 Glucose (Fingerstick) 77 mg/dL (70-99) 97 mg/dL (70-99) 151 mg/dL (70-99) 122 mg/dL (70-99) Assessment and Plan Assessmemt and Plan OPERATIONS: 1. Left deep femoral artery to below knee popliteal artery bypass with Artegraft 6 mm x 50 cm. 2. Toe amputations of the left toes 1, 2, 3, 4, and 5. 3. Sharp excisional debridement of left medial calf ulceration 6.5 x 3.5 x 0.5, left lateral foot ulceration 4 x 3 x 0.5, left lateral ankle ulceration 1 x 1 x 0.5 cm. 4. Left deep femoral artery endarterectomy. Postop day 16 OPERATIONS PERFORMED: 1. Aortobilateral profunda femoris bypass with 16 x 8 bifurcated Holder-Riley graft.2. 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% occlusion of the left common iliac artery Renal artery stenosis atherosclerotic disease in the abdominal aorta, celiac axis and SMA Bilateral carotid stenosis approximately 50% History of diabetes mellitus type 2 History of hypertension History of CAD Plan He is scheduled for another vascular bypass on the right lower extremity with Dr. Can next Monday the For now continue the following; I spoke with case management the plan is to discharge with outpatient PT OT and a home wheelchair if it can be arranged Wound care Encourage p.o. intake Home meds DVT prophylaxis Full code Appreciate subspecialist Hoping to discharge later today to home with outpatient PT OT and a home wheelchair Comment Review of Relevant I have reviewed the following items ifrah (where applicable) has been applied. Justifications for Admission Other Justification Severe peripheral vascular disease with gangrenous wounds in the lower extremities CATHY GARCIA III DO Nov 17, 2021 08:30
[2021-11-17 10:35] VITALS: BP 116/68
--- NOTE | 2021-11-17 10:53 | PDOC ---
CHI GOODE WRAPPER LEAF INSPECTOR 11/17/21 1053: CARDIO Progress Notes Date and Time Date of Service 11/17/21 Time of Evaluation 1050 Subjective Subjective: No Chest Pain, No shortness of breath, No Palpitations Vitals Vitals Vital Signs Date Time Temp Pulse Resp B/P (MAP) Pulse Ox O2 Delivery O2 Flow Rate FiO2 11/17/21 10:35 97.2 72 16 116/68 (84) 97 Room Air 97.2 11/17/21 08:00 2.0 Weight Weight [ ] Input and Output Intake and Output Intake and Output 11/17/21 07:00 Intake Total 660 ml Output Total 2000 ml Balance -1340 ml Intake Oral 660 ml Output Urine Total 2000 ml Laboratory Labs Laboratory Tests Test 11/16/21 11:59 11/16/21 17:30 11/16/21 21:25 11/17/21 07:10 Glucose (Fingerstick) 77 mg/dL (70-99) 97 mg/dL (70-99) 151 mg/dL (70-99) 122 mg/dL (70-99) Physical Exam HEENT: Neck Supple W Full Motion Chest: Symmetric LUNGS: Clear to Auscultation Heart: RRR Abdomen: Soft N/T Extremities: Other (Dressing intact on left toe amputation site. Superficial ulcer on the posterior aspect of the right heel with drsg intact) Neurology: alert, oriented, follow commands Assessment Assessment 1. Severe peripheral vascular disease, critical limb ischemia and left foot toes gangrene. s/p aortobifemoral bypass surgery, left femoropopliteal bypass, toe amputation, and wound debridement. Vascular surgery planning right leg bypass on 11/22/2021 2. Coronary artery disease s/p coronary artery bypass surgery in February 2021, presently stable and chest pain-free. Echo with LVEF 65% with diastolic dysfunction. Continue current secondary prevention measures. Follow up in our office as scheduled. 3. Bilateral carotid stenosis; Carotid US with moderate bilateral ICA disease 4. Hypertension: Controlled 5. Hyperlipidemia: Statin therapy 6. DM2: Treat per IM 7. Anemia; s/p transfusion; hgb stable 8. Leukocytosis 9. Tobacco abuse: Advised on smoking cessation Justicifation of Admission Dx: Justifications for Admission: Justification of Admission Dx: Yes MOLLY VARGAS MD 11/17/21 1723: CARDIO Progress Notes Assessment Assessment Patient seen and examined. Agree with COMMERCIAL FOOD INSTRUCTOR's assessment and plan. s/p aortobifem and left femoropopliteal bypass surgery. Continue postop care per vascular surgery team. CV status clinically stable. Telemetry did not show any significant arrhythmias. Continue current secondary prevention measures. Vascular surgery planning right lower extremity revascularization CHI GOODE APRN Nov 17, 2021 10:53 MOLLY VARGAS MD Nov 17, 2021 17:23
--- NOTE | 2021-11-17 13:43 | NUR ---
SS following up with discharge planning. SS reviewed pt chart and discussed with pt RN. Pt is currently on room air. Discharge orders on the chart for home. Outpatient PT services arranged with [facility]. SS contacted Minerva at [facility], , in regards to wheelchair and was notified that the insurance authorization was sent to [facility], ; fax [phone], at 0918 this morning. [facility] notified and they reported that they are checking there records. [facility] telling SS that they cannot deliver wheelchair until tomorrow morning. SS requested that wheelchair be delivered JESI due to discharge. Pt's RN notified. SS will continue to follow for discharge planning. Addendum: 11/17/21 at 1610 by JENI SANCHEZ SS Wheelchair being picked up by [facility] staff today and delivered to the hospital. Pt will discharge to home today via [facility] between 1630 and 1700.
[2021-11-17 14:32] VITALS: BP 117/63
--- NOTE | 2021-11-17 16:29 | NUR ---
Wheel chair delivered to pt's room. Pt to dc and transfer home later tonight.
--- NOTE | 2021-11-17 17:14 | NUR ---
DISCHARGE IV REMOVED, TELE DISCONTINUED. PT DISCHARGE INFORMATION COVERED WITH PATIENT. SENT WITH [facility] FOR PRIOR TO UPCOMING SURGICAL PROCEDURE. TRANSFERRED INDEPENDENTLY TO WHEELCHAIR. TRANSPORTATION COMPANY MOVES PT AND ALL PERSONAL POSSESSIONS FOR TRANSPORT HOME TO [place].
[2021-11-17] MEDS ORDERED: RIVAROXABAN 2.5 MG TABLET PO SCH (21:00)
== END 2021-11-17 17:11 | disposition home or self-care (01) | DRG 270 ==
LOC: CCL 09:04 → 6 SOUTH 14:25 → 1 WEST ICU 11-04 13:20 → 6 SOUTH 11-07 23:31
PROVIDERS: ADMIT Internal Medicine; ATTEND Internal Medicine
PROC: B41D1ZZ Fluoroscopy of Aorta and Bilateral Lower Extremity Arteries using Low Osmolar Contrast (ICD-10-PCS; 2021-10-29)
PROC: B41D1ZZ Fluoroscopy of Aorta and Bilateral Lower Extremity Arteries using Low Osmolar Contrast (ICD-10-PCS; 2021-10-29)
PROC: 04CK0ZZ Extirpation of Matter from Right Femoral Artery, Open Approach (ICD-10-PCS; 2021-11-04)
PROC: 04CL0ZZ Extirpation of Matter from Left Femoral Artery, Open Approach (ICD-10-PCS; 2021-11-04)
PROC: 30233N1 Transfusion of Nonautologous Red Blood Cells into Peripheral Vein, Percutaneous Approach (ICD-10-PCS; 2021-11-04)
PROC: 04100JK Bypass Abdominal Aorta to Bilateral Femoral Arteries with Synthetic Substitute, Open Approach (ICD-10-PCS; principal; 2021-11-04 07:30)
PROC: 04CL0ZZ Extirpation of Matter from Left Femoral Artery, Open Approach (ICD-10-PCS; 2021-11-11)
PROC: 0Y6Q0Z3 Detachment at Left 1st Toe, Low, Open Approach (ICD-10-PCS; 2021-11-11)
PROC: 0Y6Y0Z2 Detachment at Left 5th Toe, Mid, Open Approach (ICD-10-PCS; 2021-11-11)
PROC: 0Y6W0Z2 Detachment at Left 4th Toe, Mid, Open Approach (ICD-10-PCS; 2021-11-11)
PROC: 0Y6U0Z3 Detachment at Left 3rd Toe, Low, Open Approach (ICD-10-PCS; 2021-11-11)
PROC: 0Y6S0Z2 Detachment at Left 2nd Toe, Mid, Open Approach (ICD-10-PCS; 2021-11-11)
PROC: 0JBR0ZZ Excision of Left Foot Subcutaneous Tissue and Fascia, Open Approach (ICD-10-PCS; 2021-11-11)
DX: E11.52 Type 2 diabetes mellitus with diabetic peripheral angiopathy with gangrene (principal); N17.0 Acute kidney failure with tubular necrosis; I70.263 Atherosclerosis of native arteries of extremities with gangrene, bilateral legs; I74.09 Other arterial embolism and thrombosis of abdominal aorta; D62 Acute posthemorrhagic anemia; J98.11 Atelectasis; L97.229 Non-pressure chronic ulcer of left calf with unspecified severity; L97.329 Non-pressure chronic ulcer of left ankle with unspecified severity; L97.419 Non-pressure chronic ulcer of right heel and midfoot with unspecified severity; I74.5 Embolism and thrombosis of iliac artery; I51.3 Intracardiac thrombosis, not elsewhere classified; E11.621 Type 2 diabetes mellitus with foot ulcer; I70.1 Atherosclerosis of renal artery; E78.5 Hyperlipidemia, unspecified; E87.6 Hypokalemia; F17.210 Nicotine dependence, cigarettes, uncomplicated; I10 Essential (primary) hypertension; I25.10 Atherosclerotic heart disease of native coronary artery without angina pectoris; I65.23 Occlusion and stenosis of bilateral carotid arteries; I70.0 Atherosclerosis of aorta; J44.9 Chronic obstructive pulmonary disease, unspecified; L97.529 Non-pressure chronic ulcer of other part of left foot with unspecified severity; R09.02 Hypoxemia; Z82.49 Family history of ischemic heart disease and other diseases of the circulatory system; Z95.1 Presence of aortocoronary bypass graft; D72.829 Elevated white blood cell count, unspecified
CPT/HCPCS: 36200; 36246; 36415; 36430; 71045; 75625; 75635; 75716; 76000; 76937; 80048; 80053; 82803; 82962; 83036; 83735; 84100; 84134; 85007; 85025; 85027; 85347; 85610; 85651; 86850; 86900; 86901; 86920; 93306; 93880; 93970; 94760; 99152; 99153; A4213; A4222; A4223; A4314; A4351; A4364; A4452; A4559; A4930; A6223; A6258; A6402; A6443; A6449; A6457; C1751; C1768; C1894; C9113; G0238; J0330; J0360; J0690; J0780; J1100; J1170; J1200; J1644; J1650; J1815; J2250; J2270; J2370; J2405; J2440; J2704; J2710; J2720; J3010; J3475; J3480; J3490; J7030; J7040; J7050; J7120; P9016; P9045; Q9967; 97116-GP; 97530-GP; C8929; G0378; Q0163

== ENCOUNTER 2021-11-22 11:48 | Inpatient (IN) | payer OTHER ==
[~2021-11-22] VITALS: Ht 162.6 cm; Wt 55.3 kg
[~2021-11-22 11:48] MED LIST changes: +ASCO500C PO; +CLOP75TA PO; +CYAN100016 SL; +DIPH25CA58 PO; +FERR-36 PO; +HEPARIN SODIUM 5,000 UNIT in IV NORMAL SALINE 500ML BAG 500 ML IRR ONE; +HYDR-2145 PO; +HYDROmorphone 2 MG/ML INJ. IVP PRN; -IODIXANOL 320 200 ML in NS 200 ML IART ONE; +IV RINGERS,LACTATED 1000ML 1,000 ML IV SCH; +LORA0.5T96 PO; +METF10007 PO; +MORPHINE SULFATE 2 MG/ML INJ. IVP PRN; +OMEP40CA7 PO; +OXYC1TAB15 PO; +PREG50CA91 PO; +PROCHLORPERAZINE 10 MG/2 ML VIAL. IVP PRN; +RIVA10TA PO; +TRAM50TA PO; +fentaNYL PF VIAL 100 MCG/2 ML VIAL IVP PRN
[2021-11-22 12:16] VITALS: BP 133/62
[2021-11-22] MEDS ORDERED: HEPARIN for IV BOLUS 10,000 UNIT/10 ML VIAL. ONE (12:26)
[2021-11-22] MEDS ORDERED: DEXAMETHASONE SOD PHOS 4 MG/ML VIAL ONE (12:26)
[2021-11-22] MEDS ORDERED: PROTAMINE 50 MG/5 ML VIAL. IV ONE ×3 (12:26→16:02)
[2021-11-22] MEDS ORDERED: PHENYLEPHRINE 10 MG/ML VIAL. ONE (12:26)
[2021-11-22] MEDS ORDERED: SEVOFLURANE > 120 MINUTES. IH ONE (12:26)
[2021-11-22] MEDS ORDERED: LIDOCAINE 2% PF 5 ML VIAL. ONE (12:26)
[2021-11-22] MEDS ORDERED: ONDANSETRON PF 4 MG/2 ML VIAL. ONE (12:26)
[2021-11-22] MEDS ORDERED: PROPOFOL 10 MG/ML (20ML) VIAL. IV ONE (12:26)
[2021-11-22] MEDS ORDERED: fentaNYL PF VIAL 100 MCG/2 ML VIAL ONE ×2 (12:27→16:58)
[2021-11-22] MEDS ORDERED: INSULIN LISPRO 100 UNIT/ML 3ML VIAL for OP,RR ONLY. SQ PRN (12:30)
[2021-11-22] MEDS ORDERED: SURGICEL FIBRILLAR 1X2 EACH. ONE (12:33)
[2021-11-22] MEDS ORDERED: IOHEXOL 300 MG/ML 50 ML VIAL. ONE (12:33)
[2021-11-22] MEDS ORDERED: MAG HYDROX/ALUMINUM HYD/SIMETH 30 ML ORAL.SUSP PO PRN (13:45)
[2021-11-22] MEDS ORDERED: diphenhydrAMINE HCL 25 MG CAPSULE PO PRN (13:45)
[2021-11-22] MEDS ORDERED: ONDANSETRON PF 4 MG/2 ML VIAL. IVP PRN (13:45)
[2021-11-22] MEDS ORDERED: NALOXONE 0.4 MG/ML VIAL. IV PRN ×2 (13:45)
[2021-11-22] MEDS ORDERED: ceFAZolin SODIUM IV Push 1 GM VIAL. IVP SCH (13:45)
[2021-11-22] MEDS ORDERED: IV NORMAL SALINE 1000ML BAG 1,000 ML IV SCH ×2 (13:45)
[2021-11-22] MEDS ORDERED: 0.9 % SODIUM CHLORIDE 10 ML DISP.SYRIN. IV PRN (13:45)
[2021-11-22] MEDS ORDERED: MORPHINE SULFATE 2 MG/ML INJ. IV PRN (13:45)
[2021-11-22] MEDS ORDERED: BISACODYL 10 MG SUPP.RECT. PR PRN (13:45)
[2021-11-22 14:10] LABS: BASO # 0.1 x10^3/uL (0.0-0.2); BASO % 1 % (0-3); EOS # 0.2 x10^3/uL (0.0-0.7); EOS % 2 % (0-3); HEMATOCRIT 23.7 % (39.0-53.0); HEMOGLOBIN 7.8 g/dL (13.0-17.5); LYMPH # 1.8 x10^3/uL (1.0-4.8); LYMPH % 16 % (24-48); MEAN CORPUSCULAR HEMOGLOBIN 29 pg (25-35); MEAN CORPUSCULAR HGB CONC 33 g/dL (31-37); MEAN CORPUSCULAR VOLUME 89 fL (79-100); MONO # 0.9 x10^3/uL (0.0-1.1); MONO % 8 % (0-9); NEUT # 8.3 x10^3/uL (1.8-7.7); NEUT % 73 % (31-73); PLATELET COUNT 566 x10^3/uL (140-400); RED BLOOD COUNT 2.66 x10^6/uL (4.30-5.70); RED CELL DISTRIBUTION WIDTH 15.2 % (11.5-14.5); WHITE BLOOD COUNT 11.2 x10^3/uL (4.0-11.0)
[2021-11-22] MEDS ORDERED: ePHEDrine PF IN SALINE 50 MG/10 ML SYRINGE. IV ONE (14:12)
[2021-11-22 14:25] LABS: CALCIUM 8.8 mg/dL (8.5-10.1); CREATININE 0.9 mg/dL (0.7-1.3); GFR 88.3; POTASSIUM 3.8 mmol/L (3.5-5.1)
--- NOTE | 2021-11-22 16:58 | PDOC4 ---
BRIEF OPERATIVE NOTE Date: Nov 22, 2021 Pre-Op Diagnosis Severe PAD with wounds Post-Op Diagnosis Same Procedure Performed 1. Right femoral to Tibioperoneal trunk bypass with ipsilateral vein harvest 2. Right foot excisional debridement, 1x1 cm partial thickness. Surgeon Jose Luis Can. Electronic Parts Designer CB Henry Anesthesia Type: General Blood Loss 50mL Urine Output about 600mL per anesthesia Specimens Obtained None Findings Good bypass pulse mid thigh and PT signal post op (mainly PT runoff) Complications None Operative Note See dictated op note DUNCAN MORRISON Nov 22, 2021 16:58
[2021-11-22] MEDS ORDERED: LORazepam 0.5 MG TABLET PO PRN (17:00)
[2021-11-22 19:44] VITALS: BP 111/56
--- NOTE | 2021-11-22 20:57 | OP ---
DATE OF SURGERY: 11/22/2021 PREOPERATIVE DIAGNOSES: 1. Arterial insufficiency with neuropathic ulcer, right heel. 2. Status post aorto-bilateral femoral bypass. OPERATIONS PERFORMED: 1. Right rrkzqtl-zx-vlfyrmdcqoqva trunk bypass utilizing ipsilateral nonreversed saphenous vein. 2. Debridement of right heel decubitus ulcer, skin and subcutaneous tissue, 1 x 1 cm. SURGEON: Jose Luis Can MD MANUFACTURING INTERN: CB Henry ANESTHESIA: General. INDICATIONS FOR PROCEDURE: This is a 55-year-old gentleman who has severe multilevel arterial occlusive disease. He underwent prior lvajc-bfrxsillz-fkbyxbi bypass grafting and then left femoral to below knee popliteal artery bypass with ____ carotid artery. He has a decubitus ulcer on the right heel and now presents for bypass of the right leg. The operation, risks and benefits were explained to the patient and he understood and wished to proceed. OPERATIVE FINDINGS: Preliminary ultrasound imaging of the great saphenous vein was done preprocedure and this demonstrated an adequate saphenous vein despite the prior vein mapping. Therefore, the saphenous vein was utilized. Inflow was taken from the reyes of the right limb of the aortofemoral bypass graft. The bypass was sewn into the tibioperoneal trunk. Following the bypass, there was excellent Doppler arterial flow, biphasic in the runoff tibioperoneal trunk with an excellent of nonobstructive flow signal over the vein graft. DESCRIPTION OF PROCEDURE: The patient was placed in the supine position and a Meek catheter was placed. A timeout was called and the correct patient, correct operation and correct operative site were all verified. The saphenous vein was mapped and marked on the skin with use of ultrasound and a marker. The vein appeared to be suitable for bypass. Right leg was then prepped and draped circumferentially. After prep and drape, an incision was made along the marked saphenous vein, which was dissected proximally. The groin incision was opened and the right limb of the bypass graft was exposed anteriorly, laterally and medially for application of a side-biting clamp. The saphenous vein was then harvested from the saphenofemoral junction down to the below knee level for adequate length. 4-0 silk ties were placed on the branches of the vein. Following vein harvest, the vein graft was distended with heparinized saline and it distended up nicely. The vein then underwent valve lysis with a retrograde valvulotome. Next, the popliteal and tibioperoneal trunk arteries were dissected below the knee. There was rather dense calcification in the popliteal artery; therefore, the tibioperoneal trunk was exposed and this was a nice soft vessel. Vessel loops were placed proximally and distally. The patient then received 6000 units of heparin, and after 3 minutes circulation, a Satinsky clamp was placed on the right limb of the aortofemoral bypass graft. A small oval of the graft was then resected and the large end of the vein was sutured in the side using 6-0 Prolene. After completing anastomosis, there was excellent pulsatile flow through the vein graft, which was tunneled in a subcutaneous fashion down to the below knee level. The vein was then irrigated and retrograde with heparinized saline. The tibioperoneal trunk artery was then occluded proximally and distally with vessel loops. A longitudinal arteriotomy was made and the vein graft was sutured in the side using 6-0 Prolene. Prior to completing the anastomosis, the vessels were flushed first antegrade and then back bled retrograde. The anastomosis was then completed and flow restored. The patient then received 40 mg of protamine. Wounds were irrigated. Doppler assessment was then carried out with the above findings already noted. The wounds were then irrigated again with antibiotic irrigation and closed in multiple layers with 2-0 and 3-0 Vicryl, the skin with gay. The groin incision was approximated with intracuticular Vicryl and Steri-Strips. Next, the right heel decubitus ulcer was debrided. This was done using a scalpel. Excisional debridement was carried out of the skin and subcutaneous tissues, measuring 1 x 1 cm. A rongeur, also was utilized. Dressings were then applied to all incisions and wounds. The patient was taken to the recovery room in satisfactory condition. All sponge and needle counts were reported as correct. ESTIMATED BLOOD LOSS: 50 mL. DRAINS: None. SPECIMEN: Wound, which was not sent to pathology. ADINA/RHEA/JORDANA DR: Rahul TID: [id number]
[2021-11-22] MEDS: ACETAMINOPHEN 325 MG TABLET. PO SCH (22:00)
[2021-11-22 22:35] VITALS: BP 100/52
[2021-11-22] MEDS: oxyCODONE IR 5 MG TABLET PO PRN (22:39)
[2021-11-22] MEDS: ATORVASTATIN CALCIUM 10 MG TABLET. PO SCH (22:39)
[2021-11-22] MEDS: ceFAZolin SODIUM IV Push 1 GM VIAL. IVP SCH (22:40)
[2021-11-23] VITALS (12 sets, daily range): BP systolic 96–131; BP diastolic 52–67
[2021-11-23] MEDS: ceFAZolin SODIUM IV Push 1 GM VIAL. IVP SCH ×2 (02:00→08:21)
[2021-11-23 06:01] LABS: HEMATOCRIT 22.5 % (39.0-53.0); HEMOGLOBIN 7.1 g/dL (13.0-17.5)
[2021-11-23 06:31] LABS: CALCIUM 8.7 mg/dL (8.5-10.1); CREATININE 0.9 mg/dL (0.7-1.3); GFR 88.3; MAGNESIUM 1.8 mg/dL (1.8-2.4); PHOSPHORUS 4.5 mg/dL (2.6-4.7); POTASSIUM 4.3 mmol/L (3.5-5.1)
[2021-11-23] MEDS: ACETAMINOPHEN 325 MG TABLET. PO SCH ×3 (06:42→21:27)
[2021-11-23] MEDS: oxyCODONE IR 5 MG TABLET PO PRN ×4 (06:43→21:27)
[2021-11-23] MEDS: CLOPIDOGREL BISULFATE 75 MG TABLET PO SCH (08:18)
[2021-11-23] MEDS: hydroCHLOROthiazide 25 MG TABLET PO SCH (08:18)
[2021-11-23] MEDS: PANTOPRAZOLE 40 MG TABLET.DR. PO SCH (08:18)
[2021-11-23] MEDS: diphenhydrAMINE HCL 25 MG CAPSULE PO SCH (08:18)
[2021-11-23] MEDS: CYANOCOBALAMIN (VITAMIN B-12) 1,000 MCG TABLET. PO SCH (08:18)
[2021-11-23] MEDS: FERROUS SULFATE 325 MG TABLET. PO SCH (08:18)
[2021-11-23] MEDS: ASPIRIN ENTERIC COATED 81 MG TABLET.DR. PO SCH (08:18)
[2021-11-23] MEDS: ELECTROLYTE (NON-ICU) PROTOCOL. MC SCH (09:00)
--- NOTE | 2021-11-23 10:04 | PDOC ---
PROGRESS NOTES Date of Service DATE: 11/23/21 TIME: 10:01 Subjective Subjective Doing well no acute complaints Objective Objective Vital Signs Date Time Temp Pulse Resp B/P (MAP) Pulse Ox O2 Delivery O2 Flow Rate FiO2 11/23/21 09:07 Room Air 11/23/21 08:19 68 115/65 11/23/21 07:13 18 98 11/23/21 07:00 98.2 98.2 11/22/21 17:26 6 Intake and Output 11/23/21 07:00 Intake Total 2220 ml Output Total 1850 ml Balance 370 ml Intake Oral 620 ml IV Total 1600 ml Output Urine Total 1800 ml Estimated Blood Loss 50 ml Physical Exam Abdomen: Soft, No tenderness Heart: Regular rate, Other (Palpable left posterior tibial pulse. Palpable pulse in superficially tunneled vein in right leg. Biphasic pt signal on right) Skin: Other (Right heel ulceration very superficial. Left leg woudns dressed.) Assessment Assessment Acute blood loss anemia, hgb 7.1 in setting of known CAD s/p right hedis review nurse to tp trunk bypass Right heel ulceration Left leg multiple wounds Consult wound care May weight bear to left foot for transfers only otherwise non weight bearing May weight bear to forefoot right side without limitation DC solomon catheter Transfuse 1 U RBC today Start xarelto tomorrow likely continue ASA Comment Review of Relevant I have reviewed the following items ifrah (where applicable) has been applied. Labs Laboratory Tests Test 11/22/21 12:10 11/22/21 12:26 11/22/21 12:40 11/22/21 17:39 POC SARS CoV-2 Antigen Negative (NEGATIVE) Glucose (Fingerstick) 124 mg/dL (70-99) 104 mg/dL (70-99) White Blood Count 11.2 x10^3/uL (4.0-11.0) Red Blood Count 2.66 x10^6/uL (4.30-5.70) Hemoglobin 7.8 g/dL (13.0-17.5) Hematocrit 23.7 % (39.0-53.0) Mean Corpuscular Volume 89 fL (79-100) Mean Corpuscular Hemoglobin 29 pg (25-35) Mean Corpuscular Hemoglobin Concent 33 g/dL (31-37) Red Cell Distribution Width 15.2 % (11.5-14.5) Platelet Count 566 x10^3/uL (140-400) Neutrophils (%) (Auto) 73 % (31-73) Lymphocytes (%) (Auto) 16 % (24-48) Monocytes (%) (Auto) 8 % (0-9) Eosinophils (%) (Auto) 2 % (0-3) Basophils (%) (Auto) 1 % (0-3) Neutrophils # (Auto) 8.3 x10^3/uL (1.8-7.7) Lymphocytes # (Auto) 1.8 x10^3/uL (1.0-4.8) Monocytes # (Auto) 0.9 x10^3/uL (0.0-1.1) Eosinophils # (Auto) 0.2 x10^3/uL (0.0-0.7) Basophils # (Auto) 0.1 x10^3/uL (0.0-0.2) Sodium Level 137 mmol/L (136-145) Potassium Level 3.8 mmol/L (3.5-5.1) Chloride Level 99 mmol/L (98-107) Carbon Dioxide Level 26 mmol/L (21-32) Anion Gap 12 (6-14) Blood Urea Nitrogen 13 mg/dL (8-26) Creatinine 0.9 mg/dL (0.7-1.3) Estimated GFR (Cockcroft-Gault) 88.3 Glucose Level 112 mg/dL (70-99) Calcium Level 8.8 mg/dL (8.5-10.1) Test 11/22/21 20:52 11/23/21 05:00 11/23/21 07:32 Glucose (Fingerstick) 186 mg/dL (70-99) 185 mg/dL (70-99) Hemoglobin 7.1 g/dL (13.0-17.5) Hematocrit 22.5 % (39.0-53.0) Mean Corpuscular Hemoglobin Concent 32 g/dL (31-37) Sodium Level 137 mmol/L (136-145) Potassium Level 4.3 mmol/L (3.5-5.1) Chloride Level 100 mmol/L (98-107) Carbon Dioxide Level 28 mmol/L (21-32) Anion Gap 9 (6-14) Blood Urea Nitrogen 13 mg/dL (8-26) Creatinine 0.9 mg/dL (0.7-1.3) Estimated GFR (Cockcroft-Gault) 88.3 Glucose Level 181 mg/dL (70-99) Calcium Level 8.7 mg/dL (8.5-10.1) Phosphorus Level 4.5 mg/dL (2.6-4.7) Magnesium Level 1.8 mg/dL (1.8-2.4) Laboratory Tests Test 11/22/21 12:10 11/22/21 12:26 11/22/21 12:40 11/22/21 17:39 POC SARS CoV-2 Antigen Negative (NEGATIVE) Glucose (Fingerstick) 124 mg/dL (70-99) 104 mg/dL (70-99) White Blood Count 11.2 x10^3/uL (4.0-11.0) Red Blood Count 2.66 x10^6/uL (4.30-5.70) Hemoglobin 7.8 g/dL (13.0-17.5) Hematocrit 23.7 % (39.0-53.0) Mean Corpuscular Volume 89 fL (79-100) Mean Corpuscular Hemoglobin 29 pg (25-35) Mean Corpuscular Hemoglobin Concent 33 g/dL (31-37) Red Cell Distribution Width 15.2 % (11.5-14.5) Platelet Count 566 x10^3/uL (140-400) Neutrophils (%) (Auto) 73 % (31-73) Lymphocytes (%) (Auto) 16 % (24-48) Monocytes (%) (Auto) 8 % (0-9) Eosinophils (%) (Auto) 2 % (0-3) Basophils (%) (Auto) 1 % (0-3) Neutrophils # (Auto) 8.3 x10^3/uL (1.8-7.7) Lymphocytes # (Auto) 1.8 x10^3/uL (1.0-4.8) Monocytes # (Auto) 0.9 x10^3/uL (0.0-1.1) Eosinophils # (Auto) 0.2 x10^3/uL (0.0-0.7) Basophils # (Auto) 0.1 x10^3/uL (0.0-0.2) Sodium Level 137 mmol/L (136-145) Potassium Level 3.8 mmol/L (3.5-5.1) Chloride Level 99 mmol/L (98-107) Carbon Dioxide Level 26 mmol/L (21-32) Anion Gap 12 (6-14) Blood Urea Nitrogen 13 mg/dL (8-26) Creatinine 0.9 mg/dL (0.7-1.3) Estimated GFR (Cockcroft-Gault) 88.3 Glucose Level 112 mg/dL (70-99) Calcium Level 8.8 mg/dL (8.5-10.1) Test 11/22/21 20:52 11/23/21 05:00 11/23/21 07:32 Glucose (Fingerstick) 186 mg/dL (70-99) 185 mg/dL (70-99) Hemoglobin 7.1 g/dL (13.0-17.5) Hematocrit 22.5 % (39.0-53.0) Mean Corpuscular Hemoglobin Concent 32 g/dL (31-37) Sodium Level 137 mmol/L (136-145) Potassium Level 4.3 mmol/L (3.5-5.1) Chloride Level 100 mmol/L (98-107) Carbon Dioxide Level 28 mmol/L (21-32) Anion Gap 9 (6-14) Blood Urea Nitrogen 13 mg/dL (8-26) Creatinine 0.9 mg/dL (0.7-1.3) Estimated GFR (Cockcroft-Gault) 88.3 Glucose Level 181 mg/dL (70-99) Calcium Level 8.7 mg/dL (8.5-10.1) Phosphorus Level 4.5 mg/dL (2.6-4.7) Magnesium Level 1.8 mg/dL (1.8-2.4) Medications Current Medications Fentanyl Citrate (Fentanyl 2ml Vial) 25 mcg PRN Q5MIN PRN IVP MILD PAIN 1-3; Start 11/22/21 at 06:00; Stop 11/23/21 at 05:59; Status DC Fentanyl Citrate (Fentanyl 2ml Vial) 50 mcg PRN Q5MIN PRN IVP MODERATE PAIN 4- 6; Start 11/22/21 at 06:00; Stop 11/23/21 at 05:59; Status DC Morphine Sulfate (Morphine Sulfate) 1 mg PRN Q10MIN PRN IVP SEVERE PAIN 7-10; Start 11/22/21 at 06:00; Stop 11/23/21 at 05:59; Status DC Ringer's Solution 1,000 ml @ 30 mls/hr Q24H IV Last administered on 11/22/21at 12:32; Start 11/22/21 at 06:00; Stop 11/22/21 at 17:59; Status DC Hydromorphone HCl (Dilaudid) 0.5 mg PRN Q10MIN PRN IVP SEVERE PAIN 7-10, 2nd CHOICE; Start 11/22/21 at 06:00; Stop 11/23/21 at 05:59; Status DC Prochlorperazine Edisylate (Compazine) 5 mg PACU PRN PRN IVP NAUSEA, MRX1; Start 11/22/21 at 06:00; Stop 11/23/21 at 05:59; Status DC Cefazolin Sodium/ Dextrose 50 ml @ 100 mls/hr 1X PREOP PRN IV PRIOR TO PROCEDURE; Start 11/22/21 at 06:00; Stop 11/22/21 at 18:00; Status DC Heparin Sodium (Porcine) 5000 unit/Sodium Chloride 505 ml @ 505 mls/hr 1X ONCE IRR Last administered on 11/22/21at 14:05; Start 11/22/21 at 06:00; Stop 11/22/21 at 06:59; Status DC Cefazolin Sodium 1 gm/Sodium Chloride 500 ml @ 500 mls/hr 1X ONCE IRR Last administered on 11/22/21at 14:05; Start 11/22/21 at 06:00; Stop 11/22/21 at 06:59; Status DC Lidocaine HCl (Lidocaine Pf 2% Vial) 5 ml STK-MED ONCE .ROUTE ; Start 11/22/21 at 12:26; Stop 11/22/21 at 12:26; Status DC Propofol (Diprivan) 200 mg STK-MED ONCE IV ; Start 11/22/21 at 12:26; Stop 11/22/21 at 12:26; Status DC Heparin Sodium (Porcine) (Heparin Sodium) 10,000 unit STK-MED ONCE .ROUTE ; Start 11/22/21 at 12:26; Stop 11/22/21 at 12:26; Status DC Ondansetron HCl (Zofran) 4 mg STK-MED ONCE .ROUTE ; Start 11/22/21 at 12:26; Stop 11/22/21 at 12:27; Status DC Phenylephrine HCl (Jayce-Synephrine Inj) 10 mg STK-MED ONCE .ROUTE ; Start 11/22/21 at 12:26; Stop 11/22/21 at 12:27; Status DC Protamine Sulfate (Protamine) 50 mg STK-MED ONCE IV ; Start 11/22/21 at 12:26; Stop 11/22/21 at 12:27; Status DC Dexamethasone Sodium Phosphate (Decadron) 4 mg STK-MED ONCE .ROUTE ; Start 11/22/21 at 12:26; Stop 11/22/21 at 12:27; Status DC Sevoflurane (Ultane) 90 ml STK-MED ONCE IH ; Start 11/22/21 at 12:26; Stop 11/22/21 at 12:27; Status DC Fentanyl Citrate (Fentanyl 2ml Vial) 100 mcg STK-MED ONCE .ROUTE ; Start 11/22/21 at 12:27; Stop 11/22/21 at 12:27; Status DC Insulin Human Lispro (HumaLOG VIAL for OP,RR ONLY) 0-10 units PRN Q1HR PRN SQ PER PROTOCOL Last administered on 11/22/21at 12:32; Start 11/22/21 at 12:30; Stop 11/23/21 at 12:29 Cellulose (Surgicel Fibrillar 1x2) 1 each STK-MED ONCE .ROUTE Last administered on 11/22/21at 16:00; Start 11/22/21 at 12:33; Stop 11/22/21 at 12:33; Status DC Iohexol (Omnipaque 300 Mg/ml) 50 ml STK-MED ONCE .ROUTE ; Start 11/22/21 at 12:33; Stop 11/22/21 at 12:34; Status DC Protamine Sulfate (Protamine) 50 mg STK-MED ONCE IV ; Start 11/22/21 at 12:33; Stop 11/22/21 at 12:34; Status DC Oxycodone HCl (Roxicodone) 5 mg PRN Q3HRS PRN PO PAIN Last administered on 11/23/21at 06:43; Start 11/22/21 at 13:45 Al Hydroxide/Mg Hydroxide (Mylanta Plus Xs) 30 ml PRN Q3HRS PRN PO HEARTBURN / GAS; Start 11/22/21 at 13:45 Diphenhydramine HCl (Benadryl) 25 mg PRN Q6HRS PRN PO ITCHING; Start 11/22/21 at 13:45 Info (Non-Icu Electrolyte Protocol) 1 ea DAILY MC ; Start 11/23/21 at 09:00 Naloxone HCl (Narcan) 0.1 mg PRN Q2MIN PRN IV SEE ADMIN INSTRUCTIONS; Start 11/22/21 at 13:45 Sodium Chloride (Normal Saline Flush) 3 ml QSHIFT PRN IV AFTER MEDS AND BLOOD DRAWS; Start 11/22/21 at 13:45 Sodium Chloride 1,000 ml @ 80 mls/hr [id number] IV Last administered on 11/22/21at 22:40; Start 11/22/21 at 13:45; Stop 11/23/21 at 08:28; Status DC Acetaminophen (Tylenol) 650 mg Q8HRS PO Last administered on 11/23/21at 06:42; Start 11/22/21 at 14:00 Morphine Sulfate (Morphine Sulfate) 2 mg PRN Q1HR PRN IV PAIN Last administered on 11/22/21at 18:02; Start 11/22/21 at 13:45 Naloxone HCl (Narcan) 0.4 mg PRN Q2MIN PRN IV SEE INSTRUCTIONS; Start 11/22/21 at 13:45 Sodium Chloride 1,000 ml @ 25 mls/hr Q24H IV ; Start 11/22/21 at 13:45; Stop 11/23/21 at 08:28; Status DC Bisacodyl (Dulcolax Supp) 10 mg PRN DAILY PRN VT CONSTIPATION; Start 11/22/21 at 13:45 Ondansetron HCl (Zofran) 4 mg PRN Q6HRS PRN IVP NAUESA, 1ST CHOICE; Start 11/22/21 at 13:45 Cefazolin Sodium (Ancef) 1 gm Q6H IVP Last administered on 11/22/21at 13:30; Start 11/22/21 at 13:45; Stop 11/22/21 at 17:40; Status DC Ephedrine Sulfate (ePHEDrine PF IN SALINE SYRINGE) 50 mg STK-MED ONCE IV ; Start 11/22/21 at 14:12; Stop 11/22/21 at 14:12; Status DC Protamine Sulfate (Protamine) 50 mg STK-MED ONCE IV ; Start 11/22/21 at 16:02; Stop 11/22/21 at 16:03; Status DC Fentanyl Citrate (Fentanyl 2ml Vial) 100 mcg STK-MED ONCE .ROUTE ; Start 11/22/21 at 16:58; Stop 11/22/21 at 16:58; Status DC Amlodipine Besylate (Norvasc) 10 mg DAILY PO Last administered on 11/23/21at 08:19; Start 11/23/21 at 09:00 Aspirin (Ecotrin) 81 mg DAILYWBKFT PO Last administered on 11/23/21 08:18; Start 11/23/21 at 08:00 Atorvastatin Calcium (Lipitor) 10 mg QHS PO Last administered on 11/22/21at 22:39; Start 11/22/21 at 21:00 Clopidogrel Bisulfate (Plavix) 75 mg DAILY PO Last administered on 11/23/21at 08:18; Start 11/23/21 at 09:00 Diphenhydramine HCl (Benadryl) 25 mg DAILY PO Last administered on 11/23/21 08:18; Start 11/23/21 at 09:00 Ferrous Sulfate (Feosol) 325 mg DAILY PO Last administered on 11/23/21 08:18; Start 11/23/21 at 09:00 Hydrochlorothiazide (Hydrodiuril) 25 mg DAILY PO Last administered on 11/23/21at 08:18; Start 11/23/21 at 09:00 Lorazepam (Ativan) 0.5 mg PRN Q6HRS PRN PO ANXIETY / AGITATION; Start 11/22/21 at 17:00 Cyanocobalamin (Vitamin B-12) 1,000 mcg DAILY PO Last administered on 11/23/21 08:18; Start 11/23/21 at 09:00 Pantoprazole Sodium (Protonix) 40 mg DAILYAC PO Last administered on 11/23/21 08:18; Start 11/23/21 at 07:30 Cefazolin Sodium (Ancef) 1 gm Q6H IVP Last administered on 11/23/21at 08:21; Start 11/22/21 at 20:00; Stop 11/23/21 at 08:01; Status DC Active Scripts Active Ativan (Lorazepam) 0.5 Mg Tablet 0.5 Mg PO PRN Q6HRS PRN 7 Days Percocet 5-325 Mg Tablet (Oxycodone/Acetaminophen) 1 Each Tablet 1 Tab PO PRN Q4HRS PRN 10 Days Xarelto (Rivaroxaban) 10 Mg Tablet 2.5 Mg PO BID 90 Days Aspirin Ec (Aspirin) 81 Mg Tablet.dr 81 Mg PO DAILYWBKFT 90 Days Amlodipine Besylate 10 Mg Tablet 10 Mg PO DAILY 90 Days Atorvastatin Calcium 10 Mg Tablet 10 Mg PO QHS 90 Days Reported Hydrochlorothiazide Tablet (Hydrochlorothiazide) 25 Mg Tablet 25 Mg PO DAILY Metformin Hcl 1,000 Mg Tablet 1,000 Mg PO BIDWMEALS Clopidogrel (Clopidogrel Bisulfate) 75 Mg Tablet 1 Tab PO DAILY Vitamin B-12 (Cyanocobalamin (Vitamin B-12)) 1,000 Mcg Tab.subl 1 Tab SL DAILY 30 Days Omeprazole 40 Mg Capsule.dr 1 Cap PO DAILY Benadryl (Diphenhydramine Hcl) 25 Mg Capsule 25 Mg PO DAILY Iron (Ferrous Sulfate) 325 Mg Tablet 325 Mg PO DAILY Vitals/I & O Vital Sign - Last 24 Hours 11/22/21 11/22/21 11/22/21 11/22/21 12:16 12:20 16:54 16:54 Temp 97.7 97.7 97.7 97.7 97.7 97.7 Pulse 66 66 86 Resp 14 16 15 B/P (MAP) 133/62 135/58 Pulse Ox 93 93 100 O2 Delivery Room Air Simple Mask Mask O2 Flow Rate 6 6 11/22/21 11/22/21 11/22/21 11/22/21 17:11 17:26 17:41 17:56 Temp 97.7 97.4 97.4 97.7 97.4 97.4 Pulse 88 80 80 84 Resp 14 18 18 19 B/P (MAP) 126/59 107/55 119/62 123/62 Pulse Ox 100 100 99 97 O2 Delivery Simple Mask Simple Mask Room Air Room Air O2 Flow Rate 6 6 11/22/21 11/22/21 11/22/21 11/22/21 18:02 18:11 19:44 20:00 Temp 97.4 97.5 97.4 97.5 Pulse 78 72 Resp 18 18 B/P (MAP) 114/59 111/56 (74) Pulse Ox 99 97 95 O2 Delivery Room Air Room Air Room Air Room Air 11/22/21 11/22/21 11/23/21 11/23/21 22:35 23:09 02:26 06:43 Temp 98.2 98.4 98.2 98.4 Pulse 83 72 Resp 20 20 B/P (MAP) 100/52 (68) 99/63 (75) Pulse Ox 95 96 96 96 O2 Delivery Room Air Room Air Room Air Room Air 11/23/21 11/23/21 11/23/21 11/23/21 07:00 07:13 08:19 09:07 Temp 98.2 98.2 Pulse 68 68 Resp 18 18 B/P (MAP) 115/65 (82) 115/65 Pulse Ox 98 98 O2 Delivery Room Air Room Air Room Air Intake and Output 11/22/21 11/22/21 11/23/21 15:00 23:00 07:00 Intake Total 1600 ml 620 ml Output Total 650 ml 1200 ml Balance 950 ml -580 ml Justifications for Admission Other Justification Severe peripheral vascular disease with gangrenous wounds in the lower extremities ODALIS SWEENEY MD Nov 23, 2021 10:04
--- NOTE | 2021-11-23 14:14 | NUR ---
SS following for discharge planning. SS reviewed pt chart and discussed with pt RN. Pt is from home and is currently on room air. COVID19 negative. Pt admitted for scheduled surgery with Vascular on 11/22/2021. Blood today. Discharge plan is currently to home with [facility] outpatient physical therapy, ; fax [phone]. Pt has wheelchair. SS will continue to follow for discharge planning.
[2021-11-23] MEDS: ATORVASTATIN CALCIUM 10 MG TABLET. PO SCH (20:30)
[2021-11-24] MEDS: oxyCODONE IR 5 MG TABLET PO PRN ×3 (02:27→12:43)
[2021-11-24 02:32] VITALS: BP 132/71
[2021-11-24] MEDS: PANTOPRAZOLE 40 MG TABLET.DR. PO SCH (05:53)
[2021-11-24] MEDS: ACETAMINOPHEN 325 MG TABLET. PO SCH ×3 (05:54→20:57)
[2021-11-24 07:00] VITALS: BP 137/76
[2021-11-24] MEDS: diphenhydrAMINE HCL 25 MG CAPSULE PO SCH (08:29)
[2021-11-24] MEDS: CYANOCOBALAMIN (VITAMIN B-12) 1,000 MCG TABLET. PO SCH (08:29)
[2021-11-24] MEDS: CLOPIDOGREL BISULFATE 75 MG TABLET PO SCH (08:29)
[2021-11-24] MEDS: FERROUS SULFATE 325 MG TABLET. PO SCH (08:29)
[2021-11-24] MEDS: ASPIRIN ENTERIC COATED 81 MG TABLET.DR. PO SCH (08:30)
[2021-11-24] MEDS: hydroCHLOROthiazide 25 MG TABLET PO SCH (08:30)
[2021-11-24] MEDS: ELECTROLYTE (NON-ICU) PROTOCOL. MC SCH (09:00)
[2021-11-24 11:00] VITALS: BP 128/67
--- NOTE | 2021-11-24 11:19 | HP ---
DATE OF SERVICE: 11/24/2021 ADMIT DATE: 11/22/2021 CHIEF COMPLAINT: Postop right xklwzof-rd-cjxofmweksjiz trunk bypass. HISTORY OF PRESENT ILLNESS: The patient is a pleasant 55-year-old male who we just discharged a few days ago. He is supposed to be doing outpatient rehab, but states he did not go. He has had numerous surgeries over the past couple of months. He has got numerous bypasses on his both lower extremities. Yesterday, he underwent a right saazttq-iv-qwkjisosivdmn trunk bypass. He is now admitted. We are doing wound care. We are trying to get him to rehab, but he does not want to go. He wants to do home health. PAST MEDICAL HISTORY: Multiple lower extremity surgeries recently. He has had numerous bypasses on both legs. He has had all the left toes amputated recently as well. Please see the pictures. Yesterday, he also had a right plvnpoi-nq-dxfekzauvksbl trunk bypass, peripheral vascular disease, chronic pain, anemia, chronic anticoagulation, hyperlipidemia, noncompliance, anxiety, depression, hypertension, GERD, and diabetes. ALLERGIES: None. FAMILY HISTORY: Coronary artery disease. SOCIAL HISTORY: He lives at home with his and the roommate, Js. He and Js are on social security. He does not currently drink, smoke or take drugs. MEDICATIONS: Reviewed. He is on 13 including Benadryl, iron, Xarelto, Plavix, atorvastatin, amlodipine, aspirin, Percocet, Ativan, hydrochlorothiazide, omeprazole, metformin, and vitamin B12. REVIEW OF SYSTEMS: GENERAL: No history of weight change, weakness or fevers. SKIN: No bruising, hair changes or rashes. EYES: No blurred, double or loss of vision. NOSE AND THROAT: No history of nosebleeds, hoarseness or sore throat. HEART: No history of palpitations, chest pain or shortness of breath on exertion. LUNGS: Denies cough, hemoptysis, wheezing or shortness of breath. GASTROINTESTINAL: Denies changes in appetite, nausea, vomiting, diarrhea or constipation. GENITOURINARY: No history of frequency, urgency, hesitancy or nocturia. NEUROLOGIC: Denies history of numbness, tingling, tremor or weakness. PSYCHIATRIC: No history of panic, anxiety or depression. ENDOCRINE: No history of heat or cold intolerance, polyuria or polydipsia. EXTREMITIES: He complains of right groin pain. PHYSICAL EXAMINATION: VITALS: Within normal limits and are stable. GENERAL: No apparent distress. Alert and oriented. HEENT: Normal cephalic atraumatic, external auditory canals are patent. EYES: Extraocular muscles are intact, pupils are equally round and reactive to light and accommodation. MUSCULOSKELETAL: Well developed, well nourished, good range of motion. ENDOCRINE: No thyromegaly was palpated, LYMPHATICS: No cervical chain or axillary nodes were noted. HEMATOPOIETIC: No bruising. NECK: Supple, no JVD, no thyromegaly was noted. LUNGS: Clear to auscultation in all lung hardwick without rhonchi or wheezing. HEART: RRR, S1, S2 present. Peripheral pulses intact, no obvious murmurs were noted. ABDOMEN: He has a clean, dry, and intact ventral abdominal wound. Please see the pictures. EXTREMITIES: He has numerous healing incisions on both lower extremities. The left foot has all the toes amputated recently. The wound is healing well. NEUROLOGIC: Normal speech, normal tone. A and O x 3, moves all extremities, no obvious focal deficits. PSYCHIATRIC: Normal affect, normal mood. Stable. SKIN: No ulcerations or rashes, good skin turgor, no jaundice. VASCULAR: Good capillary refill, neurovascular bundle appears to be intact. LABORATORY DATA: White count 11, hemoglobin 7.8, platelets 566. COVID testing is negative. IMPRESSION AND PLAN: Postoperative day #1 right iauomgk-hz-sywjgavosanxy trunk bypass with ipsilateral vein harvest, right foot excisional debridement and numerous other lower extremity bypass surgeries within the past few weeks. I spoke with Vascular Surgery. They state there are no more surgeries planned. For now, we need to do aggressive wound care, PT, OT, home meds, pain meds, deep venous thrombosis prophylaxis. Full code. I discussed the case with case management. We are trying to come up with the discharge disposition. DA/RHEA OSWALD: Kristina TID: [id number]
--- NOTE | 2021-11-24 14:29 | NUR ---
SS following up with discharge planning. SS reviewed pt chart and discussed with pt RN. Pt is currently on room air. COVID19 negative. Pt admitted for scheduled surgery with Vascular on 11/22/2021. Discharge plan is currently to home with [facility], ; fax [phone]. Pt has wheelchair at home. SS will continue to follow for discharge planning.
[2021-11-24 15:00] VITALS: BP 132/69
[2021-11-24 19:00] VITALS: BP 128/63
[2021-11-24] MEDS ORDERED: ANTI-COAG MONITOR BY PHARMACY. MC PRN (19:00)
--- NOTE | 2021-11-24 19:25 | NUR ---
Pt in bed assessment completed vss poc explained pt stated "his pain is ok for now" will resume care and continue to monitor pt.
[2021-11-24] MEDS: ATORVASTATIN CALCIUM 10 MG TABLET. PO SCH (20:57)
[2021-11-25 02:38] VITALS: BP 142/79
[2021-11-25 04:52] LABS: BASO # 0.1 x10^3/uL (0.0-0.2); BASO % 1 % (0-3); EOS # 0.3 x10^3/uL (0.0-0.7); EOS % 2 % (0-3); HEMATOCRIT 26.2 % (39.0-53.0); HEMOGLOBIN 8.6 g/dL (13.0-17.5); LYMPH # 2.4 x10^3/uL (1.0-4.8); LYMPH % 21 % (24-48); MEAN CORPUSCULAR HEMOGLOBIN 30 pg (25-35); MEAN CORPUSCULAR HGB CONC 33 g/dL (31-37); MEAN CORPUSCULAR VOLUME 90 fL (79-100); MONO % 9 % (0-9); NEUT # 7.3 x10^3/uL (1.8-7.7); NEUT % 66 % (31-73); PLATELET COUNT 471 x10^3/uL (140-400); RED BLOOD COUNT 2.91 x10^6/uL (4.30-5.70); RED CELL DISTRIBUTION WIDTH 15.8 % (11.5-14.5); WHITE BLOOD COUNT 11.1 x10^3/uL (4.0-11.0)
[2021-11-25 05:37] LABS: CREATININE 0.8 mg/dL (0.7-1.3); GFR 101.1; POTASSIUM 3.6 mmol/L (3.5-5.1)
[2021-11-25] MEDS: ACETAMINOPHEN 325 MG TABLET. PO SCH ×3 (06:12→22:00)
[2021-11-25] MEDS: PANTOPRAZOLE 40 MG TABLET.DR. PO SCH (06:13)
[2021-11-25 07:00] VITALS: BP 155/80
[2021-11-25] MEDS: FERROUS SULFATE 325 MG TABLET. PO SCH (07:52)
[2021-11-25] MEDS: CYANOCOBALAMIN (VITAMIN B-12) 1,000 MCG TABLET. PO SCH (07:52)
[2021-11-25] MEDS: ASPIRIN ENTERIC COATED 81 MG TABLET.DR. PO SCH (07:53)
[2021-11-25] MEDS: CLOPIDOGREL BISULFATE 75 MG TABLET PO SCH (07:53)
[2021-11-25] MEDS: RIVAROXABAN 2.5 MG TABLET PO SCH ×2 (07:53→21:17)
[2021-11-25] MEDS: diphenhydrAMINE HCL 25 MG CAPSULE PO SCH (07:53)
[2021-11-25] MEDS: hydroCHLOROthiazide 25 MG TABLET PO SCH (07:53)
[2021-11-25] MEDS: ELECTROLYTE (NON-ICU) PROTOCOL. MC SCH (09:00)
[2021-11-25 11:00] VITALS: BP 132/73
--- NOTE | 2021-11-25 11:54 | PDOC ---
[employer] PROGRESS NOTE Date of Service DOS: DATE: 11/25/21 TIME: 11:42 Chief Complaint Chief Complaint PAD Postoperative day #1 right opkghrj-rc-lclcigcmzzzgr trunk bypass with ipsilateral vein harvest right foot excisional debridement numerous other lower extremity bypass surgeries within the past few weeks History of Present Illness History of Present Illness The patient is a pleasant 55-year-old male who we just discharged a few days ago. He is supposed to be doing outpatient rehab, but states he did not go. He has had numerous surgeries over the past couple of months. He has got numerous bypasses on his both lower extremities. Yesterday, he underwent a right oonsqdy-yi-wrgvucgznyflt trunk bypass. He is now admitted. We are doing wound care. We are trying to get him to rehab, but he does not want to go. He wants to do home health. 11/25/2021: Patient seen and evaluated bedside. He is resting comfortably in bed. Denies significant pain, only reports mild pain with ambulation. Plan is to discharge patient home with [facility] outpatient physical therapy. Greater than 30 minutes spent managing the discharge of this patient. Vitals/I&O Vitals/I&O: Vital Signs Date Time Temp Pulse Resp B/P (MAP) Pulse Ox O2 Delivery O2 Flow Rate FiO2 11/25/21 08:22 Room Air 11/25/21 07:56 78 155/80 11/25/21 07:00 98.1 18 98.1 11/25/21 02:38 98 11/24/21 14:11 6.0 I & O 11/24/21 11/24/21 11/25/21 15:00 23:00 07:00 Intake Total 240 ml 340 ml Output Total 375 ml 400 ml 950 ml Balance -135 ml -60 ml -950 ml Physical Exam Heart: Regular rate, Other (Palpable left posterior tibial pulse. Palpable pulse in superficially tunneled vein in right leg. Biphasic pt signal on right) Lungs: Crackles Abdomen: Soft, No tenderness Skin: Other (Right heel ulceration very superficial. Left leg woudns dressed.) Labs Labs: Laboratory Tests Test 11/24/21 17:18 11/24/21 20:24 11/25/21 03:00 11/25/21 07:35 Glucose (Fingerstick) 181 mg/dL (70-99) 138 mg/dL (70-99) 134 mg/dL (70-99) White Blood Count 11.1 x10^3/uL (4.0-11.0) Red Blood Count 2.91 x10^6/uL (4.30-5.70) Hemoglobin 8.6 g/dL (13.0-17.5) Hematocrit 26.2 % (39.0-53.0) Mean Corpuscular Volume 90 fL (79-100) Mean Corpuscular Hemoglobin 30 pg (25-35) Mean Corpuscular Hemoglobin Concent 33 g/dL (31-37) Red Cell Distribution Width 15.8 % (11.5-14.5) Platelet Count 471 x10^3/uL (140-400) Neutrophils (%) (Auto) 66 % (31-73) Lymphocytes (%) (Auto) 21 % (24-48) Monocytes (%) (Auto) 9 % (0-9) Eosinophils (%) (Auto) 2 % (0-3) Basophils (%) (Auto) 1 % (0-3) Neutrophils # (Auto) 7.3 x10^3/uL (1.8-7.7) Lymphocytes # (Auto) 2.4 x10^3/uL (1.0-4.8) Monocytes # (Auto) 1.0 x10^3/uL (0.0-1.1) Eosinophils # (Auto) 0.3 x10^3/uL (0.0-0.7) Basophils # (Auto) 0.1 x10^3/uL (0.0-0.2) Sodium Level 136 mmol/L (136-145) Potassium Level 3.6 mmol/L (3.5-5.1) Chloride Level 99 mmol/L (98-107) Carbon Dioxide Level 31 mmol/L (21-32) Anion Gap 6 (6-14) Blood Urea Nitrogen 15 mg/dL (8-26) Creatinine 0.8 mg/dL (0.7-1.3) Estimated GFR (Cockcroft-Gault) 101.1 Glucose Level 132 mg/dL (70-99) Calcium Level 9.0 mg/dL (8.5-10.1) Comment Review of Relevant I have reviewed the following items ifrah (where applicable) has been applied. Medications: Current Medications Medications (Trade) Dose Ordered Sig/Amara Route PRN Reason Start Time Stop Time Status Last Admin Dose Admin Rivaroxaban (Xarelto) 2.5 mg BID PO 11/25/21 09:00 11/25/21 07:53 Justifications for Admission Other Justification Severe peripheral vascular disease with gangrenous wounds in the lower extremities NANCY WARD MD Nov 25, 2021 11:54
--- NOTE | 2021-11-25 12:07 | PDOC3 ---
Discharge Summary Visit Information Date of Admission: Nov 24, 2021 Date of Discharge: Nov 25, 2021 Brief Hospital Course Allergies Allergies Coded Allergies Type Severity Reaction Last Updated Verified No Known Drug Allergies 11/22/21 No Vital Signs Vital Signs Date Time Temp Pulse Resp B/P (MAP) Pulse Ox O2 Delivery O2 Flow Rate FiO2 11/25/21 08:22 Room Air 11/25/21 07:56 78 155/80 11/25/21 07:00 98.1 18 98.1 11/25/21 02:38 98 11/24/21 14:11 6.0 Lab Results Laboratory Tests Test 11/23/21 16:35 11/23/21 20:06 11/24/21 08:27 11/24/21 11:32 Glucose (Fingerstick) 129 mg/dL (70-99) 132 mg/dL (70-99) 138 mg/dL (70-99) 114 mg/dL (70-99) Test 11/24/21 17:18 11/24/21 20:24 11/25/21 03:00 11/25/21 07:35 Glucose (Fingerstick) 181 mg/dL (70-99) 138 mg/dL (70-99) 134 mg/dL (70-99) White Blood Count 11.1 x10^3/uL (4.0-11.0) Red Blood Count 2.91 x10^6/uL (4.30-5.70) Hemoglobin 8.6 g/dL (13.0-17.5) Hematocrit 26.2 % (39.0-53.0) Mean Corpuscular Volume 90 fL (79-100) Mean Corpuscular Hemoglobin 30 pg (25-35) Mean Corpuscular Hemoglobin Concent 33 g/dL (31-37) Red Cell Distribution Width 15.8 % (11.5-14.5) Platelet Count 471 x10^3/uL (140-400) Neutrophils (%) (Auto) 66 % (31-73) Lymphocytes (%) (Auto) 21 % (24-48) Monocytes (%) (Auto) 9 % (0-9) Eosinophils (%) (Auto) 2 % (0-3) Basophils (%) (Auto) 1 % (0-3) Neutrophils # (Auto) 7.3 x10^3/uL (1.8-7.7) Lymphocytes # (Auto) 2.4 x10^3/uL (1.0-4.8) Monocytes # (Auto) 1.0 x10^3/uL (0.0-1.1) Eosinophils # (Auto) 0.3 x10^3/uL (0.0-0.7) Basophils # (Auto) 0.1 x10^3/uL (0.0-0.2) Sodium Level 136 mmol/L (136-145) Potassium Level 3.6 mmol/L (3.5-5.1) Chloride Level 99 mmol/L (98-107) Carbon Dioxide Level 31 mmol/L (21-32) Anion Gap 6 (6-14) Blood Urea Nitrogen 15 mg/dL (8-26) Creatinine 0.8 mg/dL (0.7-1.3) Estimated GFR (Cockcroft-Gault) 101.1 Glucose Level 132 mg/dL (70-99) Calcium Level 9.0 mg/dL (8.5-10.1) Test 11/25/21 11:45 Glucose (Fingerstick) 124 mg/dL (70-99) Laboratory Tests Test 11/24/21 17:18 11/24/21 20:24 11/25/21 03:00 11/25/21 07:35 Glucose (Fingerstick) 181 mg/dL (70-99) 138 mg/dL (70-99) 134 mg/dL (70-99) White Blood Count 11.1 x10^3/uL (4.0-11.0) Red Blood Count 2.91 x10^6/uL (4.30-5.70) Hemoglobin 8.6 g/dL (13.0-17.5) Hematocrit 26.2 % (39.0-53.0) Mean Corpuscular Volume 90 fL (79-100) Mean Corpuscular Hemoglobin 30 pg (25-35) Mean Corpuscular Hemoglobin Concent 33 g/dL (31-37) Red Cell Distribution Width 15.8 % (11.5-14.5) Platelet Count 471 x10^3/uL (140-400) Neutrophils (%) (Auto) 66 % (31-73) Lymphocytes (%) (Auto) 21 % (24-48) Monocytes (%) (Auto) 9 % (0-9) Eosinophils (%) (Auto) 2 % (0-3) Basophils (%) (Auto) 1 % (0-3) Neutrophils # (Auto) 7.3 x10^3/uL (1.8-7.7) Lymphocytes # (Auto) 2.4 x10^3/uL (1.0-4.8) Monocytes # (Auto) 1.0 x10^3/uL (0.0-1.1) Eosinophils # (Auto) 0.3 x10^3/uL (0.0-0.7) Basophils # (Auto) 0.1 x10^3/uL (0.0-0.2) Sodium Level 136 mmol/L (136-145) Potassium Level 3.6 mmol/L (3.5-5.1) Chloride Level 99 mmol/L (98-107) Carbon Dioxide Level 31 mmol/L (21-32) Anion Gap 6 (6-14) Blood Urea Nitrogen 15 mg/dL (8-26) Creatinine 0.8 mg/dL (0.7-1.3) Estimated GFR (Cockcroft-Gault) 101.1 Glucose Level 132 mg/dL (70-99) Calcium Level 9.0 mg/dL (8.5-10.1) Test 11/25/21 11:45 Glucose (Fingerstick) 124 mg/dL (70-99) Brief Hospital Course Mr. Cruz is a 55 old male who presented with: Arterial insufficiency with neuropathic ulcer, right heel. S/P aorto-bilateral femoral bypass He had right pjohchs-kd-zcsrsmfdmaejr trunk bypass utilizing ipsilateral nonreversed saphenous vein, as well as debridement of right heel decubitus ulcer, skin and subcutaneous tissue, 1 x1 cm. The patient is a pleasant 55-year-old male who we just discharged a few days ago. He is supposed to be doing outpatient rehab, but states he did not go. He has had numerous surgeries over the past couple of months. He has got numerous bypasses on his both lower extremities. Yesterday, he underwent a right rtfefgb-bk-nickueicvtcmr trunk bypass. He is now admitted. We are doing wound care. We are trying to get him to rehab, but he does not want to go. He wants to do home health. 11/25/2021: Patient seen and evaluated bedside. He is resting comfortably in bed. Denies significant pain, only reports mild pain with ambulation. Plan is to discharge patient home with [facility] outpatient physical therapy. I believe he denied home health services. Greater than 30 minutes spent managing the discharge of this patient. Discharge Information Condition at Discharge: Stable Disposition/Orders: D/C to Home Scheduled Amlodipine Besylate (Amlodipine Besylate) 10 Mg Tablet, 10 MG PO DAILY for 90 Days, #90 Prescribed by: YUNI MCCORMACK on 01/11/18836 Last Taken: Unknown Dose on 11/21/212099 Last Action: Continued on 11/22/211699 by CB ERWIN Aspirin (Aspirin Ec) 81 Mg Tablet.dr, 81 MG PO DAILYWBKFT for 90 Days, #90 Prescribed by: YUNI MCCORMACK on 01/11/18836 Last Taken: Unknown Dose on 11/21/212099 Last Action: Continued on 11/22/211700 by CB ERWIN Atorvastatin Calcium (Atorvastatin Calcium) 10 Mg Tablet, 10 MG PO QHS for 90 Days, #90 Prescribed by: YUNI MCCORMACK on 01/11/18836 Last Taken: Unknown Dose on 11/22/21 1030 Last Action: Continued on 11/22/211699 by CB ERWIN Clopidogrel Bisulfate (Clopidogrel) 75 Mg Tablet, 1 TAB PO DAILY for platelet inhibitor, #90 Ref 1 (Reported) Entered as Reported by: CHARLES ARANDA on 10/29/211026 Last Taken: Unknown Dose on 11/21/212099 Last Action: Continued on 11/22/211700 by CB ERWIN Cyanocobalamin (Vitamin B-12) (Vitamin B-12) 1,000 Mcg Tab.subl, 1 TAB SL DAILY for daily for 30 Days, #30 Ref 0 (Reported) Entered as Reported by: CHARLES ARANDA on 10/29/211026 Last Taken: Unknown Dose on 11/21/21 0900 Last Action: Converted on 1700 by CB ERWIN Diphenhydramine Hcl (Benadryl) 25 Mg Capsule, 25 MG PO DAILY for allergies, (Reported) Entered as Reported by: CHARLES ARANDA on 10/29/211026 Last Action: Continued on 11/22/211700 by CB ERWIN Ferrous Sulfate (Iron) 325 Mg Tablet, 325 MG PO DAILY for supplement, (Reported) Entered as Reported by: CHARLES ARANDA on 10/29/211026 Last Action: Continued on 11/22/211700 by CB ERWIN Hydrochlorothiazide (Hydrochlorothiazide Tablet ) 25 Mg Tablet, 25 MG PO DAILY for DIURETIC, Ref 0 (Reported) Entered as Reported by: CHARLES ARANDA on 10/29/211026 Last Taken: Unknown Dose on 11/21/212099 Last Action: Continued on 11/22/211700 by CB ERWIN Metformin Hcl (Metformin Hcl) 1,000 Mg Tablet, 1,000 MG PO BIDWMEALS for diabetes management, (Reported) Entered as Reported by: CHARLES ARANDA on 10/29/211026 Last Taken: Unknown Dose on 11/21/212099 Last Action: Last Taken Edited on 11/22/21 1226 by Andreia Wren Omeprazole (Omeprazole) 40 Mg Capsule.dr, 1 CAP PO DAILY for GERD, #30 Ref 3 (Reported) Entered as Reported by: CHARLES ARANDA on 10/29/211026 Last Taken: Unknown Dose on 11/22/21 103 Last Action: Converted on 11/22/211700 by CB ERWIN Rivaroxaban (Xarelto) 10 Mg Tablet, 2.5 MG PO BID for pad for 90 Days, #45 Prescribed by: CATHY GARCIA on 11/15/211101 Last Taken: Unknown Dose on 11/20/21 Last Action: HELD on 11/22/211700 by CB ERWIN Scheduled PRN Lorazepam (Ativan) 0.5 Mg Tablet, 0.5 MG PO PRN Q6HRS PRN for ANXIETY / AGIT ATION for 7 Days, #14 Prescribed by: CATHY GARCIA on 11/15/21 110 Last Taken: Unknown Dose on 11/22/21 1030 Last Action: Continued on 11/22/211700 by CB ERWIN Oxycodone/Apap 5-325 (Percocet 5-325 Mg Tablet ) 1 Each Tablet, 1 TAB PO PRN Q4HRS PRN for MODERATE PAIN for 10 Days, #30 Prescribed by: CATHY GARCIA on 11/15/21 1102 Last Taken: Unknown Dose on 11/22/21 1030 Last Action: HELD on 11/22/21 170 by CB ERWIN Justicifation of Admission Dx: Justifications for Admission: Justification of Admission Dx: Yes NANCY WARD MD Nov 25, 2021 12:07
[2021-11-25] MEDS ORDERED: OXYC5TAB4 PO (12:11)
--- NOTE | 2021-11-25 13:01 | NUR ---
SS following up with discharge planning. SS reviewed pt chart and discussed with pt RN. Pt is currently on room air. Discharge order on the chart for home. Script received for outpatient PT/OT. Script and clinical phoned and faxed to [facility]. Pt's RN notified.
--- NOTE | 2021-11-25 15:00 | NUR ---
Consult wound care yesterday and again today. Left message.
[2021-11-25 15:17] VITALS: BP 130/71
--- NOTE | 2021-11-25 15:45 | PDOC ---
Provider Note Date of Service: DATE: 11/25/21 TIME: 15:42 Provider Note Provider Note Vascular S: Patient resting comfortably in bed. Complains of incisional pain right leg. O: Awake and alert VSS, afebrile Right leg incision dry and intact. Palpable graft pulse, strong DP doppler signal Left leg incision dry and intact. Wound medial calf healthy with pink wound bed. Lateral foot wound clean with pink wound bed. A/P: Arterial insufficiency with neuropathic ulcer, right heel. Status post aorto-bilateral femoral bypass and right leg bypass POD #3 Right wusffez-sa-oncurhrxavulg trunk bypass utilizing ipsilateral nonreversed saphenous vein. Debridement of right heel decubitus ulcer, skin and subcutaneous tissue, 1 x 1 cm. Continue local wound care, needs to continue to off-load left foot. May toe touch with right foot Continue oral anticoagulation May discharge when medically stable. Justicifation of Admission Dx: Justifications for Admission: Justification of Admission Dx: Yes PAM KAHN APRN Nov 25, 2021 15:45
[2021-11-25 19:50] VITALS: BP 132/73
[2021-11-25] MEDS: ATORVASTATIN CALCIUM 10 MG TABLET. PO SCH (21:17)
[2021-11-25 22:39] VITALS: BP 145/82
[2021-11-26 02:23] VITALS: BP 131/80
[2021-11-26 04:53] LABS: BASO # 0.1 x10^3/uL (0.0-0.2); BASO % 1 % (0-3); EOS # 0.2 x10^3/uL (0.0-0.7); EOS % 1 % (0-3); HEMOGLOBIN 9.4 g/dL (13.0-17.5); LYMPH # 1.8 x10^3/uL (1.0-4.8); LYMPH % 17 % (24-48); MEAN CORPUSCULAR HEMOGLOBIN 29 pg (25-35); MEAN CORPUSCULAR HGB CONC 32 g/dL (31-37); MEAN CORPUSCULAR VOLUME 90 fL (79-100); MONO % 9 % (0-9); NEUT # 8.1 x10^3/uL (1.8-7.7); NEUT % 72 % (31-73); PLATELET COUNT 504 x10^3/uL (140-400); RED BLOOD COUNT 3.22 x10^6/uL (4.30-5.70); RED CELL DISTRIBUTION WIDTH 15.5 % (11.5-14.5); WHITE BLOOD COUNT 11.2 x10^3/uL (4.0-11.0)
[2021-11-26] MEDS: PANTOPRAZOLE 40 MG TABLET.DR. PO SCH (05:56)
[2021-11-26] MEDS: ACETAMINOPHEN 325 MG TABLET. PO SCH ×2 (05:59→14:54)
[2021-11-26 07:00] VITALS: BP 128/73
[2021-11-26] MEDS: hydroCHLOROthiazide 25 MG TABLET PO SCH (08:22)
[2021-11-26] MEDS: FERROUS SULFATE 325 MG TABLET. PO SCH (08:22)
[2021-11-26] MEDS: ASPIRIN ENTERIC COATED 81 MG TABLET.DR. PO SCH (08:23)
[2021-11-26] MEDS: diphenhydrAMINE HCL 25 MG CAPSULE PO SCH (08:23)
[2021-11-26] MEDS: CYANOCOBALAMIN (VITAMIN B-12) 1,000 MCG TABLET. PO SCH (08:24)
[2021-11-26] MEDS: RIVAROXABAN 2.5 MG TABLET PO SCH (08:24)
[2021-11-26] MEDS: CLOPIDOGREL BISULFATE 75 MG TABLET PO SCH (08:24)
[2021-11-26] MEDS: ELECTROLYTE (NON-ICU) PROTOCOL. MC SCH (09:00)
--- NOTE | 2021-11-26 10:43 | NUR ---
SS following up with discharge planning. SS reviewed pt chart and discussed with pt RN. Pt is currently on room air. COVID19 negative. Wound care met with pt this morning. Discharge order on the chart. Script and clinical phoned and faxed to [facility], ; fax [phone], for services. Pt reporting that his wheelchair needs to be fixed. SS contacted [facility], ; fax [phone], and made request to come to pt's home and provide maintenance for wheelchair. Pt will discharge today and return to home at 1500 via [employer], . Pt, pt's family, and pt's RN notified. Addendum: 11/26/21 at 1630 by JENI SANCHEZ SS Floor contacted SS stating that transportation did not show. SS contacted [facility] and [employer] stated that they came to the floor at 1500 and were told that pt is not on the floor. [facility] stated that they have no more trans[facility]. SS contacted [employer], , and rescheduled transportation for today between 1730 and 1800. Pt's RN notified.
[2021-11-26 11:00] VITALS: BP 146/74
--- NOTE | 2021-11-26 12:38 | PDOC ---
[employer] PROGRESS NOTE Date of Service DOS: DATE: 11/26/21 TIME: 12:33 Chief Complaint Chief Complaint PAD Postoperative day #1 right ckkfqmj-ix-eqsodosratrnd trunk bypass with ipsilateral vein harvest right foot excisional debridement numerous other lower extremity bypass surgeries within the past few weeks History of Present Illness History of Present Illness The patient is a pleasant 55-year-old male who we just discharged a few days ago. He is supposed to be doing outpatient rehab, but states he did not go. He has had numerous surgeries over the past couple of months. He has got numerous bypasses on his both lower extremities. Yesterday, he underwent a right chufeus-xz-swkxsuuhzidsu trunk bypass. He is now admitted. We are doing wound care. We are trying to get him to rehab, but he does not want to go. He wants to do home health. 11/25/2021: Patient seen and evaluated bedside. He is resting comfortably in bed. Denies significant pain, only reports mild pain with ambulation. Plan is to discharge patient home with [facility] outpatient physical therapy. Greater than 30 minutes spent managing the discharge of this patient. 11/26/2021: Patient seen and evaluated. He did not discharge yesterday because not seen by wound care. Wound care evaluated him and he was stable for discharge. Denies significant pain. Greater than 30 minutes spent managing the discharge this patient. Vitals/I&O Vitals/I&O: Vital Signs Date Time Temp Pulse Resp B/P (MAP) Pulse Ox O2 Delivery O2 Flow Rate FiO2 11/26/21 11:00 97.7 77 18 146/74 (98) 92 Room Air 97.7 I & O 11/25/21 11/25/21 11/26/21 15:00 23:00 07:00 Intake Total 650 ml 440 ml 50 ml Output Total 650 ml 150 ml Balance 650 ml -210 ml -100 ml Physical Exam General: Alert Heart: Regular rate, Other (Palpable left posterior tibial pulse. Palpable pulse in superficially tunneled vein in right leg. Biphasic pt signal on right) Lungs: Crackles Abdomen: Soft, No tenderness Extremities: No clubbing, No edema Skin: Other (Right heel ulceration very superficial. Left leg woudns dressed.) Labs Labs: Laboratory Tests Test 11/25/21 16:11 11/25/21 20:38 11/26/21 04:00 11/26/21 07:50 Glucose (Fingerstick) 157 mg/dL (70-99) 169 mg/dL (70-99) 137 mg/dL (70-99) White Blood Count 11.2 x10^3/uL (4.0-11.0) Red Blood Count 3.22 x10^6/uL (4.30-5.70) Hemoglobin 9.4 g/dL (13.0-17.5) Hematocrit 29.0 % (39.0-53.0) Mean Corpuscular Volume 90 fL (79-100) Mean Corpuscular Hemoglobin 29 pg (25-35) Mean Corpuscular Hemoglobin Concent 32 g/dL (31-37) Red Cell Distribution Width 15.5 % (11.5-14.5) Platelet Count 504 x10^3/uL (140-400) Neutrophils (%) (Auto) 72 % (31-73) Lymphocytes (%) (Auto) 17 % (24-48) Monocytes (%) (Auto) 9 % (0-9) Eosinophils (%) (Auto) 1 % (0-3) Basophils (%) (Auto) 1 % (0-3) Neutrophils # (Auto) 8.1 x10^3/uL (1.8-7.7) Lymphocytes # (Auto) 1.8 x10^3/uL (1.0-4.8) Monocytes # (Auto) 1.0 x10^3/uL (0.0-1.1) Eosinophils # (Auto) 0.2 x10^3/uL (0.0-0.7) Basophils # (Auto) 0.1 x10^3/uL (0.0-0.2) Test 11/26/21 10:57 Glucose (Fingerstick) 143 mg/dL (70-99) Comment Review of Relevant I have reviewed the following items ifrah (where applicable) has been applied. Justifications for Admission Other Justification Severe peripheral vascular disease with gangrenous wounds in the lower extremities NANCY WARD MD Nov 26, 2021 12:38
--- NOTE | 2021-11-26 12:49 | NUR ---
Wound/Ostomy Care Wound Type/Assessment: Wound consult for multiple wounds. 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 All wounds cleansed, pictured and measured for discharge. Treatment Recommendations/Plan: Buttocks: barrier cream BID and PRN LLE, Left lateral foot, heel and ankle: Hydrofera blue moistened with saline, cover with vaseline gauze and ABD secure with kerlix. Change every 3 days and PRN. Education provided: Pt educated on PU prevention, s/s of infection and WC POC. Pt v/u Offloading surface/device: float heels, TQ2H Recommended Referrals/Tests: na Discharge Recommendations for dressings: see above
--- NOTE | 2021-11-26 12:49 | PDOC3 ---
Discharge Summary Visit Information Date of Admission: Nov 24, 2021 Date of Discharge: Nov 26, 2021 Brief Hospital Course Allergies Allergies Coded Allergies Type Severity Reaction Last Updated Verified No Known Drug Allergies 11/22/21 No Vital Signs Vital Signs Date Time Temp Pulse Resp B/P (MAP) Pulse Ox O2 Delivery O2 Flow Rate FiO2 11/26/21 11:00 97.7 77 18 146/74 (98) 92 Room Air 97.7 Lab Results Laboratory Tests Test 11/24/21 17:18 11/24/21 20:24 11/25/21 03:00 11/25/21 07:35 Glucose (Fingerstick) 181 mg/dL (70-99) 138 mg/dL (70-99) 134 mg/dL (70-99) White Blood Count 11.1 x10^3/uL (4.0-11.0) Red Blood Count 2.91 x10^6/uL (4.30-5.70) Hemoglobin 8.6 g/dL (13.0-17.5) Hematocrit 26.2 % (39.0-53.0) Mean Corpuscular Volume 90 fL (79-100) Mean Corpuscular Hemoglobin 30 pg (25-35) Mean Corpuscular Hemoglobin Concent 33 g/dL (31-37) Red Cell Distribution Width 15.8 % (11.5-14.5) Platelet Count 471 x10^3/uL (140-400) Neutrophils (%) (Auto) 66 % (31-73) Lymphocytes (%) (Auto) 21 % (24-48) Monocytes (%) (Auto) 9 % (0-9) Eosinophils (%) (Auto) 2 % (0-3) Basophils (%) (Auto) 1 % (0-3) Neutrophils # (Auto) 7.3 x10^3/uL (1.8-7.7) Lymphocytes # (Auto) 2.4 x10^3/uL (1.0-4.8) Monocytes # (Auto) 1.0 x10^3/uL (0.0-1.1) Eosinophils # (Auto) 0.3 x10^3/uL (0.0-0.7) Basophils # (Auto) 0.1 x10^3/uL (0.0-0.2) Sodium Level 136 mmol/L (136-145) Potassium Level 3.6 mmol/L (3.5-5.1) Chloride Level 99 mmol/L (98-107) Carbon Dioxide Level 31 mmol/L (21-32) Anion Gap 6 (6-14) Blood Urea Nitrogen 15 mg/dL (8-26) Creatinine 0.8 mg/dL (0.7-1.3) Estimated GFR (Cockcroft-Gault) 101.1 Glucose Level 132 mg/dL (70-99) Calcium Level 9.0 mg/dL (8.5-10.1) Test 11/25/21 11:45 11/25/21 16:11 11/25/21 20:38 11/26/21 04:00 Glucose (Fingerstick) 124 mg/dL (70-99) 157 mg/dL (70-99) 169 mg/dL (70-99) White Blood Count 11.2 x10^3/uL (4.0-11.0) Red Blood Count 3.22 x10^6/uL (4.30-5.70) Hemoglobin 9.4 g/dL (13.0-17.5) Hematocrit 29.0 % (39.0-53.0) Mean Corpuscular Volume 90 fL (79-100) Mean Corpuscular Hemoglobin 29 pg (25-35) Mean Corpuscular Hemoglobin Concent 32 g/dL (31-37) Red Cell Distribution Width 15.5 % (11.5-14.5) Platelet Count 504 x10^3/uL (140-400) Neutrophils (%) (Auto) 72 % (31-73) Lymphocytes (%) (Auto) 17 % (24-48) Monocytes (%) (Auto) 9 % (0-9) Eosinophils (%) (Auto) 1 % (0-3) Basophils (%) (Auto) 1 % (0-3) Neutrophils # (Auto) 8.1 x10^3/uL (1.8-7.7) Lymphocytes # (Auto) 1.8 x10^3/uL (1.0-4.8) Monocytes # (Auto) 1.0 x10^3/uL (0.0-1.1) Eosinophils # (Auto) 0.2 x10^3/uL (0.0-0.7) Basophils # (Auto) 0.1 x10^3/uL (0.0-0.2) Test 11/26/21 07:50 11/26/21 10:57 Glucose (Fingerstick) 137 mg/dL (70-99) 143 mg/dL (70-99) Laboratory Tests Test 11/25/21 16:11 11/25/21 20:38 11/26/21 04:00 11/26/21 07:50 Glucose (Fingerstick) 157 mg/dL (70-99) 169 mg/dL (70-99) 137 mg/dL (70-99) White Blood Count 11.2 x10^3/uL (4.0-11.0) Red Blood Count 3.22 x10^6/uL (4.30-5.70) Hemoglobin 9.4 g/dL (13.0-17.5) Hematocrit 29.0 % (39.0-53.0) Mean Corpuscular Volume 90 fL (79-100) Mean Corpuscular Hemoglobin 29 pg (25-35) Mean Corpuscular Hemoglobin Concent 32 g/dL (31-37) Red Cell Distribution Width 15.5 % (11.5-14.5) Platelet Count 504 x10^3/uL (140-400) Neutrophils (%) (Auto) 72 % (31-73) Lymphocytes (%) (Auto) 17 % (24-48) Monocytes (%) (Auto) 9 % (0-9) Eosinophils (%) (Auto) 1 % (0-3) Basophils (%) (Auto) 1 % (0-3) Neutrophils # (Auto) 8.1 x10^3/uL (1.8-7.7) Lymphocytes # (Auto) 1.8 x10^3/uL (1.0-4.8) Monocytes # (Auto) 1.0 x10^3/uL (0.0-1.1) Eosinophils # (Auto) 0.2 x10^3/uL (0.0-0.7) Basophils # (Auto) 0.1 x10^3/uL (0.0-0.2) Test 11/26/21 10:57 Glucose (Fingerstick) 143 mg/dL (70-99) Brief Hospital Course The patient is a pleasant 55-year-old male who we just discharged a few days ago. He is supposed to be doing outpatient rehab, but states he did not go. He has had numerous surgeries over the past couple of months. He has got numerous bypasses on his both lower extremities. Yesterday, he underwent a right iueabeh-ye-xuqrbnnmpstat trunk bypass. He is now admitted. We are doing wound care. We are trying to get him to rehab, but he does not want to go. He wants to do home health. 11/25/2021: Patient seen and evaluated bedside. He is resting comfortably in bed. Denies significant pain, only reports mild pain with ambulation. Plan is to discharge patient home with [facility] outpatient physical therapy. Greater than 30 minutes spent managing the discharge of this patient. 11/26/2021: Patient seen and evaluated. He did not discharge yesterday because not seen by wound care. Wound care evaluated him and he was stable for discharge. Denies significant pain. Greater than 30 minutes spent managing the discharge this patient. Discharge Information Condition at Discharge: Stable Disposition/Orders: D/C to Home Scheduled Amlodipine Besylate (Amlodipine Besylate) 10 Mg Tablet, 10 MG PO DAILY for 90 Days, #90 Prescribed by: YUNI MCCORMACK on 01/11/18836 Last Taken: Unknown Dose on 11/21/212099 Last Action: Continued on 1699 by CB ERWIN Aspirin (Aspirin Ec) 81 Mg Tablet.dr, 81 MG PO DAILYWBKFT for 90 Days, #90 Prescribed by: YUNI MCCORMACK on 01/11/18836 Last Taken: Unknown Dose on 11/21/212099 Last Action: Continued on 11/22/211700 by CB ERWIN Atorvastatin Calcium (Atorvastatin Calcium) 10 Mg Tablet, 10 MG PO QHS for 90 Days, #90 Prescribed by: YUNI MCCORMACK on 01/11/18836 Last Taken: Unknown Dose on 11/22/21 103 Last Action: Continued on 11/22/211699 by CB ERWIN Clopidogrel Bisulfate (Clopidogrel) 75 Mg Tablet, 1 TAB PO DAILY for platelet inhibitor, #90 Ref 1 (Reported) Entered as Reported by: CHARLES ARANDA on 10/29/21 1027 Last Taken: Unknown Dose on 11/21/212099 Last Action: Continued on 11/22/211700 by CB ERWIN Cyanocobalamin (Vitamin B-12) (Vitamin B-12) 1,000 Mcg Tab.subl, 1 TAB SL DAILY for daily for 30 Days, #30 Ref 0 (Reported) Entered as Reported by: CHARLES ARANDA on 10/29/211026 Last Taken: Unknown Dose on 11/21/21 0900 Last Action: Converted on 11/22/211700 by CB ERWIN Diphenhydramine Hcl (Benadryl) 25 Mg Capsule, 25 MG PO DAILY for allergies, (Reported) Entered as Reported by: CHARLES ARANDA on 10/29/211026 Last Action: Continued on 11/22/211700 by CB ERWIN Ferrous Sulfate (Iron) 325 Mg Tablet, 325 MG PO DAILY for supplement, (Reported) Entered as Reported by: CHARLES ARANDA on 10/29/211026 Last Action: Continued on 11/22/211700 by CB ERWIN Hydrochlorothiazide (Hydrochlorothiazide Tablet ) 25 Mg Tablet, 25 MG PO DAILY for DIURETIC, Ref 0 (Reported) Entered as Reported by: CHARLES ARANDA on 10/29/211026 Last Taken: Unknown Dose on 11/21/212099 Last Action: Continued on 11/22/211700 by CB ERWIN Metformin Hcl (Metformin Hcl) 1,000 Mg Tablet, 1,000 MG PO BIDWMEALS for diabetes management, (Reported) Entered as Reported by: CHARLES ARANDA on 10/29/211026 Last Taken: Unknown Dose on 11/21/212099 Last Action: Last Taken Edited on 11/22/21 1226 by Andreia Wren Omeprazole (Omeprazole) 40 Mg Capsule.dr, 1 CAP PO DAILY for GERD, #30 Ref 3 (Reported) Entered as Reported by: CHARLES ARANDA on 10/29/211026 Last Taken: Unknown Dose on 11/22/21 103 Last Action: Converted on 11/22/211700 by CB ERWIN Rivaroxaban (Xarelto) 10 Mg Tablet, 2.5 MG PO BID for pad for 90 Days, #45 Prescribed by: CATHY GARCIA on 11/15/211101 Last Taken: Unknown Dose on 11/20/21 Last Action: HELD on 11/22/211700 by CB ERWIN Scheduled PRN Lorazepam (Ativan) 0.5 Mg Tablet, 0.5 MG PO PRN Q6HRS PRN for ANXIETY / AGITATION for 7 Days, #14 Prescribed by: CATHY GARCIA on 11/15/211101 Last Taken: Unknown Dose on 11/22/21 103 Last Action: Continued on 11/22/211700 by CB ERWIN Oxycodone/Apap 5-325 (Percocet 5-325 Mg Tablet ) 1 Each Tablet, 1 TAB PO PRN Q4HRS PRN for MODERATE PAIN for 10 Days, #30 Prescribed by: CATHY GARCIA on 11/15/211101 Last Taken: Unknown Dose on 11/22/21 103 Last Action: HELD on 11/22/211700 by CB ERWIN Justicifation of Admission Dx: Justifications for Admission: Justification of Admission Dx: Yes NANCY WARD MD Nov 26, 2021 12:49
--- NOTE | 2021-11-26 12:53 | PDOC ---
Provider Note Date of Service: DATE: 11/26/21 TIME: 12:50 Provider Note Provider Note Vascular S: Patient resting comfortably in bed. Complains of incisional pain right leg. Planning to discharge home today. O: Awake and alert VSS, afebrile Right leg incision dry and intact. Palpable graft pulse, strong DP doppler signal Left leg incision dry and intact. Wound medial calf healthy with pink wound bed. Lateral foot wound clean with pink wound bed. A/P: Arterial insufficiency with neuropathic ulcer, right heel. Status post aorto-bilateral femoral bypass and right leg bypass POD #4 Right rzlxhyr-lj-naeputpilgzkh trunk bypass utilizing ipsilateral nonreversed saphenous vein. Debridement of right heel decubitus ulcer, skin and subcutaneous tissue, 1 x 1 cm. Continue local wound care, needs to continue to off-load left foot. May toe touch with right foot Continue oral anticoagulation May discharge when medically stable. Justicifation of Admission Dx: Justifications for Admission: Justification of Admission Dx: Yes PAM KAHN APRN Nov 26, 2021 12:53
--- NOTE | 2021-11-26 17:46 | NUR ---
Discharge Note: SIRISHA SANTOS Discharge instructions and discharge home medications reviewed with Patient and a copy given. All questions have been answered and understanding verbalized. 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 Pt verbalized understanding that wheelchair company would come out to fix it after he was discharged. Pt given new walker this admit. states they never received their home walker upon discharge their last admit. Pt given all follow up appointments and given wound care instructions. Pt in stable condition at time of DC. DC'd via own wheelchair with [facility].
== END 2021-11-26 17:51 | disposition home or self-care (01) | DRG 253 ==
LOC: OPSVCIP 11:48 → 6 SOUTH 18:30
PROVIDERS: ADMIT Internal Medicine; ATTEND Internal Medicine
PROC: 041K09L Bypass Right Femoral Artery to Popliteal Artery with Autologous Venous Tissue, Open Approach (ICD-10-PCS; 2021-11-22)
PROC: 06BP0ZZ Excision of Right Saphenous Vein, Open Approach (ICD-10-PCS; 2021-11-22)
PROC: 0JBQ0ZZ Excision of Right Foot Subcutaneous Tissue and Fascia, Open Approach (ICD-10-PCS; principal; 2021-11-22 13:00)
PROC: 30233N1 Transfusion of Nonautologous Red Blood Cells into Peripheral Vein, Percutaneous Approach (ICD-10-PCS; 2021-11-23)
DX: E11.51 Type 2 diabetes mellitus with diabetic peripheral angiopathy without gangrene (principal); D62 Acute posthemorrhagic anemia; E78.5 Hyperlipidemia, unspecified; F41.9 Anxiety disorder, unspecified; I10 Essential (primary) hypertension; I25.10 Atherosclerotic heart disease of native coronary artery without angina pectoris; I77.1 Stricture of artery; K21.9 Gastro-esophageal reflux disease without esophagitis; Z79.01 Long term (current) use of anticoagulants; Z79.02 Long term (current) use of antithrombotics/antiplatelets; Z79.84 Long term (current) use of oral hypoglycemic drugs; Z82.49 Family history of ischemic heart disease and other diseases of the circulatory system; Z91.19 Patient's noncompliance with other medical treatment and regimen; F32.A Depression, unspecified; G89.29 Other chronic pain; Z20.822 Contact with and (suspected) exposure to COVID-19; L89.619 Pressure ulcer of right heel, unspecified stage
CPT/HCPCS: 36415; 36430; 80048; 82962; 83735; 84100; 85014; 85018; 85025; 86850; 86900; 86901; 86920; A4213; A4222; A4223; A4314; A4364; A4452; A4930; A6223; A6402; A6443; C1751; J0690; J1100; J1644; J1815; J2270; J2370; J2405; J2704; J2720; J3010; J7030; J7040; J7120; P9016; Q9967; G0378; Q0163